=== PATIENT | male | born 1940 | race Caucasian/White ===

== ENCOUNTER 2017-05-28 07:06 | Inpatient (IN) | payer MEDICARE, OTHER ==
[2017-05-28] MEDS ORDERED: Ondansetron 4 MG/2 ML SDV IVPUSH ONE (07:32)
[2017-05-28] MEDS ORDERED: HYDROmorphone 0.5 MG/0.5 ML Syringe IVPUSH ONE (07:32)
[2017-05-28] MEDS ORDERED: Sodium Chloride 0.9% 10 ML Syringe FLUSH PRN (07:32)
[2017-05-28] MEDS ORDERED: Sodium Chloride 0.9% 500 ML IV ONE (07:32)
--- NOTE | 2017-05-28 07:35 | EDM.PDOC ---
ED HPI GENERAL MEDICAL PROBLEM - General Chief Complaint: Neurological Problem Stated Complaint: [facility] Time Seen by Provider: 05/28/17 07:15 Source of Information: Reports: Patient, RN Notes Reviewed - History of Present Illness INITIAL COMMENTS - FREE TEXT/NARRATIVE: 77-year-old male has been brought in by ambulance with vertigo type dizziness, lightheadedness, nausea,this all started upon awakening this morning about 2 hours ago. He also does have some mild numbness of the entire left face. He states he has some very mild numbness of his left hand. He states he was feeling fine yesterday. He has been having a lot of neck discomfort worsening over the past 2-3 months. 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 It was diagnosed and treated about 3 years ago. He was reported to be "cancer free at the time of his last checkup about a year ago. He does have posterior headache this morning as well. He has not taken his morning meds. He does have history of hypertension, type 2 diabetes and COPD. states he has had a loose productive cough for several weeks. No obvious fever or chills. Also of note he is on xarelto. Due to the numbness of his left face and hand this was called as a stroke alert. - Related Data Allergies Allergy/AdvReac Type Severity Reaction Status Date / Time adhesive Allergy Intermediate thin skin, Verified 05/28/17 07:09 tears and bruising Home Meds: Home Meds Calcitonin,[place],Synthetic [Calcitonin-Gnaden[place]] 200 unit MARILIN DAILY 09/06/14 [ History] Fluticasone Propionate [Flonase] 2 spray MARILIN ASDIRECTED 09/06/14 [History] Glimepiride [Amaryl] 2 mg PO DAILY 09/06/14 [History] Linagliptin [Tradjenta] 5 mg PO DAILY 09/06/14 [History] Omeprazole 20 mg PO DAILY 09/06/14 [History] predniSONE [Prednisone] 10 mg PO DAILY 09/06/14 [History] Magnesium Oxide 400 mg PO DAILY 30 Days 03/04/15 [Rx] Calcium Carbonate [Calcium] 600 mg PO DAILY 07/22/15 [History] Cholecalciferol (Vitamin D3) [Vitamin D3] 2,000 unit PO DAILY 07/22/15 [History] Metoprolol Tartrate 75 mg PO BID 07/22/15 [History] Sennosides/Docusate Sodium [Senna-Docusate Sodium] 8.6 - 50 mg PO BID 07/22/15 [ History] Acetaminophen [Tylenol] 650 mg PO Q4H PRN #0 tablet 03/01/16 [Rx] Hydrocodone/Acetaminophen [Hydrocodon-Acetaminophen 5-325] 1 tab PO Q8H PRN #30 tablet 03/01/16 [Rx] Celecoxib [CeleBREX] 200 mg PO DAILY 05/28/17 [History] Doxazosin [Cardura] 4 mg PO DAILY 05/28/17 [History] Furosemide [Lasix] 20 mg PO DAILY 05/28/17 [History] Rosuvastatin [Crestor] 10 mg PO BEDTIME 05/28/17 [History] Zinc Gluconate [Elemental Zinc] 30 mg PO DAILY 05/28/17 [History] Past Medical History HEENT History: Reports: Hard of Hearing, Other (See Below) Other HEENT History: cerumen impaction, tinnitis, very [place] Cardiovascular History: Reports: Aneurysm, High Cholesterol, Hypertension, SOB on Exertion, Other (See Below) Other Cardiovascular History: AAA, tachycardia, SVT Respiratory History: Reports: SOB, Other (See Below) Other Respiratory History: hypoxia,Oxygen at home at night and sometimes during the day, cough Gastrointestinal History: Reports: Other (See Below) Other Gastrointestinal History: abdominal air of unknown origin, colon polyps Genitourinary History: Reports: BPH, Other (See Below) Other Genitourinary History: dysuria, nocturia, urgency Musculoskeletal History: Reports: Back Pain, Chronic, Osteoporosis, RA, Other ( See Below) Other Musculoskeletal History: fall and Lt hip fracture in April 2015. Wheelchair bound since then. Reports having old fractures in lumbar vertebrae. Neurological History: Reports: None Psychiatric History: Reports: Depression Other Psychiatric History: delerium, confusion, insomnia Endocrine/Metabolic History: Reports: Diabetes, Type II Hematologic History: Reports: None Immunologic History: Reports: None Oncologic (Cancer) History: Reports: Lymphoma, Non-Hodgkin's Lymphoma Other Oncologic History: B-cell lymphoma. Patient has a implanted IV port Dermatologic History: Reports: None - Infectious Disease History Infectious Disease History: Reports: None - Past Surgical History Cardiovascular Surgical History: Reports: AAA repair, Other (See Below) GI Surgical History: Reports: Appendectomy, Colonoscopy, Other (See Below) Musculoskeletal Surgical History: Reports: Other (See Below) Social & Family History - Family History Family Medical History: Noncontributory - Tobacco Use Smoking Status *Q: Unknown Ever Smoked Years of Tobacco use: 25 Packs/Tins Daily: 1 Used Tobacco, but Quit: Yes Month Tobacco Last Used: 1983 Second Hand Smoke Exposure: No - Alcohol Use Days Per Week of Alcohol Use: 0 - Recreational Drug Use Recreational Drug Use: No Drug Use in Last 12 Months: No ED ROS GENERAL - Review of Systems Review Of Systems: See Below Constitutional: Denies: Fever, Chills, Diaphoresis HEENT: Reports: Vertigo. Denies: Sinus Problem, Throat Pain Respiratory: Reports: Shortness of Breath, Cough (Mild chronically), Sputum ( for the past several weeks intermittent ) Cardiovascular: Reports: Dyspnea on Exertion (Chronically). Denies: Chest Pain GI/Abdominal: Reports: Nausea (Mild). Denies: Abdominal Pain, Diarrhea, Vomiting Musculoskeletal: Reports: Neck Pain (For the past 2-3 months), Shoulder Pain ( Left-sided). Denies: Arm Pain Skin: Denies: Rash Neurological: Reports: Numbness, Tingling (Left face left hand), Weakness ( Generalized). Denies: Trouble Speaking ED EXAM, NEURO - Physical Exam Exam: See Below General Appearance: Alert, Mild Distress Eye Exam: Bilateral Eye: PERRL Throat/Mouth: Normal Inspection, Other (Oral mucosa is dry) Head Exam: Atraumatic. No: Facial Swelling Neck: Other (Mild tenderness left posterior base of neck, increased pain with motion of neck) Respiratory/Chest: No Respiratory Distress, Lungs Clear, Normal Breath Sounds Cardiovascular: Regular Rate, Rhythm GI/Abdominal: Soft, Non-Tender. No: Guarding Neurological: Alert, Oriented x 3, Other (Patient has no definite focal weakness , as have ataxia with [id number] testing bilateral, sensation is intact to touch upper and lower extremities, sensation intact to touch left base, no facial droop) EKG INTERPRETATION EKG Date: 05/28/17 Rhythm: NSR P-Wave: Present QRS: Normal ST-T: Normal Course - Vital Signs Last Recorded V/S: Last Vital Signs Temp 96.9 F 05/28/17 07:10 Pulse 57 L 05/28/17 07:10 Resp 15 05/28/17 07:10 BP 130/98 H 05/28/17 07:10 Pulse Ox 97 05/28/17 07:10 - Orders/Labs/Meds Orders: Active Orders 24 hr Category Date Time Status EKG 12 Lead [EKG Documentation Completion] [RC] STAT Care 05/28/17 07:31 Active Peripheral IV Care [RC] . DIRECTED Care 05/28/17 07:32 Active Sodium Chloride 0.9% [Saline Flush] Med 05/28/17 07:32 Active 10 ml FLUSH ASDIRECTED PRN Peripheral IV Insertion Adult [OM.PC] Stat Oth 05/28/17 07:31 Ordered Medication Orders Sodium Chloride (Saline Flush) 10 ml FLUSH ASDIRECTED PRN PRN Reason: Keep Vein Open Last Admin: 05/28/17 08:10 Dose: 10 ml Labs: Laboratory Tests 05/28/17 05/28/17 05/28/17 Range/Units 07:40 07:47 07:47 WBC 8.59 (4.23-9.07) K/mm3 RBC 4.47 L (4.63-6.08) M/mm3 Hgb 12.9 L (13.7-17.5) gm/L Hct 40.4 (40.1-51.0) % MCV 90.4 (79.0-92.2) fl MCH 28.9 (25.7-32.2) pg MCHC 31.9 L (32.2-35.5) g/dl RDW Std Deviation 45.2 H (35.1-43.9) fL Plt Count 79 L (163-337) K/mm3 MPV 10.7 (9.4-12.3) fl Neut % (Auto) 70.3 H (34.0-67.9) % Lymph % (Auto) 18.6 L (21.8-53.1) % [place] % (Auto) 8.5 (5.3-12.2) % Eos % (Auto) 0.9 (0.8-7.0) Baso % (Auto) 0.2 (0.1-1.2) % Neut # (Auto) 6.03 H (1.78-5.38) K/mm3 Lymph # (Auto) 1.60 (1.32-3.57) K/mm3 [place] # (Auto) 0.73 (0.30-0.82) K/mm3 Eos # (Auto) 0.08 (0.04-0.54) K/mm3 Baso # (Auto) 0.02 (0.01-0.08) K/mm3 Manual Slide Review Abnormal smear Sodium 144 (136-145) mEq/L Potassium 3.5 (3.5-5.1) mEq/L Chloride 107 (98-107) mEq/L Carbon Dioxide 27 (21-32) mEq/L Anion Gap 13.5 (5-15) BUN 21 H (7-18) mg/dL Creatinine 0.9 (0.7-1.3) mg/dL Est Cr Clr Drug Dosing 67.65 mL/min Estimated GFR (MDRD) > 60 (>60) mL/min BUN/Creatinine Ratio 23.3 H (14-18) Glucose 159 H (83-115) mg/dL POC Glucose 152 H (83-110) mg/dL Calcium 8.4 L (8.5-10.1) mg/dL Total Bilirubin 0.4 (0.2-1.0) mg/dL AST 21 (15-37) U/L ALT 22 (16-63) U/L Alkaline Phosphatase 54 (46-116) U/L B-Natriuretic Peptide (0-100) pg/mL Total Protein 6.2 L (6.4-8.2) g/dl Albumin 3.4 (3.4-5.0) g/dl Globulin 2.8 gm/dL Albumin/Globulin Ratio 1.2 (1-2) 05/28/17 Range/Units 07:47 WBC (4.23-9.07) K/mm3 RBC (4.63-6.08) M/mm3 Hgb (13.7-17.5) gm/L Hct (40.1-51.0) % MCV (79.0-92.2) fl MCH (25.7-32.2) pg MCHC (32.2-35.5) g/dl RDW Std Deviation (35.1-43.9) fL Plt Count (163-337) K/mm3 MPV (9.4-12.3) fl Neut % (Auto) (34.0-67.9) % Lymph % (Auto) (21.8-53.1) % [place] % (Auto) (5.3-12.2) % Eos % (Auto) (0.8-7.0) Baso % (Auto) (0.1-1.2) % Neut # (Auto) (1.78-5.38) K/mm3 Lymph # (Auto) (1.32-3.57) K/mm3 [place] # (Auto) (0.30-0.82) K/mm3 Eos # (Auto) (0.04-0.54) K/mm3 Baso # (Auto) (0.01-0.08) K/mm3 Manual Slide Review Sodium (136-145) mEq/L Potassium (3.5-5.1) mEq/L Chloride (98-107) mEq/L Carbon Dioxide (21-32) mEq/L Anion Gap (5-15) BUN (7-18) mg/dL Creatinine (0.7-1.3) mg/dL Est Cr Clr Drug Dosing mL/min Estimated GFR (MDRD) (>60) mL/min BUN/Creatinine Ratio (14-18) Glucose (83-115) mg/dL POC Glucose (83-110) mg/dL Calcium (8.5-10.1) mg/dL Total Bilirubin (0.2-1.0) mg/dL AST (15-37) U/L ALT (16-63) U/L Alkaline Phosphatase (46-116) U/L B-Natriuretic Peptide 33 (0-100) pg/mL Total Protein (6.4-8.2) g/dl Albumin (3.4-5.0) g/dl Globulin gm/dL Albumin/Globulin Ratio (1-2) Meds: Medications Generic Name Dose Route Start Last Admin Trade Name Freq PRN Reason Stop Dose Admin Sodium Chloride 10 ml 05/28/17 07:32 05/28/17 08:10 Saline Flush FLUSH 10 ml ASDIRECTED PRN Administration Keep Vein Open Discontinued Medications Generic Name Dose Route Start Last Admin Trade Name Freq PRN Reason Stop Dose Admin Hydromorphone HCl 0.5 mg 05/28/17 07:32 05/28/17 08:05 Dilaudid IVPUSH 05/28/17 07:33 0.5 mg ONETIME ONE Administration Sodium Chloride 500 mls @ 999 mls/hr 05/28/17 07:32 05/28/17 08:04 Normal Saline IV 05/28/17 08:02 999 mls/hr .BOLUS ONE Administration Ondansetron HCl 4 mg 05/28/17 07:32 05/28/17 07:57 Zofran IVPUSH 05/28/17 07:33 Not Given ONETIME ONE Departure - Departure Time of Disposition: 12:07 Disposition: Admitted As Inpatient 65 Condition: Fair Clinical Impression: Neck pain, Dizziness Labyrinthitis Qualifiers: Laterality: unspecified laterality Qualified Code(s): H83.09 - Labyrinthitis, unspecified ear Hypotension Qualifiers: Hypotension type: unspecified hypotension type Qualified Code(s): I95.9 - Hypotension, unspecified - Discharge Information Referrals: Scottie Butler MD [Primary Care Provider] - Forms: ED Department Discharge ED Communication - Discussed Case With (1) Discussed Case With (1): Admitting Provider (Bree, decision to admit at about 11:00) - My Orders Last 24 Hours: My Active Orders 05/28/17 07:31 EKG 12 Lead [EKG Documentation Completion] [RC] STAT Peripheral IV Insertion Adult [OM.PC] Stat 05/28/17 07:32 Peripheral IV Care [RC] . DIRECTED Sodium Chloride 0.9% [Saline Flush] 10 ml FLUSH ASDIRECTED PRN - Assessment/Plan Last 24 Hours: My Active Orders 05/28/17 07:31 EKG 12 Lead [EKG Documentation Completion] [RC] STAT Peripheral IV Insertion Adult [OM.PC] Stat 05/28/17 07:32 Peripheral IV Care [RC] . DIRECTED Sodium Chloride 0.9% [Saline Flush] 10 ml FLUSH ASDIRECTED PRN
--- NOTE | 2017-05-28 08:00 | CT ---
CT cervical spine Technique: Multiple axial sections were obtained from above C1 inferiorly to the upper T2 level. Reconstructed sagittal and coronal images were reviewed. Comparison: No previous cervical spine imaging. Findings: Severe disc space narrowing is noted at C2-C3, C3-C4 and C4-C5. Moderate to severe disc space narrowing is noted at C5-C6 and C6-C7 as well as at C7-T1. Diffuse anterior osteophytes are seen throughout the cervical spine. Diffuse posterior osteophytes are also seen throughout the cervical spine. Diffuse degenerative apophyseal change is also seen throughout the cervical spine. Mastoid sinuses and middle ear cavities are clear. Posterior skull base is intact. No fracture is appreciated. Degenerative change is noted between the dens and anterior arch of C1. Scattered neural foraminal narrowing is seen within the cervical spine. No bony central canal stenosis is seen. Diffuse degenerative spurring is seen throughout the uncovertebral joints. Bony structures are osteopenic. Impression: 1. Diffuse degenerative change. 2. Nothing acute is definitely appreciated. Diagnostic code #3
--- NOTE | 2017-05-28 08:01 | CT ---
Head CT Technique: Multiple axial sections through the brain were obtained. Intravenous contrast was not utilized. Comparison: Previous head CT study of 01/01/16. Findings: Ventricles along with basal cisterns and sulci over the convexities are moderately prominent. Very minimal diminished density is noted within portions of the periventricular and subcortical white matter which is compatible with small vessel ischemic demyelination change. No other abnormal parenchymal densities are seen. No evidence of intracranial hemorrhage. No midline shift or mass effect is seen. Bone window settings were reviewed which shows no acute calvarial abnormality. Small soft tissue density noted within the upper left maxillary sinus which is compatible with minimal retention cyst. Mild nasal septal deviation is seen. Impression: 1. Senescent change. 2. Incidental sinus findings. 3. No acute intracranial abnormality is identified. No acute skull fracture is seen. Diagnostic code #2
[2017-05-28] MEDS ORDERED: Sodium Chloride 0.9% 1,000 ML IV SCH (08:35)
--- NOTE | 2017-05-28 10:46 | CR ---
Chest: Portable view of the chest was obtained. Comparison: Previous chest x-ray of 01/01/16. Heart size appears within normal limits. Tortuous thoracic aorta is seen. Lungs are clear. Infusion port is seen on the left side which appears stable from prior exam. Mild scoliosis is present within the spine. Bony structures are osteopenic. Impression: 1. Incidental findings. Nothing acute is identified on portable chest x-ray. Diagnostic code #2
--- NOTE | 2017-05-28 14:17 | PCM.HP ---
H&P History of Present Illness - General Date of Service: 05/28/17 Admit Problem/Dx: Admission Diagnosis/Problem Admission Diagnosis/Problem Labyrinthitis Source of Information: Patient, Old Records, Provider, RN Notes Reviewed History Limitations: Reports: No Limitations, Physical Impairment - History of Present Illness Initial Comments - Free Text/Narative: This is a 69-year-old elderly white male with past medical history of diabetes type 2 hypertension hyperlipidemia history of non-Hodgkin's lymphoma, BPH, osteoporosis, RA, history of cardiac dysrhythmia, chronic pain syndrome, history of neck fracture, tinnitus, who was brought in by ambulance with neuro- like symptoms. He woke up early this morning with complaints of left arm weakness, vision changes, difficulty swallowing as well as sensation of pulse beating on his right ear. He also had some numbness of his left face. His symptoms lasted about an hour. Patient has history of neck fracture and questionable history of cancer and he has been having a lot of discomfort worsening over the past couple months. Patient also complains of posterior headache this morning. He denies any signs of systemic infection. Of note, ED provider noted the patient is on xarelto but not on his home med list. His initial diagnostic workup in ED shows a CBC remarkable for RBC of 4.47, hemoglobin 12.9, platelet of 79, and neutrophil counts are 6.03. His chemistry is remarkable for BUN of 21, glucose of 159, calcium 8.4, C-reactive protein of 1.4 and total protein of 6.2. His chest x-ray showed nothing acute identified. Head CT scan without contrast shows senescent change. Incidental sinus finding. No acute intra-cranial abnormality is identified. Cervical spine without contrast show nothing acute is definitely appreciated. Diffuse dated degenerative change. Patient is being admitted for TIA and labyrinthitis. He is full code. . - Related Data Allergies/Adverse Reactions: Allergies Allergy/AdvReac Type Severity Reaction Status Date / Time adhesive Allergy Intermediate thin skin, Verified 05/28/17 07:09 tears and bruising Home Medications: Home Meds Calcitonin,[place],Synthetic [Calcitonin-[place]] 200 unit MARILIN DAILY 09/06/14 [ History] Fluticasone Propionate [Flonase] 2 spray [place] ASDIRECTED 09/06/14 [History] Glimepiride [Amaryl] 2 mg PO DAILY 09/06/14 [History] Linagliptin [Tradjenta] 5 mg PO DAILY 09/06/14 [History] Omeprazole 20 mg PO DAILY 09/06/14 [History] predniSONE [Prednisone] 10 mg PO DAILY 09/06/14 [History] Magnesium Oxide 400 mg PO DAILY 30 Days 03/04/15 [Rx] Calcium Carbonate [Calcium] 600 mg PO DAILY 07/22/15 [History] Cholecalciferol (Vitamin D3) [Vitamin D3] 2,000 unit PO DAILY 07/22/15 [History] Metoprolol Tartrate 75 mg PO BID 07/22/15 [History] Sennosides/Docusate Sodium [Senna-Docusate Sodium] 8.6 - 50 mg PO BID 07/22/15 [ History] Acetaminophen [Tylenol] 650 mg PO Q4H PRN #0 tablet 03/01/16 [Rx] Hydrocodone/Acetaminophen [Hydrocodon-Acetaminophen 5-325] 1 tab PO Q8H PRN #30 tablet 03/01/16 [Rx] Celecoxib [CeleBREX] 200 mg PO DAILY 05/28/17 [History] Doxazosin [Cardura] 4 mg PO DAILY 05/28/17 [History] Furosemide [Lasix] 20 mg PO DAILY 05/28/17 [History] Rosuvastatin [Crestor] 10 mg PO BEDTIME 05/28/17 [History] Triamcinolone Acetonide [Triamcinolone Acetonide 0.5%] 15 gm TOP BID 05/28/17 [ History] Zinc Gluconate [Elemental Zinc] 30 mg PO DAILY 05/28/17 [History] Past Medical History HEENT History: Reports: Hard of Hearing, Other (See Below) Other HEENT History: cerumen impaction, tinnitis, very [place] Cardiovascular History: Reports: Aneurysm, High Cholesterol, Hypertension, SOB on Exertion, Other (See Below) Other Cardiovascular History: AAA, tachycardia, SVT Respiratory History: Reports: SOB, Other (See Below) Other Respiratory History: hypoxia,Oxygen at home at night and sometimes during the day, cough Gastrointestinal History: Reports: Other (See Below) Other Gastrointestinal History: abdominal air of unknown origin, colon polyps Genitourinary History: Reports: BPH, Other (See Below) Other Genitourinary History: dysuria, nocturia, urgency Musculoskeletal History: Reports: Back Pain, Chronic, Osteoporosis, RA, Other ( See Below) Other Musculoskeletal History: fall and Lt hip fracture in April 2015. Wheelchair bound since then. Reports having old fractures in lumbar vertebrae. Neurological History: Reports: None Psychiatric History: Reports: Depression Other Psychiatric History: delerium, confusion, insomnia Endocrine/Metabolic History: Reports: Diabetes, Type II Hematologic History: Reports: None Immunologic History: Reports: None Oncologic (Cancer) History: Reports: Lymphoma, Non-Hodgkin's Lymphoma Other Oncologic History: B-cell lymphoma. Patient has a implanted IV port Dermatologic History: Reports: None - Infectious Disease History Infectious Disease History: Reports: None - Past Surgical History Cardiovascular Surgical History: Reports: AAA repair, Other (See Below) GI Surgical History: Reports: Appendectomy, Colonoscopy, Other (See Below) Musculoskeletal Surgical History: Reports: Other (See Below) Social & Family History - Family History Family Medical History: Noncontributory - Tobacco Use Smoking Status *Q: Unknown Ever Smoked Years of Tobacco use: 25 Packs/Tins Daily: 1 Used Tobacco, but Quit: Yes Month Tobacco Last Used: 1983 Second Hand Smoke Exposure: No - Caffeine Use Caffeine Use: Reports: Coffee - Alcohol Use Days Per Week of Alcohol Use: 0 - Recreational Drug Use Recreational Drug Use: No Drug Use in Last 12 Months: No H&P Review of Systems - Review of Systems: Review Of Systems: See Below General: Denies: Fever, Chills, Malaise, Diaphoresis HEENT: Reports: Vertigo, Visual Changes Pulmonary: Reports: Shortness of Breath, Cough, Sputum Cardiovascular: Reports: Dyspnea on Exertion. Denies: Chest Pain, Edema, Blood Pressure Problem Gastrointestinal: Reports: Difficulty Swallowing, Nausea. Denies: Abdominal Pain, Vomiting Genitourinary: Reports: No Symptoms Musculoskeletal: Reports: Neck Pain, Shoulder Pain Skin: Denies: Cyanosis, Jaundice, Pallor, Rash, Erythema, Wound Psychiatric: Denies: Confusion, Depression, Anxiety, Hallucinations Neurological: Reports: Weakness (left arm) Hematologic/Lymphatic: Reports: No Symptoms Immunologic: Reports: No Symptoms Exam - Exam Exam: See Below - Vital Signs Vital Signs: Last Vital Signs Temp 36.1 C 05/28/17 07:10 Pulse 57 L 05/28/17 07:10 Resp 15 05/28/17 07:10 BP 130/98 H 05/28/17 07:10 Pulse Ox 97 05/28/17 07:10 Weight: 87 kg - Exam Quality Assessment: Supplemental Oxygen General: Alert, Oriented, Cooperative, Mild Distress HEENT: Conjunctiva Clear, EACs Clear, EOMI, Hearing Intact, Mucosa Moist & [place] , Nares Patent, Normal Nasal Septum, Posterior Pharynx Clear, Pupils Equal, Contact Lenses Neck: Supple, Trachea Midline, +2 Carotid Pulse wo Bruit, Full Range of Motion Lungs: Normal Respiratory Effort, Decreased Breath Sounds Cardiovascular: Regular Rate, Regular Rhythm Abdomen: Normal Bowel Sounds, Soft. No: Organomegaly, Tenderness (Male) Exam: Deferred Rectal (Males) Exam: Deferred Back Exam: Normal Inspection, Decreased Range of Motion Extremities: Normal Inspection, Normal Pulses. No: Edema Peripheral Pulses: 2+: Posterior Tibial (L), Posterior Tibial (R), Dorsalis Pedis (L), Dorsalis Pedis (R) Skin: Warm, Dry, Intact Neuro Extensive - Mental Status: Oriented x3, Normal Cognition, Memory Intact Neuro Extensive - Motor, Sensory, Reflexes: CN II-XII Intact, Abnormal Gait Psychiatric: Alert, Normal Affect, Normal Mood - Patient Data Result Diagrams: 05/29/17 06:01 05/29/17 06:01 EKG INTERPRETATION EKG Date: 05/28/17 Rhythm: NSR P-Wave: Present QRS: Normal ST-T: Normal *Q Meaningful Use (ADM) - VTE *Q VTE Criteria *Q: - Stroke *Q Stroke Criteria *Q: - AMI *Q AMI Criteria *Q: Problem List Initiated/Reviewed/Updated: Yes Orders Last 24hrs: Medication Orders Sodium Chloride (Saline Flush) 10 ml FLUSH ASDIRECTED PRN PRN Reason: Keep Vein Open Last Admin: 05/28/17 08:10 Dose: 10 ml Assessment/Plan Comment:: Assessment/Plan: Acute: Probable TIA - Symptoms: hears pulse beat on right ear, left arm weakness, difficulty swallowing and vision changes- improving symptoms - Suspect cardio-embolic stroke given his hx/o cardiac dysrhythmia - Risk Factors: Chronic Dysrhythmia, HTN, HLD and DM2 - Head CT scan: negative for acute abnormal findings - Routine neuro check per unit protocol - Treatment is secondary prevention - Already on Statin and BB; ASA contraindicated due to low platelet - Stroke Protocol: Lipid Panel, 2D Echo, Brain MRI, Head and Neck MRA, Carotid U/S, and PT/OT Labyrinthitis vs Pulsatile Tinnitus (Vascular Tinnitus) - Risk factors: Bilateral Cerumen Impaction and Chronic Tinnitus - Carotid U/S to r/o Extra-cranial atherosclerotic disease - Small soft tissue density noted within upper left maxillary sinus: compatible with retention cyst - No recent URI - Cervical spine CT scan: Mastoid sinuses and middle ear cavities are clear. Posterior skull base is intact. No fractures appreciated. - Supportive Care - Check Thyroid Panel - Need outpatient ENT eval Bilateral Cerumen Impaction - Debrox 5 gtts BID - Routine ear irrigation per nursing Neck Pain - Hx/o C-spine cancer - Likely 2/2 Cervical Spine Degenerative Changes - Cervical Spine CT scan without contrast: Severe disc space narrowing at C2- C3, C3-C4 and C4-C5. Moderate severe disc space narrowing at C5-C6 and C6-C7 as well as C7-T1. 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
[2017-05-28] MEDS ORDERED: LORazepam 2 MG/ML MDV IVPUSH PRN (14:51)
[2017-05-28] MEDS ORDERED: Metoprolol Tartrate 5 MG/5 ML SDV IVPUSH PRN (14:51)
[2017-05-28] MEDS ORDERED: hydrALAZINE 20 MG/ML SDV IVPUSH PRN (14:51)
[2017-05-28] MEDS ORDERED: Promethazine 12.5 MG in Sodium Chloride 0.9% 50 ML IV PRN (14:52)
[2017-05-28] MEDS ORDERED: Acetaminophen 325 MG Tab PO PRN ×2 (14:52→14:56)
[2017-05-28] MEDS ORDERED: LORazepam 2 MG/ML MDV IV PRN (14:52)
[2017-05-28] MEDS ORDERED: Polyethylene Glycol 3350 Powder 17 GM Packet PO PRN (14:52)
[2017-05-28] MEDS ORDERED: Docusate Sodium 100 MG Cap PO PRN (14:52)
[2017-05-28] MEDS ORDERED: Ondansetron 4 MG/2 ML SDV IV PRN (14:52)
[2017-05-28] MEDS ORDERED: HYDROmorphone 1 MG/ML Syringe IVPUSH PRN (14:52)
[2017-05-28] MEDS ORDERED: Temazepam 15 MG Cap PO PRN (14:52)
[2017-05-28] MEDS ORDERED: Bisacodyl 5 MG Tab PO PRN (14:52)
[2017-05-28] MEDS ORDERED: Albuterol/Ipratropium 3.0-0.5 MG/3 ML Neb Soln NEB PRN (14:52)
[2017-05-28] MEDS ORDERED: Acetaminophen/HYDROcodone 325-5 MG Tab PO PRN (14:56)
[2017-05-28] MEDS: Sodium Chloride 0.9% 1,000 ML IV SCH ×2 (19:03→21:45)
[2017-05-28] MEDS: Metoprolol Tartrate 50 MG Tab PO SCH (20:49)
[2017-05-28] MEDS: Rosuvastatin 10 MG Tab PO SCH (20:49)
[2017-05-28] MEDS: Acetaminophen/HYDROcodone 325-5 MG Tab PO PRN (20:54)
[2017-05-28] MEDS: Carbamide Peroxide 6.5% Otic Soln 15 ML Bottle EARBOTH SCH (21:28)
[2017-05-29] MEDS: Acetaminophen/HYDROcodone 325-5 MG Tab PO PRN ×4 (01:31→19:41)
[2017-05-29] MEDS: Pantoprazole 40 MG Tab.CR PO SCH ×2 (05:52→06:32)
--- NOTE | 2017-05-29 07:08 | PCM.PN ---
- General Info Date of Service: 05/29/17 Admission Dx/Problem (Free Text): Admission Diagnosis/Problem Admission Diagnosis/Problem Labyrinthitis Patient seen this morning after return from MRI. Pain much better controlled. No residual weakness now. Working with PT/OT. Functional Status: Reports: pain controlled, tolerating diet, ambulating, urinating - Review of Systems General: Reports: No Symptoms HEENT: Reports: no symptoms Pulmonary: Reports: no symptoms Cardiovascular: Reports: No Symptoms Gastrointestinal: Reports: No symptoms Genitourinary: Reports: no symptoms Musculoskeletal: Reports: neck pain (chronic) Skin: Reports: no symptoms Neurological: Reports: No Symptoms, Other (lt sided weakness resolved) Psychiatric: Reports: no symptoms - Patient Data Vitals - most recent: Last Vital Signs Temp 98.8 F 05/29/17 02:51 Pulse 66 05/29/17 02:51 Resp 18 05/29/17 02:51 BP 111/73 05/29/17 02:51 Pulse Ox 91 L 05/29/17 02:51 Weight - most recent: 191 lb I&O - last 24 hours: Intake & Output 05/28/17 05/29/17 05/29/17 22:59 06:59 14:59 Intake Total 43 923 Output Total 200 Balance 43 723 Lab Results last 24 hrs: Laboratory Results - last 24 hr 05/29/17 05/29/17 Range/Units 06:01 06:23 WBC 9.02 (4.23-9.07) K/mm3 RBC 4.70 (4.63-6.08) M/mm3 Hgb 13.4 L (13.7-17.5) gm/L Hct 43.0 (40.1-51.0) % MCV 91.5 (79.0-92.2) fl MCH 28.5 (25.7-32.2) pg MCHC 31.2 L (32.2-35.5) g/dl RDW Std Deviation 46.9 H (35.1-43.9) fL Plt Count 86 L (163-337) K/mm3 MPV 10.8 (9.4-12.3) fl Neut % (Auto) 62.1 (34.0-67.9) % Lymph % (Auto) 26.8 (21.8-53.1) % [place] % (Auto) 9.0 (5.3-12.2) % Eos % (Auto) 0.9 (0.8-7.0) Baso % (Auto) 0.1 (0.1-1.2) % Neut # (Auto) 5.60 H (1.78-5.38) K/mm3 Lymph # (Auto) 2.42 (1.32-3.57) K/mm3 [place] # (Auto) 0.81 (0.30-0.82) K/mm3 Eos # (Auto) 0.08 (0.04-0.54) K/mm3 Baso # (Auto) 0.01 (0.01-0.08) K/mm3 POC Glucose 93 (83-110) mg/dL Med Orders - Current: Current Medications Acetaminophen (Tylenol) 650 mg PO Q4H PRN PRN Reason: Pain (Mild 1-3)/fever Hydrocodone Bitart/Acetaminophen ([place] 325-5 Mg) 1 tab PO Q4H PRN PRN Reason: Pain (moderate 4-6) Last Admin: 05/29/17 01:31 Dose: 1 tab Hydrocodone Bitart/Acetaminophen ([place] 325-5 Mg) 1 tab PO Q8H PRN PRN Reason: Pain Albuterol/Ipratropium (Duoneb 3.0-0.5 Mg/3 Ml) 3 ml NEB Q4H PRN PRN Reason: Shortness Of Breath/wheezing Bisacodyl (Dulcolax) 5 mg PO DAILY PRN PRN Reason: Constipation Calcium Carbonate/Glycine (Calcium Carbonate) 600 mg PO DAILY [facility] Carbamide Perox/Anhydrous Glycerin (Debrox 6.5% Otic Soln) 0 ml EARBOTH BID [facility] Last Admin: 05/28/17 21:28 Dose: Not Given Cholecalciferol (Vitamin D3) 2,000 units PO DAILY [place] Docusate Sodium (Colace) 100 mg PO BID PRN PRN Reason: Constipation Doxazosin Mesylate (Cardura) 4 mg PO DAILY [facility] Flunisolide (Nasalide Nasal [place]) 0 ml NASBOTH DAILY [facility] Furosemide (Lasix) 20 mg PO DAILY [facility] Glimepiride (Amaryl) 2 mg PO DAILY [facility] Hydralazine HCl (Apresoline) 20 mg IVPUSH Q4H PRN PRN Reason: Hypertension Hydromorphone HCl (Dilaudid) 0.25 mg IVPUSH Q2H PRN PRN Reason: Pain (severe 7-10) Promethazine HCl 12.5 mg/ (Sodium Chloride) 50.5 mls @ 100 mls/hr IV Q6H PRN PRN Reason: Nausea/Vomiting Sodium Chloride (Normal Saline) 1,000 mls @ 50 mls/hr IV ASDIRECTED [facility] Last Admin: 05/28/17 21:45 Dose: 50 mls/hr Lorazepam (Ativan) 2 mg IVPUSH Q4H PRN PRN Reason: Seizures Lorazepam (Ativan) 1 mg IV Q6H PRN PRN Reason: Anxiety Magnesium Oxide (Magnesium Oxide) 400 mg PO DAILY [facility] Metoprolol Tartrate (Lopressor) 5 mg IVPUSH Q4H PRN PRN Reason: Tachycardia Metoprolol Tartrate (Lopressor) 75 mg PO BID [facility] Last Admin: 05/28/17 20:49 Dose: 75 mg Non-Formulary Medication (Calcitonin ([place])) 200 unit MARILIN DAILY [facility] Non-Formulary Medication (Linagliptin [Tradjenta]) 5 mg PO DAILY [facility] Non-Formulary Medication (Zinc Gluconate [Elemental Zinc]) 30 mg PO DAILY [facility] Ondansetron HCl (Zofran) 4 mg IV Q6H PRN PRN Reason: Nausea/Vomiting Pantoprazole Sodium (Protonix) 40 mg PO DAILY@0700 [facility] Last Admin: 05/29/17 06:32 Dose: Not Given Polyethylene Glycol (Miralax) 17 gm PO DAILY PRN PRN Reason: Constipation Prednisone (Prednisone) 10 mg PO DAILY [facility] Rosuvastatin Calcium (Crestor) 10 mg PO BEDTIME [facility] Last Admin: 05/28/17 20:49 Dose: 10 mg Senna/Docusate Sodium (Senna Plus) 1 tab PO BID PRN PRN Reason: Constipation Senna/Docusate Sodium (Senna Plus) 1 tab PO BID [facility] Last Admin: 05/28/17 20:49 Dose: 1 tab Sodium Chloride (Saline Flush) 10 ml FLUSH ASDIRECTED PRN PRN Reason: Keep Vein Open Last Admin: 05/28/17 08:10 Dose: 10 ml Temazepam (Restoril) 15 mg PO BEDTIME PRN PRN Reason: Sleep Discontinued Medications Acetaminophen (Tylenol) 650 mg PO Q4H PRN PRN Reason: Pain Aspirin (Aspirin) 162 mg PO DAILY [facility] Hydromorphone HCl (Dilaudid) 0.5 mg IVPUSH ONETIME ONE Stop: 05/28/17 07:33 Last Admin: 05/28/17 08:05 Dose: 0.5 mg Sodium Chloride (Normal Saline) 500 mls @ 999 mls/hr IV .BOLUS ONE Stop: 05/28/17 08:02 Last Admin: 05/28/17 08:04 Dose: 999 mls/hr Sodium Chloride (Normal Saline) 1,000 mls @ 50 mls/hr IV ASDIRECTED [facility] Ondansetron HCl (Zofran) 4 mg IVPUSH ONETIME ONE Stop: 05/28/17 07:33 Last Admin: 05/28/17 07:57 Dose: Not Given - Exam Quality Assessment: DVT prophylaxis General: alert, oriented, cooperative, no acute distress HEENT: Pupils equal, Pupils reactive, EOMI, Mucous membr. moist/pink Neck: supple Lungs: Clear to auscultation, Normal respiratory effort Cardiovascular: Regular Rate, Regular Rhythm Abdomen: bowel sounds present, soft, no tenderness, no distension (Male) Exam: Deferred Extremities: no edema Neurological: no new focal deficit, other (grief counselor strength 5/5 bilat) Psy/Mental Status: alert, normal affect, normal mood - Problem List & Annotations (1) Labyrinthitis SNOMED Code(s): 07337974 Code(s): H83.09 - LABYRINTHITIS, UNSPECIFIED EAR Status: Acute Priority: High Current Visit: Yes Qualifiers: Laterality: unspecified laterality Qualified Code(s): H83.09 - Labyrinthitis, unspecified ear (2) Neck pain SNOMED Code(s): 30937636 Code(s): M54.2 - CERVICALGIA Status: Acute Priority: High Current Visit : Yes (3) Dizziness SNOMED Code(s): 888862802, 673034187 Code(s): R42 - DIZZINESS AND GIDDINESS Status: Acute Priority: High Current Visit: Yes (4) Hypotension SNOMED Code(s): 09818884 Code(s): I95.9 - HYPOTENSION, UNSPECIFIED Status: Resolved Priority: High Current Visit: Yes Qualifiers: Hypotension type: unspecified hypotension type Qualified Code(s): I95.9 - Hypotension, unspecified - Problem List Review Problem List Initiated/Reviewed/Updated: Yes - Plan Plan:: Assessment/Plan: Acute: Probable TIA - Symptoms: hears pulse beat on right ear, left arm weakness, difficulty swallowing and vision changes- improving symptoms - Suspect cardio-embolic stroke given his hx/o cardiac dysrhythmia--no calls on tele overnight; rates 60-70 all night - Risk Factors: Chronic Dysrhythmia, HTN, HLD and DM2 - Head CT scan: negative for acute abnormal findings - Routine neuro check per unit protocol - Treatment is secondary prevention - Already on Statin and BB; ASA contraindicated due to low platelet--check lipid papnel - Stroke Protocol: Lipid Panel, 2D Echo, Brain MRI, Head and Neck MRA, Carotid U/S, and PT/OT Labyrinthitis vs Pulsatile Tinnitus (Vascular Tinnitus) - Risk factors: Bilateral Cerumen Impaction and Chronic Tinnitus - Carotid U/S to r/o Extra-cranial atherosclerotic disease - Small soft tissue density noted within upper left maxillary sinus: compatible with retention cyst - No recent URI - Cervical spine CT scan: Mastoid sinuses and middle ear cavities are clear. Posterior skull base is intact. No fractures appreciated. - Supportive Care - Check Thyroid Panel - Need outpatient ENT eval Bilateral Cerumen Impaction - Debrox 5 gtts BID - Routine ear irrigation per nursing Neck Pain - Hx/o C-spine cancer - Likely 2/2 Cervical Spine Degenerative Changes - Cervical Spine CT scan without contrast: Severe disc space narrowing at C2- C3, C3-C4 and C4-C5. Moderate severe disc space narrowing at C5-C6 and C6-C7 as well as C7-T1. - PRN pain meds Thrombocytopenia - Platelet of 79--->86 - No ASA or anticoags--contraindicated due to low platelets, likely due to NHL - Continue to monitor Chronic: HTN--controlled HLD DM2- A1C NHL BPH Osteoporosis RA A3 S/p Repair SOB on Exertion Hx/o Cardiac Arrhythmia (SVT/Tachycardia)--again telemetry uneventful overnight Pain Syndrome Hx/o Neck Fracture Hx/o Severe Bradycardia--none noted overnight Impaired Hearing Tinnitus-chronic Depression Nocturnal Hypoxia on Supplemental O2 Wheel Chair Bound Cerumen Impaction Plan: Med-Surg with Telemetry Resume home meds Stroke Protocol Brain MRI, 2D echo and Carotid Duplex U/S today TFT today PRN Medications 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
[2017-05-29] MEDS: Calcium Carbonate 600 MG Tab PO SCH (08:02)
[2017-05-29] MEDS: Cholecalciferol (Vitamin D3) 1,000 Unit Tab PO SCH (08:02)
[2017-05-29] MEDS: Metoprolol Tartrate 50 MG Tab PO SCH ×2 (08:02→20:34)
[2017-05-29] MEDS: Glimepiride 2 MG Tab PO SCH (08:03)
[2017-05-29] MEDS: Furosemide 20 MG Tab PO SCH (08:03)
[2017-05-29] MEDS: Doxazosin 4 MG Tab PO SCH (08:03)
[2017-05-29] MEDS: Magnesium Oxide 400 MG Tab PO SCH (08:03)
[2017-05-29] MEDS: predniSONE 5 MG Tab PO SCH (08:04)
[2017-05-29] MEDS ORDERED: Aspirin 81 MG Tab.Chew PO SCH (09:00)
[2017-05-29] MEDS ORDERED: Diphtheria,Pertussis(Acell),Tetanus Vaccine 0.5 ML SDV IM ONE (09:03)
[2017-05-29] MEDS: ZINC GLUCONATE 30 MG PO SCH (09:25)
[2017-05-29] MEDS: CALCITONIN NAS SCH (09:26)
[2017-05-29] MEDS ORDERED: Gadobenate Dimeglumine 529 MG/ML 20 ML SDV IVPUSH ONE (11:00)
[2017-05-29] MEDS ORDERED: Sodium Chloride 0.9% 10 ML Syringe FLUSH PRN (11:00)
--- NOTE | 2017-05-29 11:18 | MR ---
MR angiogram of brain Technique: [id number] MRA angiogram study was obtained centered to the [place]. Multiple reconstructed MIP images were obtained. Comparison: No previous MR angiogram, previous head CT exam of 05/28/17. Findings: Distal vertebral and basilar arteries are unremarkable. Carotid siphons show no abnormality. Middle, anterior and posterior cerebral arteries are felt to be patent. No focal narrowing or occlusion is appreciated within the major cerebral arteries. No aneurysm is identified. Impression: 1. No abnormality is appreciated on MR angiogram study centered to the [place]. Diagnostic code #1
[2017-05-29] MEDS: Carbamide Peroxide 6.5% Otic Soln 15 ML Bottle EARBOTH SCH ×2 (11:53→20:34)
--- NOTE | 2017-05-29 12:54 | MR ---
MRI brain Technique: T1 sagittal; T2, FLAIR, diffusion and T1 axial; T1 coronal images were also obtained. Comparison: Previous head CT exam of 05/28/17. Findings: Ventricles along with basal cisterns and sulci over the convexities are moderately prominent. Very minimal areas of increased signal are seen within periventricular white matter compatible with very minimal small vessel ischemic demyelination change. Minimal area of increased signal is seen within the superior left cerebellar hemisphere. Several minimal areas of increased signal seen within the subcortical white matter. No other abnormal signal seen within the brain parenchyma. Small diffusion abnormality is noted within the posterior left cerebellar hemisphere as well as within the upper left cerebellar hemisphere. These small areas of diffusion abnormalities likely represent small areas of embolic stroke. No other diffusion abnormalities are seen. Impression: 1. Findings compatible with 2 small fairly acute lacunar infarcts within the left cerebellar hemisphere. These are most likely due to small embolic strokes. 2. No other acute diffusion abnormalities are seen. Other senescent change as described above which appears to be chronic. Diagnostic code #3
--- NOTE | 2017-05-29 12:54 | MR ---
MR angiogram of neck Technique: Postcontrast MR angiogram study was obtained centered to the neck. Findings: Both vertebral arteries are patent into the basilar artery. Internal carotid artery show no significant stenosis. Common carotid arteries are patent. Proximal common carotid arteries and proximal vertebral arteries are not optimally seen at the aortic arch and right innominate artery. Impression: 1. Proximal common carotid arteries and proximal vertebral arteries not well seen at the origin from the aortic arch and right innominate artery. No secondary evidence is seen to indicate stenosis within these areas. 2. Other portions of the MR angiogram of the neck are unremarkable. Diagnostic code #2
[2017-05-29] MEDS: Rosuvastatin 10 MG Tab PO SCH (20:35)
[2017-05-30] MEDS: Acetaminophen/HYDROcodone 325-5 MG Tab PO PRN (05:28)
[2017-05-30] MEDS: Pantoprazole 40 MG Tab.CR PO SCH ×2 (05:30→06:00)
--- NOTE | 2017-05-30 06:53 | PCM.DCSUM1 ---
Discharge Summary - Hospital Course Free Text/Narrative:: This is a 69-year-old elderly white male with past medical history of diabetes type 2 hypertension hyperlipidemia history of non-Hodgkin's lymphoma, BPH, osteoporosis, RA, history of cardiac dysrhythmia, chronic pain syndrome, history of neck fracture, tinnitus, who was brought in by ambulance with neuro- like symptoms. He woke up early this morning with complaints of left arm weakness, vision changes, difficulty swallowing as well as sensation of pulse beating on his right ear. He also had some numbness of his left face. His symptoms lasted about an hour. Patient has history of neck fracture and questionable history of cancer and he has been having a lot of discomfort worsening over the past couple months. Patient also complains of posterior headache this morning. He denies any signs of systemic infection. Of note, ED provider noted the patient is on xarelto but not on his home med list. His initial diagnostic workup in ED shows a CBC remarkable for RBC of 4.47, hemoglobin 12.9, platelet of 79, and neutrophil counts are 6.03. His chemistry is remarkable for BUN of 21, glucose of 159, calcium 8.4, C-reactive protein of 1.4 and total protein of 6.2. His chest x-ray showed nothing acute identified. Head CT scan without contrast shows senescent change. Incidental sinus finding. No acute intra-cranial abnormality is identified. Cervical spine without contrast show nothing acute is definitely appreciated. Diffuse dated degenerative change. Patient is being admitted for TIA and labyrinthitis. He is full code. PT/OT worked with him with good improvements, left sided weakness completely resolved, numbness to face completely resolved, swallow returned. All defects resolved to baseline. Evaluation as follows: echocardiogram with EF of 60%, grade 1 diastolic dysfunction. MRA brain and neck unremarkable. MRI of brain with lacunar infarcts to the left cerebellar hemisphere consistent with acute embolic event. Aspirin and oral anticoagulant is contraindicated due to thrombocytopenia/NHL. Face to face encounter on day of discharge reveals patient will be home bound and will benefit from Home Health Care services of PT/OT and nursing care relating to acute CVA with weakness/dizziness, gait imbalance. Nursing for disease education, medication education, VS monitoring. PT/OT for strength and balance. He will follow up with PCP, Dr. Butler within one week of discharge who will assume [facility] at that time. Patient will be discharged home with today and [facility] services. - Discharge Data Discharge Date: 05/30/17 (admit date- 05/28/17) Discharge Disposition: Home, W Home Health Agency 06 Condition: Good - Discharge Diagnosis/Problem(s) (1) CVA (cerebral vascular accident) SNOMED Code(s): 496559572 ICD Code: I63.9 - CEREBRAL INFARCTION, UNSPECIFIED Status: Acute Priority : High Current Visit: Yes Qualifiers: CVA mechanism: embolism Laterality of affected vessel: right (2) Labyrinthitis SNOMED Code(s): 63373414 ICD Code: H83.09 - LABYRINTHITIS, UNSPECIFIED EAR Status: Resolved Priority: High Current Visit: Yes Qualifiers: Laterality: unspecified laterality Qualified Code(s): H83.09 - Labyrinthitis, unspecified ear (3) Neck pain SNOMED Code(s): 78081370 ICD Code: M54.2 - CERVICALGIA Status: Acute Priority: High Current Visit: Yes (4) Dizziness SNOMED Code(s): 298315652, 771087122 ICD Code: R42 - DIZZINESS AND GIDDINESS Status: Resolved Priority: High Current Visit: Yes (5) Hypotension SNOMED Code(s): 96884578 ICD Code: I95.9 - HYPOTENSION, UNSPECIFIED Status: Resolved Priority: High Current Visit: Yes Qualifiers: Hypotension type: unspecified hypotension type Qualified Code(s): I95.9 - Hypotension, unspecified - Patient Summary/Data Operative Procedure(s) Performed: None Complications: None Consults: Consultations 05/28/17 14:54 Consult to Case Management [CONS] Routine Consult to Production [employer] [CONS] Routine Consult to Spiritual Care [CONS] Routine OT Evaluation and Treatment [CONS] Routine PT Evaluation and Treatment [CONS] Routine Labs Pending at D/C: None Recommended Follow-up Testing/Procedures: Follow up with Dr. Butler within one week of discharge Home Health Care upon discharge Planned Operative Procedure(s) after DC: None Hospital Course: As above - Patient Instructions Diet: Heart Healthy Diet, Diabetic Diet Activity: As Tolerated Driving: Do Not Drive Showering/Bathing: May Shower Notify Provider of: Fever, Increased Pain, Nausea and/or Vomiting - Discharge Plan Home Medications: Home Meds Calcitonin,[place],Synthetic [Calcitonin-[place]] 200 unit MARILIN DAILY 09/06/14 [ History] Fluticasone Propionate [Flonase] 2 spray MARILIN ASDIRECTED 09/06/14 [History] Glimepiride [Amaryl] 2 mg PO DAILY 09/06/14 [History] Linagliptin [Tradjenta] 5 mg PO DAILY 09/06/14 [History] Omeprazole 20 mg PO DAILY 09/06/14 [History] predniSONE [Prednisone] 10 mg PO DAILY 09/06/14 [History] Magnesium Oxide 400 mg PO DAILY 30 Days 03/04/15 [Rx] Calcium Carbonate [Calcium] 600 mg PO DAILY 07/22/15 [History] Cholecalciferol (Vitamin D3) [Vitamin D3] 2,000 unit PO DAILY 07/22/15 [History] Metoprolol Tartrate 75 mg PO BID 07/22/15 [History] Sennosides/Docusate Sodium [Senna-Docusate Sodium] 8.6 - 50 mg PO BID 07/22/15 [ History] Acetaminophen [Tylenol] 650 mg PO Q4H PRN #0 tablet 03/01/16 [Rx] Hydrocodone/Acetaminophen [Hydrocodon-Acetaminophen 5-325] 1 tab PO Q8H PRN #30 tablet 03/01/16 [Rx] Celecoxib [CeleBREX] 200 mg PO DAILY 05/28/17 [History] Doxazosin [Cardura] 4 mg PO DAILY 05/28/17 [History] Furosemide [Lasix] 20 mg PO DAILY 05/28/17 [History] Rosuvastatin [Crestor] 10 mg PO BEDTIME 05/28/17 [History] Triamcinolone Acetonide [Triamcinolone Acetonide 0.5%] 15 gm TOP BID 05/28/17 [ History] Zinc Gluconate [Elemental Zinc] 30 mg PO DAILY 05/28/17 [History] Patient Handouts: Stroke Prevention, [id number], Ischemic Stroke Treated Without Warfarin, [id number] Forms: ED Department Discharge Referrals: Scottie Butler MD [Primary Care Provider] - - Discharge Summary/Plan Comment DC Time >30 min.: Yes (40 min) - General Info Date of Service: 05/30/17 Admission Dx/Problem (Free Text: Admission Diagnosis/Problem Admission Diagnosis/Problem CVA Doing well, defects have resolved--rt sided weakness. working with therapies, doing well. Plans DC home with and HHC. Functional Status: Reports: pain controlled, tolerating diet, ambulating, urinating. Denies: new symptoms - Review of Systems General: Reports: No Symptoms HEENT: Reports: no symptoms Pulmonary: Reports: no symptoms Cardiovascular: Reports: No Symptoms Gastrointestinal: Reports: No symptoms Genitourinary: Reports: no symptoms Musculoskeletal: Reports: no symptoms Skin: Reports: no symptoms Neurological: Reports: No Symptoms Psychiatric: Reports: no symptoms - Patient Data Vitals - Most Recent: Last Vital Signs Temp 98.8 F 05/30/17 03:15 Pulse 74 05/30/17 03:15 Resp 16 05/30/17 03:15 BP 117/73 05/30/17 03:15 Pulse Ox 95 05/30/17 03:15 Weight - Most Recent: 191 lb I&O - Last 24 hours: Intake & Output 05/29/17 05/29/17 05/30/17 14:59 22:59 06:59 Intake Total 700 485 525 Output Total 650 1400 Balance 50 485 -875 Lab Results - Last 24 hrs: Laboratory Results - last 24 hr 05/29/17 05/29/17 05/29/17 Range/Units 06:01 06:01 06:01 WBC 9.02 (4.23-9.07) K/mm3 RBC 4.70 (4.63-6.08) M/mm3 Hgb 13.4 L (13.7-17.5) gm/L Hct 43.0 (40.1-51.0) % MCV 91.5 (79.0-92.2) fl MCH 28.5 (25.7-32.2) pg MCHC 31.2 L (32.2-35.5) g/dl RDW Std Deviation 46.9 H (35.1-43.9) fL Plt Count 86 L (163-337) K/mm3 MPV 10.8 (9.4-12.3) fl Neut % (Auto) 62.1 (34.0-67.9) % Lymph % (Auto) 26.8 (21.8-53.1) % Barren % (Auto) 9.0 (5.3-12.2) % Eos % (Auto) 0.9 (0.8-7.0) Baso % (Auto) 0.1 (0.1-1.2) % Neut # (Auto) 5.60 H (1.78-5.38) K/mm3 Lymph # (Auto) 2.42 (1.32-3.57) K/mm3 Barren # (Auto) 0.81 (0.30-0.82) K/mm3 Eos # (Auto) 0.08 (0.04-0.54) K/mm3 Baso # (Auto) 0.01 (0.01-0.08) K/mm3 Manual Slide Review Abnormal smear Sodium 143 (136-145) mEq/L Potassium 3.8 (3.5-5.1) mEq/L Chloride 106 (98-107) mEq/L Carbon Dioxide 27 (21-32) mEq/L Anion Gap 13.8 (5-15) BUN 18 (7-18) mg/dL Creatinine 0.9 (0.7-1.3) mg/dL Est Cr Clr Drug Dosing 67.65 mL/min Estimated GFR (MDRD) > 60 (>60) mL/min BUN/Creatinine Ratio 20.0 H (14-18) Glucose 87 (83-115) mg/dL POC Glucose (83-110) mg/dL Calcium 9.1 (8.5-10.1) mg/dL Magnesium 1.8 (1.8-2.4) mg/dl Triglycerides (<150) mg/dL Cholesterol (<200) mg/dL LDL Cholesterol Direct (<100) mg/dL HDL Cholesterol (40-59) mg/dL Free T4 0.86 (0.76-1.46) ng/dL TSH 3rd Generation 0.679 (0.358-3.74) uIU/mL 05/29/17 05/30/17 05/30/17 Range/Units 06:01 06:05 06:15 WBC 8.09 (4.23-9.07) K/mm3 RBC 4.29 L (4.63-6.08) M/mm3 Hgb 12.2 L (13.7-17.5) gm/L Hct 38.6 L (40.1-51.0) % MCV 90.0 (79.0-92.2) fl MCH 28.4 (25.7-32.2) pg MCHC 31.6 L (32.2-35.5) g/dl RDW Std Deviation 45.2 H (35.1-43.9) fL Plt Count 85 L (163-337) K/mm3 MPV 10.7 (9.4-12.3) fl Neut % (Auto) 65.5 (34.0-67.9) % Lymph % (Auto) 22.2 (21.8-53.1) % Barren % (Auto) 9.5 (5.3-12.2) % Eos % (Auto) 1.2 (0.8-7.0) Baso % (Auto) 0.2 (0.1-1.2) % Neut # (Auto) 5.29 (1.78-5.38) K/mm3 Lymph # (Auto) 1.80 (1.32-3.57) K/mm3 Barren # (Auto) 0.77 (0.30-0.82) K/mm3 Eos # (Auto) 0.10 (0.04-0.54) K/mm3 Baso # (Auto) 0.02 (0.01-0.08) K/mm3 Manual Slide Review Sodium (136-145) mEq/L Potassium (3.5-5.1) mEq/L Chloride (98-107) mEq/L Carbon Dioxide (21-32) mEq/L Anion Gap (5-15) BUN (7-18) mg/dL Creatinine (0.7-1.3) mg/dL Est Cr Clr Drug Dosing mL/min Estimated GFR (MDRD) (>60) mL/min BUN/Creatinine Ratio (14-18) Glucose (83-115) mg/dL POC Glucose 92 (83-110) mg/dL Calcium (8.5-10.1) mg/dL Magnesium (1.8-2.4) mg/dl Triglycerides 163 H (<150) mg/dL Cholesterol 105 (<200) mg/dL LDL Cholesterol Direct 33 (<100) mg/dL HDL Cholesterol 51.0 (40-59) mg/dL Free T4 (0.76-1.46) ng/dL TSH 3rd Generation (0.358-3.74) uIU/mL Med Orders - Current: Current Medications Acetaminophen (Tylenol) 650 mg PO Q4H PRN PRN Reason: Pain (Mild 1-3)/fever Hydrocodone Bitart/Acetaminophen (Madelia 325-5 Mg) 1 tab PO Q4H PRN PRN Reason: Pain (moderate 4-6) Last Admin: 05/30/17 05:28 Dose: 1 tab Albuterol/Ipratropium (Duoneb 3.0-0.5 Mg/3 Ml) 3 ml NEB Q4H PRN PRN Reason: Shortness Of Breath/wheezing Bisacodyl (Dulcolax) 5 mg PO DAILY PRN PRN Reason: Constipation Calcium Carbonate/Glycine (Calcium Carbonate) 600 mg PO DAILY [facility] Last Admin: 05/29/17 08:02 Dose: 600 mg Carbamide Perox/Anhydrous Glycerin (Debrox 6.5% Otic Soln) 0 ml EARBOTH BID [facility] Last Admin: 05/29/17 20:34 Dose: 1 applic Cholecalciferol (Vitamin D3) 2,000 units PO DAILY [facility] Last Admin: 05/29/17 08:02 Dose: 2,000 units Docusate Sodium (Colace) 100 mg PO BID PRN PRN Reason: Constipation Doxazosin Mesylate (Cardura) 4 mg PO DAILY [facility] Last Admin: 05/29/17 08:03 Dose: 4 mg Flunisolide (Nasalide Nasal Cornelius) 0 ml NASBOTH DAILY [facility] Last Admin: 05/29/17 08:04 Dose: 1 applic Furosemide (Lasix) 20 mg PO DAILY [facility] Last Admin: 05/29/17 08:03 Dose: 20 mg Glimepiride (Amaryl) 2 mg PO DAILY [facility] Last Admin: 05/29/17 08:03 Dose: 2 mg Hydralazine HCl (Apresoline) 20 mg IVPUSH Q4H PRN PRN Reason: Hypertension Hydromorphone HCl (Dilaudid) 0.25 mg IVPUSH Q2H PRN PRN Reason: Pain (severe 7-10) Promethazine HCl 12.5 mg/ (Sodium Chloride) 50.5 mls @ 100 mls/hr IV Q6H PRN PRN Reason: Nausea/Vomiting Lorazepam (Ativan) 2 mg IVPUSH Q4H PRN PRN Reason: Seizures Lorazepam (Ativan) 1 mg IV Q6H PRN PRN Reason: Anxiety Magnesium Oxide (Magnesium Oxide) 400 mg PO DAILY [facility] Last Admin: 05/29/17 08:03 Dose: 400 mg Metoprolol Tartrate (Lopressor) 5 mg IVPUSH Q4H PRN PRN Reason: Tachycardia Metoprolol Tartrate (Lopressor) 75 mg PO BID [facility] Last Admin: 05/29/17 20:34 Dose: 75 mg Ondansetron HCl (Zofran) 4 mg IV Q6H PRN PRN Reason: Nausea/Vomiting Pantoprazole Sodium (Protonix) 40 mg PO DAILY@0700 [facility] Last Admin: 05/30/17 06:00 Dose: Not Given Calcitonin ([place]) (200 Unit) 0 each MARILIN DAILY [facility] Last Admin: 05/29/17 09:26 Dose: Not Given Linagliptin [ (Tradjenta] 5 Mg) 0 each PO DAILY [facility] Last Admin: 05/29/17 09:25 Dose: Not Given Zinc Gluconate [ Elemental Zinc] 30 Mg 0 each PO DAILY [facility] Last Admin: 05/29/17 09:25 Dose: Not Given Polyethylene Glycol (Miralax) 17 gm PO DAILY PRN PRN Reason: Constipation Prednisone (Prednisone) 10 mg PO DAILY [facility] Last Admin: 05/29/17 08:04 Dose: 10 mg Rosuvastatin Calcium (Crestor) 10 mg PO BEDTIME [facility] Last Admin: 05/29/17 20:35 Dose: 10 mg Senna/Docusate Sodium (Senna Plus) 1 tab PO BID PRN PRN Reason: Constipation Senna/Docusate Sodium (Senna Plus) 1 tab PO BID [facility] Last Admin: 05/29/17 20:35 Dose: 1 tab Sodium Chloride (Saline Flush) 10 ml FLUSH ASDIRECTED PRN PRN Reason: Keep Vein Open Last Admin: 05/28/17 08:10 Dose: 10 ml Temazepam (Restoril) 15 mg PO BEDTIME PRN PRN Reason: Sleep Discontinued Medications Acetaminophen (Tylenol) 650 mg PO Q4H PRN PRN Reason: Pain Hydrocodone Bitart/Acetaminophen ([place] 325-5 Mg) 1 tab PO Q8H PRN PRN Reason: Pain Aspirin (Aspirin) 162 mg PO DAILY [facility] Diphtheria/Tetanus/Acell Pertussis (Adacel) 0.5 ml IM .ONCE ONE Stop: 05/29/17 09:04 Gadobenate Dimeglumine (Multihance) 20 ml IVPUSH ONETIME ONE Stop: 05/29/17 11:01 Last Admin: 05/29/17 11:34 Dose: 20 ml Hydromorphone HCl (Dilaudid) 0.5 mg IVPUSH ONETIME ONE Stop: 05/28/17 07:33 Last Admin: 05/28/17 08:05 Dose: 0.5 mg Sodium Chloride (Normal Saline) 500 mls @ 999 mls/hr IV .BOLUS ONE Stop: 05/28/17 08:02 Last Admin: 05/28/17 08:04 Dose: 999 mls/hr Sodium Chloride (Normal Saline) 1,000 mls @ 50 mls/hr IV ASDIRECTED MAIA Last Admin: 05/28/17 21:45 Dose: 50 mls/hr Sodium Chloride (Normal Saline) 1,000 mls @ 50 mls/hr IV ASDIRECTED [facility] Ondansetron HCl (Zofran) 4 mg IVPUSH ONETIME ONE Stop: 05/28/17 07:33 Last Admin: 05/28/17 07:57 Dose: Not Given Sodium Chloride (Saline Flush) 30 ml FLUSH ONETIME PRN PRN Reason: Keep Vein Open Last Admin: 05/29/17 11:34 Dose: 30 ml - Exam Quality Assessment: Reports: DVT prophylaxis (ASA and anticoag is contraindicated due to thrombocytopenia) General: Reports: alert, oriented, cooperative, no acute distress HEENT: Reports: Pupils equal, Pupils reactive, EOMI, Mucous membr. moist/pink Neck: Reports: supple Lungs: Reports: Clear to auscultation, Normal respiratory effort Cardiovascular: Reports: Regular Rate, Regular Rhythm Abdomen: Reports: bowel sounds present, soft, no tenderness, no distension (Male) Exam: Deferred Rectal (Males) Exam: Deferred Extremities: Reports: no edema Neurological: Reports: no new focal deficit Psy/Mental Status: Reports: alert, normal affect, normal mood *Q Meaningful Use (DIS) - VTE *Q VTE Criteria *Q: - Stroke *Q Stroke Criteria *Q: - AMI *Q AMI Criteria *Q:
[2017-05-30 07:22] VITALS: BP 112/53
[2017-05-30] MEDS ORDERED: Diphtheria,Pertussis(Acell),Tetanus Vaccine 0.5 ML SDV IM ONE (09:30)
[2017-05-30] MEDS: Metoprolol Tartrate 50 MG Tab PO SCH (09:39)
[2017-05-30] MEDS: predniSONE 5 MG Tab PO SCH (09:39)
[2017-05-30] MEDS: Calcium Carbonate 600 MG Tab PO SCH (09:40)
[2017-05-30] MEDS: Doxazosin 4 MG Tab PO SCH (09:40)
[2017-05-30] MEDS: Cholecalciferol (Vitamin D3) 1,000 Unit Tab PO SCH (09:40)
[2017-05-30] MEDS: Carbamide Peroxide 6.5% Otic Soln 15 ML Bottle EARBOTH SCH (09:41)
[2017-05-30] MEDS: Furosemide 20 MG Tab PO SCH (09:41)
[2017-05-30] MEDS: Glimepiride 2 MG Tab PO SCH (09:41)
[2017-05-30] MEDS: Magnesium Oxide 400 MG Tab PO SCH (09:41)
[2017-05-30] MEDS: CALCITONIN NAS SCH (09:42)
[2017-05-30] MEDS: ZINC GLUCONATE 30 MG PO SCH (09:46)
== END 2017-05-30 10:10 | disposition home health service (06) | DRG 66 ==
LOC: JD.ED 07:06 → JD.MS 13:04 → UNDOADMIN 13:05
PROVIDERS: ADMIT Internal Medicine; ATTEND Internal Medicine
DX: I63.10 Cerebral infarction due to embolism of unspecified precerebral artery (principal); H83.09 Labyrinthitis, unspecified ear; H61.23 Impacted cerumen, bilateral; M54.2 Cervicalgia; E78.00 Pure hypercholesterolemia, unspecified; D69.6 Thrombocytopenia, unspecified; I10 Essential (primary) hypertension; E78.5 Hyperlipidemia, unspecified; I71.4 Abdominal aortic aneurysm, without rupture; E11.9 Type 2 diabetes mellitus without complications; Z79.84 Long term (current) use of oral hypoglycemic drugs; M81.0 Age-related osteoporosis without current pathological fracture; I95.9 Hypotension, unspecified; G89.4 Chronic pain syndrome; J44.9 Chronic obstructive pulmonary disease, unspecified; M06.9 Rheumatoid arthritis, unspecified; N40.0 Benign prostatic hyperplasia without lower urinary tract symptoms; F32.9 Major depressive disorder, single episode, unspecified; H91.90 Unspecified hearing loss, unspecified ear; R06.02 Shortness of breath; Z99.3 Dependence on wheelchair; Z87.891 Personal history of nicotine dependence; Z79.01 Long term (current) use of anticoagulants; Z99.81 Dependence on supplemental oxygen; Z79.899 Other long term (current) drug therapy; Z91.09 Other allergy status, other than to drugs and biological substances; R09.02 Hypoxemia; H93.11 Tinnitus, right ear; Z85.72 Personal history of non-Hodgkin lymphomas
CPT/HCPCS: 36415; 70450; 71010; 72125; 80053; 82962; 83880; 85025; 86140; 93005; 96361; 96374; 99285; J1170; J7040; J7050; 70544; 70544-26; 70548; 70548-26; 70553; 70553-26; 80048; 80061; 83735; 84439; 84443; 90715; 93306; 97110-GP; 97116-GP; 97162-GP; 97166-GO; 97530-GO; 99284; A9270-GY; A9577

== ENCOUNTER 2017-06-04 10:26 | Emergency (ER) | payer MEDICARE, OTHER ==
[2017-06-04] MEDS ORDERED: Sodium Chloride 0.9% 10 ML Syringe FLUSH PRN (10:48)
[2017-06-04] MEDS ORDERED: Etomidate 2 MG/ML 20 ML SDV IVPUSH ONE (10:51)
[2017-06-04] MEDS ORDERED: Succinylcholine 200 MG/10 ML MDV IV ONE (10:51)
[2017-06-04] MEDS ORDERED: Midazolam 1 MG/ML 5 ML SDV IVPUSH ONE (11:05)
[2017-06-04] MEDS ORDERED: ePHEDrine 50 MG/ML SDV ONE (11:06)
--- NOTE | 2017-06-04 11:08 | CT ---
Head CT Technique: Multiple axial sections through the brain were obtained. Intravenous contrast was not utilized. Initial imaging shows motion which necessitated repeating the study which continues to show motion. Findings: Motion artifact diminishes some details of the exam. Vague low density is seen within the left occipital lobe and posterior left temporal lobe. Difficult to exclude a fairly acute infarct on this exam. Ventricles along with basal cisterns and sulci over convexities are mildly prominent. Minimal areas of diminished density are noted within the periventricular white matter compatible with small vessel ischemic demyelination change. No intracranial hemorrhage is seen. No midline shift is seen. Bone window settings were reviewed which shows a small soft tissue abnormality within left posterior ethmoid sinus most likely due to minimal retention cyst. No acute calvarial abnormality is seen. Impression: 1. Possible acute infarct within the posterior left occipital and posterior left temporal region. This is difficult to confirm due to motion on current study. 2. Other senescent change as described above. 3. Minimal sinus finding which is incidental. Diagnostic code #5
--- NOTE | 2017-06-04 12:00 | EDM.PDOC ---
ED HPI GENERAL MEDICAL PROBLEM - General Chief Complaint: Neuro Symptoms/Deficits Stated Complaint: [facility] Time Seen by Provider: 06/04/17 10:48 Source of Information: Reports: EMS, Family History Limitations: Reports: Altered Mental Status - History of Present Illness INITIAL COMMENTS - FREE TEXT/NARRATIVE: The patient presents by ambulance for possible stroke. The patient was seen here 1 week ago for a CVA. His symptoms totally resolved. On his MRI it was found he had 2 acute small lacunar infarcts. His platelets were at 85,000 and he was not put on anything. The rest of his work up looked good. This morning he woke up at 6am and took his pills. He went back to sleep and woke up at 8am and was normal. He told his he was tired and wanted to go back to bed. His last known well was 8am [place] time. Later he woke up and he could not talk and he could not move the right side of his body. When EMS arrived they found the same. The patient could shake his head yes or no to questions. When he arrived at the ER, he had snoring respirations, he would not shake his head but he would open his eyes to verbal stimuli. He could not move his arm or leg on the right side. Onset: Sudden Duration: Hour(s): (last known well 8am) Location: Reports: Upper Extremity, Right, Lower Extremity, Right Severity: Severe Improves with: Reports: None Worsens with: Reports: None Context: Reports: Activity (sleeping) Associated Symptoms: Reports: No Other Symptoms - Related Data Allergies Allergy/AdvReac Type Severity Reaction Status Date / Time adhesive Allergy Intermediate thin skin, Verified 05/28/17 07:09 tears and bruising Home Meds: Home Meds Calcitonin,Minco,Synthetic [Calcitonin-Minco] 200 unit MARILIN DAILY 09/06/14 [ History] Fluticasone Propionate [Flonase] 2 spray MARILIN ASDIRECTED 09/06/14 [History] predniSONE [Prednisone] 10 mg PO DAILY 09/06/14 [History] Calcium Carbonate [Calcium] 600 mg PO DAILY 07/22/15 [History] Cholecalciferol (Vitamin D3) [Vitamin D3] 2,000 unit PO DAILY 07/22/15 [History] Sennosides/Docusate Sodium [Senna-Docusate Sodium] 8.6 - 50 mg PO BID 07/22/15 [ History] Acetaminophen [Tylenol] 650 mg PO Q4H PRN #0 tablet 03/01/16 [Rx] Celecoxib [CeleBREX] 200 mg PO DAILY 05/28/17 [History] Doxazosin [Cardura] 4 mg PO DAILY 05/28/17 [History] Triamcinolone Acetonide [Triamcinolone Acetonide 0.5%] 15 gm TOP BID 05/28/17 [ History] Zinc Gluconate [Elemental Zinc] 30 mg PO DAILY 05/28/17 [History] Past Medical History HEENT History: Reports: Hard of Hearing, Other (See Below) Other HEENT History: cerumen impaction, tinnitis, very [place] Cardiovascular History: Reports: Aneurysm, High Cholesterol, Hypertension, SOB on Exertion, Other (See Below) Other Cardiovascular History: AAA, tachycardia, SVT Respiratory History: Reports: SOB, Other (See Below) Other Respiratory History: hypoxia,Oxygen at home at night and sometimes during the day, cough Gastrointestinal History: Reports: Other (See Below) Other Gastrointestinal History: abdominal air of unknown origin, colon polyps Genitourinary History: Reports: BPH, Other (See Below) Other Genitourinary History: dysuria, nocturia, urgency Musculoskeletal History: Reports: Back Pain, Chronic, Osteoporosis, RA, Other ( See Below) Other Musculoskeletal History: fall and Lt hip fracture in April 2015. Wheelchair bound since then. Reports having old fractures in lumbar vertebrae. Neurological History: Reports: None Psychiatric History: Reports: Depression Other Psychiatric History: delerium, confusion, insomnia Endocrine/Metabolic History: Reports: Diabetes, Type II Hematologic History: Reports: None Immunologic History: Reports: None Oncologic (Cancer) History: Reports: Lymphoma, Non-Hodgkin's Lymphoma Other Oncologic History: B-cell lymphoma. Patient has a implanted IV port Dermatologic History: Reports: None - Infectious Disease History Infectious Disease History: Reports: None - Past Surgical History Cardiovascular Surgical History: Reports: AAA repair, Other (See Below) GI Surgical History: Reports: Appendectomy, Colonoscopy, Other (See Below) Musculoskeletal Surgical History: Reports: Other (See Below) Social & Family History - Family History Family Medical History: Noncontributory - Tobacco Use Smoking Status *Q: Unknown Ever Smoked Years of Tobacco use: 25 Packs/Tins Daily: 1 Used Tobacco, but Quit: Yes Month Tobacco Last Used: 1983 Second Hand Smoke Exposure: No - Caffeine Use Caffeine Use: Reports: Coffee Other Caffeine Use: 4 cups/day - Alcohol Use Days Per Week of Alcohol Use: 0 - Recreational Drug Use Recreational Drug Use: No Drug Use in Last 12 Months: No ED ROS GENERAL - Review of Systems Review Of Systems: Unable To Obtain ED EXAM, NEURO - Physical Exam Exam: See Below Exam Limited By: Altered Mental Status General Appearance: Lethargic Eye Exam: Bilateral Eye: PERRL Ears: Normal External Exam Nose: Normal Inspection Head Exam: Atraumatic, Normocephalic Neck: Normal Inspection Respiratory/Chest: No Respiratory Distress, Lungs Clear, Normal Breath Sounds Cardiovascular: Regular Rate, Rhythm, No Edema, No Murmur GI/Abdominal: Soft, Non-Tender, No Organomegaly, No Mass Neurological: Other (Lethargic) ED NEURO PROCEDURES - Endotracheal Intubation Time of Intubation: 10:40 ET Intubation Indication: Airway Protection Preparation: Suction, Balloon Tested, BVM Set Up, Difficult Airway Equip Pre-Oxygenation: Assisted With BVM Anesthesia Meds: Etomidate, Succinylcholine Placement: Orotracheal, Cuffed, Uncomplicated Placement Cords Visualized: Yes ETT Size In mm: 8 Number of Attempts: 1 Confirmed By: CO2 Indicator, Bilateral Breath Sounds, Chest Xray Tube Secured By: By RT EKG INTERPRETATION EKG Date: 06/04/17 Time: 10:38 Rhythm: NSR Rate (Beats/Min): 86 [place]: Normal P-Wave: Present QRS: Normal ST-T: Normal QT: Normal Course - Orders/Labs/Meds Orders: Active Orders 24 hr Category Date Time Status Cardiac Monitoring [RC] . DIRECTED Care 06/04/17 10:48 Active EKG Documentation Completion [RC] STAT Care 06/04/17 10:49 Active Insert Graves Catheter [Insert Urinary Catheter] [OM.PC] Care 06/04/17 11:00 Ordered Q24H Oxygen Therapy [RC] PRN Care 06/04/17 10:48 Active Peripheral IV Care [RC] . DIRECTED Care 06/04/17 10:49 Active RT Ventilator, Adult [RC] ASDIRECTED Care 06/04/17 11:06 Active Urinary Catheter Assessment [RC] ASDIRECTED Care 06/04/17 10:51 Active Chest 1V Frontal [CR] Stat Exams 06/04/17 10:49 Taken Sodium Chloride 0.9% [Saline Flush] Med 06/04/17 10:48 Active 10 ml FLUSH ASDIRECTED PRN Peripheral IV Insertion Adult [OM.PC] Stat Oth 06/04/17 10:48 Ordered Medication Orders Sodium Chloride (Saline Flush) 10 ml FLUSH ASDIRECTED PRN PRN Reason: Keep Vein Open Labs: Laboratory Tests 06/04/17 06/04/17 06/04/17 Range/Units 10:38 10:38 10:38 WBC 7.65 (4.23-9.07) K/mm3 RBC 4.63 (4.63-6.08) M/mm3 Hgb 13.4 L (13.7-17.5) gm/L Hct 41.5 (40.1-51.0) % MCV 89.6 (79.0-92.2) fl MCH 28.9 (25.7-32.2) pg MCHC 32.3 (32.2-35.5) g/dl RDW Std Deviation 44.5 H (35.1-43.9) fL Plt Count 82 L (163-337) K/mm3 MPV 11.0 (9.4-12.3) fl Neut % (Auto) 48.5 (34.0-67.9) % Lymph % (Auto) 40.9 (21.8-53.1) % [place] % (Auto) 7.1 (5.3-12.2) % Eos % (Auto) 1.4 (0.8-7.0) Baso % (Auto) 0.3 (0.1-1.2) % Neut # (Auto) 3.71 (1.78-5.38) K/mm3 Lymph # (Auto) 3.13 (1.32-3.57) K/mm3 [place] # (Auto) 0.54 (0.30-0.82) K/mm3 Eos # (Auto) 0.11 (0.04-0.54) K/mm3 Baso # (Auto) 0.02 (0.01-0.08) K/mm3 Manual Slide Review Abnormal smear PT 10.6 (8.0-13.0) SECONDS INR 0.97 APTT 23 (22-36) SECONDS Puncture Site ABG pH (7.35-7.45) ABG pCO2 (35.0-45.0) mmHg ABG pO2 (80.0-100.0) mmHg ABG HCO3 (22.0-26.0) meq/L ABG O2 Saturation (96.0-97.0) % A-a Gradient mmHg O2 Delivery Device FiO2 (21.00-100.00) % Tidal Volume cc PEEP cmH20 Sodium 142 (136-145) mEq/L Potassium 3.5 (3.5-5.1) mEq/L Chloride 105 (98-107) mEq/L Carbon Dioxide 27 (21-32) mEq/L Anion Gap 13.5 (5-15) BUN 13 (7-18) mg/dL Creatinine 0.9 (0.7-1.3) mg/dL Est Cr Clr Drug Dosing TNP Estimated GFR (MDRD) > 60 (>60) mL/min BUN/Creatinine Ratio 14.4 (14-18) Glucose 139 H (83-115) mg/dL Calcium 8.7 (8.5-10.1) mg/dL Total Bilirubin 0.6 (0.2-1.0) mg/dL AST 16 (15-37) U/L ALT 23 (16-63) U/L Alkaline Phosphatase 52 (46-116) U/L Troponin I < 0.017 (0.00-0.056) ng/mL Total Protein 6.3 L (6.4-8.2) g/dl Albumin 3.6 (3.4-5.0) g/dl Globulin 2.7 gm/dL Albumin/Globulin Ratio 1.3 (1-2) 06/04/17 Range/Units 11:24 WBC (4.23-9.07) K/mm3 RBC (4.63-6.08) M/mm3 Hgb (13.7-17.5) gm/L Hct (40.1-51.0) % MCV (79.0-92.2) fl MCH (25.7-32.2) pg MCHC (32.2-35.5) g/dl RDW Std Deviation (35.1-43.9) fL Plt Count (163-337) K/mm3 MPV (9.4-12.3) fl Neut % (Auto) (34.0-67.9) % Lymph % (Auto) (21.8-53.1) % [place] % (Auto) (5.3-12.2) % Eos % (Auto) (0.8-7.0) Baso % (Auto) (0.1-1.2) % Neut # (Auto) (1.78-5.38) K/mm3 Lymph # (Auto) (1.32-3.57) K/mm3 [place] # (Auto) (0.30-0.82) K/mm3 Eos # (Auto) (0.04-0.54) K/mm3 Baso # (Auto) (0.01-0.08) K/mm3 Manual Slide Review PT (8.0-13.0) SECONDS INR APTT (22-36) SECONDS Puncture Site Lt radial ABG pH 7.43 (7.35-7.45) ABG pCO2 37.3 (35.0-45.0) mmHg ABG pO2 82.0 (80.0-100.0) mmHg ABG HCO3 24.2 (22.0-26.0) meq/L ABG O2 Saturation 96.0 (96.0-97.0) % A-a Gradient 127 mmHg O2 Delivery Device Ventilator FiO2 40.00 (21.00-100.00) % Tidal Volume 600.0 cc PEEP 5.0 cmH20 Sodium (136-145) mEq/L Potassium (3.5-5.1) mEq/L Chloride (98-107) mEq/L Carbon Dioxide (21-32) mEq/L Anion Gap (5-15) BUN (7-18) mg/dL Creatinine (0.7-1.3) mg/dL Est Cr Clr Drug Dosing Estimated GFR (MDRD) (>60) mL/min BUN/Creatinine Ratio (14-18) Glucose (83-115) mg/dL Calcium (8.5-10.1) mg/dL Total Bilirubin (0.2-1.0) mg/dL AST (15-37) U/L ALT (16-63) U/L Alkaline Phosphatase (46-116) U/L Troponin I (0.00-0.056) ng/mL Total Protein (6.4-8.2) g/dl Albumin (3.4-5.0) g/dl Globulin gm/dL Albumin/Globulin Ratio (1-2) Meds: Medications Generic Name Dose Route Start Last Admin Trade Name Frefrancis PRN Reason Stop Dose Admin Sodium Chloride 10 ml 06/04/17 10:48 Saline Flush FLUSH ASDIRECTED PRN Keep Vein Open Discontinued Medications Generic Name Dose Route Start Last Admin Trade Name Frefrancis PRN Reason Stop Dose Admin Alteplase, Recombinant Confirm 06/04/17 10:52 Activase Administered 06/04/17 10:53 Dose 100 mg .ROUTE .STK-MED ONE Etomidate 20 mg 06/04/17 10:51 Amidate IVPUSH 06/04/17 10:52 ONETIME ONE Midazolam HCl 5 mg 06/04/17 11:05 Versed 1 Mg/Ml IVPUSH 06/04/17 11:06 ONETIME ONE Succinylcholine Chloride 120 mg 06/04/17 10:51 Quelicin IV 06/04/17 10:52 ONETIME ONE Vecuronium [place] 10 mg 06/04/17 11:05 Vecuronium IVPUSH 06/04/17 11:06 ONETIME ONE - Re-Assessments/Exams Free Text/Narrative Re-Assessment/Exam: 06/04/17 12:19 A stroke alert was called. The patient's last time known well was 8am. We took him right to the CT scanner. I did not see any bleed. Dr Chua read the CT as possible acute infract within the posterior left occipital and posterior left temporal region. This is difficult to confirm due to motion on current study. I was concerned about his airway. He had snoring respirations. I secured his airway with an 8 tube. I put him on the vent. I called [facility] in [place] and talked with Dr Wang the neurologist alterations expert and he reviewed the CTs and MRIs. The patient was not a candidate for TPA. His platelets were 82. The rest of his labs look good. Critical care time was 130 minutes. Departure - Departure Time of Disposition: 12:50 Disposition: DC/Tfer to Acute Hospital 02 Condition: Critical Clinical Impression: CVA (cerebral vascular accident) Qualifiers: CVA mechanism: embolism Precerebral and cerebral artery: unspecified cerebral artery Qualified Code(s): I63.40 - Cerebral infarction due to embolism of unspecified cerebral artery - Discharge Information Forms: ED Department Discharge - My Orders Last 24 Hours: My Active Orders 06/04/17 10:48 Cardiac Monitoring [RC] . DIRECTED Oxygen Therapy [RC] PRN Sodium Chloride 0.9% [Saline Flush] 10 ml FLUSH ASDIRECTED PRN Peripheral IV Insertion Adult [OM.PC] Stat 06/04/17 10:49 EKG Documentation Completion [RC] STAT Peripheral IV Care [RC] . DIRECTED Chest 1V Frontal [CR] Stat 06/04/17 10:51 Urinary Catheter Assessment [RC] ASDIRECTED 06/04/17 11:00 Insert Graves Catheter [Insert Urinary Catheter] [OM.PC] Q24H 06/04/17 11:06 RT Ventilator, Adult [RC] ASDIRECTED - Assessment/Plan Last 24 Hours: My Active Orders 06/04/17 10:48 Cardiac Monitoring [RC] . DIRECTED Oxygen Therapy [RC] PRN Sodium Chloride 0.9% [Saline Flush] 10 ml FLUSH ASDIRECTED PRN Peripheral IV Insertion Adult [OM.PC] Stat 06/04/17 10:49 EKG Documentation Completion [RC] STAT Peripheral IV Care [RC] . DIRECTED Chest 1V Frontal [CR] Stat 06/04/17 10:51 Urinary Catheter Assessment [RC] ASDIRECTED 06/04/17 11:00 Insert Graves Catheter [Insert Urinary Catheter] [OM.PC] Q24H 06/04/17 11:06 RT Ventilator, Adult [RC] ASDIRECTED
[2017-06-04 14:23] VITALS: BP 155/81
--- NOTE | 2017-06-06 16:17 | CR ---
Chest: Portable view of the chest was obtained. Comparison: Previous chest x-ray of 01/01/16. Endotracheal tube is seen. Tip lies slightly above the ning by about 1.7 cm. Left-sided infusion port is seen. Heart size is normal. Upper mediastinum is within normal limits. Lungs are clear with no acute infiltrates. Impression: 1. Tip of endotracheal tube about 1.7 cm above the ning. 2. Other incidental findings. Diagnostic code #2
== END 2017-06-04 12:46 ==
LOC: JD.ED 10:26
DX: I63.40 Cerebral infarction due to embolism of unspecified cerebral artery (principal); I10 Essential (primary) hypertension; E78.00 Pure hypercholesterolemia, unspecified; M81.0 Age-related osteoporosis without current pathological fracture; F32.9 Major depressive disorder, single episode, unspecified; E11.9 Type 2 diabetes mellitus without complications; Z85.72 Personal history of non-Hodgkin lymphomas; Z90.49 Acquired absence of other specified parts of digestive tract; Z98.890 Other specified postprocedural states; Z87.891 Personal history of nicotine dependence; Z79.899 Other long term (current) drug therapy
CPT/HCPCS: 31500; 36415; 36600; 51702; 70450; 71010; 80053; 82803; 84484; 85025; 85610; 85730; 93005; 96374; 96375; 99291; 99292; J0330; J2250; J7050; 82962; J3490

== ENCOUNTER 2017-06-15 17:53 | Emergency (ER) | payer MEDICARE, OTHER ==
[2017-06-15 18:05] VITALS: BP 123/86
[2017-06-15] MEDS ORDERED: Sodium Chloride 0.9% 1,000 ML IV ONE (19:45)
[2017-06-15] MEDS ORDERED: Diatrizoate Meglumine/Diatrizoate Sodium 37% 120 ML Bottle PO ONE (20:38)
[2017-06-15] MEDS ORDERED: Iopamidol 612 MG/ML 150 ML Bottle IVPUSH ONE (20:38)
[2017-06-15] MEDS ORDERED: Sodium Chloride 0.9% 10 ML Syringe FLUSH ONE (20:38)
--- NOTE | 2017-06-15 23:25 | EDM.PDOC ---
ED HPI GENERAL MEDICAL PROBLEM - General Chief Complaint: Abdominal Pain Stated Complaint: FROM [facility] Time Seen by Provider: 06/15/17 18:24 Source of Information: Reports: Patient, Significant Other History Limitations: Reports: No Limitations - History of Present Illness INITIAL COMMENTS - FREE TEXT/NARRATIVE: 77 year old male presents from [facility] for evaluation and treatment of constipation and bloating. Patient was admitted to [facility] on 06-12-17 after a prolonged stay at [facility] in [place] following a stroke. Patient has not had a formed bowel movement since coming to [facility]. Additionally, reports while in [place] he did not have a bowel movement the last days of his stay. Patient currently reports a decreased appetite and bloating. He denies any abdominal pain, nausea, vomiting or fevers. He did have a loose stool this afternoon. No melena or hematochezia. Patient reports he frequently struggles with dehydration and constipation. Previously was on senna bid prior to stroke. He is currently on narcotic pain medication for chronic back pain. Past medical history of recent CVA, diabetes and COPD. Currently on eliquis post CVA. Past abdominal surgeries include an appendectomy. - Related Data Allergies Allergy/AdvReac Type Severity Reaction Status Date / Time adhesive Allergy Intermediate thin skin, Verified 06/15/17 18:06 tears and bruising Home Meds: Home Meds Calcitonin,[place],Synthetic [Calcitonin-[place]] 200 unit MARILIN DAILY 09/06/14 [ History] Fluticasone Propionate [Flonase] 2 spray MARILIN ASDIRECTED 09/06/14 [History] predniSONE [Prednisone] 10 mg PO DAILY 09/06/14 [History] Cholecalciferol (Vitamin D3) [Vitamin D3] 2,000 unit PO DAILY 07/22/15 [History] Sennosides/Docusate Sodium [Senna-Docusate Sodium] 8.6 - 50 mg PO BID 07/22/15 [ History] Acetaminophen [Tylenol] 650 mg PO Q4H PRN #0 tablet 03/01/16 [Rx] Doxazosin [Cardura] 4 mg PO DAILY 05/28/17 [History] Triamcinolone Acetonide [Triamcinolone Acetonide 0.5%] 15 gm TOP BID 05/28/17 [ History] Zinc Gluconate [Elemental Zinc] 50 mg PO DAILY 05/28/17 [History] Apixaban [Eliquis] 5 mg PO DAILY 06/15/17 [History] Glimepiride [Amaryl] 2 mg PO DAILY 06/15/17 [History] Linagliptin [Tradjenta] 5 mg PO DAILY 06/15/17 [History] Magnesium Citrate [Citrate of Magnesia] 150 ml PO DAILY 06/15/17 [History] Melatonin 3 mg PO BEDTIME 06/15/17 [History] Metoprolol Tartrate 25 mg PO BID 06/15/17 [History] Omeprazole 20 mg PO DAILY 06/15/17 [History] Rosuvastatin [Crestor] 10 mg PO BEDTIME 06/15/17 [History] Umeclidinium Brm/Vilanterol Tr [Anoro Ellipta 62.5-25 MCG] 1 puff INH DAILY [History] Past Medical History HEENT History: Reports: Hard of Hearing, Other (See Below) Other HEENT History: cerumen impaction, tinnitis, very [place] Cardiovascular History: Reports: Aneurysm, High Cholesterol, Hypertension, SOB on Exertion, Other (See Below) Other Cardiovascular History: AAA, tachycardia, SVT Respiratory History: Reports: SOB, Other (See Below) Other Respiratory History: hypoxia,Oxygen at home at night and sometimes during the day, cough Gastrointestinal History: Reports: Other (See Below) Other Gastrointestinal History: abdominal air of unknown origin, colon polyps Genitourinary History: Reports: BPH, Other (See Below) Other Genitourinary History: dysuria, nocturia, urgency Musculoskeletal History: Reports: Back Pain, Chronic, Osteoporosis, RA, Other ( See Below) Other Musculoskeletal History: fall and Lt hip fracture in April 2015. Wheelchair bound since then. Reports having old fractures in lumbar vertebrae. Neurological History: Reports: None, CVA Psychiatric History: Reports: Depression Other Psychiatric History: delerium, confusion, insomnia Endocrine/Metabolic History: Reports: Diabetes, Type II Hematologic History: Reports: None Immunologic History: Reports: None Oncologic (Cancer) History: Reports: Lymphoma, Non-Hodgkin's Lymphoma Other Oncologic History: B-cell lymphoma. Patient has a implanted IV port Dermatologic History: Reports: None - Infectious Disease History Infectious Disease History: Reports: None - Past Surgical History Head Surgeries/Procedures: Reports: None Cardiovascular Surgical History: Reports: AAA Repair, Other (See Below) GI Surgical History: Reports: Appendectomy, Colonoscopy, Other (See Below) Musculoskeletal Surgical History: Reports: Other (See Below) Social & Family History - Family History Family Medical History: Noncontributory - Tobacco Use Smoking Status *Q: Unknown Ever Smoked Years of Tobacco use: 25 Packs/Tins Daily: 1 Used Tobacco, but Quit: Yes Month Tobacco Last Used: 1983 Second Hand Smoke Exposure: No - Caffeine Use Caffeine Use: Reports: Coffee Other Caffeine Use: 4 cups/day - Alcohol Use Days Per Week of Alcohol Use: 0 - Recreational Drug Use Recreational Drug Use: No Drug Use in Last 12 Months: No Other Recreational Drug Type: Unknown- patient unresponsive ED ROS GENERAL - Review of Systems Review Of Systems: See Below Constitutional: Reports: Decreased Appetite. Denies: Fever Respiratory: Denies: Shortness of Breath, Cough Cardiovascular: Denies: Chest Pain GI/Abdominal: Reports: Constipation, Other (reports bloating). Denies: Abdominal Pain, Hematochezia, Melena, Vomiting : Reports: No Symptoms ED EXAM, GI/ABD - Physical Exam Exam: See Below Exam Limited By: No Limitations General Appearance: Alert, WD/WN, No Apparent Distress Respiratory/Chest: No Respiratory Distress, Lungs Clear, Normal Breath Sounds Cardiovascular: Normal Peripheral Pulses, Regular Rate, Rhythm, No Murmur GI/Abdominal Exam: Normal Bowel Sounds, Soft, Non-Tender, No Distention. No: Rigid, Rebound Neurological: Alert, Oriented, Normal Cognition Psychiatric: Normal Affect, Normal Mood Skin Exam: Warm, Dry, Normal Color Course - Vital Signs Last Recorded V/S: Last Vital Signs Temp 36.7 C 06/15/17 18:01 Pulse 94 06/15/17 18:01 Resp 18 06/15/17 18:01 BP 123/86 06/15/17 18:01 Pulse Ox 94 L 06/15/17 18:01 - Orders/Labs/Meds Labs: Laboratory Tests 06/15/17 06/15/17 06/15/17 Range/Units 18:54 18:54 18:54 WBC 16.34 H (4.23-9.07) K/mm3 RBC 4.38 L (4.63-6.08) M/mm3 Hgb 12.5 L (13.7-17.5) gm/L Hct 39.4 L (40.1-51.0) % MCV 90.0 (79.0-92.2) fl MCH 28.5 (25.7-32.2) pg MCHC 31.7 L (32.2-35.5) g/dl RDW Std Deviation 44.7 H (35.1-43.9) fL Plt Count 117 L (163-337) K/mm3 MPV 11.7 (9.4-12.3) fl Neutrophils % (Manual) 83 H (40-60) % Band Neutrophils % 0 (0-10) % Lymphocytes % (Manual) 13 L (20-40) % Atypical Lymphs % 0 % Monocytes % (Manual) 4 (2-10) % Eosinophils % (Manual) 0 L (0.8-7.0) % Basophils % (Manual) 0 L (0.2-1.2) Toxic Granulation 2+ moderate Platelet Estimate Adequate Plt Morphology Comment Normal Anisocytosis 1+ slight RBC Morph Comment Not Reportable PT 11.9 (8.0-13.0) SECONDS INR 1.09 Sodium 143 (136-145) mEq/L Potassium 3.5 (3.5-5.1) mEq/L Chloride 104 (98-107) mEq/L Carbon Dioxide 31 (21-32) mEq/L Anion Gap 11.5 (5-15) BUN 24 H (7-18) mg/dL Creatinine 0.9 (0.7-1.3) mg/dL Est Cr Clr Drug Dosing TNP Estimated GFR (MDRD) > 60 (>60) mL/min BUN/Creatinine Ratio 26.7 H (14-18) Glucose 155 H (83-115) mg/dL Calcium 8.7 (8.5-10.1) mg/dL Total Bilirubin 0.6 (0.2-1.0) mg/dL AST 23 (15-37) U/L ALT 36 (16-63) U/L Alkaline Phosphatase 58 (46-116) U/L C-Reactive Protein (<1.0) mg/dL Total Protein 6.6 (6.4-8.2) g/dl Albumin 3.5 (3.4-5.0) g/dl Globulin 3.1 gm/dL Albumin/Globulin Ratio 1.1 (1-2) Urine Color (Yellow) Urine Appearance (Clear) Urine pH (5.0-8.0) Ur Specific [place] (1.005-1.030) Urine Protein (Negative) Urine Glucose (UA) (Negative) Urine Ketones (Negative) Urine Occult Blood (Negative) Urine Nitrite (Negative) Urine Bilirubin (Negative) Urine Urobilinogen (0.2-1.0) Ur Leukocyte Esterase (Negative) Urine RBC (0-5) /hpf Urine WBC (0-5) /hpf Ur Epithelial Cells (0-5) /hpf Amorphous Sediment (NOT SEEN) /hpf Urine Bacteria (FEW) /hpf Urine Mucus (FEW) /hpf 06/15/17 06/16/17 Range/Units 18:54 00:12 WBC (4.23-9.07) K/mm3 RBC (4.63-6.08) M/mm3 Hgb (13.7-17.5) gm/L Hct (40.1-51.0) % MCV (79.0-92.2) fl MCH (25.7-32.2) pg MCHC (32.2-35.5) g/dl RDW Std Deviation (35.1-43.9) fL Plt Count (163-337) K/mm3 MPV (9.4-12.3) fl Neutrophils % (Manual) (40-60) % Band Neutrophils % (0-10) % Lymphocytes % (Manual) (20-40) % Atypical Lymphs % % Monocytes % (Manual) (2-10) % Eosinophils % (Manual) (0.8-7.0) % Basophils % (Manual) (0.2-1.2) Toxic Granulation Platelet Estimate Plt Morphology Comment Anisocytosis RBC Morph Comment PT (8.0-13.0) SECONDS INR Sodium (136-145) mEq/L Potassium (3.5-5.1) mEq/L Chloride (98-107) mEq/L Carbon Dioxide (21-32) mEq/L Anion Gap (5-15) BUN (7-18) mg/dL Creatinine (0.7-1.3) mg/dL Est Cr Clr Drug Dosing Estimated GFR (MDRD) (>60) mL/min BUN/Creatinine Ratio (14-18) Glucose (83-115) mg/dL Calcium (8.5-10.1) mg/dL Total Bilirubin (0.2-1.0) mg/dL AST (15-37) U/L ALT (16-63) U/L Alkaline Phosphatase (46-116) U/L C-Reactive Protein 1.9 H* (<1.0) mg/dL Total Protein (6.4-8.2) g/dl Albumin (3.4-5.0) g/dl Globulin gm/dL Albumin/Globulin Ratio (1-2) Urine Color Yellow (Yellow) Urine Appearance Clear (Clear) Urine pH 6.5 (5.0-8.0) Ur Specific [place] 1.020 (1.005-1.030) Urine Protein Negative (Negative) Urine Glucose (UA) 1+ H (Negative) Urine Ketones Negative (Negative) Urine Occult Blood Negative (Negative) Urine Nitrite Negative (Negative) Urine Bilirubin Negative (Negative) Urine Urobilinogen 0.2 (0.2-1.0) Ur Leukocyte Esterase Negative (Negative) Urine RBC 0-5 (0-5) /hpf Urine WBC 0-5 (0-5) /hpf Ur Epithelial Cells Not seen (0-5) /hpf Amorphous Sediment Few H (NOT SEEN) /hpf Urine Bacteria Few (FEW) /hpf Urine Mucus Many H (FEW) /hpf Meds: Medications Discontinued Medications Generic Name Dose Route Start Last Admin Trade Name Freq PRN Reason Stop Dose Admin Diatrizoate Meglum/Diatrizoate Sod 90 ml 06/15/17 20:38 06/15/17 21:20 Gastrografin 37% PO 06/15/17 20:39 90 ml ONETIME ONE Administration Heparin Sodium (Porcine) 500 units 06/16/17 00:36 06/16/17 00:45 Heparin Lock Flush 100 Units/Ml FLUSH 06/16/17 00:37 500 units ASDIRECTED ONE Administration Sodium Chloride 1,000 mls @ 100 mls/hr 06/15/17 19:45 06/15/17 19:59 Normal Saline IV 06/16/17 05:44 100 mls/hr ONETIME ONE Administration Iopamidol 125 ml 06/15/17 20:38 06/15/17 21:20 Isovue-300 (61%) IVPUSH 06/15/17 20:39 125 ml ONETIME ONE Administration Sodium Chloride 10 ml 06/15/17 20:38 06/15/17 21:21 Saline Flush FLUSH 06/15/17 20:39 10 ml ONETIME ONE Administration - Radiology Interpretation Free Text/Narrative:: flat and upright shows no specific air fluid lines. No dilated loops of bowel. Reviewed by myself and Dr. Hayden Calvert. CT of the abdomen and pelvis with IV and oral contrast impression per [facility]: No bowel obstruction or evidence for other acute abdominopelvic pathology. Vasculature: atherosclerotic disease of the abdominal aorta. There is a partially thrombosed infrarenal abdominal aortic aneurysm, measeuring 3.3 x 3.2 cm, stable since prior study. 1 view of the chest xray shows no acute intrathoracic process. - Re-Assessments/Exams Free Text/Narrative Re-Assessment/Exam: 06/15/17 19:45 labs returned wbc elevated at 16.34, hgb is 12.5 and plts are 117 sodium is 143, potassium is 3.5 and chloride is 104. anion gap is 11.5. Glucose is 155. creatinine is 09 pt is 11.9, INR is 1.09 CRP added to labs, I reviewed the xray and labs with the patient. Unlikely he has a bowel obstruction given PE and no obvious obstruction on xray. I will however obtain a CT to further investigate the elevated wbc. Of note he is on prednisone bid. 06/15/17 23:15 Unfortunately, while the patient was in the ER we had an emergent situation with another patent. His range for us to assist him as he had to have a bowel movement but unfortunately we were unable to get there right away. Consequently he has soiled his pants. Appears that he had a large bowel movement. This was likely from the oral contrast. Reports the bloating has since improved. I reviewed the labs and imaging with the patient. crp is 1.9 I feel the elevated wbc is likely from prednisone bid. We will however obtain a UA and chest xray to rule out additional causes of elevated wbc. 06/16/17 00:28 Reviewed the chest xray with the patient. UA is negative for nitrites, leuks, protein and ketones. 1+ glucose present. Will discharge back to [facility] at this time. Discharge instructions as documented. Departure - Departure Time of Disposition: 00:33 Disposition: DC/Tfer to Clinical Administrative Coordinator [facility] 62 Clinical Impression: Bloating, Elevated WBC count - Discharge Information Referrals: Scottie Butler MD [Primary Care Provider] - Forms: ED Department Discharge Additional Instructions: Follow-up with your primary care provider early this week for a recheck of your symptoms. Continue with your current plan of care. Please return to the ER if your symptoms change or worsen.
--- NOTE | 2017-06-16 08:36 | CR ---
Chest: Portable view of the chest was obtained. Comparison: Previous chest x-ray of 06/04/17. Hiatal hernia is seen. Heart size appears within normal limits. Infusion port is seen entering from the left side. Lungs show no acute infiltrates. Carotid artery calcification is seen. Mild degenerative change is noted within the right shoulder. Impression: 1. Incidental findings. Nothing acute is appreciated on portable chest x-ray. Diagnostic code #2
--- NOTE | 2017-06-16 08:36 | CT ---
CT abdomen and pelvis Technique: Multiple axial sections were obtained from above the dome of the diaphragm inferiorly through the pubic symphysis. Intravenous and oral contrast was utilized. Delayed images were obtained through the bladder. Comparison: Previous abdominal and pelvic CT exam of 02/16/16 is available. Findings: Slight atelectasis seen posteriorly within both lung bases. Liver shows mild fatty infiltration. No focal abnormality is identified within the liver. Spleen appears within normal limits. Moderately large hiatal hernia is seen with gastroesophageal reflux of contrast. Adrenal glands show no nodule. Pancreas is within normal limits. Gallbladder shows no calcified gallstones. Distal aorta shows aneurysmal dilatation measuring about 3.3 cm in size. This previously measured 3.2 cm in size. Appendix not visualized. No pelvic mass or adenopathy is seen. Artifact within the pelvis from left hip prosthesis. Diffuse degenerative change noted within the spine with numerous compression deformities throughout the spine. Delayed images show contrast within the distal ureters and within the bladder. Impression: 1. Stable abdominal aortic aneurysm. 2. Moderately large hiatal hernia with gastroesophageal reflux of contrast. 3. Other incidental findings. Nothing acute is appreciated. Diagnostic code #3 I agree with preliminary report issued by [facility] ([facility] preliminary report dictated on 06/15/17, 11:33 PM Central Time)
--- NOTE | 2017-06-16 08:36 | CR ---
Abdomen: Supine and upright views of the abdomen were obtained. Scattered gas throughout small bowel and colon is seen which appears nonobstructive. Left hip prosthesis is seen. Bony structures are osteopenic. Numerous compression deformities are seen within the spine. No free air is seen. Impression: 1. Incidental findings as described above. Diagnostic code #2
== END 2017-06-16 01:00 ==
LOC: JD.ED 17:53
DX: R14.0 Abdominal distension (gaseous) (principal); D72.829 Elevated white blood cell count, unspecified; I10 Essential (primary) hypertension; E78.00 Pure hypercholesterolemia, unspecified; M81.0 Age-related osteoporosis without current pathological fracture; F32.9 Major depressive disorder, single episode, unspecified; E11.9 Type 2 diabetes mellitus without complications; Z86.73 Personal history of transient ischemic attack (TIA), and cerebral infarction without residual deficits; Z85.72 Personal history of non-Hodgkin lymphomas; Z98.890 Other specified postprocedural states; Z87.891 Personal history of nicotine dependence; Z79.84 Long term (current) use of oral hypoglycemic drugs; Z79.899 Other long term (current) drug therapy
CPT/HCPCS: 36415; 71010; 74020; 74177; 80053; 81001; 85025; 85610; 86140; 96360; 96361; 99285; J1642; J7040; J7050; P9612; Q9963; Q9967; 99284

== ENCOUNTER 2017-07-27 06:31 | Inpatient (IN) | payer MEDICARE, OTHER ==
[2017-07-27] MEDS ORDERED: Dextrose 5%-0.9% NaCl 1,000 ML IV SCH (07:00)
--- NOTE | 2017-07-27 07:02 | EDM.PDOC ---
ED HPI GENERAL MEDICAL PROBLEM - General Chief Complaint: Neuro Symptoms/Deficits Stated Complaint: [facility] Time Seen by Provider: 07/27/17 07:00 Source of Information: Reports: Patient History Limitations: Reports: No Limitations - History of Present Illness INITIAL COMMENTS - FREE TEXT/NARRATIVE: 77-year-old male tends to the ED with sudden onset of severe vertigo upon awakening to void at 0500 hrs. this morning. He was staggering all over and could not walk without aid. He did vomit once of bilious material. He still feels somewhat vertiginous even lying still in bed at rest.. 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 He has been able to get back to home. He wears a gait belt so that his can assist him and he has been walking with a walker. Lately he's been able to go short distances without the walker. 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 He is recovered to some degree he still needs some help with ambulation due to left-sided weakness. He is off balance because of this as well. No recent falls or closed head injuries. Patient does wear bilateral hearing aids. He has had vertigo in the past. He is very hard of hearing does not have his hearing agent at present. Onset: Today Onset Date: 07/27/17 Onset Time: 05:00 Duration: Minutes: Location: Reports: Generalized (Vertiginous and with associated nausea and vomiting.) Quality: Reports: Other Severity: Severe (Vertigo) Improves with: Reports: Rest Worsens with: Reports: Movement Context: Denies: Activity (Of his head or neck.), Exercise, Lifting, Sick Contact, Trauma, Other Associated Symptoms: Reports: Loss of Appetite, Malaise. 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 (see below) (None.) - Related Data Allergies Allergy/AdvReac Type Severity Reaction Status Date / Time adhesive Allergy Intermediate thin skin, Verified 07/27/17 10:51 tears and bruising Home Meds: Home Meds Calcitonin,[place],Synthetic [Calcitonin-[place]] 200 unit MARILIN DAILY 09/06/14 [ History] Fluticasone Propionate [Flonase] 2 spray MARILIN DAILY 09/06/14 [History] predniSONE [Prednisone] 10 mg PO DAILY 09/06/14 [History] Cholecalciferol (Vitamin D3) [Vitamin D3] 2,000 unit PO BID 07/22/15 [History] Sennosides/Docusate Sodium [Senna-Docusate Sodium] 1 tab PO BID 07/22/15 [ History] Acetaminophen [Tylenol] 650 mg PO Q4H PRN #0 tablet 03/01/16 [Rx] Doxazosin [Cardura] 4 mg PO DAILY 05/28/17 [History] Triamcinolone Acetonide [Triamcinolone Acetonide 0.5%] 15 gm TOP BID PRN [History] Zinc Gluconate [Elemental Zinc] 50 mg PO DAILY 05/28/17 [History] Apixaban [Eliquis] 5 mg PO BID 06/15/17 [History] Glimepiride [Amaryl] 2 mg PO DAILY 06/15/17 [History] Linagliptin [Tradjenta] 5 mg PO DAILY 06/15/17 [History] Melatonin 6 mg PO BEDTIME 06/15/17 [History] Metoprolol Tartrate 75 mg PO BID 06/15/17 [History] Omeprazole 20 mg PO DAILY 06/15/17 [History] Rosuvastatin [Crestor] 10 mg PO BEDTIME 06/15/17 [History] Acetaminophen/HYDROcodone [[place] 325-5 MG] 1 tab PO BID PRN 07/27/17 [History] Acetaminophen/HYDROcodone [[place] 325-5 MG] 1 tab PO TID 07/27/17 [History] Magnesium Oxide 400 mg PO DAILY 07/27/17 [History] Multivitamin with Minerals [Multiple Vitamin] 1 tab PO DAILY 07/27/17 [History] Nicotine Polacrilex [Nicotine Lozenge] 4 mg BC Q2H PRN 07/27/17 [History] Polyvinyl Alcohol/Povidone/Pf [Refresh Classic Eye Drops] 1 each EYEBOTH TID PRN 07/27/17 [History] Potassium Chloride 10 meq PO DAILY 07/27/17 [History] Umeclidinium Brm/Vilanterol Tr [Anoro Ellipta 62.5-25 Mcg INH] 1 puff INH DAILY 07/27/17 [History] Past Medical History HEENT History: Reports: Hard of Hearing, Other (See Below) Other HEENT History: cerumen impaction, tinnitis, very [place] Cardiovascular History: Reports: Aneurysm, High Cholesterol, Hypertension, SOB on Exertion, Other (See Below) Other Cardiovascular History: AAA, tachycardia, SVT Respiratory History: Reports: SOB, Other (See Below) Other Respiratory History: hypoxia,Oxygen at home at night and sometimes during the day, cough Gastrointestinal History: Reports: Other (See Below) Other Gastrointestinal History: abdominal air of unknown origin, colon polyps Genitourinary History: Reports: BPH, Other (See Below) Other Genitourinary History: dysuria, nocturia, urgency Musculoskeletal History: Reports: Back Pain, Chronic, Osteoporosis, RA, Other ( See Below) Other Musculoskeletal History: fall and Lt hip fracture in April 2015. Wheelchair bound since then. Reports having old fractures in lumbar vertebrae. Neurological History: Reports: None, CVA, Neuropathy, Peripheral (Both feet believed to be secondary to diabetes.) Psychiatric History: Reports: Depression Other Psychiatric History: delerium, confusion, insomnia Endocrine/Metabolic History: Reports: Diabetes, Type II Hematologic History: Reports: None Immunologic History: Reports: None Oncologic (Cancer) History: Reports: Lymphoma, Non-Hodgkin's Lymphoma Other Oncologic History: B-cell lymphoma. Patient has a implanted IV port Dermatologic History: Reports: None - Infectious Disease History Infectious Disease History: Reports: None - Past Surgical History Head Surgeries/Procedures: Reports: None Cardiovascular Surgical History: Reports: AAA Repair, Other (See Below) GI Surgical History: Reports: Appendectomy, Colonoscopy, Other (See Below) Musculoskeletal Surgical History: Reports: Other (See Below) Social & Family History - Family History Family Medical History: Noncontributory - Tobacco Use Smoking Status *Q: Former Smoker Years of Tobacco use: 25 Packs/Tins Daily: 1 Used Tobacco, but Quit: Yes Month Tobacco Last Used: 1985 Second Hand Smoke Exposure: No - Caffeine Use Caffeine Use: Reports: Coffee Other Caffeine Use: 4 cups/day - Alcohol Use Days Per Week of Alcohol Use: 0 - Recreational Drug Use Recreational Drug Use: No Drug Use in Last 12 Months: No Other Recreational Drug Type: Unknown- patient unresponsive - Living Situation & Occupation Living situation: Reports: , Extended Care Facility Occupation: Retired ED ROS GENERAL - Review of Systems Review Of Systems: See Below (Currently living in retirement to rehabilitation post CVA.) Constitutional: Reports: Malaise, Weakness, Fatigue, Decreased Appetite. 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 Denies: Wheezing, Pleuritic Chest Pain Cardiovascular: Reports: Blood Pressure Problem, Dyspnea on Exertion, Edema, Lightheadedness (She runs a bit on the low side.). Denies: Chest Pain ( Occasional cough with some sputum production), Claudication, Orthopnea Endocrine: Reports: Fatigue, High Glucose GI/Abdominal: Reports: Constipation. Denies: Abdominal Pain : Reports: Frequency, Other (Known BPH. Nocturia usually 3) Musculoskeletal: Reports: Joint Pain Skin: Reports: No Symptoms (Knees hips low back and neck.) Neurological: Reports: Dizziness, Difficulty Walking, Gait Disturbance. Denies : Change in Speech Psychiatric: Reports: Depression (Mild depression related to current) Hematologic/Lymphatic: Reports: No Symptoms ( physical illness.) Immunologic: Reports: No Symptoms ED EXAM, NEURO - Physical Exam Exam: See Below Exam Limited By: Physical Impairment General Appearance: Alert (Very hard of hearing but does answer appropriately when you get close to his ears.), Moderate Distress (Appears afraid to move.) Eye Exam: Bilateral Eye: Nystagmus (Only when looking to the right.) Ears: Other (he is blind in his left eye. Both ear drums were covered with cerumen.) Nose: Normal Inspection Throat/Mouth: Normal Inspection, Normal Lips, Other Head Exam: Atraumatic (Uvula is midline tongue is mildly dry), Normocephalic Neck: Normal Inspection, Supple, Non-Tender, Full Range of Motion. No: Carotid Bruit, Lymphadenopathy (L), Lymphadenopathy (R) Respiratory/Chest: No Respiratory Distress, Lungs Clear, Normal Breath Sounds, Decreased Breath Sounds (Decreased breath sounds to the lower 25% of lung masters bilaterally) Cardiovascular: Regular Rate, Rhythm, No Edema, No Gallop, No Murmur, No Rub, Other. No: Normal Peripheral Pulses GI/Abdominal: Normal Bowel Sounds, Soft (History of atrial fibrillation but is in sinus rhythm at this time), Non-Tender, No Organomegaly (Male) Exam: No Hernia Neurological: Alert, Normal Mood/Affect, CN II-XII Intact, Normal Plantar Flexion, Oriented x 3, Abnormal Finger to Nose (Sided ataxia and finger to nose assessment on the left side.), Babinski (Positive on the right side), Difficulty Walking (Ataxic list to the left side), Other (Able to do rapid alternating movements with his fingers slower on the left side.). No: Normal Gait, Normal Reflexes DTR: 0: Achilles (R), Achilles (L), 1+: Bicep (R), Bicep (L), Patella (R), Patella (L) Back Exam: Normal Inspection. No: CVA Tenderness (L), CVA Tenderness (R) Extremities: Normal Inspection, Normal Range of Motion, Non-Tender, No Pedal Edema Psychiatric: Normal Affect, Normal Mood Skin Exam: Warm, Dry, Intact, Normal Color, No Rash EKG INTERPRETATION EKG Date: 07/27/17 Time: 07:40 Rhythm: NSR Rate (Beats/Min): 71 [place]: Normal P-Wave: Present (Consider mild left atrial hypertrophy) QRS: Other (Early R-wave transition) ST-T: Other (Diffuse abnormal repolarization pattern with no true ST segment depression.) QT: Prolonged (Moderately prolonged) Course - Vital Signs Last Recorded V/S: Last Vital Signs Temp 36.6 C 07/27/17 10:40 Pulse 72 07/27/17 10:40 Resp 16 07/27/17 10:40 BP 129/74 07/27/17 10:40 Pulse Ox 92 L 07/27/17 10:40 - Orders/Labs/Meds Orders: Active Orders 24 hr Category Date Time Status Head wo Cont [CT] Stat Exams 07/27/17 07:09 Taken Sodium Chloride 0.9% [Normal Saline] 1,000 ml Med 07/27/17 09:15 Active IV ASDIRECTED Medication Orders Aspirin (Ecotrin) 325 mg PO DAILY MAIA Dextrose/Water (Dextrose 50% In Water) 50 ml IVPUSH ASDIRECTED PRN PRN Reason: Hypoglycemia Flunisolide (Nasalide Nasal [place]) 0 ml MARILIN Q12H MAIA Hydralazine HCl (Apresoline) 20 mg IVPUSH Q6H PRN PRN Reason: Hypertension Sodium Chloride (Normal Saline) 1,000 mls @ 100 mls/hr IV ASDIRECTED MAIA Dextrose/Sodium Chloride (Dextrose 5%-1/2 Ns) 1,000 mls @ 75 mls/hr IV ASDIRECTED MAIA Insulin Aspart (Novolog) 0 unit SUBCUT QIDACANDBED MAIA PRN Reason: Protocol Metoprolol Tartrate (Lopressor) 75 mg PO BID MAIA Metoprolol Tartrate (Lopressor) 5 mg IVPUSH Q6H PRN PRN Reason: heart rate Non-Formulary Medication (Calcitonin ([place])) 200 unit MARILIN DAILY [facility] Non-Formulary Medication (Umeclidinium Brm/Vilanterol Tr) 1 puff INH DAILY [facility] Prednisone (Prednisone) 10 mg PO DAILY MAIA Rosuvastatin Calcium (Crestor) 10 mg PO BEDTIME [facility] Labs: Laboratory Tests 07/27/17 07/27/17 07/27/17 Range/Units 07:45 07:45 07:45 WBC 7.95 (4.23-9.07) K/mm3 RBC 4.56 L (4.63-6.08) M/mm3 Hgb 12.3 L (13.7-17.5) gm/L Hct 39.8 L (40.1-51.0) % MCV 87.3 (79.0-92.2) fl MCH 27.0 (25.7-32.2) pg MCHC 30.9 L (32.2-35.5) g/dl RDW Std Deviation 45.1 H (35.1-43.9) fL Plt Count 85 L (163-337) K/mm3 MPV 11.3 (9.4-12.3) fl Neutrophils % (Manual) 77 H (40-60) % Band Neutrophils % 0 (0-10) % Lymphocytes % (Manual) 16 L (20-40) % Atypical Lymphs % 2 % Monocytes % (Manual) 3 (2-10) % Eosinophils % (Manual) 0 L (0.8-7.0) % Basophils % (Manual) 0 L (0.2-1.2) Myelocytes % 2 Platelet Estimate Decreased Plt Morphology Comment Normal Poikilocytosis 1+ slight Tear Drop Cells 1+ slight Ovalocytes 1+ slight RBC Morph Comment Abnormal PT (8.0-13.0) SECONDS INR APTT (22-36) SECONDS Sodium 143 (136-145) mEq/L Potassium 3.0 L (3.5-5.1) mEq/L Chloride 107 (98-107) mEq/L Carbon Dioxide 29 (21-32) mEq/L Anion Gap 10.0 (5-15) BUN 19 H (7-18) mg/dL Creatinine 0.8 (0.7-1.3) mg/dL Est Cr Clr Drug Dosing 75.85 mL/min Estimated GFR (MDRD) > 60 (>60) mL/min BUN/Creatinine Ratio 23.8 H (14-18) Glucose 168 H (83-115) mg/dL POC Glucose (83-110) mg/dL Calcium 8.9 (8.5-10.1) mg/dL Magnesium 1.7 L (1.8-2.4) mg/dl Total Bilirubin 0.5 (0.2-1.0) mg/dL AST 17 (15-37) U/L ALT 20 (16-63) U/L Alkaline Phosphatase 56 (46-116) U/L CK-MB (CK-2) 0.9 (0-3.6) ng/ml Troponin I < 0.017 (0.00-0.056) ng/mL C-Reactive Protein 0.9 (<1.0) mg/dL NT-Pro-B Natriuret Pep 145 (0-450) pg/mL Total Protein 5.8 L (6.4-8.2) g/dl Albumin 3.3 L (3.4-5.0) g/dl Globulin 2.5 gm/dL Albumin/Globulin Ratio 1.3 (1-2) 07/27/17 07/27/17 Range/Units 07:45 08:00 WBC (4.23-9.07) K/mm3 RBC (4.63-6.08) M/mm3 Hgb (13.7-17.5) gm/L Hct (40.1-51.0) % MCV (79.0-92.2) fl MCH (25.7-32.2) pg MCHC (32.2-35.5) g/dl RDW Std Deviation (35.1-43.9) fL Plt Count (163-337) K/mm3 MPV (9.4-12.3) fl Neutrophils % (Manual) (40-60) % Band Neutrophils % (0-10) % Lymphocytes % (Manual) (20-40) % Atypical Lymphs % % Monocytes % (Manual) (2-10) % Eosinophils % (Manual) (0.8-7.0) % Basophils % (Manual) (0.2-1.2) Myelocytes % Platelet Estimate Plt Morphology Comment Poikilocytosis Tear Drop Cells Ovalocytes RBC Morph Comment PT 11.3 (8.0-13.0) SECONDS INR 1.03 APTT 26 (22-36) SECONDS Sodium (136-145) mEq/L Potassium (3.5-5.1) mEq/L Chloride (98-107) mEq/L Carbon Dioxide (21-32) mEq/L Anion Gap (5-15) BUN (7-18) mg/dL Creatinine (0.7-1.3) mg/dL Est Cr Clr Drug Dosing mL/min Estimated GFR (MDRD) (>60) mL/min BUN/Creatinine Ratio (14-18) Glucose (83-115) mg/dL POC Glucose 175 H (83-110) mg/dL Calcium (8.5-10.1) mg/dL Magnesium (1.8-2.4) mg/dl Total Bilirubin (0.2-1.0) mg/dL AST (15-37) U/L ALT (16-63) U/L Alkaline Phosphatase (46-116) U/L CK-MB (CK-2) (0-3.6) ng/ml Troponin I (0.00-0.056) ng/mL C-Reactive Protein (<1.0) mg/dL NT-Pro-B Natriuret Pep (0-450) pg/mL Total Protein (6.4-8.2) g/dl Albumin (3.4-5.0) g/dl Globulin gm/dL Albumin/Globulin Ratio (1-2) Meds: Medications Generic Name Dose Route Start Last Admin Trade Name Freq PRN Reason Stop Dose Admin Aspirin 325 mg 07/28/17 09:00 Ecotrin PO DAILY MAIA Dextrose/Water 50 ml 07/27/17 11:36 Dextrose 50% In Water IVPUSH ASDIRECTED PRN Hypoglycemia Flunisolide 0 ml 07/28/17 09:00 Nasalide Nasal [place] MARILIN Q12H MAIA Hydralazine HCl 20 mg 07/27/17 11:43 Apresoline IVPUSH Q6H PRN Hypertension Sodium Chloride 1,000 mls @ 100 mls/hr 07/27/17 09:15 Normal Saline IV ASDIRECTED MAIA Dextrose/Sodium Chloride 1,000 mls @ 75 mls/hr 07/27/17 11:45 Dextrose 5%-1/2 Ns IV ASDIRECTED MAIA Insulin Aspart 0 unit 07/27/17 11:45 Novolog SUBCUT QIDACANDBED [facility] Protocol Metoprolol Tartrate 75 mg 07/27/17 21:00 Lopressor PO BID MAIA Metoprolol Tartrate 5 mg 07/27/17 11:42 Lopressor IVPUSH Q6H PRN heart rate Non-Formulary Medication 200 unit 07/28/17 09:00 Calcitonin ([place]) MARILIN DAILY [facility] Non-Formulary Medication 1 puff 07/28/17 09:00 Umeclidinium Brm/Vilanterol Tr INH DAILY MAIA Prednisone 10 mg 07/28/17 09:00 Prednisone PO DAILY MAIA Rosuvastatin Calcium 10 mg 07/27/17 21:00 Crestor PO BEDTIME MAIA Discontinued Medications Generic Name Dose Route Start Last Admin Trade Name Freq PRN Reason Stop Dose Admin Dextrose/Sodium Chloride 1,000 mls @ 150 mls/hr 07/27/17 07:00 07/27/17 07:22 Dextrose 5%-Normal Saline IV 150 mls/hr ASDIRECTED MAIA Administration Lorazepam 0.5 mg 07/27/17 07:12 07/27/17 07:23 Ativan IVPUSH 07/27/17 07:13 0.5 mg ONETIME ONE Administration Metoclopramide HCl 7.5 mg 07/27/17 07:12 07/27/17 07:22 Reglan IVPUSH 07/27/17 07:13 7.5 mg ONETIME ONE Administration - Radiology Interpretation Free Text/Narrative:: 77-year-old male presents to the ED with an acute onset of vertigo and still having some vertiginous feeling even at rest. He is blind in his left eye does not have any sustained nystagmus on looking to the right. As mild nystagmus on looking to the right. Finger to nose was appropriate except for left-sided weakness limits paced of his ability to perform this test. No definitive weakness on the left side no focal neurological deficit identified. Both ureters are filled with cerumen and is very hard of hearing and wears bilateral hearing aids normally. He is on aliquots after his major CVA in June 04. He is currently a retirement situation for rehabilitation. Plan IV D5 normal saline at 150 mils per hour he is a diabetic his was not able to his glucometer work so we don't know what his sugar was this morning. Bedside sugar to be done. Routine labs ECG BNP troponin CT head to be done. Given Reglan 7.5 mg IV with Ativan 0.5 mg IV for vertigo relief. Both ears will be irrigated with warm water. - Re-Assessments/Exams Free Text/Narrative Re-Assessment/Exam: 07/27/17 08:20 CT scan of the brain reveals age-appropriate degenerative changes with small vessel ischemic changes in both posterior basal ganglia and in the white matter as well. Is a lacunar infarct in both basal ganglia the one on the right is slightly larger than one the left. There is no hemorrhage or evidence of obvious infarct in the cerebellum. However there appears to be any evidence of low attenuation involving the left side of the ashlie this may represent a small pontine infarct and is new since the study dated June 04. 07/27/17 08:54 labs reveal a total white count of 7.95 with 77% neutrophils and no bands. Hemoglobin is 12.3 hematocrit of 39.8 platelets are low at 85,000. MCV is 87.3. Chemistry shows a sodium of 143 potassium is low at 3.0. Anion gap is 10 BUNs 19. Creatinine is 0.8 EGFR is greater than 60. Blood sugar was 168 bedside 175 in the lab. Magnesium slightly low at 1.7. Both ears have been irrigated and cerumen removed off of the eardrums bilaterally. The question is whether there is a significant pontine infarct that is contributing to his weakness and vertigo symptoms. Organic try and get him up to see if he can walk at all. 07/27/17 09:06 family reports that intermittently he will wake up and complained that he is still feeling quite for changes. Ears have been irrigated. There is near complete removal of the cerumen from the right side and partial on the left side. Patient is actually sleeping at this time. Plan will be to reassess him at 0930 hrs. as far as ability to get up and walk and weight-bear which I don't believe he will be able to do. Suspect he will need to be admitted to the hospital. Therefore he was experiencing recurrent stroke in spite of being on Eliquis. 07/27/17 09:45 attempts to try and get him up and see how his balance was was a measurable failure. Patient couldn't sit up even with help. He lists terribly to the right side. He is therefore worse now than he was when he came in. Still feels quite vertiginous. His initial workup was carried out at [facility] on June 04. I will try and obtain these records. Spoke with Dr. Kahn motor vehicle or caravan salesperson hospitalist and she will attend him in the ED. 07/27/17 10:55: c per Dr. Hewitt were also normal. patient will be admitted to the [facility] surgery floor Departure - Departure Time of Disposition: 10:30 Disposition: Admitted As Inpatient 65 Condition: Serious Clinical Impression: Hypokalemia due to inadequate potassium intake Cerebrovascular accident Qualifiers: CVA mechanism: embolism Precerebral and cerebral artery: unspecified cerebral artery Qualified Code(s): I63.40 - Cerebral infarction due to embolism of unspecified cerebral artery - Discharge Information - My Orders Last 24 Hours: My Active Orders 07/27/17 07:09 Head wo Cont [CT] Stat 07/27/17 09:15 Sodium Chloride 0.9% [Normal Saline] 1,000 ml IV ASDIRECTED - Assessment/Plan Last 24 Hours: My Active Orders 07/27/17 07:09 Head wo Cont [CT] Stat 07/27/17 09:15 Sodium Chloride 0.9% [Normal Saline] 1,000 ml IV ASDIRECTED
[2017-07-27] MEDS ORDERED: LORazepam 2 MG/ML MDV IVPUSH ONE (07:12)
[2017-07-27] MEDS ORDERED: Metoclopramide 10 MG/2 ML SDV IVPUSH ONE (07:12)
[2017-07-27] MEDS ORDERED: Sodium Chloride 0.9% 1,000 ML IV SCH (09:15)
--- NOTE | 2017-07-27 11:10 | PCM.HP ---
H&P History of Present Illness - General Date of Service: 07/27/17 Admit Problem/Dx: Admission Diagnosis/Problem Admission Diagnosis/Problem Ischemic stroke Source of Information: Family, Old Records, Provider History Limitations: Reports: No Limitations - History of Present Illness Initial Comments - Free Text/Narative: 77 year old male with PMH of apparent embolic CVAs, presents with change in neuro status. He has had difficulty walking, poor coordination. He had been in a SNF for recovery from a previous CVA. On his last presentation to [facility], he was transferred after intubation. The patient has a history of PAF and was started on Eliquis during his last admission to [facility] neuro service. On this occasion, he has had dizziness with nausea/vomiting.. He had a ten day stay in [facility] for a CVA, multi-infarct; he had had sudden aphasia with right sided hemiplegia; tPA was not given prior to transfer from [place]. He had had a similar presentation of an ischemic CVA, 5-7 days [employer] to [facility]. He was intubated for 48 hours treated for aspiration PNA/septic shock. He was scheduled for sleep medicine appointment after an overnight oximetry. Ceftin 500 mg BID for 3 days was also provided at [facility] to complete a ten day course of therapy for antibiotics. Onset of Symptoms: Reports: Gradual Symptom Onset Date: 07/27/17 Duration of Symptoms: Reports: Hour(s):, Getting Worse Location: Reports: Generalized Quality: Reports: Same as Previous Episode Severity: Moderate Improves with: Reports: None Worsens with: Reports: Movement Associated Symptoms: Reports: Confusion, Nausea/Vomiting, Weakness Neck Pain Score (Numeric/FACES): 7 - Related Data Allergies/Adverse Reactions: Allergies Allergy/AdvReac Type Severity Reaction Status Date / Time adhesive Allergy Intermediate thin skin, Verified 07/27/17 10:51 tears and bruising Home Medications: Home Meds Calcitonin,Oolitic,Synthetic [Calcitonin-Oolitic] 200 unit MARILIN DAILY 09/06/14 [ History] Fluticasone Propionate [Flonase] 2 spray MARILIN DAILY 09/06/14 [History] predniSONE [Prednisone] 10 mg PO DAILY 09/06/14 [History] Cholecalciferol (Vitamin D3) [Vitamin D3] 2,000 unit PO BID 07/22/15 [History] Sennosides/Docusate Sodium [Senna-Docusate Sodium] 2 tab PO BID 07/22/15 [ History] Acetaminophen [Tylenol] 650 mg PO Q4H PRN #0 tablet 03/01/16 [Rx] Doxazosin [Cardura] 4 mg PO DAILY 05/28/17 [History] Triamcinolone Acetonide [Triamcinolone Acetonide 0.5%] 15 gm TOP BID PRN [History] Zinc Gluconate [Elemental Zinc] 50 mg PO DAILY 05/28/17 [History] Apixaban [Eliquis] 5 mg PO BID 06/15/17 [History] Glimepiride [Amaryl] 2 mg PO DAILY 06/15/17 [History] Linagliptin [Tradjenta] 5 mg PO DAILY 06/15/17 [History] Melatonin 6 mg PO BEDTIME 06/15/17 [History] Metoprolol Tartrate 75 mg PO BID 06/15/17 [History] Omeprazole 20 mg PO DAILY 06/15/17 [History] Rosuvastatin [Crestor] 10 mg PO BEDTIME 06/15/17 [History] Acetaminophen/HYDROcodone [[place] 325-5 MG] 1 tab PO BID PRN 07/27/17 [History] Acetaminophen/HYDROcodone [[place] 325-5 MG] 1 tab PO TID 07/27/17 [History] Magnesium Oxide 400 mg PO DAILY 07/27/17 [History] Multivitamin with Minerals [Multiple Vitamin] 1 tab PO DAILY 07/27/17 [History] Nicotine Polacrilex [Nicotine Lozenge] 4 mg BC Q2H PRN 07/27/17 [History] Polyvinyl Alcohol/Povidone/Pf [Refresh Classic Eye Drops] 1 each EYEBOTH TID PRN 07/27/17 [History] Potassium Chloride 10 meq PO DAILY 07/27/17 [History] Umeclidinium Brm/Vilanterol Tr [Anoro Ellipta 62.5-25 Mcg INH] 1 puff INH DAILY 07/27/17 [History] Nicotine [Habitrol] 21 mg TRDERM DAILY #30 patch 07/31/17 [Rx] Past Medical History HEENT History: Reports: Hard of Hearing, Other (See Below) Other HEENT History: cerumen impaction, tinnitis, very [place] Cardiovascular History: Reports: Aneurysm, High Cholesterol, Hypertension, SOB on Exertion, Other (See Below) Other Cardiovascular History: AAA, tachycardia, SVT Respiratory History: Reports: SOB, Other (See Below) Other Respiratory History: hypoxia,Oxygen at home at night and sometimes during the day, cough Gastrointestinal History: Reports: Other (See Below) Other Gastrointestinal History: abdominal air of unknown origin, colon polyps Genitourinary History: Reports: BPH, Other (See Below) Other Genitourinary History: dysuria, nocturia, urgency Musculoskeletal History: Reports: Back Pain, Chronic, Osteoporosis, RA, Other ( See Below) Other Musculoskeletal History: fall and Lt hip fracture in April 2015. Wheelchair bound since then. Reports having old fractures in lumbar vertebrae. Neurological History: Reports: None, CVA, Neuropathy, Peripheral (Both feet believed to be secondary to diabetes.) Psychiatric History: Reports: Depression Other Psychiatric History: delerium, confusion, insomnia Endocrine/Metabolic History: Reports: Diabetes, Type II Hematologic History: Reports: None Immunologic History: Reports: None Oncologic (Cancer) History: Reports: Lymphoma, Non-Hodgkin's Lymphoma Other Oncologic History: B-cell lymphoma. Patient has a implanted IV port Dermatologic History: Reports: None - Infectious Disease History Infectious Disease History: Reports: None - Past Surgical History Head Surgeries/Procedures: Reports: None Cardiovascular Surgical History: Reports: AAA Repair, Other (See Below) GI Surgical History: Reports: Appendectomy, Colonoscopy, Other (See Below) Musculoskeletal Surgical History: Reports: Other (See Below) Social & Family History - Family History Family Medical History: Noncontributory - Tobacco Use Smoking Status *Q: Former Smoker Years of Tobacco use: 25 Packs/Tins Daily: 1 Used Tobacco, but Quit: Yes Month Tobacco Last Used: 1985 Second Hand Smoke Exposure: No - Caffeine Use Caffeine Use: Reports: Coffee Other Caffeine Use: 4 cups/day - Alcohol Use Days Per Week of Alcohol Use: 0 - Recreational Drug Use Recreational Drug Use: No Drug Use in Last 12 Months: No Other Recreational Drug Type: Unknown- patient unresponsive - Living Situation & Occupation Living situation: Reports: , Extended Care Facility Occupation: Retired H&P Review of Systems - Review of Systems: Review Of Systems: See Below General: Reports: Malaise, Weakness, Fatigue, Decreased Appetite HEENT: Reports: No Symptoms Pulmonary: Reports: No Symptoms Cardiovascular: Reports: No Symptoms Gastrointestinal: Reports: No Symptoms Genitourinary: Reports: No Symptoms Musculoskeletal: Reports: No Symptoms Skin: Reports: No Symptoms Psychiatric: Reports: Confusion, Depression Neurological: Reports: Confusion, Dizziness, Difficulty Walking, Weakness Hematologic/Lymphatic: Reports: No Symptoms Immunologic: Reports: No Symptoms Exam - Exam Exam: See Below - Vital Signs Vital Signs: Last Vital Signs Temp 36.6 C 07/27/17 10:40 Pulse 72 07/27/17 10:40 Resp 16 07/27/17 10:40 BP 129/74 07/27/17 10:40 Pulse Ox 92 L 07/27/17 10:40 Weight: 82.146 kg - Exam Quality Assessment: Supplemental Oxygen, DVT Prophylaxis General: Lethargic HEENT: Conjunctiva Clear, Pupils Equal, Pupils Reactive Neck: Supple, Trachea Midline Lungs: Normal Respiratory Effort Cardiovascular: Regular Rate, Regular Rhythm GI/Abdominal Exam: Normal Bowel Sounds, Soft, Non-Tender, No Distention (Male) Exam: Deferred Rectal (Males) Exam: Deferred Back Exam: Normal Inspection Extremities: Normal Inspection Skin: Warm Neurological: Cranial Nerves Intact, Babinski (right sided), Reflexes Unequal Neuro Extensive - Mental Status: Alert, Oriented x3 Neuro Extensive - Motor, Sensory, Reflexes: CN II-XII Intact, Abnormal Gait Psychiatric: Alert, Normal Affect, Normal Mood - Patient Data Result Diagrams: 07/31/17 06:11 07/31/17 06:11 *Q Meaningful Use (ADM) - VTE *Q VTE Criteria *Q: - Stroke *Q Stroke Criteria *Q: - AMI *Q AMI Criteria *Q: - Problem List (1) Hypertension SNOMED Code(s): 04691020 ICD Code: I10 - ESSENTIAL (PRIMARY) HYPERTENSION Status: Chronic Priority : High Qualifiers: Hypertension type: essential hypertension Qualified Code(s): I10 - Essential (primary) hypertension (2) Hyperlipidemia SNOMED Code(s): 80155484 ICD Code: E78.5 - HYPERLIPIDEMIA, UNSPECIFIED Status: Chronic Priority: High Qualifiers: Hyperlipidemia type: unspecified Qualified Code(s): E78.5 - Hyperlipidemia , unspecified (3) AAA (abdominal aortic aneurysm) without rupture SNOMED Code(s): 24434301 ICD Code: I71.4 - ABDOMINAL AORTIC ANEURYSM, WITHOUT RUPTURE Status: Acute (4) Paroxysmal atrial fibrillation SNOMED Code(s): 383770793 ICD Code: I48.0 - PAROXYSMAL ATRIAL FIBRILLATION Status: Chronic Priority : High (5) BPH (benign prostatic hyperplasia) SNOMED Code(s): 558421733, 305172600 ICD Code: N40.0 - BENIGN PROSTATIC HYPERPLASIA WITHOUT LOWER URINRY TRACT SYMP Status: Chronic Priority: Medium (6) Diabetes mellitus SNOMED Code(s): 51810614 ICD Code: E11.9 - TYPE 2 DIABETES MELLITUS WITHOUT COMPLICATIONS Status: Chronic Priority: High Qualifiers: Diabetes mellitus type: type 2 Diabetes mellitus complication status: with circulatory complication Diabetes mellitus complication detail: with other circulatory complications Diabetes mellitus detention insulin use: unspecified detention insulin use status Qualified Code(s): E11.59 - Type 2 diabetes mellitus with other circulatory complications (7) B-cell lymphoma SNOMED Code(s): 703000579 ICD Code: C85.10 - UNSPECIFIED B-CELL LYMPHOMA, UNSPECIFIED SITE Status: Acute (8) CVA (cerebral vascular accident) SNOMED Code(s): 953302949 ICD Code: I63.9 - CEREBRAL INFARCTION, UNSPECIFIED Status: Acute Priority : High Qualifiers: CVA mechanism: embolism Precerebral and cerebral artery: unspecified cerebral artery Qualified Code(s): I63.40 - Cerebral infarction due to embolism of unspecified cerebral artery (9) Altered mental status SNOMED Code(s): 977223962 ICD Code: R41.82 - ALTERED MENTAL STATUS, UNSPECIFIED Status: Resolved Priority: High Qualifiers: Altered mental status type: unspecified Qualified Code(s): R41.82 - Altered mental status, unspecified Problem List Initiated/Reviewed/Updated: Yes Orders Last 24hrs: Medication Orders Sodium Chloride (Normal Saline) 1,000 mls @ 100 mls/hr IV ASDIRECTED [facility] Assessment/Plan Comment:: Impression: CVA/TIA, history of multiple embolic CVAs Unsteady gait, right sided weakness Recovering from Right sided deficits from May 2017 PAF, started Eliquis May 2017 Chronic HTN PVD AAA repair History of Lymphoma Diabetes Mellitus HLD HTN Plan: ASA 325 mg daily Hold Eliquis for 48 hours CVA protocol NPO until swallow eval Home meds Daily Labs MRI of brain CM/PT/OT DVT/GI prophylaxis
[2017-07-27] MEDS ORDERED: 50% Dextrose in Water 50 ML Syringe IVPUSH PRN (11:36)
[2017-07-27] MEDS ORDERED: Metoprolol Tartrate 5 MG/5 ML SDV IVPUSH PRN (11:42)
[2017-07-27] MEDS ORDERED: hydrALAZINE 20 MG/ML SDV IVPUSH PRN (11:43)
[2017-07-27] MEDS ORDERED: Magnesium Sulfate/Water 2 GM in Premix Bag 1 BAG IV ONE (13:04)
[2017-07-27] MEDS: Dextrose 5%-0.45% NaCl 1,000 ML IV SCH (13:36)
[2017-07-27] MEDS: Potassium Chloride 10 MEQ in Premix Bag 1 BAG IV SCH ×3 (13:40→15:50)
[2017-07-27] MEDS: Insulin Aspart 100 Units/ML 3 ML Pen SUBCUT SCH ×2 (13:43→17:28)
[2017-07-27] MEDS ORDERED: Metoprolol Tartrate 25 MG Tab PO SCH (21:00)
[2017-07-27] MEDS ORDERED: Rosuvastatin 10 MG Tab PO SCH (21:00)
[2017-07-27] MEDS: Pantoprazole 40 MG Vial IVPUSH SCH (21:07)
[2017-07-28] MEDS: Insulin Aspart 100 Units/ML 3 ML Pen SUBCUT SCH ×5 (00:56→23:47)
[2017-07-28] MEDS: Dextrose 5%-0.45% NaCl 1,000 ML IV SCH ×2 (03:05→17:33)
[2017-07-28] MEDS ORDERED: Aspirin 325 MG Tab.EC PO SCH (09:00)
[2017-07-28] MEDS ORDERED: predniSONE 10 MG Tab PO SCH (09:00)
[2017-07-28] MEDS ORDERED: CALCITONIN NAS SCH (09:00)
[2017-07-28] MEDS: Pantoprazole 40 MG Vial IVPUSH SCH ×2 (09:16→20:33)
[2017-07-28] MEDS: methylPREDNISolone Sodium Succinate 40 MG/1 ML SDV IVPUSH SCH (09:16)
[2017-07-28] MEDS: Aspirin 300 MG Supp RECTAL SCH ×2 (09:35→09:37)
[2017-07-28] MEDS: Enoxaparin 40 MG/0.4 ML Syringe SUBCUT SCH (09:37)
[2017-07-28] MEDS ORDERED: Acetaminophen 325 MG Tab PO PRN (10:49)
--- NOTE | 2017-07-28 15:13 | PCM.PN ---
- General Info Date of Service: 07/28/17 Functional Status: Reports: Urinating - Review of Systems General: Reports: Weakness HEENT: Reports: No Symptoms Pulmonary: Reports: No Symptoms Cardiovascular: Reports: No Symptoms Gastrointestinal: Reports: No Symptoms Genitourinary: Reports: No Symptoms Musculoskeletal: Reports: No Symptoms Skin: Reports: No Symptoms Neurological: Reports: Confusion (decreased), Other (less lethargic) Psychiatric: Reports: No Symptoms - Patient Data Vitals - Most Recent: Last Vital Signs Temp 37.0 C 07/28/17 14:28 Pulse 78 07/28/17 12:03 Resp 15 07/28/17 14:28 BP 108/89 07/28/17 14:28 Pulse Ox 93 L 07/28/17 12:03 Weight - Most Recent: 81.284 kg I&O - Last 24 Hours: Intake & Output 07/28/17 07/28/17 07/28/17 06:59 14:59 22:59 Intake Total 999 720 Output Total 1815 600 Balance -816 120 Lab Results Last 24 Hours: Laboratory Results - last 24 hr 07/27/17 07/27/17 07/28/17 Range/Units 16:39 20:25 05:45 WBC (4.23-9.07) K/mm3 RBC (4.63-6.08) M/mm3 Hgb (13.7-17.5) gm/L Hct (40.1-51.0) % MCV (79.0-92.2) fl MCH (25.7-32.2) pg MCHC (32.2-35.5) g/dl RDW Std Deviation (35.1-43.9) fL Plt Count (163-337) K/mm3 MPV (9.4-12.3) fl Neut % (Auto) (34.0-67.9) % Lymph % (Auto) (21.8-53.1) % [place] % (Auto) (5.3-12.2) % Eos % (Auto) (0.8-7.0) Baso % (Auto) (0.1-1.2) % Neut # (Auto) (1.78-5.38) K/mm3 Lymph # (Auto) (1.32-3.57) K/mm3 [place] # (Auto) (0.30-0.82) K/mm3 Eos # (Auto) (0.04-0.54) K/mm3 Baso # (Auto) (0.01-0.08) K/mm3 Manual Slide Review Sodium 144 (136-145) mEq/L Potassium 3.5 (3.5-5.1) mEq/L Chloride 106 (98-107) mEq/L Carbon Dioxide 29 (21-32) mEq/L Anion Gap 12.5 (5-15) BUN 8 (7-18) mg/dL Creatinine 0.7 (0.7-1.3) mg/dL Est Cr Clr Drug Dosing 86.97 mL/min Estimated GFR (MDRD) > 60 (>60) mL/min BUN/Creatinine Ratio 11.4 L (14-18) Glucose 118 H (83-115) mg/dL POC Glucose 140 H 121 H (83-110) mg/dL Calcium 8.5 (8.5-10.1) mg/dL Magnesium 2.1 (1.8-2.4) mg/dl Triglycerides 136 (<150) mg/dL Cholesterol 92 (<200) mg/dL LDL Cholesterol Direct 27 (<100) mg/dL HDL Cholesterol 53.0 (40-59) mg/dL TSH 3rd Generation 0.288 L (0.358-3.74) uIU/mL 07/28/17 07/28/17 07/28/17 Range/Units 05:45 05:54 11:34 WBC 7.84 (4.23-9.07) K/mm3 RBC 4.61 L (4.63-6.08) M/mm3 Hgb 12.5 L (13.7-17.5) gm/L Hct 40.5 (40.1-51.0) % MCV 87.9 (79.0-92.2) fl MCH 27.1 (25.7-32.2) pg MCHC 30.9 L (32.2-35.5) g/dl RDW Std Deviation 46.3 H (35.1-43.9) fL Plt Count 89 L (163-337) K/mm3 MPV 11.3 (9.4-12.3) fl Neut % (Auto) 67.3 (34.0-67.9) % Lymph % (Auto) 22.3 (21.8-53.1) % [place] % (Auto) 8.4 (5.3-12.2) % Eos % (Auto) 1.7 (0.8-7.0) Baso % (Auto) 0.3 (0.1-1.2) % Neut # (Auto) 5.28 (1.78-5.38) K/mm3 Lymph # (Auto) 1.75 (1.32-3.57) K/mm3 [place] # (Auto) 0.66 (0.30-0.82) K/mm3 Eos # (Auto) 0.13 (0.04-0.54) K/mm3 Baso # (Auto) 0.02 (0.01-0.08) K/mm3 Manual Slide Review Abnormal smear Sodium (136-145) mEq/L Potassium (3.5-5.1) mEq/L Chloride (98-107) mEq/L Carbon Dioxide (21-32) mEq/L Anion Gap (5-15) BUN (7-18) mg/dL Creatinine (0.7-1.3) mg/dL Est Cr Clr Drug Dosing mL/min Estimated GFR (MDRD) (>60) mL/min BUN/Creatinine Ratio (14-18) Glucose (83-115) mg/dL POC Glucose 116 H 147 H (83-110) mg/dL Calcium (8.5-10.1) mg/dL Magnesium (1.8-2.4) mg/dl Triglycerides (<150) mg/dL Cholesterol (<200) mg/dL LDL Cholesterol Direct (<100) mg/dL HDL Cholesterol (40-59) mg/dL TSH 3rd Generation (0.358-3.74) uIU/mL Med Orders - Current: Current Medications Acetaminophen (Tylenol) 650 mg PO Q4H PRN PRN Reason: Pain Hydrocodone Bitart/Acetaminophen ([place] 325-5 Mg) 1 tab PO BID PRN PRN Reason: Pain Aspirin (Aspirin) 300 mg RECTAL DAILY [facility] Last Admin: 07/28/17 09:37 Dose: 300 mg Dextrose/Water (Dextrose 50% In Water) 50 ml IVPUSH ASDIRECTED PRN PRN Reason: Hypoglycemia Enoxaparin Sodium (Lovenox) 40 mg SUBCUT DAILY [facility] Last Admin: 07/28/17 09:37 Dose: 40 mg Flunisolide (Nasalide Nasal [place]) 0 ml MARILIN Q12H [facility] Last Admin: 07/28/17 09:16 Dose: 2 spray Hydralazine HCl (Apresoline) 20 mg IVPUSH Q6H PRN PRN Reason: Hypertension Dextrose/Sodium Chloride (Dextrose 5%-1/2 Ns) 1,000 mls @ 75 mls/hr IV ASDIRECTED [facility] Last Admin: 07/28/17 03:05 Dose: 75 mls/hr Insulin Aspart (Novolog) 0 unit SUBCUT QIDACANDBED [facility] PRN Reason: Protocol Last Admin: 07/28/17 11:35 Dose: Not Given Methylprednisolone Sodium Succinate (Solu-Medrol) 40 mg IVPUSH DAILY [facility] Last Admin: 07/28/17 09:16 Dose: 40 mg Metoprolol Tartrate (Lopressor) 5 mg IVPUSH Q6H PRN PRN Reason: heart rate Pantoprazole Sodium (Protonix Iv) 40 mg IVPUSH Q12H [facility] Last Admin: 07/28/17 09:16 Dose: 40 mg (Umeclidinium Brm/Vilanterol Tr 1 Puff )*Pt Own Med* 0 each INH DAILY [facility] Discontinued Medications Aspirin (Ecotrin) 325 mg PO DAILY [facility] Dextrose/Sodium Chloride (Dextrose 5%-Normal Saline) 1,000 mls @ 150 mls/hr IV ASDIRECTED [facility] Last Admin: 07/27/17 07:22 Dose: 150 mls/hr Sodium Chloride (Normal Saline) 1,000 mls @ 100 mls/hr IV ASDIRECTED [facility] Magnesium Sulfate 2 gm/ Premix 50 mls @ 25 mls/hr IV ONETIME ONE Stop: 07/27/17 15:03 Last Admin: 07/27/17 13:37 Dose: 25 mls/hr Potassium Chloride 10 meq/ (Premix) 100 mls @ 100 mls/hr IV Q1H [facility] Stop: 07/27/17 16:29 Last Admin: 07/27/17 15:50 Dose: 100 mls/hr Lorazepam (Ativan) 0.5 mg IVPUSH ONETIME ONE Stop: 07/27/17 07:13 Last Admin: 07/27/17 07:23 Dose: 0.5 mg Metoclopramide HCl (Reglan) 7.5 mg IVPUSH ONETIME ONE Stop: 07/27/17 07:13 Last Admin: 07/27/17 07:22 Dose: 7.5 mg Metoprolol Tartrate (Lopressor) 75 mg PO BID [facility] Non-Formulary Medication (Calcitonin ([place])) 200 unit MARILIN DAILY [facility] Prednisone (Prednisone) 10 mg PO DAILY [facility] Rosuvastatin Calcium (Crestor) 10 mg PO BEDTIME [facility] - Exam Quality Assessment: Supplemental Oxygen, DVT Prophylaxis General: Alert, Oriented, No Acute Distress HEENT: Pupils Equal, Pupils Reactive, EOMI Neck: Supple, Trachea Midline, No JVD Lungs: Normal Respiratory Effort Cardiovascular: Regular Rate, Regular Rhythm GI/Abdominal Exam: Normal Bowel Sounds, Soft, Non-Tender, No Distention (Male) Exam: Deferred Back Exam: Normal Inspection Extremities: Normal Inspection, Non-Tender, No Pedal Edema Skin: Warm Neurological: No New Focal Deficit, Normal Speech Psy/Mental Status: Alert, Depressed - Problem List Review Problem List Initiated/Reviewed/Updated: Yes - My Orders Last 24 Hours: My Active Orders 07/27/17 21:00 Pantoprazole [ProTONIX IV] 40 mg IVPUSH Q12H 07/27/17 21:20 Oxygen Therapy [RC] ASDIRECTED 07/28/17 08:00 Consult to Occupational Therapy [OT Evaluation and Treatment] [CONS] Routine 07/28/17 09:00 Consult to Case Management [CONS] Routine Consult to Physical Therapy [PT Evaluation and Treatment] [CONS] Routine Aspirin 300 mg RECTAL DAILY Enoxaparin [Lovenox] 40 mg SUBCUT DAILY Flunisolide [Nasalide Nasal [place]] 0 ml MARILIN Q12H Patient's Own Medication [Ptom] 0 each INH DAILY methylPREDNISolone Sod Succ [Solu-MEDROL] 40 mg IVPUSH DAILY 07/28/17 10:00 Brain wo Cont [MR] Routine 07/28/17 10:49 Acetaminophen [Tylenol] 650 mg PO Q4H PRN Acetaminophen/HYDROcodone [[place] 325-5 MG] 1 tab PO BID PRN 07/28/17 14:25 Consult to Speech Language Pathology [CLINICAL ESTHETICIAN Evaluation and Treatment] [CONS] Routine 07/28/17 Dinner Clear Liquid Diet [DIET] 07/29/17 05:00 BMP [BASIC METABOLIC PANEL,BMP] [CHEM] DAILY CBC WITH AUTO DIFF [HEME] DAILY MAGNESIUM [CHEM] DAILY 07/30/17 05:00 BMP [BASIC METABOLIC PANEL,BMP] [CHEM] DAILY CBC WITH AUTO DIFF [HEME] DAILY MAGNESIUM [CHEM] DAILY 07/31/17 05:00 BMP [BASIC METABOLIC PANEL,BMP] [CHEM] DAILY CBC WITH AUTO DIFF [HEME] DAILY MAGNESIUM [CHEM] DAILY - Plan Plan:: Impression: CVA/TIA, history of multiple embolic CVAs Unsteady gait, right sided weakness Recovering from Right sided deficits from May 2017 PAF, started Eliquis May 2017 More alert, swallow eval noted--begin diet and med by mouth Chronic HTN PVD AAA repair History of Lymphoma Diabetes Mellitus HLD HTN Plan: ASA 325 mg daily Hold Eliquis for 48 hours CVA protocol NPO until swallow eval Home meds Daily Labs MRI of brain CM/PT/OT DVT/GI prophylaxis
--- NOTE | 2017-07-28 17:57 | CT ---
Head CT Technique: Multiple axial sections through the brain were obtained. Intravenous contrast was not utilized. Comparison: Previous head CT exam of 06/04/17 is available. Findings: Ventricles along with basal cisterns and sulci over the convexities are mildly prominent. Minimal areas of diminished density are noted within the periventricular white matter compatible with small vessel ischemic demyelination change. Several old lacunar infarcts are noted within the basal ganglia. Possible new area of low density is noted within the left ashlie. This may relate to artifact from beam hardening within the skull base. No evidence of intracranial hemorrhage. No midline shift or mass effect is seen. Atherosclerotic calcification is seen within the carotid siphon. Posterior left ethmoid sinus shows a small retention cyst measuring approximately 7 mm. No acute calvarial abnormality is seen. Impression: 1. Questionable abnormality within the left side of the ashlie. MRI could be considered to confirm or rule out if clinically needed. 2. Other senescent change is felt to be stable. Diagnostic code #3 Agree with preliminary report issued by [facility] ([facility] preliminary report dictated on 07/27/17, 9:23 AM Central Time)
[2017-07-28] MEDS: Nicotine 21 MG/24 Hr Patch TRDERM SCH (18:08)
[2017-07-28] MEDS: UMECLIDINIUM BRM INH SCH (18:20)
[2017-07-28] MEDS: VILANTEROL TR INH SCH (18:20)
[2017-07-28] MEDS: Metoprolol Tartrate 25 MG Tab PO SCH (19:19)
[2017-07-28] MEDS: Doxazosin 4 MG Tab PO SCH (20:33)
[2017-07-28] MEDS ORDERED: Metoprolol Tartrate 25 MG Tab PO SCH (21:00)
[2017-07-29] MEDS: Insulin Aspart 100 Units/ML 3 ML Pen SUBCUT SCH ×4 (06:54→21:11)
[2017-07-29] MEDS: Dextrose 5%-0.45% NaCl 1,000 ML IV SCH ×2 (07:05→22:25)
[2017-07-29] MEDS: Pantoprazole 40 MG Vial IVPUSH SCH (08:09)
[2017-07-29] MEDS: Enoxaparin 40 MG/0.4 ML Syringe SUBCUT SCH (08:12)
[2017-07-29] MEDS: methylPREDNISolone Sodium Succinate 40 MG/1 ML SDV IVPUSH SCH (08:13)
[2017-07-29] MEDS: Nicotine 21 MG/24 Hr Patch TRDERM SCH (08:31)
[2017-07-29] MEDS: Metoprolol Tartrate 25 MG Tab PO SCH ×2 (08:44→20:23)
[2017-07-29] MEDS ORDERED: Aspirin 325 MG Tab.EC PO SCH (09:00)
[2017-07-29] MEDS: UMECLIDINIUM BRM INH SCH (09:13)
[2017-07-29] MEDS: VILANTEROL TR INH SCH (09:13)
[2017-07-29] MEDS ORDERED: Hypromellose 0.5% Ophth Soln 15 ML Bottle EYEBOTH PRN (09:24)
[2017-07-29] MEDS ORDERED: Triamcinolone Acetonide 0.5% Crm 15 GM Tube TOP PRN (09:24)
[2017-07-29] MEDS ORDERED: Glimepiride 2 MG Tab PO SCH (09:30)
--- NOTE | 2017-07-29 10:48 | PCM.PN ---
- General Info Date of Service: 07/29/17 - Patient Data Vitals - Most Recent: Last Vital Signs Temp 36.7 C 07/29/17 07:24 Pulse 64 07/29/17 08:44 Resp 16 07/29/17 07:20 BP 120/65 07/29/17 08:44 Pulse Ox 97 07/29/17 09:13 Weight - Most Recent: 82.735 kg I&O - Last 24 Hours: Intake & Output 07/28/17 07/29/17 07/29/17 22:59 06:59 14:59 Intake Total 1555 1935 Output Total 600 750 Balance 955 1185 Lab Results Last 24 Hours: Laboratory Results - last 24 hr 07/28/17 07/28/17 07/28/17 Range/Units 11:34 17:49 23:46 WBC (4.23-9.07) K/mm3 RBC (4.63-6.08) M/mm3 Hgb (13.7-17.5) gm/L Hct (40.1-51.0) % MCV (79.0-92.2) fl MCH (25.7-32.2) pg MCHC (32.2-35.5) g/dl RDW Std Deviation (35.1-43.9) fL Plt Count (163-337) K/mm3 MPV (9.4-12.3) fl Neut % (Auto) (34.0-67.9) % Lymph % (Auto) (21.8-53.1) % Mcleod % (Auto) (5.3-12.2) % Eos % (Auto) (0.8-7.0) Baso % (Auto) (0.1-1.2) % Neut # (Auto) (1.78-5.38) K/mm3 Lymph # (Auto) (1.32-3.57) K/mm3 Mcleod # (Auto) (0.30-0.82) K/mm3 Eos # (Auto) (0.04-0.54) K/mm3 Baso # (Auto) (0.01-0.08) K/mm3 Manual Slide Review Sodium (136-145) mEq/L Potassium (3.5-5.1) mEq/L Chloride (98-107) mEq/L Carbon Dioxide (21-32) mEq/L Anion Gap (5-15) BUN (7-18) mg/dL Creatinine (0.7-1.3) mg/dL Est Cr Clr Drug Dosing mL/min Estimated GFR (MDRD) (>60) mL/min BUN/Creatinine Ratio (14-18) Glucose (83-115) mg/dL POC Glucose 147 H 235 H 154 H (83-110) mg/dL Calcium (8.5-10.1) mg/dL Magnesium (1.8-2.4) mg/dl 07/29/17 07/29/17 07/29/17 Range/Units 05:52 05:52 06:51 WBC 8.76 (4.23-9.07) K/mm3 RBC 4.40 L (4.63-6.08) M/mm3 Hgb 12.1 L (13.7-17.5) gm/L Hct 38.7 L (40.1-51.0) % MCV 88.0 (79.0-92.2) fl MCH 27.5 (25.7-32.2) pg MCHC 31.3 L (32.2-35.5) g/dl RDW Std Deviation 45.2 H (35.1-43.9) fL Plt Count 97 L (163-337) K/mm3 MPV 11.8 (9.4-12.3) fl Neut % (Auto) 68.4 H (34.0-67.9) % Lymph % (Auto) 22.3 (21.8-53.1) % Mcleod % (Auto) 8.3 (5.3-12.2) % Eos % (Auto) 0.3 L (0.8-7.0) Baso % (Auto) 0.1 (0.1-1.2) % Neut # (Auto) 5.99 H (1.78-5.38) K/mm3 Lymph # (Auto) 1.95 (1.32-3.57) K/mm3 Mcleod # (Auto) 0.73 (0.30-0.82) K/mm3 Eos # (Auto) 0.03 L (0.04-0.54) K/mm3 Baso # (Auto) 0.01 (0.01-0.08) K/mm3 Manual Slide Review Abnormal smear Sodium 144 (136-145) mEq/L Potassium 3.8 (3.5-5.1) mEq/L Chloride 107 (98-107) mEq/L Carbon Dioxide 30 (21-32) mEq/L Anion Gap 10.8 (5-15) BUN 10 (7-18) mg/dL Creatinine 0.7 (0.7-1.3) mg/dL Est Cr Clr Drug Dosing 86.97 mL/min Estimated GFR (MDRD) > 60 (>60) mL/min BUN/Creatinine Ratio 14.3 (14-18) Glucose 152 H (83-115) mg/dL POC Glucose 135 H (83-110) mg/dL Calcium 9.0 (8.5-10.1) mg/dL Magnesium 2.0 (1.8-2.4) mg/dl Med Orders - Current: Current Medications Acetaminophen (Tylenol) 650 mg PO Q4H PRN PRN Reason: Pain Hydrocodone Bitart/Acetaminophen ([place] 325-5 Mg) 1 tab PO BID PRN PRN Reason: Pain Artificial Tears (Isopto Tears 0.5% Ophth Soln) 0 ml EYEBOTH TID PRN PRN Reason: Dryness Aspirin (Ecotrin) 325 mg PO DAILY [facility] Last Admin: 07/29/17 08:14 Dose: 325 mg Cholecalciferol (Vitamin D3) 2,000 units PO BID [facility] Dextrose/Water (Dextrose 50% In Water) 50 ml IVPUSH ASDIRECTED PRN PRN Reason: Hypoglycemia Doxazosin Mesylate (Cardura) 4 mg PO BEDTIME [facility] Last Admin: 07/28/17 20:33 Dose: 4 mg Enoxaparin Sodium (Lovenox) 40 mg SUBCUT DAILY [facility] Last Admin: 07/29/17 08:12 Dose: 40 mg Flunisolide (Nasalide Nasal [place]) 0 ml MARILIN Q12H [facility] Last Admin: 07/29/17 08:09 Dose: 2 spray Glimepiride (Amaryl) 2 mg PO DAILY [facility] Hydralazine HCl (Apresoline) 20 mg IVPUSH Q6H PRN PRN Reason: Hypertension Dextrose/Sodium Chloride (Dextrose 5%-1/2 Ns) 1,000 mls @ 75 mls/hr IV ASDIRECTED [facility] Last Admin: 07/29/17 07:05 Dose: 75 mls/hr Insulin Aspart (Novolog) 0 unit SUBCUT QIDACANDBED [facility] PRN Reason: Protocol Last Admin: 07/29/17 06:54 Dose: Not Given Magnesium Oxide (Magnesium Oxide) 400 mg PO DAILY [facility] Methylprednisolone Sodium Succinate (Solu-Medrol) 40 mg IVPUSH DAILY [facility] Last Admin: 07/29/17 08:13 Dose: 40 mg Metoprolol Tartrate (Lopressor) 5 mg IVPUSH Q6H PRN PRN Reason: heart rate Metoprolol Tartrate (Lopressor) 75 mg PO Q12HR [facility] Last Admin: 07/29/17 08:44 Dose: 25 mg Miscellaneous Information (Remove Patch) 1 ea TRDERM DAILY [facility] Last Admin: 07/29/17 08:41 Dose: 1 ea Multivitamins (Thera) 1 each PO DAILY [facility] Nicotine (Habitrol) 21 mg TRDERM DAILY [facility] Last Admin: 07/29/17 08:31 Dose: 21 mg (Umeclidinium Brm/Vilanterol Tr 1 Puff )*Pt Own Med* 0 each INH DAILY [facility] Last Admin: 07/29/17 09:13 Dose: 1 each Linagliptin [ (Tradjenta] 5 Mg) 0 each PO DAILY [facility] Zinc Gluconate [ Elemental Zinc] 50 Mg 0 each PO DAILY [facility] Potassium Chloride (Klor-Con 10) 10 meq PO DAILY [facility] Senna/Docusate Sodium (Senna Plus) 2 tab PO BID [facility] Triamcinolone Acetonide (Triamcinolone Acetonide 0.5%) 0 gm TOP BID PRN PRN Reason: Rash Discontinued Medications Aspirin (Ecotrin) 325 mg PO DAILY [facility] Aspirin (Aspirin) 300 mg RECTAL DAILY [facility] Last Admin: 07/28/17 09:37 Dose: 300 mg Dextrose/Sodium Chloride (Dextrose 5%-Normal Saline) 1,000 mls @ 150 mls/hr IV ASDIRECTED [facility] Last Admin: 07/27/17 07:22 Dose: 150 mls/hr Sodium Chloride (Normal Saline) 1,000 mls @ 100 mls/hr IV ASDIRECTED [facility] Magnesium Sulfate 2 gm/ Premix 50 mls @ 25 mls/hr IV ONETIME ONE Stop: 07/27/17 15:03 Last Admin: 07/27/17 13:37 Dose: 25 mls/hr Potassium Chloride 10 meq/ (Premix) 100 mls @ 100 mls/hr IV Q1H [facility] Stop: 07/27/17 16:29 Last Admin: 07/27/17 15:50 Dose: 100 mls/hr Lorazepam (Ativan) 0.5 mg IVPUSH ONETIME ONE Stop: 07/27/17 07:13 Last Admin: 07/27/17 07:23 Dose: 0.5 mg Metoclopramide HCl (Reglan) 7.5 mg IVPUSH ONETIME ONE Stop: 07/27/17 07:13 Last Admin: 07/27/17 07:22 Dose: 7.5 mg Metoprolol Tartrate (Lopressor) 75 mg PO BID [facility] Metoprolol Tartrate (Lopressor) 75 mg PO Q12HR [facility] Non-Formulary Medication (Calcitonin ([place])) 200 unit MARILIN DAILY [facility] Pantoprazole Sodium (Protonix Iv) 40 mg IVPUSH Q12H [facility] Last Admin: 07/29/17 08:09 Dose: 40 mg Prednisone (Prednisone) 10 mg PO DAILY [facility] Rosuvastatin Calcium (Crestor) 10 mg PO BEDTIME [facility] - Problem List Review Problem List Initiated/Reviewed/Updated: Yes - My Orders Last 24 Hours: My Active Orders 07/28/17 10:49 Acetaminophen [Tylenol] 650 mg PO Q4H PRN Acetaminophen/HYDROcodone [Mobile 325-5 MG] 1 tab PO BID PRN 07/28/17 14:25 Consult to Speech Language Pathology [CURRICULUM CONSULTANT Evaluation and Treatment] [CONS] Routine 07/28/17 17:30 Nicotine [Habitrol] 21 mg TRDERM DAILY 07/28/17 18:41 Up With Assistance [RC] ASDIRECTED 07/28/17 19:00 Metoprolol Tartrate [Lopressor] 75 mg PO Q12HR 07/28/17 21:00 Doxazosin [Cardura] 4 mg PO BEDTIME 07/29/17 09:00 Aspirin [Ecotrin] 325 mg PO DAILY Remove Patch 1 ea TRDERM DAILY 07/29/17 09:24 Hypromellose [Isopto Tears 0.5% Ophth Soln] 0 ml EYEBOTH TID PRN Triamcinolone Acetonide [Triamcinolone Acetonide 0.5%] 0 gm TOP BID PRN 07/29/17 09:30 Cholecalciferol (Vitamin D3) [Vitamin D3] 2,000 units PO BID Docusate Sodium/Sennosides [Senna Plus] 2 tab PO BID Glimepiride [Amaryl] 2 mg PO DAILY Magnesium Oxide 400 mg PO DAILY Multivitamins,Therapeutic [Thera] 1 each PO DAILY Patient's Own Medication [Ptom] 0 each PO DAILY Patient's Own Medication [Ptom] 0 each PO DAILY Potassium Chloride [Klor-Con 10] 10 meq PO DAILY 07/29/17 10:00 Brain wo Cont [MR] Routine 07/29/17 Lunch ADA Diabetic [[place] [employer] Diet] [DIET] 07/30/17 05:00 BMP [BASIC METABOLIC PANEL,BMP] [CHEM] DAILY CBC WITH AUTO DIFF [HEME] DAILY MAGNESIUM [CHEM] DAILY 07/31/17 05:00 BMP [BASIC METABOLIC PANEL,BMP] [CHEM] DAILY CBC WITH AUTO DIFF [HEME] DAILY MAGNESIUM [CHEM] DAILY - Plan Plan:: Impression: CVA/TIA, history of multiple embolic CVAs Unsteady gait, right sided weakness Recovering from Right sided deficits from May 2017 PAF, started Eliquis May 2017 More alert, swallow eval noted--begin diet and med by mouth Noninvasive testing completed, await results; more alert/PT/OT following Chronic HTN PVD AAA repair History of Lymphoma Diabetes Mellitus HLD HTN Plan: ASA 325 mg daily Hold Eliquis for 48 hours CVA protocol NPO until swallow eval Home meds Daily Labs MRI of brain CM/PT/OT
--- NOTE | 2017-07-29 11:08 | MR ---
MRI brain Technique: T1 sagittal; T2, T2 FLAIR, T1 and diffusion axial; T1 FLAIR coronal images were obtained through the brain. Comparison: Prior head CT exam of 07/27/17 is available. Previous MRI brain of 05/29/17 is also available. Findings: Ventricles along with basal cisterns and sulci over the convexities are moderately prominent. Multiple areas of increased signal are seen within the left side of the cerebellar hemisphere as well as within the left side of the ashlie. Other smaller areas of increased signal are noted within the periventricular white matter. Findings within the posterior fossa and brainstem are an interval change from prior MRI. The left cerebellar lesions show diffusion abnormalities. Mild diffusion abnormality is seen to the left side of the ashlie. Findings are compatible with fairly recent infarcts. Multifocal nature raises the possibility of embolic phenomena. Small diffusion abnormality also seen along the medial left occipital horn compatible with an additional small area of supratentorial infarct. Impression: 1. Multiple diffusion abnormalities within the left cerebellar hemisphere, left side of the ashlie and within the periventricular white matter along the medial left occipital horn. Findings are compatible with multiple small infarcts which are fairly acute. Multifocal nature raises the possibility of embolic phenomena. 2. Other senescent change as noted above which is fairly stable. Diagnostic code #5 [employer] called report to (Rona Haywood for Dr. Rowan Kahn) at 10:54 on 07/29/2017
[2017-07-29] MEDS: Potassium Chloride 10 MEQ Tab.ER PO SCH (12:17)
[2017-07-29] MEDS: Multivitamins,Therapeutic Tab PO SCH (12:18)
[2017-07-29] MEDS: Magnesium Oxide 400 MG Tab PO SCH (12:18)
[2017-07-29] MEDS: Cholecalciferol (Vitamin D3) 1,000 Unit Tab PO SCH ×2 (12:18→20:21)
[2017-07-29] MEDS: ZINC GLUCONATE 50 MG PO SCH (14:28)
[2017-07-29] MEDS: Doxazosin 4 MG Tab PO SCH (20:21)
[2017-07-29] MEDS: Apixaban 5 MG Tab PO SCH (20:21)
[2017-07-30] MEDS: Insulin Aspart 100 Units/ML 3 ML Pen SUBCUT SCH ×4 (07:47→22:01)
[2017-07-30] MEDS: VILANTEROL TR INH SCH (08:44)
[2017-07-30] MEDS: UMECLIDINIUM BRM INH SCH (08:44)
[2017-07-30] MEDS ORDERED: methylPREDNISolone Sodium Succinate 40 MG/1 ML SDV IVPUSH SCH (09:00)
[2017-07-30] MEDS: Nicotine 21 MG/24 Hr Patch TRDERM SCH (09:42)
[2017-07-30] MEDS ORDERED: Magnesium Sulfate/Water 2 GM in Premix Bag 1 BAG IV ONE (09:42)
[2017-07-30] MEDS: Apixaban 5 MG Tab PO SCH ×2 (09:43→20:20)
[2017-07-30] MEDS: Cholecalciferol (Vitamin D3) 1,000 Unit Tab PO SCH ×2 (09:44→20:21)
[2017-07-30] MEDS: Magnesium Oxide 400 MG Tab PO SCH ×2 (09:44→20:20)
[2017-07-30] MEDS: Multivitamins,Therapeutic Tab PO SCH (09:44)
[2017-07-30] MEDS: Potassium Chloride 10 MEQ Tab.ER PO SCH (09:49)
[2017-07-30] MEDS: Metoprolol Tartrate 25 MG Tab PO SCH ×2 (09:51→20:20)
[2017-07-30] MEDS: ZINC GLUCONATE 50 MG PO SCH (10:37)
[2017-07-30] MEDS: Acetaminophen/HYDROcodone 325-5 MG Tab PO PRN ×2 (11:22→20:21)
[2017-07-30] MEDS: Potassium Chloride 10% 20 MEQ/15 ML Soln 30 ML UD Cup PO SCH ×2 (11:23→20:20)
[2017-07-30] MEDS: Dextrose 5%-0.45% NaCl 1,000 ML IV SCH (11:55)
[2017-07-30] MEDS ORDERED: Magnesium Hydroxide 400 MG/5 ML Susp 30 ML Cup PO ONE (14:10)
--- NOTE | 2017-07-30 14:19 | PCM.PN ---
- General Info Date of Service: 07/30/17 Functional Status: Reports: Tolerating Diet, Ambulating, Urinating - Review of Systems General: Reports: Weakness (improving) HEENT: Reports: No Symptoms Pulmonary: Reports: No Symptoms Cardiovascular: Reports: No Symptoms Gastrointestinal: Reports: No Symptoms Genitourinary: Reports: No Symptoms Musculoskeletal: Reports: No Symptoms Skin: Reports: No Symptoms Neurological: Reports: No Symptoms Psychiatric: Reports: No Symptoms - Patient Data Vitals - Most Recent: Last Vital Signs Temp 36.3 C 07/30/17 08:36 Pulse 88 07/30/17 09:51 Resp 20 07/30/17 08:36 BP 108/56 L 07/30/17 09:51 Pulse Ox 97 07/30/17 08:45 Weight - Most Recent: 82.962 kg I&O - Last 24 Hours: Intake & Output 07/29/17 07/30/17 07/30/17 22:59 06:59 14:59 Intake Total 1857 873 240 Output Total 1250 1600 Balance 607 -727 240 Lab Results Last 24 Hours: Laboratory Results - last 24 hr 07/29/17 07/29/17 07/30/17 Range/Units 16:54 21:10 06:18 WBC 9.66 H (4.23-9.07) K/mm3 RBC 4.26 L (4.63-6.08) M/mm3 Hgb 11.4 L (13.7-17.5) gm/L Hct 37.4 L (40.1-51.0) % MCV 87.8 (79.0-92.2) fl MCH 26.8 (25.7-32.2) pg MCHC 30.5 L (32.2-35.5) g/dl RDW Std Deviation 45.1 H (35.1-43.9) fL Plt Count 91 L (163-337) K/mm3 MPV 11.6 (9.4-12.3) fl Neut % (Auto) 66.8 (34.0-67.9) % Lymph % (Auto) 23.5 (21.8-53.1) % [place] % (Auto) 8.4 (5.3-12.2) % Eos % (Auto) 0.6 L (0.8-7.0) Baso % (Auto) 0.2 (0.1-1.2) % Neut # (Auto) 6.45 H (1.78-5.38) K/mm3 Lymph # (Auto) 2.27 (1.32-3.57) K/mm3 Braxton # (Auto) 0.81 (0.30-0.82) K/mm3 Eos # (Auto) 0.06 (0.04-0.54) K/mm3 Baso # (Auto) 0.02 (0.01-0.08) K/mm3 Manual Slide Review Abnormal smear Sodium (136-145) mEq/L Potassium (3.5-5.1) mEq/L Chloride (98-107) mEq/L Carbon Dioxide (21-32) mEq/L Anion Gap (5-15) BUN (7-18) mg/dL Creatinine (0.7-1.3) mg/dL Est Cr Clr Drug Dosing mL/min Estimated GFR (MDRD) (>60) mL/min BUN/Creatinine Ratio (14-18) Glucose (83-115) mg/dL POC Glucose 228 H 232 H (83-110) mg/dL Calcium (8.5-10.1) mg/dL Magnesium (1.8-2.4) mg/dl Free T4 (0.76-1.46) ng/dL 07/30/17 07/30/17 07/30/17 Range/Units 06:18 06:57 11:26 WBC (4.23-9.07) K/mm3 RBC (4.63-6.08) M/mm3 Hgb (13.7-17.5) gm/L Hct (40.1-51.0) % MCV (79.0-92.2) fl MCH (25.7-32.2) pg MCHC (32.2-35.5) g/dl RDW Std Deviation (35.1-43.9) fL Plt Count (163-337) K/mm3 MPV (9.4-12.3) fl Neut % (Auto) (34.0-67.9) % Lymph % (Auto) (21.8-53.1) % Braxton % (Auto) (5.3-12.2) % Eos % (Auto) (0.8-7.0) Baso % (Auto) (0.1-1.2) % Neut # (Auto) (1.78-5.38) K/mm3 Lymph # (Auto) (1.32-3.57) K/mm3 Braxton # (Auto) (0.30-0.82) K/mm3 Eos # (Auto) (0.04-0.54) K/mm3 Baso # (Auto) (0.01-0.08) K/mm3 Manual Slide Review Sodium 141 (136-145) mEq/L Potassium 3.6 (3.5-5.1) mEq/L Chloride 104 (98-107) mEq/L Carbon Dioxide 29 (21-32) mEq/L Anion Gap 11.6 (5-15) BUN 12 (7-18) mg/dL Creatinine 0.8 (0.7-1.3) mg/dL Est Cr Clr Drug Dosing 76.10 mL/min Estimated GFR (MDRD) > 60 (>60) mL/min BUN/Creatinine Ratio 15.0 (14-18) Glucose 135 H (83-115) mg/dL POC Glucose 139 H 193 H (83-110) mg/dL Calcium 9.0 (8.5-10.1) mg/dL Magnesium 1.9 (1.8-2.4) mg/dl Free T4 0.97 (0.76-1.46) ng/dL Med Orders - Current: Current Medications Acetaminophen (Tylenol) 650 mg PO Q4H PRN PRN Reason: Pain Hydrocodone Bitart/Acetaminophen ([place] 325-5 Mg) 1 tab PO BID PRN PRN Reason: Pain Last Admin: 07/30/17 11:22 Dose: 1 tab Apixaban (Eliquis) 5 mg PO BID [facility] Last Admin: 07/30/17 09:43 Dose: 5 mg Artificial Tears (Isopto Tears 0.5% Ophth Soln) 0 ml EYEBOTH TID PRN PRN Reason: Dryness Cholecalciferol (Vitamin D3) 2,000 units PO BID [facility] Last Admin: 07/30/17 09:44 Dose: 2,000 units Dextrose/Water (Dextrose 50% In Water) 50 ml IVPUSH ASDIRECTED PRN PRN Reason: Hypoglycemia Doxazosin Mesylate (Cardura) 4 mg PO BEDTIME [facility] Last Admin: 07/29/17 20:21 Dose: 4 mg Flunisolide (Nasalide Nasal [place]) 0 ml MARILIN Q12H [facility] Last Admin: 07/30/17 09:49 Dose: 2 spray Hydralazine HCl (Apresoline) 20 mg IVPUSH Q6H PRN PRN Reason: Hypertension Dextrose/Sodium Chloride (Dextrose 5%-1/2 Ns) 1,000 mls @ 75 mls/hr IV ASDIRECTED [facility] Last Admin: 07/30/17 11:55 Dose: 75 mls/hr Insulin Aspart (Novolog) 0 unit SUBCUT QIDACANDBED [facility] PRN Reason: Protocol Last Admin: 07/30/17 11:30 Dose: 1 units Magnesium Hydroxide (Milk Of Magnesia) 30 ml PO ONETIME ONE Stop: 07/30/17 14:11 Magnesium Oxide (Magnesium Oxide) 400 mg PO BID [facility] Metoprolol Tartrate (Lopressor) 5 mg IVPUSH Q6H PRN PRN Reason: heart rate Metoprolol Tartrate (Lopressor) 75 mg PO Q12HR [facility] Last Admin: 07/30/17 09:51 Dose: 75 mg Miscellaneous Information (Remove Patch) 1 ea TRDERM DAILY [facility] Last Admin: 07/30/17 09:43 Dose: 1 ea Multivitamins (Thera) 1 each PO DAILY [facility] Last Admin: 07/30/17 09:44 Dose: 1 each Nicotine (Habitrol) 21 mg TRDERM DAILY [facility] Last Admin: 07/30/17 09:42 Dose: 21 mg (Umeclidinium Brm/Vilanterol Tr 1 Puff )*Pt Own Med* 0 each INH DAILY [facility] Last Admin: 07/30/17 08:44 Dose: 1 each Linagliptin [ (Tradjenta] 5 Mg) 0 each PO DAILY [facility] Last Admin: 07/30/17 10:36 Dose: Not Given Zinc Gluconate [ Elemental Zinc] 50 Mg 0 each PO DAILY [facility] Last Admin: 07/30/17 10:37 Dose: Not Given Potassium Chloride (Klor-Con 10) 10 meq PO DAILY [facility] Last Admin: 07/30/17 09:49 Dose: 10 meq Potassium Chloride (Potassium Chloride) 40 meq PO BID [facility] Stop: 07/30/17 21:01 Last Admin: 07/30/17 11:23 Dose: 40 meq Senna/Docusate Sodium (Senna Plus) 2 tab PO BID [facility] Last Admin: 07/30/17 09:44 Dose: 2 tab Triamcinolone Acetonide (Triamcinolone Acetonide 0.5%) 0 gm TOP BID PRN PRN Reason: Rash Discontinued Medications Aspirin (Ecotrin) 325 mg PO DAILY [facility] Aspirin (Aspirin) 300 mg RECTAL DAILY [facility] Last Admin: 07/28/17 09:37 Dose: 300 mg Aspirin (Ecotrin) 325 mg PO DAILY [facility] Last Admin: 07/29/17 08:14 Dose: 325 mg Enoxaparin Sodium (Lovenox) 40 mg SUBCUT DAILY [facility] Last Admin: 07/29/17 08:12 Dose: 40 mg Glimepiride (Amaryl) 2 mg PO DAILY [facility] Dextrose/Sodium Chloride (Dextrose 5%-Normal Saline) 1,000 mls @ 150 mls/hr IV ASDIRECTED [facility] Last Admin: 07/27/17 07:22 Dose: 150 mls/hr Sodium Chloride (Normal Saline) 1,000 mls @ 100 mls/hr IV ASDIRECTED [facility] Magnesium Sulfate 2 gm/ Premix 50 mls @ 25 mls/hr IV ONETIME ONE Stop: 07/27/17 15:03 Last Admin: 07/27/17 13:37 Dose: 25 mls/hr Potassium Chloride 10 meq/ (Premix) 100 mls @ 100 mls/hr IV Q1H [facility] Stop: 07/27/17 16:29 Last Admin: 07/27/17 15:50 Dose: 100 mls/hr Magnesium Sulfate 2 gm/ Premix 50 mls @ 25 mls/hr IV ONETIME ONE Stop: 07/30/17 11:41 Last Admin: 07/30/17 10:37 Dose: 25 mls/hr Lorazepam (Ativan) 0.5 mg IVPUSH ONETIME ONE Stop: 07/27/17 07:13 Last Admin: 07/27/17 07:23 Dose: 0.5 mg Magnesium Oxide (Magnesium Oxide) 400 mg PO DAILY [facility] Last Admin: 07/30/17 09:44 Dose: 400 mg Methylprednisolone Sodium Succinate (Solu-Medrol) 40 mg IVPUSH DAILY [facility] Last Admin: 07/29/17 08:13 Dose: 40 mg Methylprednisolone Sodium Succinate (Solu-Medrol) 20 mg IVPUSH DAILY [facility] Last Admin: 07/30/17 09:49 Dose: 20 mg Metoclopramide HCl (Reglan) 7.5 mg IVPUSH ONETIME ONE Stop: 07/27/17 07:13 Last Admin: 07/27/17 07:22 Dose: 7.5 mg Metoprolol Tartrate (Lopressor) 75 mg PO BID [facility] Metoprolol Tartrate (Lopressor) 75 mg PO Q12HR [facility] Non-Formulary Medication (Calcitonin ([place])) 200 unit MARILIN DAILY [facility] Pantoprazole Sodium (Protonix Iv) 40 mg IVPUSH Q12H [facility] Last Admin: 07/29/17 08:09 Dose: 40 mg Prednisone (Prednisone) 10 mg PO DAILY [facility] Rosuvastatin Calcium (Crestor) 10 mg PO BEDTIME [facility] - Exam Quality Assessment: DVT Prophylaxis General: Alert, Oriented, Cooperative, No Acute Distress HEENT: Pupils Equal, Pupils Reactive, EOMI Neck: Supple, Trachea Midline, No JVD Lungs: Normal Respiratory Effort Cardiovascular: Regular Rate, Regular Rhythm GI/Abdominal Exam: Normal Bowel Sounds, Soft, Non-Tender, No Distention (Male) Exam: Deferred Back Exam: Normal Inspection Extremities: Normal Inspection, No Pedal Edema, Normal Capillary Refill Skin: Warm Neurological: No New Focal Deficit, Normal Speech Psy/Mental Status: Alert, Normal Affect, Normal Mood - Problem List & Annotations (1) Hypertension SNOMED Code(s): 32684778 Code(s): I10 - ESSENTIAL (PRIMARY) HYPERTENSION Status: Chronic Priority : High Qualifiers: Hypertension type: essential hypertension Qualified Code(s): I10 - Essential (primary) hypertension (2) Hyperlipidemia SNOMED Code(s): 27243369 Code(s): E78.5 - HYPERLIPIDEMIA, UNSPECIFIED Status: Chronic Priority: High Qualifiers: Hyperlipidemia type: unspecified Qualified Code(s): E78.5 - Hyperlipidemia , unspecified (3) AAA (abdominal aortic aneurysm) without rupture SNOMED Code(s): 39671721 Code(s): I71.4 - ABDOMINAL AORTIC ANEURYSM, WITHOUT RUPTURE Status: Acute (4) Paroxysmal atrial fibrillation SNOMED Code(s): 823481725 Code(s): I48.0 - PAROXYSMAL ATRIAL FIBRILLATION Status: Chronic Priority : High (5) BPH (benign prostatic hyperplasia) SNOMED Code(s): 503554853, 475600893 Code(s): N40.0 - BENIGN PROSTATIC HYPERPLASIA WITHOUT LOWER URINRY TRACT SYMP Status: Chronic Priority: Medium (6) Diabetes mellitus SNOMED Code(s): 34094966 Code(s): E11.9 - TYPE 2 DIABETES MELLITUS WITHOUT COMPLICATIONS Status: Chronic Priority: High Qualifiers: Diabetes mellitus type: type 2 Diabetes mellitus complication status: with circulatory complication Diabetes mellitus complication detail: with other circulatory complications Diabetes mellitus [facility] insulin use: unspecified [facility] insulin use status Qualified Code(s): E11.59 - Type 2 diabetes mellitus with other circulatory complications (7) B-cell lymphoma SNOMED Code(s): 033983348 Code(s): C85.10 - UNSPECIFIED B-CELL LYMPHOMA, UNSPECIFIED SITE Status: Acute (8) CVA (cerebral vascular accident) SNOMED Code(s): 512156885 Code(s): I63.9 - CEREBRAL INFARCTION, UNSPECIFIED Status: Acute Priority : High Qualifiers: CVA mechanism: embolism Precerebral and cerebral artery: unspecified cerebral artery Qualified Code(s): I63.40 - Cerebral infarction due to embolism of unspecified cerebral artery (9) Altered mental status SNOMED Code(s): 697745389 Code(s): R41.82 - ALTERED MENTAL STATUS, UNSPECIFIED Status: Resolved Priority: High Qualifiers: Altered mental status type: unspecified Qualified Code(s): R41.82 - Altered mental status, unspecified - Problem List Review Problem List Initiated/Reviewed/Updated: Yes - My Orders Last 24 Hours: My Active Orders 07/29/17 21:00 Apixaban [Eliquis] 5 mg PO BID 07/30/17 12:00 Potassium Chloride 40 meq PO BID 07/30/17 14:10 Magnesium Hydroxide [Milk of Magnesia] 30 ml PO ONETIME ONE 07/30/17 21:00 Magnesium Oxide 400 mg PO BID 07/31/17 05:00 BMP [BASIC METABOLIC PANEL,BMP] [CHEM] DAILY CBC WITH AUTO DIFF [HEME] DAILY MAGNESIUM [CHEM] DAILY - Plan Plan:: Impression: CVA/TIA, history of multiple embolic CVAs Unsteady gait, right sided weakness Recovering from Right sided deficits from May 2017 PAF, started Eliquis May 2017 Diet well tolerated. Noninvasive testing completed, results noted minimal change Chronic HTN PVD AAA repair History of Lymphoma Diabetes Mellitus HLD HTN Plan: ASA 325 mg daily Resume Eliquis CVA protocol NPO until swallow eval Home meds Daily Labs MRI of brain PT/OT assessment for DC completed. LOS>96 hours with gradual response; returning to baseline.
[2017-07-30] MEDS: Doxazosin 4 MG Tab PO SCH (20:21)
[2017-07-31] MEDS: UMECLIDINIUM BRM INH SCH (08:26)
[2017-07-31] MEDS: VILANTEROL TR INH SCH (08:26)
[2017-07-31] MEDS ORDERED: Bisacodyl 5 MG Tab PO ONE (08:26)
[2017-07-31] MEDS: Magnesium Oxide 400 MG Tab PO SCH (08:34)
[2017-07-31] MEDS: Cholecalciferol (Vitamin D3) 1,000 Unit Tab PO SCH (08:35)
[2017-07-31] MEDS: Metoprolol Tartrate 25 MG Tab PO SCH (08:37)
[2017-07-31] MEDS: Apixaban 5 MG Tab PO SCH (08:37)
[2017-07-31] MEDS: Multivitamins,Therapeutic Tab PO SCH (08:38)
[2017-07-31 08:40] VITALS: BP 131/75
[2017-07-31] MEDS: Nicotine 21 MG/24 Hr Patch TRDERM SCH (08:40)
[2017-07-31] MEDS: Insulin Aspart 100 Units/ML 3 ML Pen SUBCUT SCH ×2 (08:45→11:45)
[2017-07-31] MEDS: Acetaminophen/HYDROcodone 325-5 MG Tab PO PRN (08:45)
[2017-07-31] MEDS ORDERED: Magnesium Hydroxide 400 MG/5 ML Susp 30 ML Cup PO ONE (08:54)
[2017-07-31] MEDS: ZINC GLUCONATE 50 MG PO SCH (14:32)
[2017-07-31] MEDS: Potassium Chloride 10 MEQ Tab.ER PO SCH (14:34)
--- NOTE | 2017-07-31 14:48 | PCM.DCSUM1 ---
Discharge Summary - Hospital Course Free Text/Narrative:: 77 year old male with multiple CVAs with 8-10 weeks, returned to ED at [facility] with unsteady gait and dizziness. The patient was diagnosed with a CVA, gradually improved. CVA protocol was followed, MRI was similar to previous study from May 2017 with extensive left sided involvement and right sided deficits. At [facility], the patient had returned to baseline and will be continuing PT/OT as prescribed. Eliquis was resumed at [facility], the patient has a very high CHADS2 score , thus extremely high risk of stroke. Primary Dx CVA AMS Condition Stable Activity PT/OT prescriptions Diet ADA 2000/heart healthy Medication Resume home meds Habitrol 21 mg daily Follow up Dr Butler Sleep medicine Neurology - Discharge Data Discharge Date: 07/31/17 Discharge Disposition: Home, W Home Health Agency 06 Condition: Poor - Discharge Diagnosis/Problem(s) (1) Hypertension SNOMED Code(s): 20065682 ICD Code: I10 - ESSENTIAL (PRIMARY) HYPERTENSION Status: Chronic Priority : High Qualifiers: Hypertension type: essential hypertension Qualified Code(s): I10 - Essential (primary) hypertension (2) Hyperlipidemia SNOMED Code(s): 26206444 ICD Code: E78.5 - HYPERLIPIDEMIA, UNSPECIFIED Status: Chronic Priority: High Qualifiers: Hyperlipidemia type: unspecified Qualified Code(s): E78.5 - Hyperlipidemia , unspecified (3) AAA (abdominal aortic aneurysm) without rupture SNOMED Code(s): 16417155 ICD Code: I71.4 - ABDOMINAL AORTIC ANEURYSM, WITHOUT RUPTURE Status: Acute (4) Paroxysmal atrial fibrillation SNOMED Code(s): 205871981 ICD Code: I48.0 - PAROXYSMAL ATRIAL FIBRILLATION Status: Chronic Priority : High (5) BPH (benign prostatic hyperplasia) SNOMED Code(s): 708346373, 505980195 ICD Code: N40.0 - BENIGN PROSTATIC HYPERPLASIA WITHOUT LOWER URINRY TRACT SYMP Status: Chronic Priority: Medium (6) Diabetes mellitus SNOMED Code(s): 62297206 ICD Code: E11.9 - TYPE 2 DIABETES MELLITUS WITHOUT COMPLICATIONS Status: Chronic Priority: High Qualifiers: Diabetes mellitus type: type 2 Diabetes mellitus complication status: with circulatory complication Diabetes mellitus complication detail: with other circulatory complications Diabetes mellitus snf insulin use: unspecified bed bug exterminator insulin use status Qualified Code(s): E11.59 - Type 2 diabetes mellitus with other circulatory complications (7) B-cell lymphoma SNOMED Code(s): 332638328 ICD Code: C85.10 - UNSPECIFIED B-CELL LYMPHOMA, UNSPECIFIED SITE Status: Acute (8) CVA (cerebral vascular accident) SNOMED Code(s): 543035152 ICD Code: I63.9 - CEREBRAL INFARCTION, UNSPECIFIED Status: Acute Priority : High Qualifiers: CVA mechanism: embolism Precerebral and cerebral artery: unspecified cerebral artery Qualified Code(s): I63.40 - Cerebral infarction due to embolism of unspecified cerebral artery (9) Altered mental status SNOMED Code(s): 854940035 ICD Code: R41.82 - ALTERED MENTAL STATUS, UNSPECIFIED Status: Resolved Priority: High Qualifiers: Altered mental status type: unspecified Qualified Code(s): R41.82 - Altered mental status, unspecified - Patient Summary/Data Consults: Consultations 07/28/17 08:00 Consult to Occupational Therapy [OT Evaluation and Treatment] [CONS] Routine 07/28/17 09:00 Consult to Case Management [CONS] Routine Consult to Physical Therapy [PT Evaluation and Treatment] [CONS] Routine 07/28/17 14:25 Consult to Speech Language Pathology [ELECT[employer]ICIAN [employer]IPMENT Evaluation and Treatment] [CONS] Routine - Patient Instructions Diet: Heart Healthy Diet, Diabetic Diet Activity: As Tolerated (Resume [facility] PT/OT) Driving: Do Not Drive Showering/Bathing: May Shower Notify Provider of: Fever, Increased Pain, Swelling and Redness, Nausea and/or Vomiting - Discharge Plan Prescriptions/Med Rec: Nicotine [Habitrol] 21 mg TRDERM DAILY #30 patch Home Medications: Home Meds Calcitonin,[place],Synthetic [Calcitonin-[place]] 200 unit MARILIN DAILY 09/06/14 [ History] Fluticasone Propionate [Flonase] 2 spray MARILIN DAILY 09/06/14 [History] predniSONE [Prednisone] 10 mg PO DAILY 09/06/14 [History] Cholecalciferol (Vitamin D3) [Vitamin D3] 2,000 unit PO BID 07/22/15 [History] Sennosides/Docusate Sodium [Senna-Docusate Sodium] 2 tab PO BID 07/22/15 [ History] Acetaminophen [Tylenol] 650 mg PO Q4H PRN #0 tablet 03/01/16 [Rx] Doxazosin [Cardura] 4 mg PO DAILY 05/28/17 [History] Triamcinolone Acetonide [Triamcinolone Acetonide 0.5%] 15 gm TOP BID PRN [History] Zinc Gluconate [Elemental Zinc] 50 mg PO DAILY 05/28/17 [History] Apixaban [Eliquis] 5 mg PO BID 06/15/17 [History] Glimepiride [Amaryl] 2 mg PO DAILY 06/15/17 [History] Linagliptin [Tradjenta] 5 mg PO DAILY 06/15/17 [History] Melatonin 6 mg PO BEDTIME 06/15/17 [History] Metoprolol Tartrate 75 mg PO BID 06/15/17 [History] Omeprazole 20 mg PO DAILY 06/15/17 [History] Rosuvastatin [Crestor] 10 mg PO BEDTIME 06/15/17 [History] Acetaminophen/HYDROcodone [[place] 325-5 MG] 1 tab PO BID PRN 07/27/17 [History] Acetaminophen/HYDROcodone [[place] 325-5 MG] 1 tab PO TID 07/27/17 [History] Magnesium Oxide 400 mg PO DAILY 07/27/17 [History] Multivitamin with Minerals [Multiple Vitamin] 1 tab PO DAILY 07/27/17 [History] Nicotine Polacrilex [Nicotine Lozenge] 4 mg BC Q2H PRN 07/27/17 [History] Polyvinyl Alcohol/Povidone/Pf [Refresh Classic Eye Drops] 1 each EYEBOTH TID PRN 07/27/17 [History] Potassium Chloride 10 meq PO DAILY 07/27/17 [History] Umeclidinium Brm/Vilanterol Tr [Anoro Ellipta 62.5-25 Mcg INH] 1 puff INH DAILY 07/27/17 [History] Nicotine [Habitrol] 21 mg TRDERM DAILY #30 patch 07/31/17 [Rx] Patient Handouts: Stroke Prevention, [id number], Ischemic Stroke Treated Without Warfarin, [id number] Referrals: Scottie Butler MD [Primary Care Provider] - 08/04/17 2:30 pm (Follow up with Dr. Butler on 08/04/17 at 2:30 pm) - Discharge Summary/Plan Comment DC Time >30 min.: No - General Info Date of Service: 07/27/17 Functional Status: Reports: Pain Controlled, Tolerating Diet, Ambulating, Urinating - Review of Systems General: Reports: No Symptoms HEENT: Reports: No Symptoms Pulmonary: Reports: No Symptoms Cardiovascular: Reports: No Symptoms Gastrointestinal: Reports: No Symptoms Genitourinary: Reports: No Symptoms Musculoskeletal: Reports: No Symptoms Skin: Reports: No Symptoms Neurological: Reports: No Symptoms Psychiatric: Reports: No Symptoms - Patient Data Vitals - Most Recent: Last Vital Signs Temp 36.3 C 07/31/17 04:22 Pulse 106 H 07/31/17 08:37 Resp 20 07/31/17 08:37 BP 131/75 07/31/17 08:37 Pulse Ox 95 07/31/17 08:37 Weight - Most Recent: 81.511 kg I&O - Last 24 hours: Intake & Output 07/30/17 07/31/17 07/31/17 22:59 06:59 14:59 Intake Total 1719 600 240 Output Total 700 1950 Balance 1019 -1350 240 Lab Results - Last 24 hrs: Laboratory Results - last 24 hr 07/30/17 07/30/17 07/31/17 Range/Units 17:24 20:26 06:02 WBC (4.23-9.07) K/mm3 RBC (4.63-6.08) M/mm3 Hgb (13.7-17.5) gm/L Hct (40.1-51.0) % MCV (79.0-92.2) fl MCH (25.7-32.2) pg MCHC (32.2-35.5) g/dl RDW Std Deviation (35.1-43.9) fL Plt Count (163-337) K/mm3 MPV (9.4-12.3) fl Neut % (Auto) (34.0-67.9) % Lymph % (Auto) (21.8-53.1) % Ellis % (Auto) (5.3-12.2) % Eos % (Auto) (0.8-7.0) Baso % (Auto) (0.1-1.2) % Neut # (Auto) (1.78-5.38) K/mm3 Lymph # (Auto) (1.32-3.57) K/mm3 Ellis # (Auto) (0.30-0.82) K/mm3 Eos # (Auto) (0.04-0.54) K/mm3 Baso # (Auto) (0.01-0.08) K/mm3 Manual Slide Review Sodium (136-145) mEq/L Potassium (3.5-5.1) mEq/L Chloride (98-107) mEq/L Carbon Dioxide (21-32) mEq/L Anion Gap (5-15) BUN (7-18) mg/dL Creatinine (0.7-1.3) mg/dL Est Cr Clr Drug Dosing mL/min Estimated GFR (MDRD) (>60) mL/min BUN/Creatinine Ratio (14-18) Glucose (83-115) mg/dL POC Glucose 210 H 181 H 89 (83-110) mg/dL Calcium (8.5-10.1) mg/dL Magnesium (1.8-2.4) mg/dl 07/31/17 07/31/17 07/31/17 Range/Units 06:11 06:11 11:30 WBC 6.61 (4.23-9.07) K/mm3 RBC 4.61 L (4.63-6.08) M/mm3 Hgb 12.4 L (13.7-17.5) gm/L Hct 40.4 (40.1-51.0) % MCV 87.6 (79.0-92.2) fl MCH 26.9 (25.7-32.2) pg MCHC 30.7 L (32.2-35.5) g/dl RDW Std Deviation 45.8 H (35.1-43.9) fL Plt Count 93 L (163-337) K/mm3 MPV 11.7 (9.4-12.3) fl Neut % (Auto) 58.0 (34.0-67.9) % Lymph % (Auto) 29.8 (21.8-53.1) % Ellis % (Auto) 8.8 (5.3-12.2) % Eos % (Auto) 1.7 (0.8-7.0) Baso % (Auto) 0.3 (0.1-1.2) % Neut # (Auto) 3.84 (1.78-5.38) K/mm3 Lymph # (Auto) 1.97 (1.32-3.57) K/mm3 Ellis # (Auto) 0.58 (0.30-0.82) K/mm3 Eos # (Auto) 0.11 (0.04-0.54) K/mm3 Baso # (Auto) 0.02 (0.01-0.08) K/mm3 Manual Slide Review Abnormal smear Sodium 142 (136-145) mEq/L Potassium 3.8 (3.5-5.1) mEq/L Chloride 104 (98-107) mEq/L Carbon Dioxide 30 (21-32) mEq/L Anion Gap 11.8 (5-15) BUN 14 (7-18) mg/dL Creatinine 0.7 (0.7-1.3) mg/dL Est Cr Clr Drug Dosing 86.97 mL/min Estimated GFR (MDRD) > 60 (>60) mL/min BUN/Creatinine Ratio 20.0 H (14-18) Glucose 99 (83-115) mg/dL POC Glucose 156 H (83-110) mg/dL Calcium 8.8 (8.5-10.1) mg/dL Magnesium 2.1 (1.8-2.4) mg/dl Med Orders - Current: Current Medications Acetaminophen (Tylenol) 650 mg PO Q4H PRN PRN Reason: Pain Hydrocodone Bitart/Acetaminophen ([place] 325-5 Mg) 1 tab PO BID PRN PRN Reason: Pain Last Admin: 07/31/17 08:45 Dose: 1 tab Apixaban (Eliquis) 5 mg PO BID [facility] Last Admin: 07/31/17 08:37 Dose: 5 mg Artificial Tears (Isopto Tears 0.5% Ophth Soln) 0 ml EYEBOTH TID PRN PRN Reason: Dryness Cholecalciferol (Vitamin D3) 2,000 units PO BID [facility] Last Admin: 07/31/17 08:35 Dose: 2,000 units Dextrose/Water (Dextrose 50% In Water) 50 ml IVPUSH ASDIRECTED PRN PRN Reason: Hypoglycemia Doxazosin Mesylate (Cardura) 4 mg PO BEDTIME [facility] Last Admin: 07/30/17 20:21 Dose: 4 mg Flunisolide (Nasalide Nasal [place]) 0 ml MARILIN Q12H [facility] Last Admin: 07/31/17 08:34 Dose: 2 spray Hydralazine HCl (Apresoline) 20 mg IVPUSH Q6H PRN PRN Reason: Hypertension Insulin Aspart (Novolog) 0 unit SUBCUT QIDACANDBED [facility] PRN Reason: Protocol Last Admin: 07/31/17 11:45 Dose: 1 units Magnesium Oxide (Magnesium Oxide) 400 mg PO BID [facility] Last Admin: 07/31/17 08:34 Dose: 400 mg Metoprolol Tartrate (Lopressor) 5 mg IVPUSH Q6H PRN PRN Reason: heart rate Metoprolol Tartrate (Lopressor) 75 mg PO Q12HR [facility] Last Admin: 07/31/17 08:37 Dose: 75 mg Miscellaneous Information (Remove Patch) 1 ea TRDERM DAILY [facility] Last Admin: 07/30/17 09:43 Dose: 1 ea Multivitamins (Thera) 1 each PO DAILY [facility] Last Admin: 07/31/17 08:38 Dose: 1 each Nicotine (Habitrol) 21 mg TRDERM DAILY [facility] Last Admin: 07/31/17 08:40 Dose: 21 mg (Umeclidinium Brm/Vilanterol Tr 1 Puff )*Pt Own Med* 0 each INH DAILY [facility] Last Admin: 07/31/17 08:26 Dose: 1 each Linagliptin [ (Tradjenta] 5 Mg) 0 each PO DAILY [facility] Last Admin: 07/31/17 14:32 Dose: Not Given Zinc Gluconate [ Elemental Zinc] 50 Mg 0 each PO DAILY [facility] Last Admin: 07/31/17 14:32 Dose: Not Given Potassium Chloride (Klor-Con 10) 10 meq PO DAILY [facility] Last Admin: 07/31/17 14:34 Dose: Not Given Senna/Docusate Sodium (Senna Plus) 2 tab PO BID [facility] Last Admin: 07/31/17 08:34 Dose: 2 tab Triamcinolone Acetonide (Triamcinolone Acetonide 0.5%) 0 gm TOP BID PRN PRN Reason: Rash Discontinued Medications Aspirin (Ecotrin) 325 mg PO DAILY [facility] Aspirin (Aspirin) 300 mg RECTAL DAILY [facility] Last Admin: 07/28/17 09:37 Dose: 300 mg Aspirin (Ecotrin) 325 mg PO DAILY [facility] Last Admin: 07/29/17 08:14 Dose: 325 mg Bisacodyl (Dulcolax) 5 mg PO ONETIME ONE Stop: 07/31/17 08:27 Last Admin: 07/31/17 08:34 Dose: 5 mg Enoxaparin Sodium (Lovenox) 40 mg SUBCUT DAILY [facility] Last Admin: 07/29/17 08:12 Dose: 40 mg Glimepiride (Amaryl) 2 mg PO DAILY [facility] Dextrose/Sodium Chloride (Dextrose 5%-Normal Saline) 1,000 mls @ 150 mls/hr IV ASDIRECTED [facility] Last Admin: 07/27/17 07:22 Dose: 150 mls/hr Sodium Chloride (Normal Saline) 1,000 mls @ 100 mls/hr IV ASDIRECTED [facility] Dextrose/Sodium Chloride (Dextrose 5%-1/2 Ns) 1,000 mls @ 75 mls/hr IV ASDIRECTED [facility] Last Admin: 07/30/17 11:55 Dose: 75 mls/hr Magnesium Sulfate 2 gm/ Premix 50 mls @ 25 mls/hr IV ONETIME ONE Stop: 07/27/17 15:03 Last Admin: 07/27/17 13:37 Dose: 25 mls/hr Potassium Chloride 10 meq/ (Premix) 100 mls @ 100 mls/hr IV Q1H [facility] Stop: 07/27/17 16:29 Last Admin: 07/27/17 15:50 Dose: 100 mls/hr Magnesium Sulfate 2 gm/ Premix 50 mls @ 25 mls/hr IV ONETIME ONE Stop: 07/30/17 11:41 Last Admin: 07/30/17 10:37 Dose: 25 mls/hr Lorazepam (Ativan) 0.5 mg IVPUSH ONETIME ONE Stop: 07/27/17 07:13 Last Admin: 07/27/17 07:23 Dose: 0.5 mg Magnesium Hydroxide (Milk Of Magnesia) 30 ml PO ONETIME ONE Stop: 07/30/17 14:11 Last Admin: 07/30/17 14:29 Dose: 30 ml Magnesium Hydroxide (Milk Of Magnesia) 30 ml PO ONETIME ONE Stop: 07/31/17 08:55 Last Admin: 07/31/17 09:00 Dose: 30 ml Magnesium Oxide (Magnesium Oxide) 400 mg PO DAILY [facility] Last Admin: 07/30/17 09:44 Dose: 400 mg Methylprednisolone Sodium Succinate (Solu-Medrol) 40 mg IVPUSH DAILY [facility] Last Admin: 07/29/17 08:13 Dose: 40 mg Methylprednisolone Sodium Succinate (Solu-Medrol) 20 mg IVPUSH DAILY [facility] Last Admin: 07/30/17 09:49 Dose: 20 mg Metoclopramide HCl (Reglan) 7.5 mg IVPUSH ONETIME ONE Stop: 07/27/17 07:13 Last Admin: 07/27/17 07:22 Dose: 7.5 mg Metoprolol Tartrate (Lopressor) 75 mg PO BID [facility] Metoprolol Tartrate (Lopressor) 75 mg PO Q12HR [facility] Non-Formulary Medication (Calcitonin ([place])) 200 unit MARILIN DAILY [facility] Pantoprazole Sodium (Protonix Iv) 40 mg IVPUSH Q12H [facility] Last Admin: 07/29/17 08:09 Dose: 40 mg Potassium Chloride (Potassium Chloride) 40 meq PO BID [facility] Stop: 07/30/17 21:01 Last Admin: 07/30/17 20:20 Dose: 40 meq Prednisone (Prednisone) 10 mg PO DAILY [facility] Rosuvastatin Calcium (Crestor) 10 mg PO BEDTIME [facility] - Exam Quality Assessment: Reports: DVT Prophylaxis General: Reports: Alert, Oriented, Cooperative, No Acute Distress HEENT: Reports: Pupils Equal, Pupils Reactive, EOMI Neck: Reports: Supple, Trachea Midline, No JVD Lungs: Reports: Normal Respiratory Effort Cardiovascular: Reports: Regular Rate, Regular Rhythm GI/Abdominal Exam: Normal Bowel Sounds, Soft, Non-Tender, No Distention (Male) Exam: Deferred Rectal (Males) Exam: Deferred Back Exam: Reports: Normal Inspection Extremities: Normal Inspection Skin: Reports: Warm Neurological: Reports: No New Focal Deficit, Normal Speech Psy/Mental Status: Reports: Alert, Normal Affect, Normal Mood *Q Meaningful Use (DIS) - VTE *Q VTE Criteria *Q: - Stroke *Q Stroke Criteria *Q: - AMI *Q AMI Criteria *Q:
== END 2017-07-31 13:44 | disposition home health service (06) | DRG 65 ==
LOC: JD.ED 06:31 → JD.MS 10:07 → UNDOADMIN 10:07 → JD.MS 10:10
PROVIDERS: ADMIT Internal Medicine Cardiovascular Disease; ATTEND Internal Medicine Cardiovascular Disease
DX: I63.40 Cerebral infarction due to embolism of unspecified cerebral artery (principal); I69.354 Hemiplegia and hemiparesis following cerebral infarction affecting left non-dominant side; C85.90 Non-Hodgkin lymphoma, unspecified, unspecified site; C85.10 Unspecified B-cell lymphoma, unspecified site; E87.6 Hypokalemia; I10 Essential (primary) hypertension; E78.6 Lipoprotein deficiency; E11.42 Type 2 diabetes mellitus with diabetic polyneuropathy; Z79.84 Long term (current) use of oral hypoglycemic drugs; H91.93 Unspecified hearing loss, bilateral; N40.0 Benign prostatic hyperplasia without lower urinary tract symptoms; G89.29 Other chronic pain; M54.9 Dorsalgia, unspecified; M06.9 Rheumatoid arthritis, unspecified; E78.5 Hyperlipidemia, unspecified; I48.0 Paroxysmal atrial fibrillation; M81.0 Age-related osteoporosis without current pathological fracture; F32.9 Major depressive disorder, single episode, unspecified; G47.00 Insomnia, unspecified; Z91.09 Other allergy status, other than to drugs and biological substances; Z87.891 Personal history of nicotine dependence; Z79.01 Long term (current) use of anticoagulants; Z99.81 Dependence on supplemental oxygen; Z79.899 Other long term (current) drug therapy; R41.82 Altered mental status, unspecified; R06.02 Shortness of breath
CPT/HCPCS: 70450; 96361; 99285; 69210; 93005; 96374; 96375; 85025; 85730; 85610; 36415; 82962; 80053; 83735; 82553; 84484; 83880; 86140; J7042; J2060; J2765; 70551; 70551-26; 80048; 80061; 84439; 84443; 87641; 92610-GN; 94640; 94760; 94761; 97110-GO; 97110-GP; 97116-GP; 97162-GP; 97166-GO; 97530-GO; 97535-GO; A9270-GY; C9113; J1650; J1815-GY; J2920; J3475; J3480

== ENCOUNTER 2017-10-31 11:35 | Inpatient (IN) | payer MEDICARE, OTHER ==
--- NOTE | 2017-10-31 11:45 | EDM.PDOC ---
ED HPI GENERAL MEDICAL PROBLEM - General Chief Complaint: General Stated Complaint: [facility] Time Seen by Provider: 10/31/17 11:43 - History of Present Illness INITIAL COMMENTS - FREE TEXT/NARRATIVE: 77-year-old male presents emergency room with worsening weakness. Family is concerned that perhaps the patient had another stroke the patient had a stroke earlier this last summer followed by a long rehabilitation process he has done fairly well since that time the patient has been having more weakness there was noted this morning fairly early his gait was less steady and for a while he did not want to walk. The patient has been coughing more frequently. He denies any chest pain or chest pressure. He has not had any abdominal pain no nausea vomiting constipation or diarrhea. He has had perhaps a little worsening speech. According to the family he seems to be doing much better here in the emergency room that he was doing at home. At home they cannot clearly identify any localized weakness beyond baseline as he has some residual right- sided weakness secondary to CVA. Sounds as though his weakness could very well of generalized. The patient uses home O2 on an as-needed basis apparently his need for this is been getting more so over the last couple of days. EMS found him to be somewhat hypoxic with an O2 saturation 85% he did receive 200 mL of fluid in transport. - Related Data Allergies Allergy/AdvReac Type Severity Reaction Status Date / Time adhesive Allergy Intermediate thin skin, Verified 10/31/17 17:33 tears and bruising Home Meds: Home Meds Calcitonin,Standish,Synthetic [Calcitonin-Standish] 200 unit MARILIN DAILY 09/06/14 [ History] Fluticasone Propionate [Flonase] 2 spray MARILIN DAILY 09/06/14 [History] predniSONE [Prednisone] 10 mg PO DAILY 09/06/14 [History] Cholecalciferol (Vitamin D3) [Vitamin D3] 2,000 unit PO DAILY 07/22/15 [History] Sennosides/Docusate Sodium [Senna-Docusate Sodium] 1 tab PO BID 07/22/15 [ History] Acetaminophen [Tylenol] 650 mg PO Q4H PRN #0 tablet 03/01/16 [Rx] Doxazosin [Cardura] 4 mg PO DAILY 05/28/17 [History] Triamcinolone Acetonide [Triamcinolone Acetonide 0.5%] 15 gm TOP BID PRN [History] Zinc Gluconate [Elemental Zinc] 30 mg PO DAILY 05/28/17 [History] Apixaban [Eliquis] 5 mg PO BID 06/15/17 [History] Glimepiride [Amaryl] 2 mg PO DAILY 06/15/17 [History] Melatonin 6 mg PO BEDTIME 06/15/17 [History] Metoprolol Tartrate 100 mg PO BID 06/15/17 [History] Omeprazole 20 mg PO DAILY 06/15/17 [History] Rosuvastatin [Crestor] 5 mg PO BEDTIME 06/15/17 [History] Acetaminophen/HYDROcodone [Saltese 325-5 MG] 1 tab PO TID 07/27/17 [History] Magnesium Oxide 400 mg PO DAILY 07/27/17 [History] Multivitamin with Minerals [Multiple Vitamin] 1 tab PO DAILY 07/27/17 [History] Nicotine Polacrilex [Nicotine Lozenge] 4 mg BC Q2H PRN 07/27/17 [History] Polyvinyl Alcohol/Povidone/Pf [Refresh Classic Eye Drops] 1 each EYEBOTH TID PRN 07/27/17 [History] Potassium Chloride 10 meq PO DAILY 07/27/17 [History] Umeclidinium Brm/Vilanterol Tr [Anoro Ellipta 62.5-25 Mcg INH] 1 puff INH DAILY 07/27/17 [History] Nicotine [Habitrol] 21 mg TRDERM DAILY #30 patch 07/31/17 [Rx] Past Medical History HEENT History: Reports: Hard of Hearing, Other (See Below) Other HEENT History: cerumen impaction, tinnitis, very [place] Cardiovascular History: Reports: Aneurysm, High Cholesterol, Hypertension, SOB on Exertion, Other (See Below) Other Cardiovascular History: AAA, tachycardia, SVT Respiratory History: Reports: SOB, Other (See Below) Other Respiratory History: hypoxia,Oxygen at home at night and sometimes during the day, cough Gastrointestinal History: Reports: Other (See Below) Other Gastrointestinal History: abdominal air of unknown origin, colon polyps Genitourinary History: Reports: BPH, Other (See Below) Other Genitourinary History: dysuria, nocturia, urgency Musculoskeletal History: Reports: Back Pain, Chronic, Osteoporosis, RA, Other ( See Below) Other Musculoskeletal History: fall and Lt hip fracture in April 2015. Wheelchair bound since then. Reports having old fractures in lumbar vertebrae. 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 Psychiatric History: Reports: Depression Other Psychiatric History: delerium, confusion, insomnia Endocrine/Metabolic History: Reports: Diabetes, Type II Hematologic History: Reports: None Immunologic History: Reports: None Oncologic (Cancer) History: Reports: Lymphoma, Non-Hodgkin's Lymphoma Other Oncologic History: B-cell lymphoma. Patient has a implanted IV port Dermatologic History: Reports: None - Infectious Disease History Infectious Disease History: Reports: None - Past Surgical History Head Surgeries/Procedures: Reports: None Cardiovascular Surgical History: Reports: AAA Repair, Other (See Below) GI Surgical History: Reports: Appendectomy, Colonoscopy, Other (See Below) Musculoskeletal Surgical History: Reports: Other (See Below) Social & Family History - Family History Family Medical History: Noncontributory - Tobacco Use Smoking Status *Q: Former Smoker Years of Tobacco use: 25 Packs/Tins Daily: 1 Used Tobacco, but Quit: Yes Month Tobacco Last Used: 1985 Second Hand Smoke Exposure: No - Caffeine Use Caffeine Use: Reports: Coffee Other Caffeine Use: 4 cups/day - Alcohol Use Days Per Week of Alcohol Use: 0 - Recreational Drug Use Recreational Drug Use: No Drug Use in Last 12 Months: No Other Recreational Drug Type: Unknown- patient unresponsive - Living Situation & Occupation Living situation: Reports: , Extended Care Facility Occupation: Retired ED ROS GENERAL - Review of Systems Review Of Systems: See Below Constitutional: Reports: No Symptoms. Denies: Fever, Chills HEENT: Reports: No Symptoms Respiratory: Reports: Cough, Other. Denies: Shortness of Breath, Wheezing GI/Abdominal: Reports: No Symptoms : Reports: No Symptoms Musculoskeletal: Reports: No Symptoms Skin: Reports: No Symptoms Neurological: Reports: Weakness (This seems to be generalized). Denies: Seizure , Syncope Psychiatric: Reports: No Symptoms ED EXAM, NEURO - Physical Exam Exam: See Below Exam Limited By: No Limitations General Appearance: Alert, No Apparent Distress, Other (He is cooperative at the time of my exam he has some right-sided weakness this appears to be fairly stable according to the family it is noted that his blood pressure is low and he is started on fluid resuscitative efforts as he does appear somewhat dehydrated) Ears: Normal External Exam, Normal Canal, Hearing Grossly Normal, Normal TMs Nose: Normal Inspection, Normal Mucosa Throat/Mouth: Normal Inspection, Normal Lips, Normal Oropharynx, Normal Voice, No Airway Compromise Head Exam: Atraumatic, Normocephalic Neck: Normal Inspection, Supple, Non-Tender, Full Range of Motion. No: Lymphadenopathy (L), Lymphadenopathy (R) Respiratory/Chest: No Respiratory Distress, Lungs Clear, Normal Breath Sounds, Decreased Breath Sounds Cardiovascular: Normal Peripheral Pulses, Regular Rate, Rhythm, No Edema, No Murmur GI/Abdominal: Normal Bowel Sounds, Soft, Non-Tender Neurological: Other (He has weakness in his right arm and leg but according to family this is normal) Back Exam: Normal Inspection. No: CVA Tenderness (L), CVA Tenderness (R) Extremities: Normal Inspection, Non-Tender Course - Vital Signs Last Recorded V/S: Last Vital Signs Temp 37.3 C 10/31/17 16:50 Pulse 69 10/31/17 21:05 Resp 16 10/31/17 16:50 BP 119/84 10/31/17 21:05 Pulse Ox 95 10/31/17 20:17 - Orders/Labs/Meds Orders: Active Orders 24 hr Category Date Time Status CULTURE BLOOD [BC] Stat Lab 10/31/17 12:48 Received CULTURE BLOOD [BC] Stat Lab 10/31/17 12:58 Received Blood Culture x2 Reflex Set [OM.PC] Stat Oth 10/31/17 12:12 Ordered Medication Orders Acetaminophen (Tylenol) 650 mg PO Q4H PRN PRN Reason: Pain (Mild 1-3)/fever Hydrocodone Bitart/Acetaminophen (Saltese 325-5 Mg) 1 tab PO TID [facility] Last Admin: 10/31/17 21:06 Dose: 1 tab Albuterol/Ipratropium (Duoneb 3.0-0.5 Mg/3 Ml) 3 ml NEB Q4H PRN PRN Reason: Shortness Of Breath/wheezing Apixaban (Eliquis) 5 mg PO BID [facility] Last Admin: 10/31/17 21:05 Dose: 5 mg Artificial Tears (Isopto Tears 0.5% Ophth Soln) 0 ml EYEBOTH TID PRN PRN Reason: Dry Eyes Last Admin: 10/31/17 21:13 Dose: 1 drop Bisacodyl (Dulcolax) 5 mg PO DAILY PRN PRN Reason: Constipation Dextrose/Water (Dextrose 50% In Water) 50 ml IVPUSH ASDIRECTED PRN PRN Reason: hypoglycemia Docusate Sodium (Colace) 100 mg PO BID PRN PRN Reason: Constipation Doxazosin Mesylate (Cardura) 4 mg PO DAILY [facility] Hydromorphone HCl (Dilaudid) 0.5 mg IVPUSH Q2H PRN PRN Reason: Pain (severe 7-10) Levofloxacin/Dextrose 750 mg/ (Premix) 150 mls @ 100 mls/hr IV Q24H [facility] Sodium Chloride (Normal Saline) 1,000 mls @ 150 mls/hr IV ASDIRECTED [facility] Stop: 11/02/17 02:24 Magnesium Sulfate 2 gm/ Premix 50 mls @ 25 mls/hr IV ONETIME ONE Stop: 10/31/17 21:32 Piperacillin Sod/Tazobactam (Sod 4.5 gm/ Sodium Chloride) 100 mls @ 25 mls/hr IV Q8H [facility] Insulin Aspart (Novolog) 0 unit SUBCUT QIDACANDBED MAIA PRN Reason: Protocol Last Admin: 10/31/17 21:15 Dose: Not Given Magnesium Oxide (Magnesium Oxide) 400 mg PO DAILY [facility] Metoprolol Tartrate (Lopressor) 100 mg PO BID MAIA Last Admin: 10/31/17 21:05 Dose: 100 mg Miscellaneous Information (Remove Patch) 1 ea TRDERM DAILY [facility] Nicotine (Habitrol) 21 mg TRDERM DAILY [facility] Non-Formulary Medication (Calcitonin (Standish)) 200 unit MARILIN DAILY [facility] Non-Formulary Medication (Polyvinyl Alcohol/Povidone/Pf [Refresh Classic Eye Drops]) 1 each EYEBOTH TID PRN PRN Reason: Dryness Non-Formulary Medication (Umeclidinium Brm/Vilanterol Tr) 1 puff INH DAILY [facility] Non-Formulary Medication (Zinc Gluconate [Elemental Zinc]) 30 mg PO DAILY [facility] Ondansetron HCl (Zofran Odt) 4 mg PO Q6H PRN PRN Reason: nausea, able to take PO Ondansetron HCl (Zofran) 4 mg IV Q6H PRN PRN Reason: Nausea/Vomiting Pantoprazole Sodium (Protonix) 40 mg PO DAILY@0700 [facility] Polyethylene Glycol (Miralax) 17 gm PO DAILY PRN PRN Reason: Constipation Potassium Chloride (Klor-Con 10) 10 meq PO DAILY [facility] Prednisone (Prednisone) 10 mg PO DAILY [facility] Rosuvastatin Calcium (Crestor) 5 mg PO BEDTIME MAIA Last Admin: 10/31/17 21:07 Dose: 5 mg Senna/Docusate Sodium (Senna Plus) 1 tab PO BID MAIA Last Admin: 10/31/17 21:05 Dose: 1 tab Temazepam (Restoril) 7.5 mg PO BEDTIME PRN PRN Reason: sleep Triamcinolone Acetonide (Triamcinolone Acetonide 0.5%) 0 gm TOP BID PRN PRN Reason: Rash Labs: Laboratory Tests 10/31/17 10/31/17 10/31/17 Range/Units 12:12 12:48 12:48 WBC 12.21 H (4.23-9.07) K/mm3 RBC 4.96 (4.63-6.08) M/mm3 Hgb 13.4 L (13.7-17.5) gm/L Hct 42.1 (40.1-51.0) % MCV 84.9 (79.0-92.2) fl MCH 27.0 (25.7-32.2) pg MCHC 31.8 L (32.2-35.5) g/dl RDW Std Deviation 51.3 H (35.1-43.9) fL Plt Count 79 L (163-337) K/mm3 MPV 11.5 (9.4-12.3) fl Neutrophils % (Manual) 78 H (40-60) % Band Neutrophils % 0 (0-10) % Lymphocytes % (Manual) 13 L (20-40) % Atypical Lymphs % 0 % Monocytes % (Manual) 8 (2-10) % Eosinophils % (Manual) 1 (0.8-7.0) % Basophils % (Manual) 0 L (0.2-1.2) Platelet Estimate Decreased RBC Morph Comment Normal PT 11.7 (8.0-13.0) SECONDS INR 1.07 APTT 29 (22-36) SECONDS Puncture Site Lt radial ABG pH 7.45 (7.35-7.45) ABG pCO2 33.8 L (35.0-45.0) mmHg ABG pO2 63.0 L (80.0-100.0) mmHg ABG HCO3 23.2 (22.0-26.0) meq/L ABG O2 Saturation 92.5 L (96.0-97.0) % ABG Base Excess 0.2 (-2-2.0) A-a Gradient 49 mmHg O2 Delivery Device Nasal cannula Oxygen Flow Rate 1.0 FiO2 24.00 (21.00-100.00) % Sodium (136-145) mEq/L Potassium (3.5-5.1) mEq/L Chloride (98-107) mEq/L Carbon Dioxide (21-32) mEq/L Anion Gap (5-15) BUN (7-18) mg/dL Creatinine (0.7-1.3) mg/dL Est Cr Clr Drug Dosing mL/min Estimated GFR (MDRD) (>60) mL/min BUN/Creatinine Ratio (14-18) Glucose (83-115) mg/dL Lactic Acid (0.4-2.0) mmol/L Calcium (8.5-10.1) mg/dL Total Bilirubin (0.2-1.0) mg/dL AST (15-37) U/L ALT (16-63) U/L Alkaline Phosphatase (46-116) U/L Troponin I (0.00-0.056) ng/mL Total Protein (6.4-8.2) g/dl Albumin (3.4-5.0) g/dl Globulin gm/dL Albumin/Globulin Ratio (1-2) Urine Color (Yellow) Urine Appearance (Clear) Urine pH (5.0-8.0) Ur Specific Sodus (1.005-1.030) Urine Protein (Negative) Urine Glucose (UA) (Negative) Urine Ketones (Negative) Urine Occult Blood (Negative) Urine Nitrite (Negative) Urine Bilirubin (Negative) Urine Urobilinogen (0.2-1.0) Ur Leukocyte Esterase (Negative) Urine RBC (0-5) /hpf Urine WBC (0-5) /hpf Ur Epithelial Cells (0-5) /hpf Urine Bacteria (FEW) /hpf Urine Mucus (FEW) /hpf 10/31/17 10/31/17 10/31/17 Range/Units 12:48 12:48 13:20 WBC (4.23-9.07) K/mm3 RBC (4.63-6.08) M/mm3 Hgb (13.7-17.5) gm/L Hct (40.1-51.0) % MCV (79.0-92.2) fl MCH (25.7-32.2) pg MCHC (32.2-35.5) g/dl RDW Std Deviation (35.1-43.9) fL Plt Count (163-337) K/mm3 MPV (9.4-12.3) fl Neutrophils % (Manual) (40-60) % Band Neutrophils % (0-10) % Lymphocytes % (Manual) (20-40) % Atypical Lymphs % % Monocytes % (Manual) (2-10) % Eosinophils % (Manual) (0.8-7.0) % Basophils % (Manual) (0.2-1.2) Platelet Estimate RBC Morph Comment PT (8.0-13.0) SECONDS INR APTT (22-36) SECONDS Puncture Site ABG pH (7.35-7.45) ABG pCO2 (35.0-45.0) mmHg ABG pO2 (80.0-100.0) mmHg ABG HCO3 (22.0-26.0) meq/L ABG O2 Saturation (96.0-97.0) % ABG Base Excess (-2-2.0) A-a Gradient mmHg O2 Delivery Device Oxygen Flow Rate FiO2 (21.00-100.00) % Sodium 139 (136-145) mEq/L Potassium 3.9 (3.5-5.1) mEq/L Chloride 105 (98-107) mEq/L Carbon Dioxide 27 (21-32) mEq/L Anion Gap 10.9 (5-15) BUN 16 (7-18) mg/dL Creatinine 1.0 (0.7-1.3) mg/dL Est Cr Clr Drug Dosing 62.86 mL/min Estimated GFR (MDRD) > 60 (>60) mL/min BUN/Creatinine Ratio 16.0 (14-18) Glucose 118 H (83-115) mg/dL Lactic Acid 3.3 H (0.4-2.0) mmol/L Calcium 8.9 (8.5-10.1) mg/dL Total Bilirubin 0.7 (0.2-1.0) mg/dL AST 17 (15-37) U/L ALT 16 (16-63) U/L Alkaline Phosphatase 55 (46-116) U/L Troponin I < 0.017 (0.00-0.056) ng/mL Total Protein 5.3 L (6.4-8.2) g/dl Albumin 3.0 L (3.4-5.0) g/dl Globulin 2.3 gm/dL Albumin/Globulin Ratio 1.3 (1-2) Urine Color Yellow (Yellow) Urine Appearance Clear (Clear) Urine pH 6.5 (5.0-8.0) Ur Specific [place] 1.025 (1.005-1.030) Urine Protein Negative (Negative) Urine Glucose (UA) Negative (Negative) Urine Ketones Negative (Negative) Urine Occult Blood Negative (Negative) Urine Nitrite Negative (Negative) Urine Bilirubin Negative (Negative) Urine Urobilinogen 0.2 (0.2-1.0) Ur Leukocyte Esterase Negative (Negative) Urine RBC 0-5 (0-5) /hpf Urine WBC 0-5 (0-5) /hpf Ur Epithelial Cells 0-5 (0-5) /hpf Urine Bacteria Few (FEW) /hpf Urine Mucus Few (FEW) /hpf Meds: Medications Generic Name Dose Route Start Last Admin Trade Name Freq PRN Reason Stop Dose Admin Acetaminophen 650 mg 10/31/17 17:32 Tylenol PO Q4H PRN Pain (Mild 1-3)/fever Hydrocodone Bitart/Acetaminophen 1 tab 10/31/17 21:00 10/31/17 21:06 Saltese 325-5 Mg PO 1 tab TID MAIA Administration Albuterol/Ipratropium 3 ml 10/31/17 17:32 Duoneb 3.0-0.5 Mg/3 Ml NEB Q4H PRN Shortness Of Breath/wheezing Apixaban 5 mg 10/31/17 21:00 10/31/17 21:05 Eliquis PO 5 mg BID [facility]IA Administration Artificial Tears 0 ml 10/31/17 20:26 10/31/17 21:13 Isopto Tears 0.5% Ophth Soln EYEBOTH 1 drop TID PRN Administration Dry Eyes Bisacodyl 5 mg 10/31/17 17:32 Dulcolax PO DAILY PRN Constipation Dextrose/Water 50 ml 10/31/17 17:38 Dextrose 50% In Water IVPUSH ASDIRECTED PRN hypoglycemia Docusate Sodium 100 mg 10/31/17 17:32 Colace PO BID PRN Constipation Doxazosin Mesylate 4 mg 11/01/17 09:00 Cardura PO DAILY [facility] Hydromorphone HCl 0.5 mg 10/31/17 17:32 Dilaudid IVPUSH Q2H PRN Pain (severe 7-10) Levofloxacin/Dextrose 750 mg/ 150 mls @ 100 mls/hr 11/01/17 08:00 Premix IV Q24H [facility] Sodium Chloride 1,000 mls @ 150 mls/hr 10/31/17 19:45 Normal Saline IV 11/02/17 02:24 ASDIRECTED [facility] Magnesium Sulfate 2 gm/ Premix 50 mls @ 25 mls/hr 10/31/17 19:33 IV 10/31/17 21:32 ONETIME ONE Piperacillin Sod/Tazobactam 100 mls @ 25 mls/hr 10/31/17 21:00 Sod 4.5 gm/ Sodium Chloride IV Q8H [facility] Insulin Aspart 0 unit 10/31/17 22:00 10/31/17 21:15 Novolog SUBCUT Not Given QIDACANDBED [facility] Protocol Magnesium Oxide 400 mg 11/01/17 09:00 Magnesium Oxide PO DAILY [facility] Metoprolol Tartrate 100 mg 10/31/17 21:00 10/31/17 21:05 Lopressor PO 100 mg BID [facility] Administration Miscellaneous Information 1 ea 11/01/17 09:00 Remove Patch TRDERM DAILY [facility] Nicotine 21 mg 11/01/17 18:00 Habitrol TRDERM DAILY [facility] Non-Formulary Medication 200 unit 11/01/17 09:00 Calcitonin (Standish) MARILIN DAILY [facility] Non-Formulary Medication 1 each 10/31/17 17:24 Polyvinyl Alcohol/Povidone/Pf [Refresh Classic Eye Drops] EYEBOTH TID PRN Dryness Non-Formulary Medication 1 puff 11/01/17 09:00 Umeclidinium Brm/Vilanterol Tr INH DAILY [facility] Non-Formulary Medication 30 mg 11/01/17 09:00 Zinc Gluconate [Elemental Zinc] PO DAILY [facility] Ondansetron HCl 4 mg 10/31/17 17:32 Zofran Odt PO Q6H PRN nausea, able to take PO Ondansetron HCl 4 mg 10/31/17 17:32 Zofran IV Q6H PRN Nausea/Vomiting Pantoprazole Sodium 40 mg 11/01/17 07:00 Protonix PO DAILY@0700 [facility] Polyethylene Glycol 17 gm 10/31/17 17:32 Miralax PO DAILY PRN Constipation Potassium Chloride 10 meq 11/01/17 09:00 Klor-Con 10 PO DAILY [facility] Prednisone 10 mg 11/01/17 09:00 Prednisone PO DAILY [facility] Rosuvastatin Calcium 5 mg 10/31/17 21:00 10/31/17 21:07 Crestor PO 5 mg BEDTIME [facility] Administration Senna/Docusate Sodium 1 tab 10/31/17 21:00 10/31/17 21:05 Senna Plus PO 1 tab BID [facility] Administration Temazepam 7.5 mg 10/31/17 20:20 Restoril PO BEDTIME PRN sleep Triamcinolone Acetonide 0 gm 10/31/17 17:24 Triamcinolone Acetonide 0.5% TOP BID PRN Rash Discontinued Medications Generic Name Dose Route Start Last Admin Trade Name Freq PRN Reason Stop Dose Admin Ceftriaxone Sodium 2 gm 10/31/17 14:53 10/31/17 15:16 Rocephin IVPUSH 10/31/17 14:54 Not Given ONETIME ONE Lactated Ringer's 500 mls @ 999 mls/hr 10/31/17 12:11 10/31/17 12:19 Ringers, Lactated IV 10/31/17 12:41 999 mls/hr .BOLUS ONE Administration Lactated Ringer's Confirm 10/31/17 12:18 10/31/17 12:20 Ringers, Lactated Administered 10/31/17 12:19 Not Given Dose 1,000 mls @ as directed .ROUTE .STK-MED ONE Lactated Ringer's 500 mls @ 999 mls/hr 10/31/17 13:09 10/31/17 20:51 Ringers, Lactated IV 10/31/17 13:39 Not Given .BOLUS ONE Lactated Ringer's 1,000 mls @ 125 mls/hr 10/31/17 13:45 10/31/17 13:50 Ringers, Lactated IV 125 mls/hr ASDIRECTED [facility] Administration Lactated Ringer's 1,000 mls @ 999 mls/hr 10/31/17 14:23 Ringers, Lactated IV ASDIRECTED [facility] Lactated Ringer's 1,000 mls @ 150 mls/hr 10/31/17 14:45 Ringers, Lactated IV ASDIRECTED [facility] Sodium Chloride 1,000 mls @ 150 mls/hr 10/31/17 15:00 10/31/17 15:04 Normal Saline IV 150 mls/hr ASDIRECTED [facility] Administration Ceftriaxone Sodium 2 gm/ 100 mls @ 200 mls/hr 10/31/17 15:15 10/31/17 15:22 Sodium Chloride IV 10/31/17 15:44 200 mls/hr ONETIME ONE Administration Piperacillin Sod/Tazobactam 100 mls @ 25 mls/hr 11/01/17 02:00 Sod 4.5 gm/ Sodium Chloride IV Q8H [facility] Piperacillin Sod/Tazobactam 100 mls @ 200 mls/hr 10/31/17 18:00 10/31/17 20: 55 Sod 4.5 gm/ Sodium Chloride IV 10/31/17 18:29 200 mls/hr ONETIME ONE Administration - Re-Assessments/Exams Free Text/Narrative Re-Assessment/Exam: 10/31/17 15:13 Patient was brought in to the emergency room and evaluated it sounds as though his weakness was generalized could not be localized. He seemed to be doing better after arriving here that he was doing at home according to family. Has had a increasing worsening cough. He was noted to be hypotensive you started on fluid resuscitative efforts as evaluation was ongoing he responded favorably to the fluids. Initial chest x-ray was unremarkable laboratory evaluation did not show any obvious source of infection after obtaining his urine chest CT was obtained x-ray was unremarkable chest X. CT showed a patchy increased density within the right lung base thought to represent an early pneumonia is also had 7 mm nodule within the right lung base this recommended follow-up in 6 months according to the family the patient had a lymphoma with a lesion in this area in the past this should be referred to his primary physician for clarification. The patient was started on 2 g of Rocephin after finding infiltrate. Blood cultures pending Case discussed with Dr. Hernandez the hospitalist or the patient will be admitted Departure - Departure Time of Disposition: 15:05 Disposition: Admitted As Inpatient 65 Clinical Impression: Hypoxia, Weakness Pneumonia Qualifiers: Pneumonia type: due to unspecified organism Laterality: right Lung location: lower lobe of lung Qualified Code(s): J18.1 - Lobar pneumonia, unspecified organism - Discharge Information - My Orders Last 24 Hours: My Active Orders 10/31/17 12:12 Blood Culture x2 Reflex Set [OM.PC] Stat 10/31/17 12:48 CULTURE BLOOD [BC] Stat 10/31/17 12:58 CULTURE BLOOD [BC] Stat - Assessment/Plan Last 24 Hours: My Active Orders 10/31/17 12:12 Blood Culture x2 Reflex Set [OM.PC] Stat 10/31/17 12:48 CULTURE BLOOD [BC] Stat 10/31/17 12:58 CULTURE BLOOD [BC] Stat
[2017-10-31] MEDS ORDERED: Lactated Ringers 500 ML IV ONE ×2 (12:11→13:09)
[2017-10-31] MEDS ORDERED: Lactated Ringers 1,000 ML ONE (12:18)
--- NOTE | 2017-10-31 12:34 | CT ---
Head CT Technique: Multiple axial sections through the brain were obtained. Intravenous contrast was not utilized. Comparison: Prior MRI brain of 07/29/17. Findings: Ventricles along with basal cisterns and sulci over the convexities are moderately prominent. Mild areas of diminished density is noted within the periventricular white matter compatible with small vessel ischemic demyelination change. Old infarct is noted within the left cerebellar hemisphere. No other abnormal parenchymal densities are seen. No evidence of intracranial hemorrhage. No midline shift or mass effect is seen. Small retention cyst is noted within the left ethmoid sinus which is incidental and is stable from prior MRI. No acute calvarial abnormality is seen. Mild atherosclerotic calcification is seen within the carotid siphon and vertebral vessels. Impression: 1. Senescent change as noted above and other incidental findings. 2. Nothing acute is appreciated on noncontrast head CT exam. Diagnostic code #2
--- NOTE | 2017-10-31 13:04 | CR ---
Chest: Portable view of the chest was obtained. Comparison: Prior chest x-ray of 06/15/17. Heart size is normal. Tortuous thoracic aorta is seen. Lungs are clear with no acute infiltrates. Infusion port is seen entering from the left side which is stable. Bony structures are grossly intact. Impression: 1. Incidental findings. Nothing acute is identified. Diagnostic code #2
[2017-10-31] MEDS ORDERED: Lactated Ringers 1,000 ML IV SCH ×3 (13:45→14:45)
--- NOTE | 2017-10-31 14:22 | CT ---
CT chest Technique: Multiple axial sections through the chest were obtained. Intravenous contrast was not utilized. Comparison: Prior chest x-ray performed earlier on the same day (11:40 AM). Findings: Atherosclerotic change is seen within the thoracic aorta. Left-sided infusion port is seen. Coronary artery calcification is noted. Mediastinum and hilar regions show no adenopathy. No axillary adenopathy are seen. Mild increased density is seen within the right lung base. Small nodule is noted within the superior segment of the right lower lung measuring 7 mm. Lungs otherwise appear to be clear. Impression: 1. Patchy increased density within the right lung base most likely representing minimal area of early pneumonia. 2. 7 mm nodule within the right lung base. Recommend follow-up noncontrast chest CT in 6 months (this would occur in April,). 3. Other incidental findings. Diagnostic code #9
[2017-10-31] MEDS ORDERED: cefTRIAXone 2 GM Vial IVPUSH ONE (14:53)
[2017-10-31] MEDS ORDERED: Sodium Chloride 0.9% 1,000 ML IV SCH (15:00)
[2017-10-31] MEDS ORDERED: cefTRIAXone 2 GM in Sodium Chloride 0.9% 100 ML IV ONE (15:15)
--- NOTE | 2017-10-31 16:58 | PCM.HP ---
H&P History of Present Illness - General Date of Service: 10/31/17 Admit Problem/Dx: Admission Diagnosis/Problem Admission Diagnosis/Problem Pneumonia Source of Information: Patient, Old Records, Provider, RN, RN Notes Reviewed History Limitations: Reports: No Limitations - History of Present Illness Initial Comments - Free Text/Narative: Roosevelt Chino is a 77 yo male who was brought to our ED today via Ambulance for generalized weakness. It is reported he was doing okay after arriving in the ER. He reported increased worsening cough and was noted to be hypotensive. Fluids were initiated and he responded well. CXR was unremarkable. UA was normal. Labs were obtained: 30 DC was elevated at 12.21. Hemoglobin low at 13.4. Hematocrit good at 42.1. He was normocytic. Platelet count was very low at 79,000. Neutrophils elevated at 70% . There is no bandemia. PT is 11.7. INR 1.07. APTT is 29. ABG was obtained : PH was 7.45. PCO2 33.8. PO2 63.0. HCO3 normal at 23.2. O2 saturation low at 92.5. Base excess 0.2. A-a gradient at 49. This was obtained while on 1 L via nasal cannula. Sodium was good at 139. Potassium 3.9. Chloride 105. Carbon dioxide 27. Anion gap 10.9. BUN 16. Creatinine 1.0. EGFR greater than 60. Glucose 118. Lactic acid was elevated at 3.3. Calcium 8.9. Total bilirubin 0.7. Liver enzymes were good with AST at 17, ALT at 16, alkaline phosphatase at 55. Troponin negative at 0.017. Protein low at 5.3. Albumin low at 3.0. Because labs suggested an infection a chest CT was performed. Chest CT showed a patchy increased density within the right lung base thought to represent an early pneumonia. He also has a 7 mm nodule within the right lung base. Recommend follow-up in 6 months. Family report a prior history of lymphoma with a lesion in this area noted prior. It is recommended his primary care physician follow up on this. He was started on 2 g Rocephin. Blood cultures were pending. Twelve-lead was obtained and showed: Sinus rhythm at 96 BPM with abnormal R wave progression. Borderline repolarization abnormality is also noted. He carries a history of: HLD, HTN, AAA, hypoxia requiring oxygen at night and when necessary during the day, BPH, chronic back pain, osteoporosis, RA, prior fall with left hip fracture resulting in wheelchair bound status, CVA, peripheral neuropathy in both feet, depression, delirium, confusion, insomnia, type II DM, non-Hodgkin's lymphoma, B cell lymphoma. He is a former smoker. CODE STATUS: His primary care provider is Dr. Butler at [facility] in [place]. - Related Data Allergies/Adverse Reactions: Allergies Allergy/AdvReac Type Severity Reaction Status Date / Time adhesive Allergy Intermediate thin skin, Verified 10/31/17 17:33 tears and bruising Home Medications: Home Meds Calcitonin,[place],Synthetic [Calcitonin-Onawa] 200 unit MARILIN DAILY 09/06/14 [ History] Fluticasone Propionate [Flonase] 2 spray MARILIN DAILY 09/06/14 [History] predniSONE [Prednisone] 10 mg PO DAILY 09/06/14 [History] Cholecalciferol (Vitamin D3) [Vitamin D3] 2,000 unit PO DAILY 07/22/15 [History] Sennosides/Docusate Sodium [Senna-Docusate Sodium] 1 tab PO BID 07/22/15 [ History] Acetaminophen [Tylenol] 650 mg PO Q4H PRN #0 tablet 03/01/16 [Rx] Doxazosin [Cardura] 4 mg PO DAILY 05/28/17 [History] Triamcinolone Acetonide [Triamcinolone Acetonide 0.5%] 15 gm TOP BID PRN [History] Zinc Gluconate [Elemental Zinc] 30 mg PO DAILY 05/28/17 [History] Apixaban [Eliquis] 5 mg PO BID 06/15/17 [History] Glimepiride [Amaryl] 2 mg PO DAILY 06/15/17 [History] Melatonin 6 mg PO BEDTIME 06/15/17 [History] Metoprolol Tartrate 100 mg PO BID 06/15/17 [History] Omeprazole 20 mg PO DAILY 06/15/17 [History] Rosuvastatin [Crestor] 5 mg PO BEDTIME 06/15/17 [History] Acetaminophen/HYDROcodone [[place] 325-5 MG] 1 tab PO TID 07/27/17 [History] Magnesium Oxide 400 mg PO DAILY 07/27/17 [History] Multivitamin with Minerals [Multiple Vitamin] 1 tab PO DAILY 07/27/17 [History] Nicotine Polacrilex [Nicotine Lozenge] 4 mg BC Q2H PRN 07/27/17 [History] Polyvinyl Alcohol/Povidone/Pf [Refresh Classic Eye Drops] 1 each EYEBOTH TID PRN 07/27/17 [History] Potassium Chloride 10 meq PO DAILY 07/27/17 [History] Umeclidinium Brm/Vilanterol Tr [Anoro Ellipta 62.5-25 Mcg INH] 1 puff INH DAILY 07/27/17 [History] Nicotine [Habitrol] 21 mg TRDERM DAILY #30 patch 07/31/17 [Rx] Past Medical History HEENT History: Reports: Hard of Hearing, Other (See Below) Other HEENT History: cerumen impaction, tinnitis, very LOWER ELWHA Cardiovascular History: Reports: Aneurysm, High Cholesterol, Hypertension, SOB on Exertion, Other (See Below) Other Cardiovascular History: AAA, tachycardia, SVT Respiratory History: Reports: SOB, Other (See Below) Other Respiratory History: hypoxia,Oxygen at home at night and sometimes during the day, cough Gastrointestinal History: Reports: Other (See Below) Other Gastrointestinal History: abdominal air of unknown origin, colon polyps Genitourinary History: Reports: BPH, Other (See Below) Other Genitourinary History: dysuria, nocturia, urgency Musculoskeletal History: Reports: Back Pain, Chronic, Osteoporosis, RA, Other ( See Below) Other Musculoskeletal History: fall and Lt hip fracture in April 2015. Wheelchair bound since then. Reports having old fractures in lumbar vertebrae. Neurological History: Reports: None, CVA, Neuropathy, Peripheral (Both feet believed to be secondary to diabetes.) Other Neuro History: two mini strokes followed by a Massive Stroke in April - flown to [place] and intubated during stay. Psychiatric History: Reports: Depression Other Psychiatric History: delerium, confusion, insomnia Endocrine/Metabolic History: Reports: Diabetes, Type II Hematologic History: Reports: None Immunologic History: Reports: None Oncologic (Cancer) History: Reports: Lymphoma, Non-Hodgkin's Lymphoma Other Oncologic History: B-cell lymphoma. Patient has a implanted IV port Dermatologic History: Reports: None - Infectious Disease History Infectious Disease History: Reports: None - Past Surgical History Head Surgeries/Procedures: Reports: None Cardiovascular Surgical History: Reports: AAA Repair, Other (See Below) GI Surgical History: Reports: Appendectomy, Colonoscopy, Other (See Below) Musculoskeletal Surgical History: Reports: Other (See Below) Social & Family History - Family History Family Medical History: Noncontributory - Tobacco Use Smoking Status *Q: Former Smoker Years of Tobacco use: 25 Packs/Tins Daily: 1 Used Tobacco, but Quit: Yes Month Tobacco Last Used: 1985 Second Hand Smoke Exposure: No - Caffeine Use Caffeine Use: Reports: Coffee Other Caffeine Use: 4 cups/day - Alcohol Use Days Per Week of Alcohol Use: 0 - Recreational Drug Use Recreational Drug Use: No Drug Use in Last 12 Months: No Other Recreational Drug Type: Unknown- patient unresponsive - Living Situation & Occupation Living situation: Reports: , Extended Care Facility Occupation: Retired H&P Review of Systems - Review of Systems: Review Of Systems: See Below General: Reports: Fever, Chills, Malaise, Weakness, Fatigue. Denies: Night Sweats, Diaphoresis HEENT: Reports: Sinus Congestion, Other (Hard of hearing. Left eye vison impairment). Denies: Dysphasia, Ear Pain, Eye Pain, Hearing Changes, Rhinitis, Sore Throat Pulmonary: Reports: Shortness of Breath (chronic ), Wheezing (chornic ), Cough ( chronic ), Sputum Cardiovascular: Reports: Dyspnea on Exertion (chronic ). Denies: Chest Pain, Palpitations, Edema, Lightheadedness Gastrointestinal: Reports: No Symptoms. Denies: Abdominal Pain, Constipation, Diarrhea, Decreased Appetite, Nausea, Vomiting Genitourinary: Reports: No Symptoms. Denies: Dysuria, Frequency, Burning, Pain , Urgency Musculoskeletal: Reports: Back Pain (chronic ). Denies: Neck Pain, Shoulder Pain, Arm Pain, Joint Pain Skin: Reports: No Symptoms Psychiatric: Reports: No Symptoms Neurological: Reports: No Symptoms Hematologic/Lymphatic: Reports: No Symptoms Immunologic: Reports: No Symptoms Exam - Exam Exam: See Below - Vital Signs Vital Signs: Last Vital Signs Temp 102.6 F H 10/31/17 12:20 Pulse 97 10/31/17 11:53 Resp 18 10/31/17 11:53 BP 84/65 L 10/31/17 11:53 Pulse Ox 86 L 10/31/17 11:53 Weight: 175 lb - Exam Quality Assessment: Supplemental Oxygen, DVT Prophylaxis General: Alert, Oriented, Cooperative. No: Mild Distress HEENT: Conjunctiva Clear, EACs Clear, EOMI, Hearing Intact, Nares Patent, Normal Nasal Septum, Posterior Pharynx Clear, TMs Clear, Other (Tongue and moth have white build-up on them. Family reports this is form his nicotine lozenges.) , PERRLA. No: Mucosa Moist & [place] (mucosa dry ) Neck: Supple, Trachea Midline. No: JVD, Thyromegaly Lungs: Normal Respiratory Effort, Decreased Breath Sounds, Wheezing (mild ) Cardiovascular: Regular Rate, Regular Rhythm GI/Abdominal Exam: Normal Bowel Sounds, Soft, Non-Tender, No Organomegaly, No Distention, No Abnormal Bruit, No Mass, Pelvis Stable (Male) Exam: Deferred Rectal (Males) Exam: Deferred Back Exam: Normal Inspection, Decreased Range of Motion Extremities: Normal Inspection, Non-Tender, No Pedal Edema, Normal Capillary Refill, Limited Range of Motion Peripheral Pulses: 1+: Radial (L), Radial (R), Posterior Tibial (L), Posterior Tibial (R), Dorsalis Pedis (L), Dorsalis Pedis (R) Skin: Warm, Dry, Intact Neurological: Cranial Nerves Intact (Grossly) Neuro Extensive - Mental Status: Alert, Oriented x3, Normal Mood/Affect, Normal Cognition, Memory Intact Neuro Extensive - Motor, Sensory, Reflexes: CN II-XII Intact (Grossly ) Psychiatric: Alert, Normal Affect, Normal Mood - Patient Data Lab Results Last 24 hrs: Laboratory Results - last 24 hr 10/31/17 Range/Units 16:16 POC Glucose 126 H (83-110) mg/dL Result Diagrams: 10/31/17 12:48 10/31/17 12:48 *Q Meaningful Use (ADM) - VTE *Q VTE Criteria *Q: - Stroke *Q Stroke Criteria *Q: - AMI *Q AMI Criteria *Q: - Problem List (1) Pneumonia SNOMED Code(s): 223711502 ICD Code: J18.9 - PNEUMONIA, UNSPECIFIED ORGANISM Status: Acute Priority : High Current Visit: Yes Qualifiers: Pneumonia type: due to unspecified organism Laterality: right Lung location: lower lobe of lung Qualified Code(s): J18.1 - Lobar pneumonia, unspecified organism (2) Hypoxia SNOMED Code(s): 837315747 ICD Code: R09.02 - HYPOXEMIA Status: Acute Priority: High Current Visit : Yes (3) Weakness SNOMED Code(s): 77131953 ICD Code: R53.1 - WEAKNESS Status: Acute Priority: High Current Visit: Yes (4) Diabetes mellitus SNOMED Code(s): 97467878 ICD Code: E11.9 - TYPE 2 DIABETES MELLITUS WITHOUT COMPLICATIONS Status: Chronic Priority: Medium Current Visit: Yes (5) Fever SNOMED Code(s): 966806084 ICD Code: R50.9 - FEVER, UNSPECIFIED Status: Acute Priority: Medium Current Visit: Yes Onset Date: 09/06/14 (6) BPH (benign prostatic hyperplasia) SNOMED Code(s): 666365986 ICD Code: N40.0 - BENIGN PROSTATIC HYPERPLASIA WITHOUT LOWER URINRY TRACT SYMP Status: Chronic Priority: Low Current Visit: No Qualifiers: Lower urinary tract symptom presence: unspecified whether lower urinary tract symptoms present Qualified Code(s): N40.0 - Benign prostatic hyperplasia without lower urinary tract symptoms (7) Hypertension SNOMED Code(s): 38745145 ICD Code: I10 - ESSENTIAL (PRIMARY) HYPERTENSION Status: Chronic Priority : Low Current Visit: No Qualifiers: Hypertension type: essential hypertension Qualified Code(s): I10 - Essential (primary) hypertension (8) Paroxysmal atrial fibrillation SNOMED Code(s): 001241775 ICD Code: I48.0 - PAROXYSMAL ATRIAL FIBRILLATION Status: Chronic Priority : Low Current Visit: No (9) Incidental lung nodule, > 3mm and < 8mm SNOMED Code(s): 625850689 ICD Code: R91.1 - SOLITARY PULMONARY NODULE Status: Acute Priority: Low Current Visit: Yes Problem List Initiated/Reviewed/Updated: Yes Orders Last 24hrs: Active Orders 24 hr Category Date Time Status Patient Status [ADT] Stat ADT 10/31/17 16:28 Active Medication Orders Lactated Ringer's (Ringers, Lactated) 1,000 mls @ 999 mls/hr IV ASDIRECTED MAIA Sodium Chloride (Normal Saline) 1,000 mls @ 150 mls/hr IV ASDIRECTED MAIA Last Admin: 10/31/17 15:04 Dose: 150 mls/hr Assessment/Plan Comment:: I/P: Acute: Right lower lobe pneumonia -Fever -Leukocytosis - 12.21 -Chronic cough that has become productive over last day -Rocephin given in ED - will switch to Levaquin and Zosyn -Lactic acid 3.3 - will repeat per protocol -CXR initally clear, however chest CT suggested RLL pneumonia -IV fluids -RT to evaluate and treat -Acapella -Duoneb PRN -Acetaminophen PRN for fever Hypoxia -Pulse ox at 86% on ED arrival -Has home oxygen for night use and PRN daytime use -ABG in ED -pH 7.45 -pCO2 33.8 -pO2 63.0 -HCO3 23.2 -O2 saturation 92.5 -Base excess 0.2 -A-a gradient 49 -Obtained while on 1 L via NC -O2 - on 1L currently, taper as needed -RT to evaluate and treat -Hx/o COPD and chronic hypoxia per family Weakness -Increasing in severity -Likely 2/2 above -PT/OT -He has been getting home health visits by physical and occupational therapists who serve our hospital -Monitor Lung Nodule -7mm in superior segment of right lung base -Family reports pt. has hx/o lymphoma with a lesion in this area prior -Dr. Chua recommends non-contrast chest CT follow-up in 6 months (April,)\ -PCP to follow Chronic: Hard of hearing HLD HTN AAA Hypoxia requiring home O2 at night and PRN daytime use BPH Chronic back pain Osteoporosis RA Hx/o CVA on Eliquis Periphreal neuropathy Depression Insomnia Delerium Confusion Type II DM Non-hodgkin's lymphoma - Port in place B-cell lymphoma Plan: Admit to medical floor on telemetry CM/SW for discharge planning PT/OT Other orders as indicated above GI prophylaxis: home PPI DVT/PE prophylaxis: MARY Prem and on eliquis Routine AM lab draws Home medications as ordered Code status: Full Code. His PCP is Dr. Butler at [facility] here in [place].
[2017-10-31] MEDS ORDERED: Triamcinolone Acetonide 0.5% Crm 15 GM Tube TOP PRN (17:24)
[2017-10-31] MEDS ORDERED: Non-Formulary Medication 1 Each (Polyvinyl Alcohol/Povidone/Pf [Refresh Classic Eye Drops] EYEBOTH PRN (17:24)
[2017-10-31] MEDS ORDERED: Acetaminophen 325 MG Tab PO PRN (17:32)
[2017-10-31] MEDS ORDERED: Ondansetron 4 MG Tab.DIS PO PRN (17:32)
[2017-10-31] MEDS ORDERED: Ondansetron 4 MG/2 ML SDV IV PRN (17:32)
[2017-10-31] MEDS ORDERED: Polyethylene Glycol 3350 Powder 17 GM Packet PO PRN (17:32)
[2017-10-31] MEDS ORDERED: Albuterol/Ipratropium 3.0-0.5 MG/3 ML Neb Soln NEB PRN (17:32)
[2017-10-31] MEDS ORDERED: HYDROmorphone 1 MG/ML Syringe IVPUSH PRN (17:32)
[2017-10-31] MEDS ORDERED: Bisacodyl 5 MG Tab PO PRN (17:32)
[2017-10-31] MEDS ORDERED: Docusate Sodium 100 MG Cap PO PRN (17:32)
[2017-10-31] MEDS ORDERED: 50% Dextrose in Water 50 ML Syringe IVPUSH PRN (17:38)
[2017-10-31] MEDS ORDERED: Piperacillin/Tazobactam 4.5 GM in Sodium Chloride 0.9% 100 ML IV ONE (18:00)
[2017-10-31] MEDS ORDERED: Magnesium Sulfate/Water 2 GM in Premix Bag 1 BAG IV ONE (19:33)
[2017-10-31] MEDS ORDERED: Temazepam 7.5 MG Cap PO PRN (20:20)
[2017-10-31] MEDS ORDERED: Hypromellose 0.5% Ophth Soln 15 ML Bottle EYEBOTH PRN (20:26)
[2017-10-31] MEDS ORDERED: Piperacillin/Tazobactam 4.5 GM in Sodium Chloride 0.9% 100 ML IV SCH (21:00)
[2017-10-31] MEDS: Apixaban 5 MG Tab PO SCH (21:05)
[2017-10-31] MEDS: Metoprolol Tartrate 100 MG Tab PO SCH (21:05)
[2017-10-31] MEDS: Acetaminophen/HYDROcodone 325-5 MG Tab PO SCH (21:06)
[2017-10-31] MEDS: Rosuvastatin 10 MG Tab PO SCH (21:07)
[2017-10-31] MEDS: Insulin Aspart 100 Units/ML 3 ML Pen SUBCUT SCH (21:15)
[2017-10-31] MEDS: Sodium Chloride 0.9% 1,000 ML IV SCH (21:31)
[2017-10-31] MEDS: Nicotine 21 MG/24 Hr Patch TRDERM SCH (22:31)
[2017-11-01] MEDS ORDERED: Piperacillin/Tazobactam 4.5 GM in Sodium Chloride 0.9% 100 ML IV SCH (02:00)
[2017-11-01] MEDS: Sodium Chloride 0.9% 1,000 ML IV SCH (04:22)
[2017-11-01] MEDS: Piperacillin/Tazobactam 4.5 GM in Sodium Chloride 0.9% 100 ML IV SCH ×3 (04:22→21:11)
[2017-11-01] MEDS: Insulin Aspart 100 Units/ML 3 ML Pen SUBCUT SCH ×4 (07:00→21:22)
[2017-11-01] MEDS: Pantoprazole 40 MG Tab.CR PO SCH (07:00)
[2017-11-01] MEDS: Potassium Chloride 10 MEQ Tab.ER PO SCH (08:56)
[2017-11-01] MEDS: Levofloxacin/Dextrose 5%-Water 750 MG in Premix Bag 1 BAG IV SCH (08:56)
[2017-11-01] MEDS: Doxazosin 4 MG Tab PO SCH (08:57)
[2017-11-01] MEDS: Apixaban 5 MG Tab PO SCH ×2 (08:57→21:13)
[2017-11-01] MEDS: predniSONE 10 MG Tab PO SCH (08:57)
[2017-11-01] MEDS: Metoprolol Tartrate 100 MG Tab PO SCH ×2 (08:57→21:15)
[2017-11-01] MEDS: Magnesium Oxide 400 MG Tab PO SCH (08:57)
[2017-11-01] MEDS: Acetaminophen/HYDROcodone 325-5 MG Tab PO SCH ×2 (08:58→18:22)
[2017-11-01] MEDS ORDERED: Remove Patch*NICOTINE TRDERM SCH (09:00)
[2017-11-01] MEDS ORDERED: VILANTEROL TR INH SCH (09:00)
[2017-11-01] MEDS ORDERED: UMECLIDINIUM BRM INH SCH (09:00)
[2017-11-01] MEDS ORDERED: ZINC GLUCONATE 30 MG PO SCH (09:00)
--- NOTE | 2017-11-01 14:27 | PCM.PN ---
- General Info Date of Service: 11/01/17 Functional Status: Reports: Tolerating Diet, Urinating - Review of Systems General: Reports: Weakness HEENT: Reports: No Symptoms Pulmonary: Reports: No Symptoms Cardiovascular: Reports: No Symptoms Gastrointestinal: Reports: No Symptoms Genitourinary: Reports: No Symptoms Musculoskeletal: Reports: No Symptoms Skin: Reports: No Symptoms Neurological: Reports: No Symptoms Psychiatric: Reports: No Symptoms - Patient Data Vitals - Most Recent: Last Vital Signs Temp 36.7 C 11/01/17 11:27 Pulse 71 11/01/17 11:27 Resp 20 11/01/17 11:27 BP 105/79 11/01/17 11:27 Pulse Ox 94 L 11/01/17 11:27 Weight - Most Recent: 80.513 kg I&O - Last 24 Hours: Intake & Output 10/31/17 11/01/17 11/01/17 22:59 06:59 14:59 Intake Total 180 2000 Balance 180 2000 Lab Results Last 24 Hours: Laboratory Results - last 24 hr 10/31/17 10/31/17 10/31/17 Range/Units 16:16 18:45 18:45 WBC (4.23-9.07) K/mm3 RBC (4.63-6.08) M/mm3 Hgb (13.7-17.5) gm/L Hct (40.1-51.0) % MCV (79.0-92.2) fl MCH (25.7-32.2) pg MCHC (32.2-35.5) g/dl RDW Std Deviation (35.1-43.9) fL Plt Count (163-337) K/mm3 MPV (9.4-12.3) fl Neut % (Auto) (34.0-67.9) % Lymph % (Auto) (21.8-53.1) % [place] % (Auto) (5.3-12.2) % Eos % (Auto) (0.8-7.0) Baso % (Auto) (0.1-1.2) % Neut # (Auto) (1.78-5.38) K/mm3 Lymph # (Auto) (1.32-3.57) K/mm3 [place] # (Auto) (0.30-0.82) K/mm3 Eos # (Auto) (0.04-0.54) K/mm3 Baso # (Auto) (0.01-0.08) K/mm3 Manual Slide Review Sodium (136-145) mEq/L Potassium (3.5-5.1) mEq/L Chloride (98-107) mEq/L Carbon Dioxide (21-32) mEq/L Anion Gap (5-15) BUN (7-18) mg/dL Creatinine (0.7-1.3) mg/dL Est Cr Clr Drug Dosing mL/min Estimated GFR (MDRD) (>60) mL/min BUN/Creatinine Ratio (14-18) Glucose (83-115) mg/dL POC Glucose 126 H (83-110) mg/dL Lactic Acid 2.0 (0.4-2.0) mmol/L Calcium (8.5-10.1) mg/dL Magnesium 1.7 L (1.8-2.4) mg/dl C-Reactive Protein (<1.0) mg/dL 10/31/17 11/01/17 11/01/17 Range/Units 20:52 05:40 05:40 WBC 11.67 H (4.23-9.07) K/mm3 RBC 4.29 L (4.63-6.08) M/mm3 Hgb 11.5 L (13.7-17.5) gm/L Hct 37.2 L (40.1-51.0) % MCV 86.7 (79.0-92.2) fl MCH 26.8 (25.7-32.2) pg MCHC 30.9 L (32.2-35.5) g/dl RDW Std Deviation 52.9 H (35.1-43.9) fL Plt Count 78 L (163-337) K/mm3 MPV 11.8 (9.4-12.3) fl Neut % (Auto) 76.7 H (34.0-67.9) % Lymph % (Auto) 15.7 L (21.8-53.1) % [place] % (Auto) 6.7 (5.3-12.2) % Eos % (Auto) 0.5 L (0.8-7.0) Baso % (Auto) 0.1 (0.1-1.2) % Neut # (Auto) 8.95 H (1.78-5.38) K/mm3 Lymph # (Auto) 1.83 (1.32-3.57) K/mm3 [place] # (Auto) 0.78 (0.30-0.82) K/mm3 Eos # (Auto) 0.06 (0.04-0.54) K/mm3 Baso # (Auto) 0.01 (0.01-0.08) K/mm3 Manual Slide Review Abnormal smear Sodium 143 (136-145) mEq/L Potassium 3.6 (3.5-5.1) mEq/L Chloride 107 (98-107) mEq/L Carbon Dioxide 28 (21-32) mEq/L Anion Gap 11.6 (5-15) BUN 14 (7-18) mg/dL Creatinine 0.8 (0.7-1.3) mg/dL Est Cr Clr Drug Dosing 76.10 mL/min Estimated GFR (MDRD) > 60 (>60) mL/min BUN/Creatinine Ratio 17.5 (14-18) Glucose 73 L (83-115) mg/dL POC Glucose 145 H (83-110) mg/dL Lactic Acid (0.4-2.0) mmol/L Calcium 7.9 L (8.5-10.1) mg/dL Magnesium 2.0 (1.8-2.4) mg/dl C-Reactive Protein 17.7 H* (<1.0) mg/dL 11/01/17 11/01/17 11/01/17 Range/Units 06:59 11:02 12:29 WBC (4.23-9.07) K/mm3 RBC (4.63-6.08) M/mm3 Hgb (13.7-17.5) gm/L Hct (40.1-51.0) % MCV (79.0-92.2) fl MCH (25.7-32.2) pg MCHC (32.2-35.5) g/dl RDW Std Deviation (35.1-43.9) fL Plt Count (163-337) K/mm3 MPV (9.4-12.3) fl Neut % (Auto) (34.0-67.9) % Lymph % (Auto) (21.8-53.1) % [place] % (Auto) (5.3-12.2) % Eos % (Auto) (0.8-7.0) Baso % (Auto) (0.1-1.2) % Neut # (Auto) (1.78-5.38) K/mm3 Lymph # (Auto) (1.32-3.57) K/mm3 [place] # (Auto) (0.30-0.82) K/mm3 Eos # (Auto) (0.04-0.54) K/mm3 Baso # (Auto) (0.01-0.08) K/mm3 Manual Slide Review Sodium (136-145) mEq/L Potassium (3.5-5.1) mEq/L Chloride (98-107) mEq/L Carbon Dioxide (21-32) mEq/L Anion Gap (5-15) BUN (7-18) mg/dL Creatinine (0.7-1.3) mg/dL Est Cr Clr Drug Dosing mL/min Estimated GFR (MDRD) (>60) mL/min BUN/Creatinine Ratio (14-18) Glucose (83-115) mg/dL POC Glucose 75 L 135 H 223 H (83-110) mg/dL Lactic Acid (0.4-2.0) mmol/L Calcium (8.5-10.1) mg/dL Magnesium (1.8-2.4) mg/dl C-Reactive Protein (<1.0) mg/dL Med Orders - Current: Current Medications Acetaminophen (Tylenol) 650 mg PO Q4H PRN PRN Reason: Pain (Mild 1-3)/fever Hydrocodone Bitart/Acetaminophen ([place] 325-5 Mg) 1 tab PO TID [facility] Last Admin: 11/01/17 08:58 Dose: 1 tab Albuterol/Ipratropium (Duoneb 3.0-0.5 Mg/3 Ml) 3 ml NEB Q4H PRN PRN Reason: Shortness Of Breath/wheezing Apixaban (Eliquis) 5 mg PO BID [facility] Last Admin: 11/01/17 08:57 Dose: 5 mg Artificial Tears (Isopto Tears 0.5% Ophth Soln) 0 ml EYEBOTH TID PRN PRN Reason: Dry Eyes Last Admin: 10/31/17 21:13 Dose: 1 drop Bisacodyl (Dulcolax) 5 mg PO DAILY PRN PRN Reason: Constipation Dextrose/Water (Dextrose 50% In Water) 50 ml IVPUSH ASDIRECTED PRN PRN Reason: hypoglycemia Docusate Sodium (Colace) 100 mg PO BID PRN PRN Reason: Constipation Doxazosin Mesylate (Cardura) 4 mg PO DAILY [facility] Last Admin: 11/01/17 08:57 Dose: 4 mg Hydromorphone HCl (Dilaudid) 0.5 mg IVPUSH Q2H PRN PRN Reason: Pain (severe 7-10) Levofloxacin/Dextrose 750 mg/ (Premix) 150 mls @ 100 mls/hr IV Q24H [facility] Last Admin: 11/01/17 08:56 Dose: 100 mls/hr Sodium Chloride (Normal Saline) 1,000 mls @ 150 mls/hr IV ASDIRECTED [facility] Stop: 11/02/17 02:24 Last Admin: 11/01/17 04:22 Dose: 150 mls/hr Piperacillin Sod/Tazobactam (Sod 4.5 gm/ Sodium Chloride) 100 mls @ 25 mls/hr IV Q8H [facility] Last Admin: 11/01/17 04:22 Dose: 25 mls/hr Insulin Aspart (Novolog) 0 unit SUBCUT QIDACANDBED [facility] PRN Reason: Protocol Last Admin: 11/01/17 11:03 Dose: Not Given Magnesium Oxide (Magnesium Oxide) 400 mg PO DAILY [facility] Last Admin: 11/01/17 08:57 Dose: 400 mg Metoprolol Tartrate (Lopressor) 100 mg PO BID [facility] Last Admin: 11/01/17 08:57 Dose: 100 mg Miscellaneous Information (Remove Patch) 1 ea TRDERM DAILY [facility] Last Admin: 11/01/17 10:21 Dose: Not Given Nicotine (Habitrol) 21 mg TRDERM Q24H [facility] Last Admin: 10/31/17 22:31 Dose: 21 mg Non-Formulary Medication (Calcitonin ([place])) 200 unit MARILIN DAILY [facility] Ondansetron HCl (Zofran Odt) 4 mg PO Q6H PRN PRN Reason: nausea, able to take PO Ondansetron HCl (Zofran) 4 mg IV Q6H PRN PRN Reason: Nausea/Vomiting Pantoprazole Sodium (Protonix) 40 mg PO DAILY@0700 [facility] Last Admin: 11/01/17 07:00 Dose: 40 mg Polyethylene Glycol (Miralax) 17 gm PO DAILY PRN PRN Reason: Constipation Potassium Chloride (Klor-Con 10) 10 meq PO DAILY [facility] Last Admin: 11/01/17 08:56 Dose: 10 meq Prednisone (Prednisone) 10 mg PO DAILY [facility] Last Admin: 11/01/17 08:57 Dose: 10 mg Rosuvastatin Calcium (Crestor) 5 mg PO BEDTIME [facility] Last Admin: 10/31/17 21:07 Dose: 5 mg Senna/Docusate Sodium (Senna Plus) 1 tab PO BID [facility] Last Admin: 11/01/17 08:57 Dose: 1 tab Temazepam (Restoril) 7.5 mg PO BEDTIME PRN PRN Reason: sleep Triamcinolone Acetonide (Triamcinolone Acetonide 0.5%) 0 gm TOP BID PRN PRN Reason: Rash Discontinued Medications Ceftriaxone Sodium (Rocephin) 2 gm IVPUSH ONETIME ONE Stop: 10/31/17 14:54 Last Admin: 10/31/17 15:16 Dose: Not Given Lactated Ringer's (Ringers, Lactated) 500 mls @ 999 mls/hr IV .BOLUS ONE Stop: 10/31/17 12:41 Last Admin: 10/31/17 12:19 Dose: 999 mls/hr Lactated Ringer's (Ringers, Lactated) Confirm Administered Dose 1,000 mls @ as directed .ROUTE .STK-MED ONE Stop: 10/31/17 12:19 Last Admin: 10/31/17 12:20 Dose: Not Given Lactated Ringer's (Ringers, Lactated) 500 mls @ 999 mls/hr IV .BOLUS ONE Stop: 10/31/17 13:39 Last Admin: 10/31/17 20:51 Dose: Not Given Lactated Ringer's (Ringers, Lactated) 1,000 mls @ 125 mls/hr IV ASDIRECTED [facility] Last Admin: 10/31/17 13:50 Dose: 125 mls/hr Lactated Ringer's (Ringers, Lactated) 1,000 mls @ 999 mls/hr IV ASDIRECTED [facility] Lactated Ringer's (Ringers, Lactated) 1,000 mls @ 150 mls/hr IV ASDIRECTED [facility] Sodium Chloride (Normal Saline) 1,000 mls @ 150 mls/hr IV ASDIRECTED [facility] Last Admin: 10/31/17 15:04 Dose: 150 mls/hr Ceftriaxone Sodium 2 gm/ (Sodium Chloride) 100 mls @ 200 mls/hr IV ONETIME ONE Stop: 10/31/17 15:44 Last Admin: 10/31/17 15:22 Dose: 200 mls/hr Piperacillin Sod/Tazobactam (Sod 4.5 gm/ Sodium Chloride) 100 mls @ 25 mls/hr IV Q8H [facility] Piperacillin Sod/Tazobactam (Sod 4.5 gm/ Sodium Chloride) 100 mls @ 200 mls/hr IV ONETIME ONE Stop: 10/31/17 18:29 Last Admin: 10/31/17 20:55 Dose: 200 mls/hr Magnesium Sulfate 2 gm/ Premix 50 mls @ 25 mls/hr IV ONETIME ONE Stop: 10/31/17 21:32 Last Admin: 10/31/17 21:33 Dose: 25 mls/hr Piperacillin Sod/Tazobactam (Sod 4.5 gm/ Sodium Chloride) 100 mls @ 25 mls/hr IV Q8H [facility] Last Admin: 11/01/17 03:01 Dose: Not Given Nicotine (Habitrol) 21 mg TRDERM DAILY [facility] Non-Formulary Medication (Polyvinyl Alcohol/Povidone/Pf [Refresh Classic Eye Drops]) 1 each EYEBOTH TID PRN PRN Reason: Dryness Non-Formulary Medication (Umeclidinium Brm/Vilanterol Tr) 1 puff INH DAILY [facility] Last Admin: 11/01/17 12:36 Dose: Not Given Non-Formulary Medication (Zinc Gluconate [Elemental Zinc]) 30 mg PO DAILY [facility] Last Admin: 11/01/17 11:11 Dose: Not Given - Exam Quality Assessment: Supplemental Oxygen, DVT Prophylaxis General: Alert, Oriented, Cooperative, No Acute Distress HEENT: Pupils Equal, Pupils Reactive, EOMI Neck: Trachea Midline Lungs: Normal Respiratory Effort, Decreased Breath Sounds Cardiovascular: Regular Rate GI/Abdominal Exam: Normal Bowel Sounds, Soft, Non-Tender, No Organomegaly, No Distention (Male) Exam: Deferred Back Exam: Normal Inspection Extremities: Normal Inspection, Non-Tender, No Pedal Edema Skin: Warm Neurological: No New Focal Deficit, Normal Speech Psy/Mental Status: Alert, Normal Affect, Normal Mood - Problem List Review Problem List Initiated/Reviewed/Updated: Yes - My Orders Last 24 Hours: My Active Orders 11/01/17 14:25 RESPIRATORY PANEL BY PCR [MREF] Routine 11/01/17 14:26 STREP PNEUMONIAE ANTIGEN [MREF] Routine 11/02/17 05:00 MYCOPLASMA PNEUMONIAE IGM AB [CHEM] Routine - Plan Plan:: I/P: Acute: Right lower lobe pneumonia -Fever -Leukocytosis - 12.21 -Chronic cough that has become productive over last day -Rocephin given in ED - will switch to Levaquin and Zosyn -Lactic acid 3.3 - will repeat per protocol -CXR initally clear, however chest CT suggested RLL pneumonia -IV fluids -RT to evaluate and treat -Acapella -Duoneb PRN -Acetaminophen PRN for fever Hypoxia -Pulse ox at 86% on ED arrival -Has home oxygen for night use and PRN daytime use -ABG in ED -pH 7.45 -pCO2 33.8 -pO2 63.0 -HCO3 23.2 -O2 saturation 92.5 -Base excess 0.2 -A-a gradient 49 -Obtained while on 1 L via NC -O2 - on 1L currently, taper as needed -RT to evaluate and treat -Hx/o COPD and chronic hypoxia per family Weakness -Increasing in severity -Likely 2/2 above -PT/OT -He has been getting home health visits by physical and occupational therapists who serve our hospital -Monitor Lung Nodule -7mm in superior segment of right lung base -Family reports pt. has hx/o lymphoma with a lesion in this area prior -Dr. Chua recommends non-contrast chest CT follow-up in 6 months (April,)\ -PCP to follow Chronic: Hard of hearing HLD HTN AAA Hypoxia requiring home O2 at night and PRN daytime use BPH Chronic back pain Osteoporosis RA Hx/o CVA on Eliquis Periphreal neuropathy Depression Insomnia Delerium Confusion Type II DM Non-hodgkin's lymphoma - Port in place B-cell lymphoma Plan: Admit to medical floor on telemetry CM/SW for discharge planning PT/OT Other orders as indicated above GI prophylaxis: home PPI DVT/PE prophylaxis: MARY Hose and on eliquis Routine AM lab draws Home medications as ordered Code status: Full Code. His PCP is Dr. Butler at [facility] here in [place]. DC 24-96 hours if continues to improve
[2017-11-01] MEDS ORDERED: Nicotine 21 MG/24 Hr Patch TRDERM SCH (18:00)
[2017-11-01] MEDS: Rosuvastatin 10 MG Tab PO SCH (21:15)
[2017-11-01] MEDS: Nicotine 21 MG/24 Hr Patch TRDERM SCH (21:52)
[2017-11-02] MEDS: Piperacillin/Tazobactam 4.5 GM in Sodium Chloride 0.9% 100 ML IV SCH ×3 (05:57→21:34)
[2017-11-02] MEDS: Pantoprazole 40 MG Tab.CR PO SCH (07:22)
[2017-11-02] MEDS: Acetaminophen/HYDROcodone 325-5 MG Tab PO SCH ×3 (07:22→17:56)
[2017-11-02] MEDS: Insulin Aspart 100 Units/ML 3 ML Pen SUBCUT SCH ×4 (07:23→21:45)
[2017-11-02] MEDS: Apixaban 5 MG Tab PO SCH ×2 (10:04→21:42)
[2017-11-02] MEDS: Magnesium Oxide 400 MG Tab PO SCH (10:05)
[2017-11-02] MEDS: Potassium Chloride 10 MEQ Tab.ER PO SCH (10:06)
[2017-11-02] MEDS: Metoprolol Tartrate 100 MG Tab PO SCH ×2 (10:08→21:53)
[2017-11-02] MEDS: Doxazosin 4 MG Tab PO SCH (10:10)
[2017-11-02] MEDS: predniSONE 10 MG Tab PO SCH (10:11)
[2017-11-02] MEDS: Levofloxacin/Dextrose 5%-Water 750 MG in Premix Bag 1 BAG IV SCH (10:13)
[2017-11-02] MEDS ORDERED: Magnesium Sulfate/Water 2 GM in Premix Bag 1 BAG IV ONE (11:19)
--- NOTE | 2017-11-02 14:49 | PCM.PN ---
- General Info Date of Service: 11/02/17 Functional Status: Reports: Tolerating Diet, Urinating - Review of Systems General: Reports: Weakness HEENT: Reports: No Symptoms Pulmonary: Reports: No Symptoms Cardiovascular: Reports: No Symptoms Gastrointestinal: Reports: No Symptoms Genitourinary: Reports: No Symptoms Musculoskeletal: Reports: No Symptoms Skin: Reports: No Symptoms Neurological: Reports: No Symptoms Psychiatric: Reports: No Symptoms - Patient Data Vitals - Most Recent: Last Vital Signs Temp 36.7 C 11/02/17 11:34 Pulse 65 11/02/17 11:34 Resp 19 11/02/17 11:34 BP 114/61 11/02/17 11:34 Pulse Ox 94 L 11/02/17 11:34 Weight - Most Recent: 80.513 kg I&O - Last 24 Hours: Intake & Output 11/01/17 11/02/17 11/02/17 22:59 06:59 14:59 Intake Total 1150 500 420 Output Total 1000 1750 Balance 150 -1250 420 Lab Results Last 24 Hours: Laboratory Results - last 24 hr 11/01/17 11/01/17 11/02/17 Range/Units 16:35 20:22 06:00 WBC 8.37 (4.23-9.07) K/mm3 RBC 4.31 L (4.63-6.08) M/mm3 Hgb 11.7 L (13.7-17.5) gm/L Hct 37.3 L (40.1-51.0) % MCV 86.5 (79.0-92.2) fl MCH 27.1 (25.7-32.2) pg MCHC 31.4 L (32.2-35.5) g/dl RDW Std Deviation 51.7 H (35.1-43.9) fL Plt Count 73 L (163-337) K/mm3 MPV 11.7 (9.4-12.3) fl Neut % (Auto) 69.7 H (34.0-67.9) % Lymph % (Auto) 21.0 L (21.8-53.1) % Lassen % (Auto) 7.6 (5.3-12.2) % Eos % (Auto) 1.1 (0.8-7.0) Baso % (Auto) 0.1 (0.1-1.2) % Neut # (Auto) 5.83 H (1.78-5.38) K/mm3 Lymph # (Auto) 1.76 (1.32-3.57) K/mm3 Lassen # (Auto) 0.64 (0.30-0.82) K/mm3 Eos # (Auto) 0.09 (0.04-0.54) K/mm3 Baso # (Auto) 0.01 (0.01-0.08) K/mm3 Manual Slide Review Abnormal smear Sodium (136-145) mEq/L Potassium (3.5-5.1) mEq/L Chloride (98-107) mEq/L Carbon Dioxide (21-32) mEq/L Anion Gap (5-15) BUN (7-18) mg/dL Creatinine (0.7-1.3) mg/dL Est Cr Clr Drug Dosing mL/min Estimated GFR (MDRD) (>60) mL/min BUN/Creatinine Ratio (14-18) Glucose (83-115) mg/dL POC Glucose 160 H 200 H (83-110) mg/dL Calcium (8.5-10.1) mg/dL Magnesium (1.8-2.4) mg/dl C-Reactive Protein (<1.0) mg/dL Mycoplasma pneumon IgM (NEGATIVE) 11/02/17 11/02/17 11/02/17 Range/Units 06:00 06:00 06:05 WBC (4.23-9.07) K/mm3 RBC (4.63-6.08) M/mm3 Hgb (13.7-17.5) gm/L Hct (40.1-51.0) % MCV (79.0-92.2) fl MCH (25.7-32.2) pg MCHC (32.2-35.5) g/dl RDW Std Deviation (35.1-43.9) fL Plt Count (163-337) K/mm3 MPV (9.4-12.3) fl Neut % (Auto) (34.0-67.9) % Lymph % (Auto) (21.8-53.1) % Lassen % (Auto) (5.3-12.2) % Eos % (Auto) (0.8-7.0) Baso % (Auto) (0.1-1.2) % Neut # (Auto) (1.78-5.38) K/mm3 Lymph # (Auto) (1.32-3.57) K/mm3 Lassen # (Auto) (0.30-0.82) K/mm3 Eos # (Auto) (0.04-0.54) K/mm3 Baso # (Auto) (0.01-0.08) K/mm3 Manual Slide Review Sodium 144 (136-145) mEq/L Potassium 3.2 L (3.5-5.1) mEq/L Chloride 108 H (98-107) mEq/L Carbon Dioxide 28 (21-32) mEq/L Anion Gap 11.2 (5-15) BUN 11 (7-18) mg/dL Creatinine 0.8 (0.7-1.3) mg/dL Est Cr Clr Drug Dosing 76.10 mL/min Estimated GFR (MDRD) > 60 (>60) mL/min BUN/Creatinine Ratio 13.8 L (14-18) Glucose 69 L (83-115) mg/dL POC Glucose 66 L (83-110) mg/dL Calcium 8.7 (8.5-10.1) mg/dL Magnesium 1.9 (1.8-2.4) mg/dl C-Reactive Protein 12.8 H* (<1.0) mg/dL Mycoplasma pneumon IgM Negative (NEGATIVE) 11/02/17 11/02/17 Range/Units 06:54 10:41 WBC (4.23-9.07) K/mm3 RBC (4.63-6.08) M/mm3 Hgb (13.7-17.5) gm/L Hct (40.1-51.0) % MCV (79.0-92.2) fl MCH (25.7-32.2) pg MCHC (32.2-35.5) g/dl RDW Std Deviation (35.1-43.9) fL Plt Count (163-337) K/mm3 MPV (9.4-12.3) fl Neut % (Auto) (34.0-67.9) % Lymph % (Auto) (21.8-53.1) % Lassen % (Auto) (5.3-12.2) % Eos % (Auto) (0.8-7.0) Baso % (Auto) (0.1-1.2) % Neut # (Auto) (1.78-5.38) K/mm3 Lymph # (Auto) (1.32-3.57) K/mm3 Lassen # (Auto) (0.30-0.82) K/mm3 Eos # (Auto) (0.04-0.54) K/mm3 Baso # (Auto) (0.01-0.08) K/mm3 Manual Slide Review Sodium (136-145) mEq/L Potassium (3.5-5.1) mEq/L Chloride (98-107) mEq/L Carbon Dioxide (21-32) mEq/L Anion Gap (5-15) BUN (7-18) mg/dL Creatinine (0.7-1.3) mg/dL Est Cr Clr Drug Dosing mL/min Estimated GFR (MDRD) (>60) mL/min BUN/Creatinine Ratio (14-18) Glucose (83-115) mg/dL POC Glucose 137 H 205 H (83-110) mg/dL Calcium (8.5-10.1) mg/dL Magnesium (1.8-2.4) mg/dl C-Reactive Protein (<1.0) mg/dL Mycoplasma pneumon IgM (NEGATIVE) Juan Luis Results Last 24 Hours: Microbiology 11/01/17 05:20 Gram Stain - Final Sputum - Expectorated Sputum Culture - Preliminary Gram Negative Rods Med Orders - Current: Current Medications Acetaminophen (Tylenol) 650 mg PO Q4H PRN PRN Reason: Pain (Mild 1-3)/fever Hydrocodone Bitart/Acetaminophen ([place] 325-5 Mg) 1 tab PO 0600,1200,1800 [facility] Last Admin: 11/02/17 13:46 Dose: 1 tab Albuterol/Ipratropium (Duoneb 3.0-0.5 Mg/3 Ml) 3 ml NEB Q4H PRN PRN Reason: Shortness Of Breath/wheezing Last Admin: 11/01/17 21:38 Dose: 3 ml Apixaban (Eliquis) 5 mg PO BID [facility] Last Admin: 11/02/17 10:04 Dose: 5 mg Artificial Tears (Isopto Tears 0.5% Ophth Soln) 0 ml EYEBOTH TID PRN PRN Reason: Dry Eyes Last Admin: 10/31/17 21:13 Dose: 1 drop Bisacodyl (Dulcolax) 5 mg PO DAILY PRN PRN Reason: Constipation Dextrose/Water (Dextrose 50% In Water) 50 ml IVPUSH ASDIRECTED PRN PRN Reason: hypoglycemia Docusate Sodium (Colace) 100 mg PO BID PRN PRN Reason: Constipation Doxazosin Mesylate (Cardura) 4 mg PO DAILY [facility] Last Admin: 11/02/17 10:10 Dose: 4 mg Hydromorphone HCl (Dilaudid) 0.5 mg IVPUSH Q2H PRN PRN Reason: Pain (severe 7-10) Levofloxacin/Dextrose 750 mg/ (Premix) 150 mls @ 100 mls/hr IV Q24H [facility] Last Admin: 11/02/17 10:13 Dose: 100 mls/hr Piperacillin Sod/Tazobactam (Sod 4.5 gm/ Sodium Chloride) 100 mls @ 25 mls/hr IV Q8H [facility] Last Admin: 11/02/17 13:53 Dose: 25 mls/hr Insulin Aspart (Novolog) 0 unit SUBCUT QIDACANDBED [facility] PRN Reason: Protocol Last Admin: 11/02/17 12:12 Dose: 2 unit Magnesium Oxide (Magnesium Oxide) 400 mg PO DAILY [facility] Last Admin: 11/02/17 10:05 Dose: 400 mg Metoprolol Tartrate (Lopressor) 100 mg PO BID [facility] Last Admin: 11/02/17 10:08 Dose: 100 mg Nicotine (Habitrol) 21 mg TRDERM Q24H [facility] Last Admin: 11/01/17 21:52 Dose: 21 mg Non-Formulary Medication (Calcitonin (Siren)) 200 unit MARILIN DAILY [facility] Ondansetron HCl (Zofran Odt) 4 mg PO Q6H PRN PRN Reason: nausea, able to take PO Ondansetron HCl (Zofran) 4 mg IV Q6H PRN PRN Reason: Nausea/Vomiting Pantoprazole Sodium (Protonix) 40 mg PO DAILY@0700 [facility] Last Admin: 11/02/17 07:22 Dose: 40 mg Polyethylene Glycol (Miralax) 17 gm PO DAILY PRN PRN Reason: Constipation Potassium Chloride (Potassium Chloride) 40 meq PO DAILY [facility] Prednisone (Prednisone) 10 mg PO DAILY [facility] Last Admin: 12/10/17 10:11 Dose: 10 mg Rosuvastatin Calcium (Crestor) 5 mg PO BEDTIME [facility] Last Admin: 11/01/17 21:15 Dose: 5 mg Senna/Docusate Sodium (Senna Plus) 1 tab PO BID [facility] Last Admin: 11/02/17 10:09 Dose: 1 tab Temazepam (Restoril) 7.5 mg PO BEDTIME PRN PRN Reason: sleep Triamcinolone Acetonide (Triamcinolone Acetonide 0.5%) 0 gm TOP BID PRN PRN Reason: Rash Discontinued Medications Hydrocodone Bitart/Acetaminophen ([place] 325-5 Mg) 1 tab PO TID [facility] Last Admin: 11/01/17 18:22 Dose: 1 tab Ceftriaxone Sodium (Rocephin) 2 gm IVPUSH ONETIME ONE Stop: 10/31/17 14:54 Last Admin: 10/31/17 15:16 Dose: Not Given Lactated Ringer's (Ringers, Lactated) 500 mls @ 999 mls/hr IV .BOLUS ONE Stop: 10/31/17 12:41 Last Admin: 10/31/17 12:19 Dose: 999 mls/hr Lactated Ringer's (Ringers, Lactated) Confirm Administered Dose 1,000 mls @ as directed .ROUTE .STK-MED ONE Stop: 10/31/17 12:19 Last Admin: 10/31/17 12:20 Dose: Not Given Lactated Ringer's (Ringers, Lactated) 500 mls @ 999 mls/hr IV .BOLUS ONE Stop: 10/31/17 13:39 Last Admin: 10/31/17 20:51 Dose: Not Given Lactated Ringer's (Ringers, Lactated) 1,000 mls @ 125 mls/hr IV ASDIRECTED [facility] Last Admin: 10/31/17 13:50 Dose: 125 mls/hr Lactated Ringer's (Ringers, Lactated) 1,000 mls @ 999 mls/hr IV ASDIRECTED [facility] Lactated Ringer's (Ringers, Lactated) 1,000 mls @ 150 mls/hr IV ASDIRECTED [facility] Sodium Chloride (Normal Saline) 1,000 mls @ 150 mls/hr IV ASDIRECTED [facility] Last Admin: 10/31/17 15:04 Dose: 150 mls/hr Ceftriaxone Sodium 2 gm/ (Sodium Chloride) 100 mls @ 200 mls/hr IV ONETIME ONE Stop: 10/31/17 15:44 Last Admin: 10/31/17 15:22 Dose: 200 mls/hr Piperacillin Sod/Tazobactam (Sod 4.5 gm/ Sodium Chloride) 100 mls @ 25 mls/hr IV Q8H [facility] Piperacillin Sod/Tazobactam (Sod 4.5 gm/ Sodium Chloride) 100 mls @ 200 mls/hr IV ONETIME ONE Stop: 10/31/17 18:29 Last Admin: 10/31/17 20:55 Dose: 200 mls/hr Sodium Chloride (Normal Saline) 1,000 mls @ 150 mls/hr IV ASDIRECTED [facility] Stop: 11/02/17 02:24 Last Admin: 11/01/17 04:22 Dose: 150 mls/hr Magnesium Sulfate 2 gm/ Premix 50 mls @ 25 mls/hr IV ONETIME ONE Stop: 10/31/17 21:32 Last Admin: 10/31/17 21:33 Dose: 25 mls/hr Piperacillin Sod/Tazobactam (Sod 4.5 gm/ Sodium Chloride) 100 mls @ 25 mls/hr IV Q8H [facility] Last Admin: 11/01/17 03:01 Dose: Not Given Magnesium Sulfate 2 gm/ Premix 50 mls @ 25 mls/hr IV ONETIME ONE Stop: 11/02/17 13:18 Last Admin: 11/02/17 12:14 Dose: 25 mls/hr Miscellaneous Information (Remove Patch) 1 ea TRDERM DAILY [facility] Last Admin: 11/01/17 10:21 Dose: Not Given Miscellaneous Information (Remove Patch) 1 ea TRDERM DAILY@2200 [facility] Nicotine (Habitrol) 21 mg TRDERM DAILY [facility] Non-Formulary Medication (Polyvinyl Alcohol/Povidone/Pf [Refresh Classic Eye Drops]) 1 each EYEBOTH TID PRN PRN Reason: Dryness Non-Formulary Medication (Umeclidinium Brm/Vilanterol Tr) 1 puff INH DAILY [facility] Last Admin: 11/01/17 12:36 Dose: Not Given Non-Formulary Medication (Zinc Gluconate [Elemental Zinc]) 30 mg PO DAILY [facility] Last Admin: 11/01/17 11:11 Dose: Not Given Potassium Chloride (Klor-Con 10) 10 meq PO DAILY [facility] Last Admin: 11/02/17 10:06 Dose: 10 meq - Exam Quality Assessment: Supplemental Oxygen, DVT Prophylaxis General: Alert, Oriented, Cooperative, No Acute Distress HEENT: Pupils Equal, Pupils Reactive, EOMI Neck: Supple, Trachea Midline Lungs: Normal Respiratory Effort, Decreased Breath Sounds Cardiovascular: Regular Rate GI/Abdominal Exam: Normal Bowel Sounds, Soft, Non-Tender, No Organomegaly, No Distention (Male) Exam: Deferred Back Exam: Normal Inspection Extremities: Normal Inspection Skin: Warm Neurological: No New Focal Deficit Psy/Mental Status: Alert - Problem List Review Problem List Initiated/Reviewed/Updated: Yes - My Orders Last 24 Hours: My Active Orders 11/01/17 18:15 RESPIRATORY PANEL BY PCR [MREF] Routine STREP PNEUMONIAE ANTIGEN [MREF] Routine 11/03/17 09:00 Potassium Chloride 40 meq PO DAILY - Plan Plan:: I/P: Acute: Right lower lobe pneumonia -Fever -Leukocytosis - 12.21 -Chronic cough that has become productive over last day -Rocephin resume based on senstivity -Lactic acid 3.3 - will repeat per protocol -CXR initally clear, however chest CT suggested RLL pneumonia -IV fluids -RT to evaluate and treat -Acapella -Duoneb PRN -Acetaminophen PRN for fever Hypoxia -Pulse ox at 86% on ED arrival -Has home oxygen for night use and PRN daytime use -ABG in ED -pH 7.45 -pCO2 33.8 -pO2 63.0 -HCO3 23.2 -O2 saturation 92.5 -Base excess 0.2 -A-a gradient 49 -Obtained while on 1 L via NC -O2 - on 1L currently, taper as needed -RT to evaluate and treat -Hx/o COPD and chronic hypoxia per family Weakness -Increasing in severity -Likely 2/2 above -PT/OT -He has been getting home health visits by physical and occupational therapists who serve our hospital -Monitor Lung Nodule -7mm in superior segment of right lung base -Family reports pt. has hx/o lymphoma with a lesion in this area prior -Dr. Chua recommends non-contrast chest CT follow-up in 6 months (April,)\ -PCP to follow Chronic: Hard of hearing HLD HTN AAA Hypoxia requiring home O2 at night and PRN daytime use BPH Chronic back pain Osteoporosis RA Hx/o CVA on Eliquis Periphreal neuropathy Depression Insomnia Delerium Confusion Type II DM Non-hodgkin's lymphoma - Port in place B-cell lymphoma Plan: Admit to medical floor on telemetry CM/SW for discharge planning PT/OT Other orders as indicated above GI prophylaxis: home PPI DVT/PE prophylaxis: MARY Hose and on eliquis Routine AM lab draws Home medications as ordered Code status: Full Code. His PCP is Dr. Butler at [facility] here in [place]. DC 24-96 hours if continues to improve
[2017-11-02] MEDS: Rosuvastatin 10 MG Tab PO SCH (21:42)
[2017-11-02] MEDS: Nicotine 21 MG/24 Hr Patch TRDERM SCH (21:46)
[2017-11-02] MEDS ORDERED: Remove Patch*NICOTINE TRDERM SCH (22:00)
[2017-11-03] MEDS: Piperacillin/Tazobactam 4.5 GM in Sodium Chloride 0.9% 100 ML IV SCH ×2 (04:40→12:15)
[2017-11-03] MEDS: Pantoprazole 40 MG Tab.CR PO SCH (06:46)
[2017-11-03] MEDS: Acetaminophen/HYDROcodone 325-5 MG Tab PO SCH ×3 (06:49→19:43)
[2017-11-03] MEDS: Levofloxacin/Dextrose 5%-Water 750 MG in Premix Bag 1 BAG IV SCH (08:12)
[2017-11-03] MEDS: Doxazosin 4 MG Tab PO SCH (08:15)
[2017-11-03] MEDS: Apixaban 5 MG Tab PO SCH ×2 (08:15→21:49)
[2017-11-03] MEDS: predniSONE 10 MG Tab PO SCH (08:16)
[2017-11-03] MEDS: Metoprolol Tartrate 100 MG Tab PO SCH ×2 (08:16→22:34)
[2017-11-03] MEDS: Magnesium Oxide 400 MG Tab PO SCH (08:16)
[2017-11-03] MEDS: Potassium Chloride 10% 20 MEQ/15 ML Soln 30 ML UD Cup PO SCH (08:16)
[2017-11-03] MEDS: Insulin Aspart 100 Units/ML 3 ML Pen SUBCUT SCH ×4 (08:22→21:53)
[2017-11-03] MEDS: Saccharomyces Boulardii (Probiotic) 250 MG Cap PO SCH ×2 (12:14→21:53)
[2017-11-03] MEDS: CALCITONIN SALMON NAS SCH ×2 (15:40→19:41)
[2017-11-03] MEDS ORDERED: Potassium Chloride 10% 20 MEQ/15 ML Soln 30 ML UD Cup PO ONE (16:48)
--- NOTE | 2017-11-03 16:55 | PCM.PN ---
- General Info Date of Service: 11/03/17 Functional Status: Reports: Tolerating Diet - Review of Systems General: Reports: No Symptoms HEENT: Reports: No Symptoms Pulmonary: Reports: No Symptoms Cardiovascular: Reports: No Symptoms Gastrointestinal: Reports: No Symptoms Genitourinary: Reports: No Symptoms Musculoskeletal: Reports: No Symptoms Skin: Reports: No Symptoms Neurological: Reports: No Symptoms Psychiatric: Reports: No Symptoms - Patient Data Vitals - Most Recent: Last Vital Signs Temp 36.6 C 11/03/17 14:59 Pulse 82 11/03/17 14:59 Resp 20 11/03/17 14:59 BP 116/67 11/03/17 14:59 Pulse Ox 95 11/03/17 14:59 Weight - Most Recent: 80.513 kg I&O - Last 24 Hours: Intake & Output 11/03/17 11/03/17 11/03/17 06:59 14:59 22:59 Intake Total 1000 270 850 Output Total 800 800 Balance 200 270 50 Lab Results Last 24 Hours: Laboratory Results - last 24 hr 11/02/17 11/02/17 11/03/17 Range/Units 17:09 20:34 05:49 WBC (4.23-9.07) K/mm3 RBC (4.63-6.08) M/mm3 Hgb (13.7-17.5) gm/L Hct (40.1-51.0) % MCV (79.0-92.2) fl MCH (25.7-32.2) pg MCHC (32.2-35.5) g/dl RDW Std Deviation (35.1-43.9) fL Plt Count (163-337) K/mm3 MPV (9.4-12.3) fl Neut % (Auto) (34.0-67.9) % Lymph % (Auto) (21.8-53.1) % [place] % (Auto) (5.3-12.2) % Eos % (Auto) (0.8-7.0) Baso % (Auto) (0.1-1.2) % Neut # (Auto) (1.78-5.38) K/mm3 Lymph # (Auto) (1.32-3.57) K/mm3 [place] # (Auto) (0.30-0.82) K/mm3 Eos # (Auto) (0.04-0.54) K/mm3 Baso # (Auto) (0.01-0.08) K/mm3 Manual Slide Review Sodium (136-145) mEq/L Potassium (3.5-5.1) mEq/L Chloride (98-107) mEq/L Carbon Dioxide (21-32) mEq/L Anion Gap (5-15) BUN (7-18) mg/dL Creatinine (0.7-1.3) mg/dL Est Cr Clr Drug Dosing mL/min Estimated GFR (MDRD) (>60) mL/min BUN/Creatinine Ratio (14-18) Glucose (83-115) mg/dL POC Glucose 173 H 239 H 91 (83-110) mg/dL Calcium (8.5-10.1) mg/dL Magnesium (1.8-2.4) mg/dl C-Reactive Protein (<1.0) mg/dL 11/03/17 11/03/17 11/03/17 Range/Units 05:50 05:50 12:24 WBC 7.34 (4.23-9.07) K/mm3 RBC 4.48 L (4.63-6.08) M/mm3 Hgb 12.0 L (13.7-17.5) gm/L Hct 38.7 L (40.1-51.0) % MCV 86.4 (79.0-92.2) fl MCH 26.8 (25.7-32.2) pg MCHC 31.0 L (32.2-35.5) g/dl RDW Std Deviation 51.8 H (35.1-43.9) fL Plt Count 78 L (163-337) K/mm3 MPV 12.0 (9.4-12.3) fl Neut % (Auto) 66.4 (34.0-67.9) % Lymph % (Auto) 24.4 (21.8-53.1) % [place] % (Auto) 7.5 (5.3-12.2) % Eos % (Auto) 1.1 (0.8-7.0) Baso % (Auto) 0.1 (0.1-1.2) % Neut # (Auto) 4.87 (1.78-5.38) K/mm3 Lymph # (Auto) 1.79 (1.32-3.57) K/mm3 [place] # (Auto) 0.55 (0.30-0.82) K/mm3 Eos # (Auto) 0.08 (0.04-0.54) K/mm3 Baso # (Auto) 0.01 (0.01-0.08) K/mm3 Manual Slide Review Abnormal smear Sodium 145 (136-145) mEq/L Potassium 3.1 L (3.5-5.1) mEq/L Chloride 107 (98-107) mEq/L Carbon Dioxide 28 (21-32) mEq/L Anion Gap 13.1 (5-15) BUN 9 (7-18) mg/dL Creatinine 0.8 (0.7-1.3) mg/dL Est Cr Clr Drug Dosing 76.10 mL/min Estimated GFR (MDRD) > 60 (>60) mL/min BUN/Creatinine Ratio 11.3 L (14-18) Glucose 88 (83-115) mg/dL POC Glucose 161 H (83-110) mg/dL Calcium 8.8 (8.5-10.1) mg/dL Magnesium 2.0 (1.8-2.4) mg/dl C-Reactive Protein 5.9 H* (<1.0) mg/dL Juan Luis Results Last 24 Hours: Microbiology 11/01/17 05:20 Gram Stain - Final Sputum - Expectorated Sputum Culture - Preliminary Escherichia Coli YEAST Med Orders - Current: Current Medications Acetaminophen (Tylenol) 650 mg PO Q4H PRN PRN Reason: Pain (Mild 1-3)/fever Hydrocodone Bitart/Acetaminophen ([place] 325-5 Mg) 1 tab PO 0600,1200,1800 [facility] Last Admin: 11/03/17 12:31 Dose: 1 tab Albuterol/Ipratropium (Duoneb 3.0-0.5 Mg/3 Ml) 3 ml NEB Q4H PRN PRN Reason: Shortness Of Breath/wheezing Last Admin: 11/01/17 21:38 Dose: 3 ml Apixaban (Eliquis) 5 mg PO BID [facility] Last Admin: 11/03/17 08:15 Dose: 5 mg Artificial Tears (Isopto Tears 0.5% Ophth Soln) 0 ml EYEBOTH TID PRN PRN Reason: Dry Eyes Last Admin: 10/31/17 21:13 Dose: 1 drop Bisacodyl (Dulcolax) 5 mg PO DAILY PRN PRN Reason: Constipation Dextrose/Water (Dextrose 50% In Water) 50 ml IVPUSH ASDIRECTED PRN PRN Reason: hypoglycemia Docusate Sodium (Colace) 100 mg PO BID PRN PRN Reason: Constipation Doxazosin Mesylate (Cardura) 4 mg PO DAILY [facility] Last Admin: 11/03/17 08:15 Dose: 4 mg Hydromorphone HCl (Dilaudid) 0.5 mg IVPUSH Q2H PRN PRN Reason: Pain (severe 7-10) Ceftriaxone Sodium 2 gm/ (Sodium Chloride) 100 mls @ 200 mls/hr IV Q24H [facility] Insulin Aspart (Novolog) 0 unit SUBCUT QIDACANDBED [facility] PRN Reason: Protocol Last Admin: 11/03/17 12:26 Dose: 1 unit Magnesium Oxide (Magnesium Oxide) 400 mg PO DAILY [facility] Last Admin: 11/03/17 08:16 Dose: 400 mg Metoprolol Tartrate (Lopressor) 100 mg PO BID [facility] Last Admin: 11/03/17 08:16 Dose: 100 mg Nicotine (Habitrol) 21 mg TRDERM Q24H [facility] Last Admin: 11/02/17 21:46 Dose: 21 mg Ondansetron HCl (Zofran Odt) 4 mg PO Q6H PRN PRN Reason: nausea, able to take PO Ondansetron HCl (Zofran) 4 mg IV Q6H PRN PRN Reason: Nausea/Vomiting Pantoprazole Sodium (Protonix) 40 mg PO DAILY@0700 [facility] Last Admin: 11/03/17 06:46 Dose: 40 mg Calcitonin [place] (200 Unit Nasal [place]) 0 each MARILIN DAILY [facility] Last Admin: 11/03/17 15:40 Dose: Not Given Polyethylene Glycol (Miralax) 17 gm PO DAILY PRN PRN Reason: Constipation Last Admin: 11/02/17 21:36 Dose: 17 gm Potassium Chloride (Potassium Chloride) 40 meq PO DAILY [facility] Last Admin: 11/03/17 08:16 Dose: 40 meq Potassium Chloride (Potassium Chloride) 40 meq PO ONETIME ONE Stop: 11/03/17 16:49 Prednisone (Prednisone) 10 mg PO DAILY [facility] Last Admin: 11/03/17 08:16 Dose: 10 mg Rosuvastatin Calcium (Crestor) 5 mg PO BEDTIME MAIA Last Admin: 11/02/17 21:42 Dose: 5 mg Saccharomyces Boulardii (Florastor) 250 mg PO BID [facility] Last Admin: 11/03/17 12:14 Dose: 250 mg Senna/Docusate Sodium (Senna Plus) 1 tab PO BID [facility] Last Admin: 11/03/17 08:17 Dose: 1 tab Temazepam (Restoril) 7.5 mg PO BEDTIME PRN PRN Reason: sleep Triamcinolone Acetonide (Triamcinolone Acetonide 0.5%) 0 gm TOP BID PRN PRN Reason: Rash Discontinued Medications Hydrocodone Bitart/Acetaminophen ([place] 325-5 Mg) 1 tab PO TID MAIA Last Admin: 11/01/17 18:22 Dose: 1 tab Ceftriaxone Sodium (Rocephin) 2 gm IVPUSH ONETIME ONE Stop: 10/31/17 14:54 Last Admin: 10/31/17 15:16 Dose: Not Given Lactated Ringer's (Ringers, Lactated) 500 mls @ 999 mls/hr IV .BOLUS ONE Stop: 10/31/17 12:41 Last Admin: 10/31/17 12:19 Dose: 999 mls/hr Lactated Ringer's (Ringers, Lactated) Confirm Administered Dose 1,000 mls @ as directed .ROUTE .STK-MED ONE Stop: 10/31/17 12:19 Last Admin: 10/31/17 12:20 Dose: Not Given Lactated Ringer's (Ringers, Lactated) 500 mls @ 999 mls/hr IV .BOLUS ONE Stop: 10/31/17 13:39 Last Admin: 10/31/17 20:51 Dose: Not Given Lactated Ringer's (Ringers, Lactated) 1,000 mls @ 125 mls/hr IV ASDIRECTED MAIA Last Admin: 10/31/17 13:50 Dose: 125 mls/hr Lactated Ringer's (Ringers, Lactated) 1,000 mls @ 999 mls/hr IV ASDIRECTED MAIA Lactated Ringer's (Ringers, Lactated) 1,000 mls @ 150 mls/hr IV ASDIRECTED MAIA Sodium Chloride (Normal Saline) 1,000 mls @ 150 mls/hr IV ASDIRECTED MAIA Last Admin: 10/31/17 15:04 Dose: 150 mls/hr Ceftriaxone Sodium 2 gm/ (Sodium Chloride) 100 mls @ 200 mls/hr IV ONETIME ONE Stop: 10/31/17 15:44 Last Admin: 10/31/17 15:22 Dose: 200 mls/hr Levofloxacin/Dextrose 750 mg/ (Premix) 150 mls @ 100 mls/hr IV Q24H [facility] Last Admin: 11/03/17 08:12 Dose: 100 mls/hr Piperacillin Sod/Tazobactam (Sod 4.5 gm/ Sodium Chloride) 100 mls @ 25 mls/hr IV Q8H [facility] Piperacillin Sod/Tazobactam (Sod 4.5 gm/ Sodium Chloride) 100 mls @ 200 mls/hr IV ONETIME ONE Stop: 10/31/17 18:29 Last Admin: 10/31/17 20:55 Dose: 200 mls/hr Sodium Chloride (Normal Saline) 1,000 mls @ 150 mls/hr IV ASDIRECTED [facility] Stop: 11/02/17 02:24 Last Admin: 11/01/17 04:22 Dose: 150 mls/hr Magnesium Sulfate 2 gm/ Premix 50 mls @ 25 mls/hr IV ONETIME ONE Stop: 10/31/17 21:32 Last Admin: 10/31/17 21:33 Dose: 25 mls/hr Piperacillin Sod/Tazobactam (Sod 4.5 gm/ Sodium Chloride) 100 mls @ 25 mls/hr IV Q8H [facility] Last Admin: 11/01/17 03:01 Dose: Not Given Piperacillin Sod/Tazobactam (Sod 4.5 gm/ Sodium Chloride) 100 mls @ 25 mls/hr IV Q8H [facility] Last Admin: 11/03/17 12:15 Dose: 25 mls/hr Magnesium Sulfate 2 gm/ Premix 50 mls @ 25 mls/hr IV ONETIME ONE Stop: 11/02/17 13:18 Last Admin: 11/02/17 12:14 Dose: 25 mls/hr Miscellaneous Information (Remove Patch) 1 ea TRDERM DAILY [facility] Last Admin: 11/01/17 10:21 Dose: Not Given Miscellaneous Information (Remove Patch) 1 ea TRDERM DAILY@2200 [facility] Nicotine (Habitrol) 21 mg TRDERM DAILY [facility] Non-Formulary Medication (Polyvinyl Alcohol/Povidone/Pf [Refresh Classic Eye Drops]) 1 each EYEBOTH TID PRN PRN Reason: Dryness Non-Formulary Medication (Umeclidinium Brm/Vilanterol Tr) 1 puff INH DAILY [facility] Last Admin: 11/01/17 12:36 Dose: Not Given Non-Formulary Medication (Zinc Gluconate [Elemental Zinc]) 30 mg PO DAILY [facility] Last Admin: 11/01/17 11:11 Dose: Not Given Potassium Chloride (Klor-Con 10) 10 meq PO DAILY [facility] Last Admin: 11/02/17 10:06 Dose: 10 meq - Exam Quality Assessment: Supplemental Oxygen, DVT Prophylaxis General: Alert, Oriented, Cooperative, No Acute Distress HEENT: Pupils Equal, Pupils Reactive, EOMI Neck: Supple, Trachea Midline Lungs: Normal Respiratory Effort, Decreased Breath Sounds Cardiovascular: Regular Rate GI/Abdominal Exam: Normal Bowel Sounds, Soft, Non-Tender, No Organomegaly, No Distention (Male) Exam: Deferred Back Exam: Normal Inspection Extremities: Normal Inspection, No Pedal Edema Skin: Warm Neurological: No New Focal Deficit Psy/Mental Status: Alert, Normal Affect, Normal Mood - Problem List Review Problem List Initiated/Reviewed/Updated: Yes - My Orders Last 24 Hours: My Active Orders 11/03/17 09:00 Potassium Chloride 40 meq PO DAILY 11/03/17 11:00 Saccharomyces Boulardii [Florastor] 250 mg PO BID 11/03/17 16:48 Potassium Chloride 40 meq PO ONETIME ONE 11/03/17 17:00 cefTRIAXone [Rocephin] 2 gm Sodium Chloride 0.9% [Normal Saline] 100 ml IV Q24H - Plan Plan:: I/P: Acute: Right lower lobe pneumonia -Fever -Leukocytosis - 12.21 -Chronic cough that has become productive over last day -Rocephin resume based on senstivity -Lactic acid 3.3 - will repeat per protocol -CXR initally clear, however chest CT suggested RLL pneumonia -IV fluids -RT to evaluate and treat -Acapella -Duoneb PRN -Acetaminophen PRN for fever Hypoxia -Pulse ox at 86% on ED arrival -Has home oxygen for night use and PRN daytime use -ABG in ED -pH 7.45 -pCO2 33.8 -pO2 63.0 -HCO3 23.2 -O2 saturation 92.5 -Base excess 0.2 -A-a gradient 49 -Obtained while on 1 L via NC -O2 - on 1L currently, taper as needed -RT to evaluate and treat -Hx/o COPD and chronic hypoxia per family Weakness -Increasing in severity -Likely 2/2 above -PT/OT -He has been getting home health visits by physical and occupational therapists who serve our hospital -Monitor Lung Nodule -7mm in superior segment of right lung base -Family reports pt. has hx/o lymphoma with a lesion in this area prior -Dr. Chua recommends non-contrast chest CT follow-up in 6 months (April,)\ -PCP to follow Chronic: Hard of hearing HLD HTN AAA Hypoxia requiring home O2 at night and PRN daytime use BPH Chronic back pain Osteoporosis RA Hx/o CVA on Eliquis Periphreal neuropathy Depression Insomnia Delerium Confusion Type II DM Non-hodgkin's lymphoma - Port in place B-cell lymphoma Plan: Admit to medical floor on telemetry CM/SW for discharge planning PT/OT Other orders as indicated above GI prophylaxis: home PPI DVT/PE prophylaxis: MARY Prem and on eliquis Routine AM lab draws Home medications as ordered Code status: Full Code. His PCP is Dr. Butler at [facility] here in [place]. DC 24-96 hours if continues to improve
[2017-11-03] MEDS: cefTRIAXone 2 GM in Sodium Chloride 0.9% 100 ML IV SCH (17:10)
[2017-11-03] MEDS: Rosuvastatin 10 MG Tab PO SCH (21:49)
[2017-11-03] MEDS: Nicotine 21 MG/24 Hr Patch TRDERM SCH (22:36)
[2017-11-04] MEDS: Pantoprazole 40 MG Tab.CR PO SCH (06:45)
[2017-11-04] MEDS: Acetaminophen/HYDROcodone 325-5 MG Tab PO SCH ×3 (06:48→18:18)
[2017-11-04] MEDS: CALCITONIN SALMON NAS SCH ×2 (08:07→08:17)
[2017-11-04] MEDS: Insulin Aspart 100 Units/ML 3 ML Pen SUBCUT SCH ×4 (08:08→21:30)
[2017-11-04] MEDS: Magnesium Oxide 400 MG Tab PO SCH (08:09)
[2017-11-04] MEDS: Doxazosin 4 MG Tab PO SCH (08:09)
[2017-11-04] MEDS: Apixaban 5 MG Tab PO SCH ×2 (08:09→21:29)
[2017-11-04] MEDS: Saccharomyces Boulardii (Probiotic) 250 MG Cap PO SCH ×2 (08:09→21:29)
[2017-11-04] MEDS: Metoprolol Tartrate 100 MG Tab PO SCH (08:09)
[2017-11-04] MEDS: predniSONE 10 MG Tab PO SCH (08:09)
[2017-11-04] MEDS: Potassium Chloride 10% 20 MEQ/15 ML Soln 30 ML UD Cup PO SCH (08:09)
[2017-11-04] MEDS: Nicotine Polacrilex 2 MG Gum CHEW PRN ×2 (13:41→17:35)
[2017-11-04] MEDS: cefTRIAXone 2 GM in Sodium Chloride 0.9% 100 ML IV SCH (17:23)
--- NOTE | 2017-11-04 17:26 | PCM.PN ---
- General Info Date of Service: 11/04/17 Admission Dx/Problem (Free Text): Admission Diagnosis/Problem Admission Diagnosis/Problem Pneumonia Subjective Update: In to see Roosevelt today. He appears to have greatly improved. He is laying in bed and eating. He has a sense of humor. He reports good appetite. He does have a cough that has turned productive. He reports he feels better. Functional Status: Reports: Pain Controlled, Tolerating Diet, Ambulating, Urinating. Denies: New Symptoms - Review of Systems General: Reports: Weakness (baseline), Appetite. Denies: Fever, Fatigue, Malaise, Chills HEENT: Reports: No Symptoms. Denies: Dysphasia, Headaches, Sinus Congestion, Sore Throat, Rhinitis Pulmonary: Reports: Cough, Sputum. Denies: Shortness of Breath, Pleuritic Chest Pain, Wheezing Cardiovascular: Reports: No Symptoms, Dyspnea on Exertion (baseline ). Denies: Chest Pain, Palpitations, Edema Gastrointestinal: Reports: No Symptoms. Denies: Abdominal Pain, Constipation, Diarrhea, Nausea, Vomiting Genitourinary: Reports: No Symptoms. Denies: Dysuria, Frequency, Burning, Pain , Urgency Musculoskeletal: Reports: No Symptoms. Denies: Neck Pain, Shoulder Pain, Arm Pain, Hand Pain, Back Pain Skin: Reports: No Symptoms Neurological: Reports: No Symptoms Psychiatric: Reports: No Symptoms - Patient Data Vitals - Most Recent: Last Vital Signs Temp 97.9 F 11/04/17 08:00 Pulse 70 11/04/17 11:53 Resp 24 H 11/04/17 11:53 BP 94/64 11/04/17 11:53 Pulse Ox 96 11/04/17 11:53 Weight - Most Recent: 169 lb 12.8 oz I&O - Last 24 Hours: Intake & Output 11/04/17 11/04/17 11/04/17 06:59 14:59 22:59 Intake Total 600 840 Output Total 650 Balance -50 840 Lab Results Last 24 Hours: Laboratory Results - last 24 hr 11/03/17 11/04/17 11/04/17 Range/Units 20:30 06:54 07:35 WBC 7.36 (4.23-9.07) K/mm3 RBC 4.59 L (4.63-6.08) M/mm3 Hgb 12.5 L (13.7-17.5) gm/L Hct 39.6 L (40.1-51.0) % MCV 86.3 (79.0-92.2) fl MCH 27.2 (25.7-32.2) pg MCHC 31.6 L (32.2-35.5) g/dl RDW Std Deviation 51.3 H (35.1-43.9) fL Plt Count 85 L (163-337) K/mm3 MPV 11.3 (9.4-12.3) fl Neut % (Auto) 60.5 (34.0-67.9) % Lymph % (Auto) 25.5 (21.8-53.1) % Summers % (Auto) 12.0 (5.3-12.2) % Eos % (Auto) 1.0 (0.8-7.0) Baso % (Auto) 0.3 (0.1-1.2) % Neut # (Auto) 4.46 (1.78-5.38) K/mm3 Lymph # (Auto) 1.88 (1.32-3.57) K/mm3 Summers # (Auto) 0.88 H (0.30-0.82) K/mm3 Eos # (Auto) 0.07 (0.04-0.54) K/mm3 Baso # (Auto) 0.02 (0.01-0.08) K/mm3 Manual Slide Review Abnormal smear Sodium (136-145) mEq/L Potassium (3.5-5.1) mEq/L Chloride (98-107) mEq/L Carbon Dioxide (21-32) mEq/L Anion Gap (5-15) BUN (7-18) mg/dL Creatinine (0.7-1.3) mg/dL Est Cr Clr Drug Dosing mL/min Estimated GFR (MDRD) (>60) mL/min BUN/Creatinine Ratio (14-18) Glucose (83-115) mg/dL POC Glucose 162 H 134 H (83-110) mg/dL Calcium (8.5-10.1) mg/dL Magnesium (1.8-2.4) mg/dl C-Reactive Protein (<1.0) mg/dL 11/04/17 11/04/17 Range/Units 07:35 11:46 WBC (4.23-9.07) K/mm3 RBC (4.63-6.08) M/mm3 Hgb (13.7-17.5) gm/L Hct (40.1-51.0) % MCV (79.0-92.2) fl MCH (25.7-32.2) pg MCHC (32.2-35.5) g/dl RDW Std Deviation (35.1-43.9) fL Plt Count (163-337) K/mm3 MPV (9.4-12.3) fl Neut % (Auto) (34.0-67.9) % Lymph % (Auto) (21.8-53.1) % [place]mers % (Auto) (5.3-12.2) % Eos % (Auto) (0.8-7.0) Baso % (Auto) (0.1-1.2) % Neut # (Auto) (1.78-5.38) K/mm3 Lymph # (Auto) (1.32-3.57) K/mm3 Summers # (Auto) (0.30-0.82) K/mm3 Eos # (Auto) (0.04-0.54) K/mm3 Baso # (Auto) (0.01-0.08) K/mm3 Manual Slide Review Sodium 141 (136-145) mEq/L Potassium 3.5 (3.5-5.1) mEq/L Chloride 106 (98-107) mEq/L Carbon Dioxide 26 (21-32) mEq/L Anion Gap 12.5 (5-15) BUN 8 (7-18) mg/dL Creatinine 0.8 (0.7-1.3) mg/dL Est Cr Clr Drug Dosing 76.10 mL/min Estimated GFR (MDRD) > 60 (>60) mL/min BUN/Creatinine Ratio 10.0 L (14-18) Glucose 136 H (83-115) mg/dL POC Glucose 273 H (83-110) mg/dL Calcium 8.9 (8.5-10.1) mg/dL Magnesium 1.8 (1.8-2.4) mg/dl C-Reactive Protein 4.6 H* (<1.0) mg/dL Juan Luis Results Last 24 Hours: Microbiology 11/01/17 05:20 Gram Stain - Final Sputum - Expectorated Sputum Culture - Final Escherichia Coli Angie Albicans 12/09/17 18:15 Streptococcus pneumoniae Antigen (M - Final Urine 11/01/17 18:15 Respiratory Virus Panel (PCR) (JUAN LUIS) - Final Nasopharyngeal Swab - Nare, Unspecified Med Orders - Current: Current Medications Acetaminophen (Tylenol) 650 mg PO Q4H PRN PRN Reason: Pain (Mild 1-3)/fever Hydrocodone Bitart/Acetaminophen (Union 325-5 Mg) 1 tab PO 0600,1200,1800 [facility] Last Admin: 11/04/17 11:52 Dose: 1 tab Albuterol/Ipratropium (Duoneb 3.0-0.5 Mg/3 Ml) 3 ml NEB Q4H PRN PRN Reason: Shortness Of Breath/wheezing Last Admin: 11/01/17 21:38 Dose: 3 ml Apixaban (Eliquis) 5 mg PO BID [facility] Last Admin: 11/04/17 08:09 Dose: 5 mg Artificial Tears (Isopto Tears 0.5% Ophth Soln) 0 ml EYEBOTH TID PRN PRN Reason: Dry Eyes Last Admin: 10/31/17 21:13 Dose: 1 drop Bisacodyl (Dulcolax) 5 mg PO DAILY PRN PRN Reason: Constipation Dextrose/Water (Dextrose 50% In Water) 50 ml IVPUSH ASDIRECTED PRN PRN Reason: hypoglycemia Docusate Sodium (Colace) 100 mg PO BID PRN PRN Reason: Constipation Doxazosin Mesylate (Cardura) 4 mg PO DAILY [facility] Last Admin: 11/04/17 08:09 Dose: 4 mg Hydromorphone HCl (Dilaudid) 0.5 mg IVPUSH Q2H PRN PRN Reason: Pain (severe 7-10) Ceftriaxone Sodium 2 gm/ (Sodium Chloride) 100 mls @ 200 mls/hr IV Q24H [facility] Last Admin: 11/03/17 17:10 Dose: 200 mls/hr Insulin Aspart (Novolog) 0 unit SUBCUT QIDACANDBED [facility] PRN Reason: Protocol Last Admin: 11/04/17 11:50 Dose: 3 unit Magnesium Oxide (Magnesium Oxide) 400 mg PO DAILY [facility] Last Admin: 11/04/17 08:09 Dose: 400 mg Metoprolol Tartrate (Lopressor) 100 mg PO BID [facility] Last Admin: 11/04/17 08:09 Dose: 100 mg Nicotine (Habitrol) 21 mg TRDERM Q24H [facility] Last Admin: 11/03/17 22:36 Dose: Not Given Nicotine Polacrilex (Nicorelief) 4 mg CHEW Q2H PRN PRN Reason: Other Last Admin: 11/04/17 13:41 Dose: 4 mg Ondansetron HCl (Zofran Odt) 4 mg PO Q6H PRN PRN Reason: nausea, able to take PO Ondansetron HCl (Zofran) 4 mg IV Q6H PRN PRN Reason: Nausea/Vomiting Pantoprazole Sodium (Protonix) 40 mg PO DAILY@0700 [facility] Last Admin: 11/04/17 06:45 Dose: [address] ([address] Nasal [place]) 0 each MARILIN DAILY [facility] Last Admin: 11/04/17 08:17 Dose: Not Given Polyethylene Glycol (Miralax) 17 gm PO DAILY PRN PRN Reason: Constipation Last Admin: 11/02/17 21:36 Dose: 17 gm Potassium Chloride (Potassium Chloride) 40 meq PO DAILY [facility] Last Admin: 11/04/17 08:09 Dose: 40 meq Prednisone (Prednisone) 10 mg PO DAILY [facility] Last Admin: 11/04/17 08:09 Dose: 10 mg Rosuvastatin Calcium (Crestor) 5 mg PO BEDTIME [facility] Last Admin: 11/03/17 21:49 Dose: 5 mg Saccharomyces Boulardii (Florastor) 250 mg PO BID [facility] Last Admin: 11/04/17 08:09 Dose: 250 mg Senna/Docusate Sodium (Senna Plus) 1 tab PO BID [facility] Last Admin: 11/04/17 08:09 Dose: 1 tab Temazepam (Restoril) 7.5 mg PO BEDTIME PRN PRN Reason: sleep Triamcinolone Acetonide (Triamcinolone Acetonide 0.5%) 0 gm TOP BID PRN PRN Reason: Rash Discontinued Medications Hydrocodone Bitart/Acetaminophen (Union 325-5 Mg) 1 tab PO TID [facility] Last Admin: 11/01/17 18:22 Dose: 1 tab Ceftriaxone Sodium (Rocephin) 2 gm IVPUSH ONETIME ONE Stop: 10/31/17 14:54 Last Admin: 10/31/17 15:16 Dose: Not Given Lactated Ringer's (Ringers, Lactated) 500 mls @ 999 mls/hr IV .BOLUS ONE Stop: 10/31/17 12:41 Last Admin: 10/31/17 12:19 Dose: 999 mls/hr Lactated Ringer's (Ringers, Lactated) Confirm Administered Dose 1,000 mls @ as directed .ROUTE .STK-MED ONE Stop: 10/31/17 12:19 Last Admin: 10/31/17 12:20 Dose: Not Given Lactated Ringer's (Ringers, Lactated) 500 mls @ 999 mls/hr IV .BOLUS ONE Stop: 10/31/17 13:39 Last Admin: 10/31/17 20:51 Dose: Not Given Lactated Ringer's (Ringers, Lactated) 1,000 mls @ 125 mls/hr IV ASDIRECTED [facility]IA Last Admin: 10/31/17 13:50 Dose: 125 mls/hr Lactated Ringer's (Ringers, Lactated) 1,000 mls @ 999 mls/hr IV ASDIRECTED MAIA Lactated Ringer's (Ringers, Lactated) 1,000 mls @ 150 mls/hr IV ASDIRECTED [facility]IA Sodium Chloride (Normal Saline) 1,000 mls @ 150 mls/hr IV ASDIRECTED [facility] Last Admin: 10/31/17 15:04 Dose: 150 mls/hr Ceftriaxone Sodium 2 gm/ (Sodium Chloride) 100 mls @ 200 mls/hr IV ONETIME ONE Stop: 10/31/17 15:44 Last Admin: 10/31/17 15:22 Dose: 200 mls/hr Levofloxacin/Dextrose 750 mg/ (Premix) 150 mls @ 100 mls/hr IV Q24H [facility] Last Admin: 11/03/17 08:12 Dose: 100 mls/hr Piperacillin Sod/Tazobactam (Sod 4.5 gm/ Sodium Chloride) 100 mls @ 25 mls/hr IV Q8H MAIA Piperacillin Sod/Tazobactam (Sod 4.5 gm/ Sodium Chloride) 100 mls @ 200 mls/hr IV ONETIME ONE Stop: 10/31/17 18:29 Last Admin: 10/31/17 20:55 Dose: 200 mls/hr Sodium Chloride (Normal Saline) 1,000 mls @ 150 mls/hr IV ASDIRECTED MAIA Stop: 11/02/17 02:24 Last Admin: 11/01/17 04:22 Dose: 150 mls/hr Magnesium Sulfate 2 gm/ Premix 50 mls @ 25 mls/hr IV ONETIME ONE Stop: 10/31/17 21:32 Last Admin: 10/31/17 21:33 Dose: 25 mls/hr Piperacillin Sod/Tazobactam (Sod 4.5 gm/ Sodium Chloride) 100 mls @ 25 mls/hr IV Q8H [facility] Last Admin: 11/01/17 03:01 Dose: Not Given Piperacillin Sod/Tazobactam (Sod 4.5 gm/ Sodium Chloride) 100 mls @ 25 mls/hr IV Q8H [facility] Last Admin: 11/03/17 12:15 Dose: 25 mls/hr Magnesium Sulfate 2 gm/ Premix 50 mls @ 25 mls/hr IV ONETIME ONE Stop: 11/02/17 13:18 Last Admin: 11/02/17 12:14 Dose: 25 mls/hr Miscellaneous Information (Remove Patch) 1 ea TRDERM DAILY [facility] Last Admin: 11/01/17 10:21 Dose: Not Given Miscellaneous Information (Remove Patch) 1 ea TRDERM DAILY@2200 [facility] Nicotine (Habitrol) 21 mg TRDERM DAILY [facility] Non-Formulary Medication (Polyvinyl Alcohol/Povidone/Pf [Refresh Classic Eye Drops]) 1 each EYEBOTH TID PRN PRN Reason: Dryness Non-Formulary Medication (Umeclidinium Brm/Vilanterol Tr) 1 puff INH DAILY [facility] Last Admin: 11/01/17 12:36 Dose: Not Given Non-Formulary Medication (Zinc Gluconate [Elemental Zinc]) 30 mg PO DAILY [facility] Last Admin: 11/01/17 11:11 Dose: Not Given Potassium Chloride (Klor-Con 10) 10 meq PO DAILY [facility] Last Admin: 11/02/17 10:06 Dose: 10 meq Potassium Chloride (Potassium Chloride) 40 meq PO ONETIME ONE Stop: 11/03/17 16:49 Last Admin: 11/03/17 17:11 Dose: 40 meq - Exam Quality Assessment: DVT Prophylaxis General: Alert, Oriented, Cooperative, No Acute Distress HEENT: Pupils Equal, Pupils Reactive, EOMI, Mucous Membr. Moist/[place] Neck: Supple, Trachea Midline, No JVD, No Thyromegaly Lungs: Clear to Auscultation, Normal Respiratory Effort, Decreased Breath Sounds Cardiovascular: Regular Rate GI/Abdominal Exam: Normal Bowel Sounds, Soft, Non-Tender, No Organomegaly, No Distention, No Abnormal Bruit, No Mass, Pelvis Stable (Male) Exam: Deferred Back Exam: Normal Inspection, Full Range of Motion, Decreased Range of Motion Extremities: Normal Inspection, Normal Range of Motion, Non-Tender, No Pedal Edema, Normal Capillary Refill Peripheral Pulses: 2+: Radial (L), Radial (R), Posterior Tibial (L), Posterior Tibial (R), Dorsalis Pedis (L), Dorsalis Pedis (R) Skin: Warm, Dry, Intact Neurological: No New Focal Deficit Psy/Mental Status: Alert, Normal Affect, Normal Mood - Problem List & Annotations (1) Pneumonia SNOMED Code(s): 222152896 Code(s): J18.9 - PNEUMONIA, UNSPECIFIED ORGANISM Status: Acute Priority: High Current Visit: Yes Qualifiers: Pneumonia type: due to unspecified organism Laterality: right Lung location: lower lobe of lung Qualified Code(s): J18.1 - Lobar pneumonia, unspecified organism (2) Hypoxia SNOMED Code(s): 978964686 Code(s): R09.02 - HYPOXEMIA Status: Acute Priority: High Current Visit : Yes (3) Weakness SNOMED Code(s): 55021866 Code(s): R53.1 - WEAKNESS Status: Acute Priority: High Current Visit: Yes (4) Diabetes mellitus SNOMED Code(s): 35196269 Code(s): E11.9 - TYPE 2 DIABETES MELLITUS WITHOUT COMPLICATIONS Status: Chronic Priority: Medium Current Visit: Yes (5) Fever SNOMED Code(s): 843262069 Code(s): R50.9 - FEVER, UNSPECIFIED Status: Acute Priority: Medium Current Visit: Yes Onset Date: 09/06/14 (6) BPH (benign prostatic hyperplasia) SNOMED Code(s): 065169730 Code(s): N40.0 - BENIGN PROSTATIC HYPERPLASIA WITHOUT LOWER URINRY TRACT SYMP Status: Chronic Priority: Low Current Visit: No Qualifiers: Lower urinary tract symptom presence: unspecified whether lower urinary tract symptoms present Qualified Code(s): N40.0 - Benign prostatic hyperplasia without lower urinary tract symptoms (7) Hypertension SNOMED Code(s): 41011812 Code(s): I10 - ESSENTIAL (PRIMARY) HYPERTENSION Status: Chronic Priority : Low Current Visit: No Qualifiers: Hypertension type: essential hypertension Qualified Code(s): I10 - Essential (primary) hypertension (8) Paroxysmal atrial fibrillation SNOMED Code(s): 400221263 Code(s): I48.0 - PAROXYSMAL ATRIAL FIBRILLATION Status: Chronic Priority : Low Current Visit: No (9) Incidental lung nodule, > 3mm and < 8mm SNOMED Code(s): 265295461 Code(s): R91.1 - SOLITARY PULMONARY NODULE Status: Acute Priority: Low Current Visit: Yes - Problem List Review Problem List Initiated/Reviewed/Updated: Yes - My Orders Last 24 Hours: My Active Orders 11/03/17 21:20 Nicotine Polacrilex [Nicorelief] 4 mg CHEW Q2H PRN - Plan Plan:: I/P: Acute: Right lower lobe pneumonia -Fever - resolved -Leukocytosis - 12.21-->7.36, resolved -Chronic cough that has become productive over last day -Rocephin resume based on senstivity -Lactic acid 3.3 -->2.0 -CXR initally clear, however chest CT suggested RLL pneumonia -IV fluids -RT to evaluate and treat -Acapella -Duoneb PRN -Acetaminophen PRN for fever Hypoxia, improving -Pulse ox at 86% on ED arrival -Has home oxygen for night use and PRN daytime use -ABG in ED -pH 7.45 -pCO2 33.8 -pO2 63.0 -HCO3 23.2 -O2 saturation 92.5 -Base excess 0.2 -A-a gradient 49 -Obtained while on 1 L via NC -O2 - on 1L currently, taper as needed -RT to evaluate and treat -Hx/o COPD and chronic hypoxia per family Weakness, improving -Increasing in severity -Likely 2/2 above -PT/OT -He has been getting home health visits by physical and occupational therapists who serve our hospital -Monitor Lung Nodule -7mm in superior segment of right lung base -Family reports pt. has hx/o lymphoma with a lesion in this area prior -Dr. Chua recommends non-contrast chest CT follow-up in 6 months (Kate, 2018)\ -PCP to follow Resolved: Hypokalemia -Potassium 3.9-->3.6-->3.2-->3.1-->3.5 -Supplementation given -Continue to monitor Chronic: Hard of hearing HLD HTN AAA Hypoxia requiring home O2 at night and PRN daytime use BPH Chronic back pain Osteoporosis RA Hx/o CVA on Eliquis Periphreal neuropathy Depression Insomnia Delerium Confusion Type II DM Non-hodgkin's lymphoma - Port in place B-cell lymphoma Plan: Admit to medical floor on telemetry CM/SW for discharge planning PT/OT Other orders as indicated above GI prophylaxis: home PPI DVT/PE prophylaxis: MARY Prem and on eliquis Routine AM lab draws Home medications as ordered Code status: Full Code. His PCP is Dr. Butler at [facility] here in [place]. LOS>96 hrs due to slower than expected response to treatment DC 24-96 hours if continues to improve
[2017-11-04] MEDS: Rosuvastatin 10 MG Tab PO SCH (21:31)
[2017-11-05] MEDS: Metoprolol Tartrate 100 MG Tab PO SCH ×2 (00:44→08:22)
[2017-11-05] MEDS: Nicotine 21 MG/24 Hr Patch TRDERM SCH (00:45)
[2017-11-05] MEDS: Pantoprazole 40 MG Tab.CR PO SCH (06:03)
[2017-11-05] MEDS: Acetaminophen/HYDROcodone 325-5 MG Tab PO SCH (06:03)
[2017-11-05] MEDS: Insulin Aspart 100 Units/ML 3 ML Pen SUBCUT SCH ×2 (06:58→11:02)
[2017-11-05] MEDS ORDERED: Potassium Chloride 20 MEQ Tab.ER PO ONE (07:20)
[2017-11-05] MEDS ORDERED: Glimepiride 2 MG Tab PO SCH (08:00)
[2017-11-05] MEDS: CALCITONIN SALMON NAS SCH (08:21)
[2017-11-05] MEDS: predniSONE 10 MG Tab PO SCH (08:22)
[2017-11-05] MEDS: Apixaban 5 MG Tab PO SCH (08:22)
[2017-11-05] MEDS: Saccharomyces Boulardii (Probiotic) 250 MG Cap PO SCH (08:22)
[2017-11-05] MEDS: Potassium Chloride 10% 20 MEQ/15 ML Soln 30 ML UD Cup PO SCH (08:22)
[2017-11-05] MEDS: Magnesium Oxide 400 MG Tab PO SCH (08:23)
[2017-11-05] MEDS: Doxazosin 4 MG Tab PO SCH (08:23)
[2017-11-05 08:30] VITALS: BP 115/80
--- NOTE | 2017-11-05 10:59 | PCM.DCSUM1 ---
Discharge Summary - Hospital Course Free Text/Narrative:: Roosevelt Chino is a 77 yo male who was brought to our ED today via Ambulance for generalized weakness. It is reported he was doing okay after arriving in the ER. He reported increased worsening cough and was noted to be hypotensive. Fluids were initiated and he responded well. CXR was unremarkable. UA was normal. Labs were obtained: 30 DC was elevated at 12.21. Hemoglobin low at 13.4. Hematocrit good at 42.1. He was normocytic. Platelet count was very low at 79,000. Neutrophils elevated at 70% . There is no bandemia. PT is 11.7. INR 1.07. APTT is 29. ABG was obtained : PH was 7.45. PCO2 33.8. PO2 63.0. HCO3 normal at 23.2. O2 saturation low at 92.5. Base excess 0.2. A-a gradient at 49. This was obtained while on 1 L via nasal cannula. Sodium was good at 139. Potassium 3.9. Chloride 105. Carbon dioxide 27. Anion gap 10.9. BUN 16. Creatinine 1.0. EGFR greater than 60. Glucose 118. Lactic acid was elevated at 3.3. Calcium 8.9. Total bilirubin 0.7. Liver enzymes were good with AST at 17, ALT at 16, alkaline phosphatase at 55. Troponin negative at 0.017. Protein low at 5.3. Albumin low at 3.0. Because labs suggested an infection a chest CT was performed. Chest CT showed a patchy increased density within the right lung base thought to represent an early pneumonia. He also has a 7 mm nodule within the right lung base. Recommend follow-up in 6 months. Family report a prior history of lymphoma with a lesion in this area noted prior. It is recommended his primary care physician follow up on this. He was started on 2 g Rocephin. Blood cultures were pending. Twelve-lead was obtained and showed: Sinus rhythm at 96 BPM with abnormal R wave progression. Borderline repolarization abnormality is also noted. He carries a history of: HLD, HTN, AAA, hypoxia requiring oxygen at night and when necessary during the day, BPH, chronic back pain, osteoporosis, RA, prior fall with left hip fracture resulting in wheelchair bound status, CVA, peripheral neuropathy in both feet, depression, delirium, confusion, insomnia, type II DM, non-Hodgkin's lymphoma, B cell lymphoma. He is a former smoker. CODE STATUS: Full Code His primary care provider is Dr. Butler at in [place]. - Discharge Data Discharge Date: 11/05/17 (admit date 10/31/17) Discharge Disposition: Home, Self-Care 01 Condition: Fair - Discharge Diagnosis/Problem(s) (1) Pneumonia SNOMED Code(s): 874811311 ICD Code: J18.9 - PNEUMONIA, UNSPECIFIED ORGANISM Status: Acute Priority : High Current Visit: Yes Qualifiers: Pneumonia type: due to unspecified organism Laterality: right Lung location: lower lobe of lung Qualified Code(s): J18.1 - Lobar pneumonia, unspecified organism (2) Fever SNOMED Code(s): 858789214 ICD Code: R50.9 - FEVER, UNSPECIFIED Status: Resolved Priority: High Current Visit: Yes (3) Hypoxia SNOMED Code(s): 795586619 ICD Code: R09.02 - HYPOXEMIA Status: Resolved Priority: High Current Visit: Yes (4) Incidental lung nodule, > 3mm and < 8mm SNOMED Code(s): 299368527 ICD Code: R91.1 - SOLITARY PULMONARY NODULE Status: Chronic Priority: Low Current Visit: Yes (5) Weakness SNOMED Code(s): 90917378 ICD Code: R53.1 - WEAKNESS Status: Chronic Priority: High Current Visit : Yes (6) Diabetes mellitus SNOMED Code(s): 30826132 ICD Code: E11.9 - TYPE 2 DIABETES MELLITUS WITHOUT COMPLICATIONS Status: Chronic Priority: Medium Current Visit: Yes - Patient Summary/Data Operative Procedure(s) Performed: None Complications: None Consults: Consultations 10/31/17 17:32 Consult to Case Management [CONS] Routine Consult to Tool Repairer Bench [CONS] Routine OT Evaluation and Treatment [CONS] Routine PT Evaluation and Treatment [CONS] Routine Respiratory Care Assess and Treatment [CONS] Routine Labs Pending at D/C: None-- consider repeat CXR in 2-[address] to follow lung nodules. Recommended Follow-up Testing/Procedures: Patient DC instructions: Physical and occupational therapy to evaluate and treat. Follow up with Dr. Butler within one week of discharge Consider Inpatient Rehab stay if strength does not improve; this is strongly encouraged and recommended. Planned Operative Procedure(s) after DC: None Hospital Course: I/P: Acute: Right lower lobe pneumonia -Fever - resolved -Leukocytosis - 12.21-->7.36, resolved -Chronic cough that has become productive over last day; minimal cough today - day of discharge -Rocephin resume based on senstivity -Lactic acid 3.3 -->2.0 -CXR initally clear, however chest CT suggested RLL pneumonia--repeat CXR unchanged from initial. -IV fluids -RT to evaluate and treat -Acapella -Duoneb PRN -Acetaminophen PRN for fever Hypoxia, improving ---Resolved; 97% on RA on day of DC -Pulse ox at 86% on ED arrival -Has home oxygen for night use and PRN daytime use -ABG in ED -pH 7.45 -pCO2 33.8 -pO2 63.0 -HCO3 23.2 -O2 saturation 92.5 -Base excess 0.2 -A-a gradient 49 -Obtained while on 1 L via NC -O2 - on 1L currently, taper as needed -RT to evaluate and treat -Hx/o COPD and chronic hypoxia per family Weakness, improving -Increasing in severity -Likely 2/2 above -PT/OT---cont as ooutpatient -He has been getting home health visits by physical and occupational therapists who serve our hospital -Monitor Lung Nodule -7mm in superior segment of right lung base -Family reports pt. has hx/o lymphoma with a lesion in this area prior -Dr. Chua recommends non-contrast chest CT follow-up in 6 months (April,) -PCP to follow Resolved: Hypokalemia -Potassium 3.9-->3.6-->3.2-->3.1-->3.5 -Supplementation given -Continue to monitor Chronic: Hard of hearing HLD HTN AAA Hypoxia requiring home O2 at night and PRN daytime use BPH Chronic back pain Osteoporosis RA Hx/o CVA on Eliquis Periphreal neuropathy Depression Insomnia Delerium Confusion Type II DM Non-hodgkin's lymphoma - Port in place B-cell lymphoma Plan: Admit to medical floor on telemetry CM/SW for discharge planning PT/OT Other orders as indicated above GI prophylaxis: home PPI DVT/PE prophylaxis: MARY Hose and on eliquis Routine AM lab draws Home medications as ordered Code status: Full Code. His PCP is Dr. Butler at in [place]. LOS>96 hrs due to slower than expected response to treatment Plan DC home with today. - Patient Instructions Diet: Heart Healthy Diet, Diabetic Diet Activity: As Tolerated (ambulate 3 times daily) Driving: Do Not Drive Showering/Bathing: May Shower Notify Provider of: Fever, Increased Pain, Nausea and/or Vomiting - Discharge Plan Prescriptions/Med Rec: Amoxicillin/Potassium Clav [Augmentin 500-125 Tablet] 1 each PO BID #14 tablet Bifidobacter. Bifidum/B.Longum [Florajen Bifidoblend] 460 mg PO DAILY #30 capsule Home Medications: Home Meds Calcitonin,[place],Synthetic [Calcitonin-[place]] 200 unit MARILIN DAILY 09/06/14 [ History] Fluticasone Propionate [Flonase] 2 spray MARILIN DAILY 09/06/14 [History] predniSONE [Prednisone] 10 mg PO DAILY 09/06/14 [History] Cholecalciferol (Vitamin D3) [Vitamin D3] 2,000 unit PO DAILY 07/22/15 [History] Sennosides/Docusate Sodium [Senna-Docusate Sodium] 1 tab PO BID 07/22/15 [ History] Acetaminophen [Tylenol] 650 mg PO Q4H PRN #0 tablet 03/01/16 [Rx] Doxazosin [Cardura] 4 mg PO DAILY 05/28/17 [History] Triamcinolone Acetonide [Triamcinolone Acetonide 0.5%] 15 gm TOP BID PRN [History] Zinc Gluconate [Elemental Zinc] 30 mg PO DAILY 05/28/17 [History] Apixaban [Eliquis] 5 mg PO BID 06/15/17 [History] Glimepiride [Amaryl] 2 mg PO DAILY 06/15/17 [History] Melatonin 6 mg PO BEDTIME 06/15/17 [History] Metoprolol Tartrate 100 mg PO BID 06/15/17 [History] Omeprazole 20 mg PO DAILY 06/15/17 [History] Rosuvastatin [Crestor] 5 mg PO BEDTIME 06/15/17 [History] Acetaminophen/HYDROcodone [Victoria 325-5 MG] 1 tab PO TID 07/27/17 [History] Magnesium Oxide 400 mg PO DAILY 07/27/17 [History] Multivitamin with Minerals [Multiple Vitamin] 1 tab PO DAILY 07/27/17 [History] Nicotine Polacrilex [Nicotine Lozenge] 4 mg BC Q2H PRN 07/27/17 [History] Potassium Chloride 10 meq PO DAILY 07/27/17 [History] Nicotine [Habitrol] 21 mg TRDERM DAILY #30 patch 07/31/17 [Rx] Amoxicillin/Potassium Clav [Augmentin 500-125 Tablet] 1 each PO BID #14 tablet 11/05/17 [Rx] Bifidobacter. Bifidum/B.Longum [Florajen Bifidoblend] 460 mg PO DAILY #30 capsule 11/05/17 [Rx] Patient Handouts: Smoking Cessation, Tips for Success, [id number], Smoking Hazards, Smoking Cessation, Tips for Success, Community-Acquired Pneumonia, Adult, [id number] Forms: ED Department Discharge Referrals: Scottie Butler MD [Primary Care Provider] - (Follow-up chest CT recommended in 6 months.) - Discharge Summary/Plan Comment DC Time >30 min.: Yes (40 min) - General Info Date of Service: 11/05/17 Admission Dx/Problem (Free Text: Admission Diagnosis/Problem Admission Diagnosis/Problem Pneumonia Coughing is minimal; feeling better; still tired and weak. Patient and refuse SNF rehab stay; wish to be discharged home. Functional Status: Reports: Pain Controlled, Tolerating Diet, Urinating. Denies : New Symptoms - Review of Systems Pulmonary: Reports: Cough (minimal/improved). Denies: Shortness of Breath, Wheezing Cardiovascular: Reports: No Symptoms Gastrointestinal: Reports: No Symptoms Musculoskeletal: Reports: No Symptoms - Patient Data Vitals - Most Recent: Last Vital Signs Temp 98.1 F 11/05/17 08:09 Pulse 91 11/05/17 08:22 Resp 17 11/05/17 08:09 BP 115/80 11/05/17 08:23 Pulse Ox 92 L 11/05/17 08:11 Weight - Most Recent: 168 lb 14.4 oz I&O - Last 24 hours: Intake & Output 11/04/17 11/05/17 11/05/17 22:59 06:59 14:59 Intake Total 920 250 60 Output Total 325 Balance 920 -75 60 Lab Results - Last 24 hrs: Laboratory Results - last 24 hr 11/04/17 11/04/17 11/04/17 Range/Units 11:46 17:28 20:54 WBC (4.23-9.07) K/mm3 RBC (4.63-6.08) M/mm3 Hgb (13.7-17.5) gm/L Hct (40.1-51.0) % MCV (79.0-92.2) fl MCH (25.7-32.2) pg MCHC (32.2-35.5) g/dl RDW Std Deviation (35.1-43.9) fL Plt Count (163-337) K/mm3 MPV (9.4-12.3) fl Neut % (Auto) (34.0-67.9) % Lymph % (Auto) (21.8-53.1) % [place] % (Auto) (5.3-12.2) % Eos % (Auto) (0.8-7.0) Baso % (Auto) (0.1-1.2) % Neut # (Auto) (1.78-5.38) K/mm3 Lymph # (Auto) (1.32-3.57) K/mm3 [place] # (Auto) (0.30-0.82) K/mm3 Eos # (Auto) (0.04-0.54) K/mm3 Baso # (Auto) (0.01-0.08) K/mm3 Manual Slide Review Sodium (136-145) mEq/L Potassium (3.5-5.1) mEq/L Chloride (98-107) mEq/L Carbon Dioxide (21-32) mEq/L Anion Gap (5-15) BUN (7-18) mg/dL Creatinine (0.7-1.3) mg/dL Est Cr Clr Drug Dosing mL/min Estimated GFR (MDRD) (>60) mL/min BUN/Creatinine Ratio (14-18) Glucose (83-115) mg/dL POC Glucose 273 H 239 H 224 H (83-110) mg/dL Hemoglobin A1c (4.50-6.20) % Calcium (8.5-10.1) mg/dL Magnesium (1.8-2.4) mg/dl C-Reactive Protein (<1.0) mg/dL 11/05/17 11/05/17 11/05/17 Range/Units 05:41 05:41 05:41 WBC 7.05 (4.23-9.07) K/mm3 RBC 4.50 L (4.63-6.08) M/mm3 Hgb 12.2 L (13.7-17.5) gm/L Hct 38.7 L (40.1-51.0) % MCV 86.0 (79.0-92.2) fl MCH 27.1 (25.7-32.2) pg MCHC 31.5 L (32.2-35.5) g/dl RDW Std Deviation 51.3 H (35.1-43.9) fL Plt Count 81 L (163-337) K/mm3 MPV 11.3 (9.4-12.3) fl Neut % (Auto) 57.7 (34.0-67.9) % Lymph % (Auto) 29.4 (21.8-53.1) % [place] % (Auto) 9.9 (5.3-12.2) % Eos % (Auto) 1.3 (0.8-7.0) Baso % (Auto) 0.3 (0.1-1.2) % Neut # (Auto) 4.07 (1.78-5.38) K/mm3 Lymph # (Auto) 2.07 (1.32-3.57) K/mm3 [place] # (Auto) 0.70 (0.30-0.82) K/mm3 Eos # (Auto) 0.09 (0.04-0.54) K/mm3 Baso # (Auto) 0.02 (0.01-0.08) K/mm3 Manual Slide Review Abnormal smear Sodium 143 (136-145) mEq/L Potassium 3.4 L (3.5-5.1) mEq/L Chloride 105 (98-107) mEq/L Carbon Dioxide 27 (21-32) mEq/L Anion Gap 14.4 (5-15) BUN 11 (7-18) mg/dL Creatinine 0.7 (0.7-1.3) mg/dL Est Cr Clr Drug Dosing 86.97 mL/min Estimated GFR (MDRD) > 60 (>60) mL/min BUN/Creatinine Ratio 15.7 (14-18) Glucose 105 (83-115) mg/dL POC Glucose (83-110) mg/dL Hemoglobin A1c 6.60 H (4.50-6.20) % Calcium 8.5 (8.5-10.1) mg/dL Magnesium 1.8 (1.8-2.4) mg/dl C-Reactive Protein 7.1 H* (<1.0) mg/dL 11/05/17 Range/Units 05:54 WBC (4.23-9.07) K/mm3 RBC (4.63-6.08) M/mm3 Hgb (13.7-17.5) gm/L Hct (40.1-51.0) % MCV (79.0-92.2) fl MCH (25.7-32.2) pg MCHC (32.2-35.5) g/dl RDW Std Deviation (35.1-43.9) fL Plt Count (163-337) K/mm3 MPV (9.4-12.3) fl Neut % (Auto) (34.0-67.9) % Lymph % (Auto) (21.8-53.1) % [place] % (Auto) (5.3-12.2) % Eos % (Auto) (0.8-7.0) Baso % (Auto) (0.1-1.2) % Neut # (Auto) (1.78-5.38) K/mm3 Lymph # (Auto) (1.32-3.57) K/mm3 [place] # (Auto) (0.30-0.82) K/mm3 Eos # (Auto) (0.04-0.54) K/mm3 Baso # (Auto) (0.01-0.08) K/mm3 Manual Slide Review Sodium (136-145) mEq/L Potassium (3.5-5.1) mEq/L Chloride (98-107) mEq/L Carbon Dioxide (21-32) mEq/L Anion Gap (5-15) BUN (7-18) mg/dL Creatinine (0.7-1.3) mg/dL Est Cr Clr Drug Dosing mL/min Estimated GFR (MDRD) (>60) mL/min BUN/Creatinine Ratio (14-18) Glucose (83-115) mg/dL POC Glucose 94 (83-110) mg/dL Hemoglobin A1c (4.50-6.20) % Calcium (8.5-10.1) mg/dL Magnesium (1.8-2.4) mg/dl C-Reactive Protein (<1.0) mg/dL YAMILE Results - Last 24 hrs: Microbiology 11/01/17 05:20 Gram Stain - Final Sputum - Expectorated Sputum Culture - Final Escherichia Coli Angie Albicans 11/01/17 18:15 Streptococcus pneumoniae Antigen (M - Final Urine 11/01/17 18:15 Respiratory Virus Panel (PCR) (YAMILE) - Final Nasopharyngeal Swab - Nare, Unspecified Med Orders - Current: Current Medications Acetaminophen (Tylenol) 650 mg PO Q4H PRN PRN Reason: Pain (Mild 1-3)/fever Hydrocodone Bitart/Acetaminophen (Victoria 325-5 Mg) 1 tab PO 0600,1200,1800 [facility] Last Admin: 11/05/17 06:03 Dose: 1 tab Albuterol/Ipratropium (Duoneb 3.0-0.5 Mg/3 Ml) 3 ml NEB Q4H PRN PRN Reason: Shortness Of Breath/wheezing Last Admin: 11/01/17 21:38 Dose: 3 ml Apixaban (Eliquis) 5 mg PO BID [facility] Last Admin: 11/05/17 08:22 Dose: 5 mg Artificial Tears (Isopto Tears 0.5% Ophth Soln) 0 ml EYEBOTH TID PRN PRN Reason: Dry Eyes Last Admin: 10/31/17 21:13 Dose: 1 drop Bisacodyl (Dulcolax) 5 mg PO DAILY PRN PRN Reason: Constipation Dextrose/Water (Dextrose 50% In Water) 50 ml IVPUSH ASDIRECTED PRN PRN Reason: hypoglycemia Docusate Sodium (Colace) 100 mg PO BID PRN PRN Reason: Constipation Doxazosin Mesylate (Cardura) 4 mg PO DAILY [facility] Last Admin: 11/05/17 08:23 Dose: 4 mg Flunisolide (Nasalide Nasal [place]) 0 ml MARILIN BID [facility] Last Admin: 11/05/17 08:22 Dose: 2 spray Glimepiride (Amaryl) 2 mg PO DAILY@0800 [facility] Last Admin: 11/05/17 08:23 Dose: 2 mg Hydromorphone HCl (Dilaudid) 0.5 mg IVPUSH Q2H PRN PRN Reason: Pain (severe 7-10) Ceftriaxone Sodium 2 gm/ (Sodium Chloride) 100 mls @ 200 mls/hr IV Q24H [facility] Last Admin: 11/04/17 17:23 Dose: 200 mls/hr Insulin Aspart (Novolog) 0 unit SUBCUT QIDACANDBED [facility] PRN Reason: Protocol Last Admin: 11/05/17 06:58 Dose: Not Given Magnesium Oxide (Magnesium Oxide) 400 mg PO DAILY [facility] Last Admin: 11/05/17 08:23 Dose: 400 mg Metoprolol Tartrate (Lopressor) 100 mg PO BID [facility] Last Admin: 11/05/17 08:22 Dose: 100 mg Nicotine (Habitrol) 21 mg TRDERM Q24H [facility] Last Admin: 11/05/17 00:45 Dose: Not Given Nicotine Polacrilex (Nicorelief) 4 mg CHEW Q2H PRN PRN Reason: Other Last Admin: 11/04/17 17:35 Dose: 4 mg Ondansetron HCl (Zofran Odt) 4 mg PO Q6H PRN PRN Reason: nausea, able to take PO Ondansetron HCl (Zofran) 4 mg IV Q6H PRN PRN Reason: Nausea/Vomiting Pantoprazole Sodium (Protonix) 40 mg PO DAILY@0700 [facility] Last Admin: 11/05/17 06:03 Dose: 40 mg Calcitonin [place] (200 Unit Nasal [place]) 0 each MARILIN DAILY [facility] Last Admin: 11/05/17 08:21 Dose: Not Given Polyethylene Glycol (Miralax) 17 gm PO DAILY PRN PRN Reason: Constipation Last Admin: 11/02/17 21:36 Dose: 17 gm Potassium Chloride (Potassium Chloride) 40 meq PO DAILY [facility] Last Admin: 11/05/17 08:22 Dose: 40 meq Prednisone (Prednisone) 10 mg PO DAILY [facility] Last Admin: 11/05/17 08:22 Dose: 10 mg Rosuvastatin Calcium (Crestor) 5 mg PO BEDTIME [facility] Last Admin: 11/04/17 21:31 Dose: 5 mg Saccharomyces Boulardii (Florastor) 250 mg PO BID [facility] Last Admin: 11/05/17 08:22 Dose: 250 mg Senna/Docusate Sodium (Senna Plus) 1 tab PO BID [facility] Last Admin: 11/05/17 08:22 Dose: 1 tab Temazepam (Restoril) 7.5 mg PO BEDTIME PRN PRN Reason: sleep Triamcinolone Acetonide (Triamcinolone Acetonide 0.5%) 0 gm TOP BID PRN PRN Reason: Rash Discontinued Medications Hydrocodone Bitart/Acetaminophen (Victoria 325-5 Mg) 1 tab PO TID [facility] Last Admin: 11/01/17 18:22 Dose: 1 tab Ceftriaxone Sodium (Rocephin) 2 gm IVPUSH ONETIME ONE Stop: 10/31/17 14:54 Last Admin: 10/31/17 15:16 Dose: Not Given Heparin Sodium (Porcine) (Heparin Lock Flush 100 Units/Ml) 500 units FLUSH ASDIRECTED ONE Stop: 11/05/17 10:12 Lactated Ringer's (Ringers, Lactated) 500 mls @ 999 mls/hr IV .BOLUS ONE Stop: 10/31/17 12:41 Last Admin: 10/31/17 12:19 Dose: 999 mls/hr Lactated Ringer's (Ringers, Lactated) Confirm Administered Dose 1,000 mls @ as directed .ROUTE .STK-MED ONE Stop: 10/31/17 12:19 Last Admin: 10/31/17 12:20 Dose: Not Given Lactated Ringer's (Ringers, Lactated) 500 mls @ 999 mls/hr IV .BOLUS ONE Stop: 10/31/17 13:39 Last Admin: 10/31/17 20:51 Dose: Not Given Lactated Ringer's (Ringers, Lactated) 1,000 mls @ 125 mls/hr IV ASDIRECTED [facility] Last Admin: 10/31/17 13:50 Dose: 125 mls/hr Lactated Ringer's (Ringers, Lactated) 1,000 mls @ 999 mls/hr IV ASDIRECTED [facility] Lactated Ringer's (Ringers, Lactated) 1,000 mls @ 150 mls/hr IV ASDIRECTED [facility] Sodium Chloride (Normal Saline) 1,000 mls @ 150 mls/hr IV ASDIRECTED [facility] Last Admin: 10/31/17 15:04 Dose: 150 mls/hr Ceftriaxone Sodium 2 gm/ (Sodium Chloride) 100 mls @ 200 mls/hr IV ONETIME ONE Stop: 10/31/17 15:44 Last Admin: 10/31/17 15:22 Dose: 200 mls/hr Levofloxacin/Dextrose 750 mg/ (Premix) 150 mls @ 100 mls/hr IV Q24H [facility] Last Admin: 11/03/17 08:12 Dose: 100 mls/hr Piperacillin Sod/Tazobactam (Sod 4.5 gm/ Sodium Chloride) 100 mls @ 25 mls/hr IV Q8H [facility] Piperacillin Sod/Tazobactam (Sod 4.5 gm/ Sodium Chloride) 100 mls @ 200 mls/hr IV ONETIME ONE Stop: 10/31/17 18:29 Last Admin: 10/31/17 20:55 Dose: 200 mls/hr Sodium Chloride (Normal Saline) 1,000 mls @ 150 mls/hr IV ASDIRECTED [facility] Stop: 11/02/17 02:24 Last Admin: 11/01/17 04:22 Dose: 150 mls/hr Magnesium Sulfate 2 gm/ Premix 50 mls @ 25 mls/hr IV ONETIME ONE Stop: 10/31/17 21:32 Last Admin: 10/31/17 21:33 Dose: 25 mls/hr Piperacillin Sod/Tazobactam (Sod 4.5 gm/ Sodium Chloride) 100 mls @ 25 mls/hr IV Q8H [facility] Last Admin: 11/01/17 03:01 Dose: Not Given Piperacillin Sod/Tazobactam (Sod 4.5 gm/ Sodium Chloride) 100 mls @ 25 mls/hr IV Q8H [facility] Last Admin: 11/03/17 12:15 Dose: 25 mls/hr Magnesium Sulfate 2 gm/ Premix 50 mls @ 25 mls/hr IV ONETIME ONE Stop: 11/02/17 13:18 Last Admin: 11/02/17 12:14 Dose: 25 mls/hr Miscellaneous Information (Remove Patch) 1 ea TRDERM DAILY [facility] Last Admin: 11/01/17 10:21 Dose: Not Given Miscellaneous Information (Remove Patch) 1 ea TRDERM DAILY@2200 [facility] Nicotine (Habitrol) 21 mg TRDERM DAILY [facility] Non-Formulary Medication (Polyvinyl Alcohol/Povidone/Pf [Refresh Classic Eye Drops]) 1 each EYEBOTH TID PRN PRN Reason: Dryness Non-Formulary Medication (Umeclidinium Brm/Vilanterol Tr) 1 puff INH DAILY [facility] Last Admin: 11/01/17 12:36 Dose: Not Given Non-Formulary Medication (Zinc Gluconate [Elemental Zinc]) 30 mg PO DAILY [facility] Last Admin: 11/01/17 11:11 Dose: Not Given Potassium Chloride (Klor-Con 10) 10 meq PO DAILY [facility] Last Admin: 11/02/17 10:06 Dose: 10 meq Potassium Chloride (Potassium Chloride) 40 meq PO ONETIME ONE Stop: 11/03/17 16:49 Last Admin: 11/03/17 17:11 Dose: 40 meq Potassium Chloride (Klor-Con M20) 40 meq PO ONETIME ONE Stop: 11/05/17 07:21 Last Admin: 11/05/17 08:21 Dose: 40 meq - Exam Quality Assessment: Reports: DVT Prophylaxis General: Reports: Alert, Oriented, Cooperative, No Acute Distress HEENT: Reports: Pupils Equal, EOMI, Mucous Membr. Moist/[place] Neck: Reports: Supple Lungs: Reports: Clear to Auscultation, Normal Respiratory Effort, Decreased Breath Sounds (bases) Cardiovascular: Reports: Regular Rate, Regular Rhythm GI/Abdominal Exam: Normal Bowel Sounds, Soft, Non-Tender (Male) Exam: Deferred Rectal (Males) Exam: Deferred Extremities: No Pedal Edema, Normal Capillary Refill Neurological: Reports: No New Focal Deficit Psy/Mental Status: Reports: Alert, Normal Affect *Q Meaningful Use (DIS) - VTE *Q VTE Criteria *Q: - Stroke *Q Stroke Criteria *Q: - AMI *Q AMI Criteria *Q:
[2017-11-05] MEDS ORDERED: Sodium Chloride 0.9% 50 ML SDV FLUSH ONE (11:07)
--- NOTE | 2017-11-05 15:43 | CR ---
Chest: Two views of the chest were obtained. Comparison: Prior chest CT of 10/31/17 is available and chest x-ray of 10/31/17 is available. Left-sided infusion port is seen. Moderate hiatal hernia is seen with air-fluid level. Heart size appears within normal limits. Mild tortuosity of the thoracic aorta is seen. Compression deformities are seen within the thoracic and lumbar spine. These compression deformities are most likely old. Scoliosis is also seen within the spine. Osteopenia is noted. Impression: 1. Multiple findings which are felt to be incidental. 2. Nothing acute is appreciated. Diagnostic code #2
== END 2017-11-05 11:52 | disposition home or self-care (01) | DRG 194 ==
LOC: JD.ED 11:35 → JD.MS 15:42 → UNDOADMIN 15:42 → JD.MS 16:28 → UNDODISIN 11-05 11:52
PROVIDERS: ADMIT Internal Medicine; ATTEND Internal Medicine
DX: J18.9 Pneumonia, unspecified organism (principal); I69.351 Hemiplegia and hemiparesis following cerebral infarction affecting right dominant side; I95.9 Hypotension, unspecified; C85.90 Non-Hodgkin lymphoma, unspecified, unspecified site; C85.10 Unspecified B-cell lymphoma, unspecified site; R09.02 Hypoxemia; E78.00 Pure hypercholesterolemia, unspecified; R53.1 Weakness; E11.42 Type 2 diabetes mellitus with diabetic polyneuropathy; Z79.84 Long term (current) use of oral hypoglycemic drugs; N40.1 Benign prostatic hyperplasia with lower urinary tract symptoms; R35.1 Nocturia; R39.15 Urgency of urination; I10 Essential (primary) hypertension; I48.0 Paroxysmal atrial fibrillation; R91.1 Solitary pulmonary nodule; H91.90 Unspecified hearing loss, unspecified ear; E78.5 Hyperlipidemia, unspecified; I71.4 Abdominal aortic aneurysm, without rupture; G89.29 Other chronic pain; M54.9 Dorsalgia, unspecified; M06.9 Rheumatoid arthritis, unspecified; M81.0 Age-related osteoporosis without current pathological fracture; F32.9 Major depressive disorder, single episode, unspecified; G47.00 Insomnia, unspecified; R41.0 Disorientation, unspecified; Z91.048 Other nonmedicinal substance allergy status; Z79.01 Long term (current) use of anticoagulants; Z99.81 Dependence on supplemental oxygen; Z79.899 Other long term (current) drug therapy; Z87.891 Personal history of nicotine dependence
CPT/HCPCS: 36415; 36600; 70450; 71010; 71250; 80053; 81001; 82803; 83605; 84484; 85025; 85610; 85730; 87040 ×2; 87804 ×2; 93005; 96361; 96365; 99285; J0696; J7030; J7040; J7120 ×2; P9612; 71020; 71020-26; 80048; 82962; 83036; 83735; 86140; 86738; 87070; 87077; 87106; 87186; 87205; 87486; 87581; 87633; 87798; 87899; 94640; 94667; 94760; 97110-GP; 97116-GP; 97162-GP; 97166-GO; 97530-GO; 97530-GP; A9270-GY; J1642; J1815-GY; J1956; J2543; J3475

== ENCOUNTER 2017-11-06 09:07 | Observation (INO) | payer MEDICARE, OTHER ==
[2017-11-06] MEDS ORDERED: Sodium Chloride 0.9% 10 ML Syringe FLUSH PRN (09:28)
[2017-11-06] MEDS ORDERED: methylPREDNISolone Sodium Succinate 125 MG/2 ML SDV IVPUSH ONE (09:46)
[2017-11-06] MEDS ORDERED: Albuterol/Ipratropium 3.0-0.5 MG/3 ML Neb Soln NEB ONE (09:46)
[2017-11-06] MEDS ORDERED: Piperacillin/Tazobactam 4.5 GM in Sodium Chloride 0.9% 100 ML IV ONE (10:57)
--- NOTE | 2017-11-06 10:57 | EDM.PDOC ---
ED HPI GENERAL MEDICAL PROBLEM - General Chief Complaint: Respiratory Problem Stated Complaint: [facility] Time Seen by Provider: 11/06/17 09:16 Source of Information: Reports: Patient, Family History Limitations: Reports: No Limitations - History of Present Illness INITIAL COMMENTS - FREE TEXT/NARRATIVE: The patient is a 77-year-old male with a history of COPD, prior CVA, recent admission for pneumonia, who was discharged yesterday, who presents with generalized weakness, altered mental status, and difficulty breathing. Patient is here now with his and daughter. They state that he was doing okay yesterday. He was able to move about the house and eat something for dinner. He did not use oxygen during the night. This morning he was confused and weak and dizzy and I wasn't able to get out of bed. He'll seem to be having some difficulty breathing. By the time EMS arrived he was on 2 L nasal cannula but his oxygen saturations were only 79% on supplemental oxygen. Family states that he did take his morning medications but then vomited 3 times. Patient is confused and not able to provide much history. He is able to tell me his name and answer basic questions but he doesn't really provide information which limits the history. He was given a nebulizer treatment by EMS en route. Abdominal Pain Score (Numeric/FACES): 2 - Related Data Allergies Allergy/AdvReac Type Severity Reaction Status Date / Time adhesive Allergy Intermediate thin skin, Verified 11/06/17 09:20 tears and bruising Home Meds: Home Meds Calcitonin,Bynum,Synthetic [Calcitonin-Bynum] 200 unit MARILIN DAILY 09/06/14 [ History] Fluticasone Propionate [Flonase] 2 spray MARILIN DAILY 09/06/14 [History] predniSONE [Prednisone] 10 mg PO DAILY 09/06/14 [History] Cholecalciferol (Vitamin D3) [Vitamin D3] 2,000 unit PO DAILY 07/22/15 [History] Sennosides/Docusate Sodium [Senna-Docusate Sodium] 1 tab PO BID 07/22/15 [ History] Acetaminophen [Tylenol] 650 mg PO Q4H PRN #0 tablet 03/01/16 [Rx] Doxazosin [Cardura] 4 mg PO DAILY 05/28/17 [History] Triamcinolone Acetonide [Triamcinolone Acetonide 0.5%] 15 gm TOP BID PRN [History] Zinc Gluconate [Elemental Zinc] 30 mg PO DAILY 05/28/17 [History] Apixaban [Eliquis] 5 mg PO BID 06/15/17 [History] Glimepiride [Amaryl] 2 mg PO DAILY 06/15/17 [History] Melatonin 6 mg PO BEDTIME 06/15/17 [History] Metoprolol Tartrate 50 mg PO BID 06/15/17 [History] Omeprazole 20 mg PO DAILY 06/15/17 [History] Rosuvastatin [Crestor] 5 mg PO BEDTIME 06/15/17 [History] Acetaminophen/HYDROcodone [[place] 325-5 MG] 1 tab PO TID 07/27/17 [History] Magnesium Oxide 400 mg PO DAILY 07/27/17 [History] Multivitamin with Minerals [Multiple Vitamin] 1 tab PO DAILY 07/27/17 [History] Nicotine Polacrilex [Nicotine Lozenge] 4 mg BC Q2H PRN 07/27/17 [History] Potassium Chloride 10 meq PO DAILY 07/27/17 [History] Nicotine [Habitrol] 21 mg TRDERM DAILY #30 patch 07/31/17 [Rx] Amoxicillin/Potassium Clav [Augmentin 500-125 Tablet] 1 each PO BID #14 tablet 11/05/17 [Rx] Bifidobacter. Bifidum/B.Longum [Florajen Bifidoblend] 460 mg PO DAILY #30 capsule 11/05/17 [Rx] Past Medical History HEENT History: Reports: Hard of Hearing, Other (See Below) Other HEENT History: cerumen impaction, tinnitis, very [place] Cardiovascular History: Reports: Aneurysm, High Cholesterol, Hypertension, SOB on Exertion, Other (See Below) Other Cardiovascular History: AAA, tachycardia, SVT Respiratory History: Reports: SOB, Other (See Below) Other Respiratory History: hypoxia,Oxygen at home at night and sometimes during the day, cough Gastrointestinal History: Reports: Other (See Below) Other Gastrointestinal History: abdominal air of unknown origin, colon polyps Genitourinary History: Reports: BPH, Other (See Below) Other Genitourinary History: dysuria, nocturia, urgency Musculoskeletal History: Reports: Back Pain, Chronic, Osteoporosis, RA, Other ( See Below) Other Musculoskeletal History: fall and Lt hip fracture in April 2015. Wheelchair bound since then. Reports having old fractures in lumbar vertebrae. Neurological History: Reports: None, CVA, Neuropathy, Peripheral Other Neuro History: two mini strokes followed by a Massive Stroke in April - flown to [place] and intubated during stay. Psychiatric History: Reports: Depression Other Psychiatric History: delerium, confusion, insomnia Endocrine/Metabolic History: Reports: Diabetes, Type II Hematologic History: Reports: None Immunologic History: Reports: None Oncologic (Cancer) History: Reports: Lymphoma, Non-Hodgkin's Lymphoma Other Oncologic History: B-cell lymphoma. Patient has a implanted IV port Dermatologic History: Reports: None - Infectious Disease History Infectious Disease History: Reports: None - Past Surgical History Head Surgeries/Procedures: Reports: None Cardiovascular Surgical History: Reports: AAA Repair, Other (See Below) GI Surgical History: Reports: Appendectomy, Colonoscopy, Other (See Below) Musculoskeletal Surgical History: Reports: Other (See Below) Social & Family History - Family History Family Medical History: Noncontributory - Tobacco Use Smoking Status *Q: Never Smoker Years of Tobacco use: 25 Packs/Tins Daily: 1 Used Tobacco, but Quit: Yes Month Tobacco Last Used: 1985 Second Hand Smoke Exposure: No - Caffeine Use Caffeine Use: Reports: Coffee Other Caffeine Use: 4 cups/day - Alcohol Use Days Per Week of Alcohol Use: 0 - Recreational Drug Use Recreational Drug Use: No Drug Use in Last 12 Months: No Other Recreational Drug Type: Unknown- patient unresponsive - Living Situation & Occupation Living situation: Reports: , Extended Care Facility Occupation: Retired ED ROS GENERAL - Review of Systems Review Of Systems: See Below Constitutional: Reports: Malaise, Weakness, Fatigue. Denies: Fever HEENT: Reports: Vision Change Respiratory: Reports: Shortness of Breath, Cough Cardiovascular: Denies: Chest Pain Endocrine: Reports: Fatigue GI/Abdominal: Reports: Vomiting. Denies: Abdominal Pain : Reports: No Symptoms Musculoskeletal: Reports: No Symptoms Skin: Reports: No Symptoms Neurological: Reports: Confusion, Dizziness Psychiatric: Reports: No Symptoms Hematologic/Lymphatic: Reports: No Symptoms Immunologic: Reports: No Symptoms ED EXAM, GENERAL - Physical Exam Exam: See Below Exam Limited By: Altered Mental Status General Appearance: Alert, Lethargic, Other (Ill appearing) Eye Exam: Bilateral Eye: Normal Inspection, PERRL Ears: Normal External Exam Nose: Normal Inspection Throat/Mouth: Normal Voice, Other (Dry mucous membranes) Head: Atraumatic, Normocephalic Neck: Normal Inspection, Supple, Non-Tender Respiratory/Chest: Other (Bilateral rhonchi, prolonged expiration, mild tachypnea) Cardiovascular: Normal Peripheral Pulses, Regular Rate, Rhythm, No Murmur GI/Abdominal: Soft, Non-Tender, No Distention. No: Rebound Back Exam: Normal Inspection Extremities: Normal Inspection Neurological: Alert, Other (Answers some questions but is mildly confused, moves all extremities, no facial droop, pupils equal round and reactive) Skin Exam: Warm, Dry, Normal Color, No Rash Course - Vital Signs Last Recorded V/S: Last Vital Signs Temp 35.8 C 11/06/17 09:14 Pulse 78 11/06/17 19:12 Resp 16 11/06/17 19:12 BP 118/80 11/06/17 19:12 Pulse Ox 98 11/06/17 19:12 - Orders/Labs/Meds Orders: Active Orders 24 hr Category Date Time Status EKG 12 Lead [EKG Documentation Completion] [RC] STAT Care 11/06/17 09:28 Active Peripheral IV Care [RC] . DIRECTED Care 11/06/17 09:28 Active RT Aerosol Therapy [RC] ASDIRECTED Care 11/06/17 09:46 Active CULTURE BLOOD [BC] Stat Lab 11/06/17 09:50 Received CULTURE BLOOD [] Stat Lab 11/06/17 10:10 Received Sodium Chloride 0.9% [Saline Flush] Med 11/06/17 09:28 Active 10 ml FLUSH ASDIRECTED PRN Blood Culture x2 Reflex Set [OM.PC] Stat Oth 11/06/17 09:28 Ordered Peripheral IV Insertion Adult [OM.PC] Routine Oth 11/06/17 09:28 Ordered Medication Orders Sodium Chloride (Saline Flush) 10 ml FLUSH ASDIRECTED PRN PRN Reason: Keep Vein Open Last Admin: 11/06/17 09:39 Dose: 10 ml Labs: Laboratory Tests 11/06/17 11/06/17 11/06/17 Range/Units 09:50 09:50 09:50 WBC 7.06 (4.23-9.07) K/mm3 RBC 4.82 (4.63-6.08) M/mm3 Hgb 13.0 L (13.7-17.5) gm/L Hct 41.6 (40.1-51.0) % MCV 86.3 (79.0-92.2) fl MCH 27.0 (25.7-32.2) pg MCHC 31.3 L (32.2-35.5) g/dl RDW Std Deviation 50.7 H (35.1-43.9) fL Plt Count 84 L (163-337) K/mm3 MPV 11.4 (9.4-12.3) fl Neut % (Auto) 72.7 H (34.0-67.9) % Lymph % (Auto) 16.6 L (21.8-53.1) % [place] % (Auto) 8.6 (5.3-12.2) % Eos % (Auto) 0.4 L (0.8-7.0) Baso % (Auto) 0.3 (0.1-1.2) % Neut # (Auto) 5.13 (1.78-5.38) K/mm3 Lymph # (Auto) 1.17 L (1.32-3.57) K/mm3 [place] # (Auto) 0.61 (0.30-0.82) K/mm3 Eos # (Auto) 0.03 L (0.04-0.54) K/mm3 Baso # (Auto) 0.02 (0.01-0.08) K/mm3 Manual Slide Review Abnormal smear VBG pH (7.30-7.40) VBG pCO2 (41-51) mmHg VBG pO2 (40-80) mmHG VBG HCO3 (22-26) meq/L VBG O2 Saturation VBG Base Excess (-4.0-2.0) O2 Delivery Device Oxygen Flow Rate Sodium 142 (136-145) mEq/L Potassium 3.7 (3.5-5.1) mEq/L Chloride 105 (98-107) mEq/L Carbon Dioxide 26 (21-32) mEq/L Anion Gap 14.7 (5-15) BUN 16 (7-18) mg/dL Creatinine 0.9 (0.7-1.3) mg/dL Est Cr Clr Drug Dosing 67.65 mL/min Estimated GFR (MDRD) > 60 (>60) mL/min BUN/Creatinine Ratio 17.8 (14-18) Glucose 223 H (83-115) mg/dL Lactic Acid 1.5 (0.4-2.0) mmol/L Calcium 9.0 (8.5-10.1) mg/dL Magnesium (1.8-2.4) mg/dl Total Bilirubin 0.6 (0.2-1.0) mg/dL AST 20 (15-37) U/L ALT 25 (16-63) U/L Alkaline Phosphatase 54 (46-116) U/L Troponin I < 0.017 (0.00-0.056) ng/mL NT-Pro-B Natriuret Pep (0-450) pg/mL Total Protein 6.3 L (6.4-8.2) g/dl Albumin 3.2 L (3.4-5.0) g/dl Globulin 3.1 gm/dL Albumin/Globulin Ratio 1.0 (1-2) Urine Color (Yellow) Urine Appearance (Clear) Urine pH (5.0-8.0) Ur Specific [place] (1.005-1.030) Urine Protein (Negative) Urine Glucose (UA) (Negative) Urine Ketones (Negative) Urine Occult Blood (Negative) Urine Nitrite (Negative) Urine Bilirubin (Negative) Urine Urobilinogen (0.2-1.0) Ur Leukocyte Esterase (Negative) Urine RBC (0-5) /hpf Urine WBC (0-5) /hpf Ur Epithelial Cells (0-5) /hpf Urine Bacteria (FEW) /hpf Urine Mucus (FEW) /hpf 11/06/17 11/06/17 11/06/17 Range/Units 09:50 10:13 17:20 WBC (4.23-9.07) K/mm3 RBC (4.63-6.08) M/mm3 Hgb (13.7-17.5) gm/L Hct (40.1-51.0) % MCV (79.0-92.2) fl MCH (25.7-32.2) pg MCHC (32.2-35.5) g/dl RDW Std Deviation (35.1-43.9) fL Plt Count (163-337) K/mm3 MPV (9.4-12.3) fl Neut % (Auto) (34.0-67.9) % Lymph % (Auto) (21.8-53.1) % [place] % (Auto) (5.3-12.2) % Eos % (Auto) (0.8-7.0) Baso % (Auto) (0.1-1.2) % Neut # (Auto) (1.78-5.38) K/mm3 Lymph # (Auto) (1.32-3.57) K/mm3 [place] # (Auto) (0.30-0.82) K/mm3 Eos # (Auto) (0.04-0.54) K/mm3 Baso # (Auto) (0.01-0.08) K/mm3 Manual Slide Review VBG pH 7.39 (7.30-7.40) VBG pCO2 43.5 (41-51) mmHg VBG pO2 38.0 L (40-80) mmHG VBG HCO3 25.7 (22-26) meq/L VBG O2 Saturation 76.3 VBG Base Excess 0.9 (-4.0-2.0) O2 Delivery Device Nasal cannula Oxygen Flow Rate 2.0 Sodium (136-145) mEq/L Potassium (3.5-5.1) mEq/L Chloride (98-107) mEq/L Carbon Dioxide (21-32) mEq/L Anion Gap (5-15) BUN (7-18) mg/dL Creatinine (0.7-1.3) mg/dL Est Cr Clr Drug Dosing mL/min Estimated GFR (MDRD) (>60) mL/min BUN/Creatinine Ratio (14-18) Glucose (83-115) mg/dL Lactic Acid (0.4-2.0) mmol/L Calcium (8.5-10.1) mg/dL Magnesium 2.0 (1.8-2.4) mg/dl Total Bilirubin (0.2-1.0) mg/dL AST (15-37) U/L ALT (16-63) U/L Alkaline Phosphatase (46-116) U/L Troponin I (0.00-0.056) ng/mL NT-Pro-B Natriuret Pep 182 (0-450) pg/mL Total Protein (6.4-8.2) g/dl Albumin (3.4-5.0) g/dl Globulin gm/dL Albumin/Globulin Ratio (1-2) Urine Color Yellow (Yellow) Urine Appearance Clear (Clear) Urine pH 6.0 (5.0-8.0) Ur Specific [place] > or = 1.030 (1.005-1.030) Urine Protein Negative (Negative) Urine Glucose (UA) 2+ H (Negative) Urine Ketones 3+ H (Negative) Urine Occult Blood Negative (Negative) Urine Nitrite Negative (Negative) Urine Bilirubin Negative (Negative) Urine Urobilinogen 0.2 (0.2-1.0) Ur Leukocyte Esterase Negative (Negative) Urine RBC 0-5 (0-5) /hpf Urine WBC 0-5 (0-5) /hpf Ur Epithelial Cells 0-5 (0-5) /hpf Urine Bacteria Occasional (FEW) /hpf Urine Mucus Few (FEW) /hpf Meds: Medications Generic Name Dose Route Start Last Admin Trade Name Frefrancis PRN Reason Stop Dose Admin Sodium Chloride 10 ml 11/06/17 09:28 11/06/17 09:39 Saline Flush FLUSH 10 ml ASDIRECTED PRN Administration Keep Vein Open Discontinued Medications Generic Name Dose Route Start Last Admin Trade Name Frefrancis PRN Reason Stop Dose Admin Albuterol/Ipratropium 3 ml 11/06/17 09:46 11/06/17 10:01 Duoneb 3.0-0.5 Mg/3 Ml NEB 11/06/17 09:47 3 ml ONETIME ONE Administration Piperacillin Sod/Tazobactam 100 mls @ 200 mls/hr 11/06/17 10:57 11/06/17 11: 19 Sod 4.5 gm/ Sodium Chloride IV 11/06/17 11:26 200 mls/hr ONETIME ONE Administration Vancomycin HCl 1.5 gm/ Sodium 250 mls @ 250 mls/hr 11/06/17 10:57 11/06/17 12 :56 Chloride IV 11/06/17 11:56 Not Given ONETIME ONE Vancomycin HCl 1 gm/ 500 mls @ 250 mls/hr 11/06/17 12:15 11/06/17 12:48 Vancomycin HCl 500 mg/ Sodium IV 11/06/17 14:14 250 mls/hr Chloride ONETIME ONE Administration Methylprednisolone Sodium Succinate 125 mg 11/06/17 09:46 11/06/17 10:00 Solu-Medrol IVPUSH 11/06/17 09:47 125 mg ONETIME ONE Administration - Re-Assessments/Exams Free Text/Narrative Re-Assessment/Exam: 11/06/17 10:56 EKG shows normal sinus rhythm, T-wave flattening throughout the inferior leads, no significant ST abnormality. Chest x-ray shows normal cardiac silhouette, slightly increased density at the left base which could be atelectasis versus early pneumonia or evolution of his recent pneumonia. CT head is neg for acute pathology. Labs unremarkable, with normal CBC and chemistry. ABX initially broadened as I suspected his worsening condition could be due to HCAP. However , he has had normal vitals, no fever, and no SIRS criteria throughout his several hour ED stay. I suspect his hypoxia and increased work of breathing may be due to COPD exacerbation. Steroids given. Had extensive discussion with family. Patient is too weak to go home. He needs physical therapy/ inpatient rehab. Discussed with child welfare social worker who was unable to find him a bed for today. Given acute COPD exacerbation with increased O2 requirement in frail elderly patient will plan to admit. 11/06/17 15:[address] Kahn who agrees to admit the patient to [facility] for further care. 11/06/17 16:19 Departure - Departure Time of Disposition: 15:52 Disposition: Refer to Observation Clinical Impression: COPD exacerbation, Hypoxia Altered mental status Qualifiers: Altered mental status type: disorientation Qualified Code(s): R41.0 - Disorientation, unspecified - Discharge Information - My Orders Last 24 Hours: My Active Orders 11/06/17 09:28 EKG 12 Lead [EKG Documentation Completion] [RC] STAT Peripheral IV Care [RC] . DIRECTED Sodium Chloride 0.9% [Saline Flush] 10 ml FLUSH ASDIRECTED PRN Blood Culture x2 Reflex Set [OM.PC] Stat Peripheral IV Insertion Adult [OM.PC] Routine 11/06/17 09:46 RT Aerosol Therapy [RC] ASDIRECTED 11/06/17 09:50 CULTURE BLOOD [BC] Stat 11/06/17 10:10 CULTURE BLOOD [BC] Stat - Assessment/Plan Last 24 Hours: My Active Orders 11/06/17 09:28 EKG 12 Lead [EKG Documentation Completion] [RC] STAT Peripheral IV Care [RC] . DIRECTED Sodium Chloride 0.9% [Saline Flush] 10 ml FLUSH ASDIRECTED PRN Blood Culture x2 Reflex Set [OM.PC] Stat Peripheral IV Insertion Adult [OM.PC] Routine 11/06/17 09:46 RT Aerosol Therapy [RC] ASDIRECTED 11/06/17 09:50 CULTURE BLOOD [BC] Stat 11/06/17 10:10 CULTURE BLOOD [BC] Stat
--- NOTE | 2017-11-06 11:05 | CT ---
Head CT Technique: Multiple axial sections through the brain were obtained. Intravenous contrast was not utilized. Comparison: Prior head CT study of 10/31/17. Findings: Ventricles along with basal cisterns and sulci over the convexities are moderately prominent. Old infarct is again noted within the left cerebellar hemisphere. Minimal areas of diminished density are noted within the periventricular white matter compatible with slight small vessel ischemic demyelination change. No other abnormal parenchymal densities are seen. No evidence of intracranial hemorrhage. No midline shift or mass effect is seen. No acute calvarial abnormality is seen. Small retention cyst is again noted within the left ethmoid sinus. Other visualized sinuses are clear. Mild atherosclerotic calcification is seen within the carotid siphon. Impression: 1. Mild senescent change as noted above. No significant change from prior head CT exam is seen. Diagnostic code #2
--- NOTE | 2017-11-06 11:14 | CR ---
Chest: Portable view of the chest was obtained. Comparison: Previous chest x-ray of 11/05/17. Heart size and mediastinum are within normal limits for portable technique. Previous study showed a hiatal hernia which is not well seen on current exam. Lungs are clear. Infusion port is seen entering from the left side. Bony structures are grossly intact. Impression: 1. Incidental findings. Nothing acute is seen. Diagnostic code #2
[2017-11-06] MEDS ORDERED: Vancomycin 1 GM, Vancomycin 500 MG in Sodium Chloride 0.9% 500 ML IV ONE (12:15)
[2017-11-06] MEDS ORDERED: Nicotine Polacrilex 2 MG Gum CHEW PRN (19:29)
[2017-11-06] MEDS ORDERED: 50% Dextrose in Water 50 ML Syringe IVPUSH PRN (19:34)
[2017-11-06] MEDS ORDERED: Lactated Ringers 1,000 ML IV SCH (20:00)
[2017-11-06] MEDS ORDERED: Rosuvastatin 10 MG Tab PO SCH (22:30)
[2017-11-06] MEDS: Acetaminophen/HYDROcodone 325-5 MG Tab PO SCH ×2 (22:32→22:33)
[2017-11-06] MEDS: methylPREDNISolone Sodium Succinate 125 MG/2 ML SDV IVPUSH SCH (22:40)
[2017-11-06] MEDS: Metoprolol Tartrate 25 MG Tab PO SCH (22:45)
[2017-11-06] MEDS: Apixaban 5 MG Tab PO SCH (22:46)
[2017-11-06] MEDS: Insulin Aspart 100 Units/ML 3 ML Pen SUBCUT SCH (22:57)
[2017-11-07] MEDS ORDERED: Pantoprazole 40 MG Tab.CR PO SCH (06:00)
[2017-11-07] MEDS: methylPREDNISolone Sodium Succinate 125 MG/2 ML SDV IVPUSH SCH ×2 (06:16→12:07)
[2017-11-07] MEDS ORDERED: Glimepiride 2 MG Tab PO SCH (07:00)
[2017-11-07] MEDS ORDERED: Doxazosin 4 MG Tab PO SCH (09:00)
[2017-11-07] MEDS ORDERED: Non-Formulary Medication 1 Each (Omeprazole 20 MG) PO SCH (09:00)
[2017-11-07] MEDS ORDERED: Saccharomyces Boulardii (Probiotic) 250 MG Cap PO SCH (09:00)
[2017-11-07] MEDS ORDERED: Nicotine 21 MG/24 Hr Patch TRDERM SCH (09:00)
[2017-11-07] MEDS ORDERED: CALCITONIN NAS SCH (09:00)
[2017-11-07 09:42] VITALS: BP 111/63
[2017-11-07] MEDS: Acetaminophen/HYDROcodone 325-5 MG Tab PO SCH ×2 (09:48→14:19)
[2017-11-07] MEDS: Metoprolol Tartrate 25 MG Tab PO SCH (09:49)
[2017-11-07] MEDS: Apixaban 5 MG Tab PO SCH (09:49)
[2017-11-07] MEDS: Insulin Aspart 100 Units/ML 3 ML Pen SUBCUT SCH ×2 (09:51→12:07)
--- NOTE | 2017-11-07 11:15 | PCM.PN ---
- General Info Date of Service: 11/07/17 - Patient Data Vitals - Most Recent: Last Vital Signs Temp 36.8 C 11/07/17 08:39 Pulse 83 11/07/17 09:49 Resp 18 11/07/17 08:39 BP 111/63 11/07/17 09:51 Pulse Ox 96 11/07/17 08:39 Weight - Most Recent: 75.977 kg I&O - Last 24 Hours: Intake & Output 11/06/17 11/07/17 11/07/17 22:59 06:59 14:59 Intake Total 670 220 Balance 670 220 Lab Results Last 24 Hours: Laboratory Results - last 24 hr 11/06/17 11/07/17 11/07/17 Range/Units 22:52 06:38 10:30 WBC 8.11 (4.23-9.07) K/mm3 RBC 4.28 L (4.63-6.08) M/mm3 Hgb 11.6 L (13.7-17.5) gm/L Hct 36.9 L (40.1-51.0) % MCV 86.2 (79.0-92.2) fl MCH 27.1 (25.7-32.2) pg MCHC 31.4 L (32.2-35.5) g/dl RDW Std Deviation 49.6 H (35.1-43.9) fL Plt Count 107 L (163-337) K/mm3 MPV 11.9 (9.4-12.3) fl Neut % (Auto) 83.6 H (34.0-67.9) % Lymph % (Auto) 11.2 L (21.8-53.1) % Nolan % (Auto) 3.9 L (5.3-12.2) % Eos % (Auto) 0 L (0.8-7.0) Baso % (Auto) 0.1 (0.1-1.2) % Neut # (Auto) 6.77 H (1.78-5.38) K/mm3 Lymph # (Auto) 0.91 L (1.32-3.57) K/mm3 Nolan # (Auto) 0.32 (0.30-0.82) K/mm3 Eos # (Auto) 0.00 L (0.04-0.54) K/mm3 Baso # (Auto) 0.01 (0.01-0.08) K/mm3 Sodium (136-145) mEq/L Potassium (3.5-5.1) mEq/L Chloride (98-107) mEq/L Carbon Dioxide (21-32) mEq/L Anion Gap (5-15) BUN (7-18) mg/dL Creatinine (0.7-1.3) mg/dL Est Cr Clr Drug Dosing mL/min Estimated GFR (MDRD) (>60) mL/min BUN/Creatinine Ratio (14-18) Glucose (83-115) mg/dL POC Glucose 191 H 188 H (83-110) mg/dL Calcium (8.5-10.1) mg/dL Magnesium (1.8-2.4) mg/dl Troponin I (0.00-0.056) ng/mL C-Reactive Protein (<1.0) mg/dL 11/07/17 Range/Units 10:30 WBC (4.23-9.07) K/mm3 RBC (4.63-6.08) M/mm3 Hgb (13.7-17.5) gm/L Hct (40.1-51.0) % MCV (79.0-92.2) fl MCH (25.7-32.2) pg MCHC (32.2-35.5) g/dl RDW Std Deviation (35.1-43.9) fL Plt Count (163-337) K/mm3 MPV (9.4-12.3) fl Neut % (Auto) (34.0-67.9) % Lymph % (Auto) (21.8-53.1) % Nolan % (Auto) (5.3-12.2) % Eos % (Auto) (0.8-7.0) Baso % (Auto) (0.1-1.2) % Neut # (Auto) (1.78-5.38) K/mm3 Lymph # (Auto) (1.32-3.57) K/mm3 Nolan # (Auto) (0.30-0.82) K/mm3 Eos # (Auto) (0.04-0.54) K/mm3 Baso # (Auto) (0.01-0.08) K/mm3 Sodium 142 (136-145) mEq/L Potassium 4.0 (3.5-5.1) mEq/L Chloride 107 (98-107) mEq/L Carbon Dioxide 26 (21-32) mEq/L Anion Gap 13.0 (5-15) BUN 19 H (7-18) mg/dL Creatinine 0.8 (0.7-1.3) mg/dL Est Cr Clr Drug Dosing 76.10 mL/min Estimated GFR (MDRD) > 60 (>60) mL/min BUN/Creatinine Ratio 23.8 H (14-18) Glucose 235 H (83-115) mg/dL POC Glucose (83-110) mg/dL Calcium 8.9 (8.5-10.1) mg/dL Magnesium 2.0 (1.8-2.4) mg/dl Troponin I 0.021 (0.00-0.056) ng/mL C-Reactive Protein 2.2 H* (<1.0) mg/dL Med Orders - Current: Current Medications Hydrocodone Bitart/Acetaminophen ([place] 325-5 Mg) 1 tab PO TID [facility] Last Admin: 11/07/17 09:48 Dose: 1 tab Apixaban (Eliquis) 5 mg PO BID [facility] Last Admin: 11/07/17 09:49 Dose: 5 mg Dextrose/Water (Dextrose 50% In Water) 50 ml IVPUSH ASDIRECTED PRN PRN Reason: Hypoglycemia Doxazosin Mesylate (Cardura) 4 mg PO DAILY [facility] Last Admin: 11/07/17 09:51 Dose: Not Given Flunisolide (Nasalide Nasal [place]) 0 ml MARILIN BID [facility] Last Admin: 11/07/17 09:47 Dose: 1 inhalation Glimepiride (Amaryl) 2 mg PO DAILY@0700 [facility] Last Admin: 11/07/17 09:52 Dose: 2 mg Lactated Ringer's (Ringers, Lactated) 1,000 mls @ 125 mls/hr IV ASDIRECTED [facility] Last Admin: 11/06/17 23:03 Dose: 125 mls/hr Insulin Aspart (Novolog) 0 unit SUBCUT QIDACANDBED [facility] PRN Reason: Protocol Last Admin: 11/07/17 09:51 Dose: 2 units Methylprednisolone Sodium Succinate (Solu-Medrol) 125 mg IVPUSH Q6H [facility] Last Admin: 11/07/17 06:16 Dose: 125 mg Metoprolol Tartrate (Lopressor) 50 mg PO BID [facility] Last Admin: 11/07/17 09:49 Dose: 50 mg Miscellaneous Information (Remove Patch) 1 ea TRDERM DAILY [facility] Nicotine (Habitrol) 21 mg TRDERM DAILY [facility] Last Admin: 11/07/17 09:50 Dose: 21 mg Nicotine Polacrilex (Nicorelief) 4 mg CHEW Q2H PRN PRN Reason: Other Pantoprazole Sodium (Protonix) 40 mg PO ACBREAKFAST [facility] Last Admin: 11/07/17 06:15 Dose: 40 mg Calcitonin ([place]) 200 Unit) Nasal [place] 0 each MARILIN DAILY [facility] Last Admin: 11/07/17 09:52 Dose: Not Given Rosuvastatin Calcium (Crestor) 5 mg PO BEDTIME [facility] Last Admin: 11/06/17 22:44 Dose: 5 mg Saccharomyces Boulardii (Florastor) 250 mg PO DAILY [facility] Last Admin: 11/07/17 09:48 Dose: 250 mg Sodium Chloride (Saline Flush) 10 ml FLUSH ASDIRECTED PRN PRN Reason: Keep Vein Open Last Admin: 11/06/17 09:39 Dose: 10 ml Discontinued Medications Albuterol/Ipratropium (Duoneb 3.0-0.5 Mg/3 Ml) 3 ml NEB ONETIME ONE Stop: 11/06/17 09:47 Last Admin: 11/06/17 10:01 Dose: 3 ml Piperacillin Sod/Tazobactam (Sod 4.5 gm/ Sodium Chloride) 100 mls @ 200 mls/hr IV ONETIME ONE Stop: 11/06/17 11:26 Last Admin: 11/06/17 11:19 Dose: 200 mls/hr Vancomycin HCl 1.5 gm/ Sodium (Chloride) 250 mls @ 250 mls/hr IV ONETIME ONE Stop: 11/06/17 11:56 Last Admin: 11/06/17 12:56 Dose: Not Given Vancomycin HCl 1 gm/Vancomycin HCl 500 mg/ Sodium Chloride 500 mls @ 250 mls/ hr IV ONETIME ONE Stop: 11/06/17 14:14 Last Admin: 11/06/17 12:48 Dose: 250 mls/hr Methylprednisolone Sodium Succinate (Solu-Medrol) 125 mg IVPUSH ONETIME ONE Stop: 11/06/17 09:47 Last Admin: 11/06/17 10:00 Dose: 125 mg Non-Formulary Medication (Omeprazole) 20 mg PO DAILY [facility] - My Orders Last 24 Hours: My Active Orders 11/06/17 18:45 Patient Status [ADT] Routine 11/06/17 19:23 Vital Signs [RC] Q4HR 11/06/17 19:24 Neuro Check [RC] BID Swallow Screen [Nursing Bedside Swallow Screen] [RC] ASDIRECTED 11/06/17 19:29 Nicotine Polacrilex [Nicorelief] 4 mg CHEW Q2H PRN 11/06/17 19:34 Blood Glucose Check, Bedside [RC] QIDACANDBED Dextrose 50% in Water 50 ml IVPUSH ASDIRECTED PRN 11/06/17 19:35 Consult to Physical Therapy [PT Evaluation and Treatment] [CONS] Routine Consult to Poultry Field Service Technician [CONS] Routine 11/06/17 19:36 Consult to Occupational Therapy [OT Evaluation and Treatment] [CONS] Routine 11/06/17 19:37 INFLUENZA A+B AG SCREEN [RM] Routine 11/06/17 19:44 Activity as Tolerated [RC] .Routine 11/06/17 19:45 Aspiration Precautions [RC] ASDIRECTED 11/06/17 20:00 Lactated Ringers [Ringers, Lactated] 1,000 ml IV ASDIRECTED 11/06/17 21:00 Acetaminophen/HYDROcodone [[place] 325-5 MG] 1 tab PO TID 11/06/17 22:00 Oxygen Therapy Adult [Oxygen Therapy] [RC] ASDIRECTED Insulin Aspart [NovoLOG] See Protocol SUBCUT QIDACANDBED 11/06/17 22:30 Apixaban [Eliquis] 5 mg PO BID Metoprolol Tartrate [Lopressor] 50 mg PO BID Rosuvastatin [Crestor] 5 mg PO BEDTIME 11/06/17 22:45 Flunisolide [Nasalide Nasal [place]] 0 ml MARILIN BID 11/06/17 23:00 methylPREDNISolone Sod Succ [Solu-MEDROL] 125 mg IVPUSH Q6H 11/06/17 23:07 Resuscitation Status Routine 11/06/17 Dinner Clear Liquid Diet [DIET] 11/07/17 06:00 Pantoprazole [ProTONIX] 40 mg PO ACBREAKFAST 11/07/17 07:00 Glimepiride [Amaryl] 2 mg PO DAILY@0700 11/07/17 09:00 Doxazosin [Cardura] 4 mg PO DAILY Nicotine [Habitrol] 21 mg TRDERM DAILY Patient's Own Medication [Ptom] 0 each MARILIN DAILY Saccharomyces Boulardii [Florastor] 250 mg PO DAILY 11/08/17 05:00 BMP [BASIC METABOLIC PANEL,BMP] [CHEM] DAILY CBC WITH AUTO DIFF [HEME] DAILY CRP [C-REACTIVE PROTEIN] [CHEM] DAILY MAGNESIUM [CHEM] DAILY 11/08/17 09:00 Remove Patch 1 ea TRDERM DAILY 11/09/17 05:00 BMP [BASIC METABOLIC PANEL,BMP] [CHEM] DAILY CBC WITH AUTO DIFF [HEME] DAILY CRP [C-REACTIVE PROTEIN] [CHEM] DAILY MAGNESIUM [CHEM] DAILY 11/10/17 05:00 BMP [BASIC METABOLIC PANEL,BMP] [CHEM] DAILY CBC WITH AUTO DIFF [HEME] DAILY CRP [C-REACTIVE PROTEIN] [CHEM] DAILY MAGNESIUM [CHEM] DAILY
--- NOTE | 2017-11-07 11:15 | PCM.HP ---
H&P History of Present Illness - General Date of Service: 11/06/17 Admit Problem/Dx: Admission Diagnosis/Problem Admission Diagnosis/Problem COPD, Moderate chronic obstructive pulmonary disease Source of Information: Family, Provider History Limitations: Reports: No Limitations - History of Present Illness Initial Comments - Free Text/Narative: 77 year old male abruptly had a change in activity level and mental status was hypoxic when picked up by the EMS service. He was unable to provide the history , this was supplied by his and a family member. The patient had just be discharged less than 48 hours ago. He was treated at that time for pneumonia. On the day of admission he is dizzy and confused. This apparently is an abrupt change in status, he had had an uneventful first day at home after DC.. He has been having AYAD, and a subsequent need for oxygen. Normal use is at night, prior to the arrival of EMS, O2 had been applied, 2 l/min with minimal improvement in mental status. The patient will be treated for hypoxia/COPD exacerbation. Onset of Symptoms: Reports: Sudden Duration of Symptoms: Reports: Hour(s):, Getting Worse Location: Reports: Generalized Quality: Reports: Same as Previous Episode Severity: Moderate Improves with: Reports: Medication Worsens with: Reports: None Associated Symptoms: Reports: Confusion, Weakness Abdominal Pain Score (Numeric/FACES): 2 - Related Data Allergies/Adverse Reactions: Allergies Allergy/AdvReac Type Severity Reaction Status Date / Time adhesive Allergy Intermediate thin skin, Verified 11/06/17 09:20 tears and bruising Home Medications: Home Meds Calcitonin,[place],Synthetic [Calcitonin-[place]] 200 unit MARILIN DAILY 09/06/14 [ History] Fluticasone Propionate [Flonase] 2 spray MARILIN DAILY 09/06/14 [History] Cholecalciferol (Vitamin D3) [Vitamin D3] 2,000 unit PO DAILY 07/22/15 [History] Acetaminophen [Tylenol] 650 mg PO Q4H PRN #100 tablet 11/07/17 [Rx] Acetaminophen/HYDROcodone [[place] 325-5 MG] 1 tab PO TID #60 tablet 11/07/17 [Rx] Amoxicillin/Potassium Clav [Augmentin 500-125 Tablet] 1 each PO BID #14 tablet 11/07/17 [Rx] Apixaban [Eliquis] 5 mg PO BID #60 tablet 11/07/17 [Rx] Bifidobacter. Bifidum/B.Longum [Florajen Bifidoblend] 460 mg PO DAILY #30 capsule 11/07/17 [Rx] Doxazosin [Cardura] 4 mg PO DAILY #30 tablet 11/07/17 [Rx] Glimepiride [Amaryl] 2 mg PO DAILY #30 tablet 11/07/17 [Rx] Magnesium Oxide 400 mg PO DAILY #30 tablet 11/07/17 [Rx] Melatonin 6 mg PO BEDTIME #30 tablet 11/07/17 [Rx] Metoprolol Tartrate 50 mg PO BID #60 tablet 11/07/17 [Rx] Multivitamin with Minerals [Multiple Vitamin] 1 tab PO DAILY #30 tablet [Rx] Nicotine Polacrilex [Nicotine Lozenge] 4 mg BC Q2H PRN #30 lozenge 11/07/17 [Rx] Nicotine [Habitrol] 21 mg TRDERM DAILY #30 patch 11/07/17 [Rx] Omeprazole 20 mg PO DAILY #30 cap.cr 11/07/17 [Rx] Potassium Chloride 10 meq PO DAILY #30 capsule.er 11/07/17 [Rx] Rosuvastatin [Crestor] 5 mg PO BEDTIME #15 tablet 11/07/17 [Rx] Sennosides/Docusate Sodium [Senna-Docusate Sodium] 1 tab PO BID #60 tablet 11/07 [Rx] Triamcinolone Acetonide [Triamcinolone Acetonide 0.5%] 15 gm TOP BID PRN #3 tube 11/07/17 [Rx] Zinc Gluconate [Elemental Zinc] 30 mg PO DAILY #30 tablet 11/07/17 [Rx] predniSONE [Prednisone] 10 mg PO DAILY #30 tablet 11/07/17 [Rx] Past Medical History HEENT History: Reports: Hard of Hearing, Other (See Below) Other HEENT History: cerumen impaction, tinnitis, very [place] Cardiovascular History: Reports: Aneurysm, High Cholesterol, Hypertension, SOB on Exertion, Other (See Below) Other Cardiovascular History: AAA, tachycardia, SVT Respiratory History: Reports: SOB, Other (See Below) Other Respiratory History: hypoxia,Oxygen at home at night and sometimes during the day, cough Gastrointestinal History: Reports: Other (See Below) Other Gastrointestinal History: abdominal air of unknown origin, colon polyps Genitourinary History: Reports: BPH, Other (See Below) Other Genitourinary History: dysuria, nocturia, urgency Musculoskeletal History: Reports: Back Pain, Chronic, Osteoporosis, RA, Other ( See Below) Other Musculoskeletal History: fall and Lt hip fracture in April 2015. Wheelchair bound since then. Reports having old fractures in lumbar vertebrae. Neurological History: Reports: None, CVA, Neuropathy, Peripheral Other Neuro History: two mini strokes followed by a Massive Stroke in April - flown to [place] and intubated during stay. Psychiatric History: Reports: Depression Other Psychiatric History: delerium, confusion, insomnia Endocrine/Metabolic History: Reports: Diabetes, Type II Hematologic History: Reports: None Immunologic History: Reports: None Oncologic (Cancer) History: Reports: Lymphoma, Non-Hodgkin's Lymphoma Other Oncologic History: B-cell lymphoma. Patient has a implanted IV port Dermatologic History: Reports: None - Infectious Disease History Infectious Disease History: Reports: None - Past Surgical History Head Surgeries/Procedures: Reports: None Cardiovascular Surgical History: Reports: AAA Repair, Other (See Below) GI Surgical History: Reports: Appendectomy, Colonoscopy, Other (See Below) Musculoskeletal Surgical History: Reports: Other (See Below) Social & Family History - Family History Family Medical History: Noncontributory - Tobacco Use Smoking Status *Q: Former Smoker Years of Tobacco use: 22 Packs/Tins Daily: 3 Used Tobacco, but Quit: Yes Month Tobacco Last Used: 11/1985 Second Hand Smoke Exposure: No - Caffeine Use Caffeine Use: Reports: None Other Caffeine Use: 4 cups/day - Alcohol Use Days Per Week of Alcohol Use: 0 - Recreational Drug Use Recreational Drug Use: No Drug Use in Last 12 Months: No Other Recreational Drug Type: Unknown- patient unresponsive - Living Situation & Occupation Living situation: Reports: , Extended Care Facility Occupation: Retired H&P Review of Systems - Review of Systems: Review Of Systems: See Below General: Reports: Malaise, Weakness, Fatigue, Decreased Appetite HEENT: Reports: No Symptoms Pulmonary: Reports: Shortness of Breath, Wheezing, Cough, Sputum Cardiovascular: Reports: No Symptoms Gastrointestinal: Reports: No Symptoms Genitourinary: Reports: No Symptoms Musculoskeletal: Reports: No Symptoms Skin: Reports: No Symptoms Psychiatric: Reports: No Symptoms Neurological: Reports: Confusion Hematologic/Lymphatic: Reports: No Symptoms Immunologic: Reports: No Symptoms Exam - Exam Exam: See Below - Vital Signs Vital Signs: Last Vital Signs Temp 36.8 C 11/07/17 08:39 Pulse 83 11/07/17 09:49 Resp 18 11/07/17 08:39 BP 111/63 11/07/17 09:51 Pulse Ox 96 11/07/17 08:39 Weight: 75.977 kg - Exam Quality Assessment: Supplemental Oxygen, Urinary Catheter, DVT Prophylaxis General: Oriented, Cooperative HEENT: Nares Patent, Normal Nasal Septum, Pupils Equal, Pupils Reactive, PERRLA Neck: Trachea Midline Lungs: Normal Respiratory Effort, Decreased Breath Sounds, Wheezing Cardiovascular: Regular Rhythm, Tachycardia GI/Abdominal Exam: Normal Bowel Sounds, Soft (Male) Exam: Deferred Rectal (Males) Exam: Normal Exam, Deferred Back Exam: Full Range of Motion Extremities: Normal Inspection, Non-Tender, Pedal Edema Skin: Warm Neurological: Cranial Nerves Intact Neuro Extensive - Mental Status: Disorientation to Time Neuro Extensive - Motor, Sensory, Reflexes: CN II-XII Intact - Patient Data Lab Results Last 24 hrs: Laboratory Results - last 24 hr 11/06/17 11/07/17 11/07/17 Range/Units 22:52 06:38 10:30 WBC 8.11 (4.23-9.07) K/mm3 RBC 4.28 L (4.63-6.08) M/mm3 Hgb 11.6 L (13.7-17.5) gm/L Hct 36.9 L (40.1-51.0) % MCV 86.2 (79.0-92.2) fl MCH 27.1 (25.7-32.2) pg MCHC 31.4 L (32.2-35.5) g/dl RDW Std Deviation 49.6 H (35.1-43.9) fL Plt Count 107 L (163-337) K/mm3 MPV 11.9 (9.4-12.3) fl Neut % (Auto) 83.6 H (34.0-67.9) % Lymph % (Auto) 11.2 L (21.8-53.1) % Morgan % (Auto) 3.9 L (5.3-12.2) % Eos % (Auto) 0 L (0.8-7.0) Baso % (Auto) 0.1 (0.1-1.2) % Neut # (Auto) 6.77 H (1.78-5.38) K/mm3 Lymph # (Auto) 0.91 L (1.32-3.57) K/mm3 Morgan # (Auto) 0.32 (0.30-0.82) K/mm3 Eos # (Auto) 0.00 L (0.04-0.54) K/mm3 Baso # (Auto) 0.01 (0.01-0.08) K/mm3 Sodium (136-145) mEq/L Potassium (3.5-5.1) mEq/L Chloride (98-107) mEq/L Carbon Dioxide (21-32) mEq/L Anion Gap (5-15) BUN (7-18) mg/dL Creatinine (0.7-1.3) mg/dL Est Cr Clr Drug Dosing mL/min Estimated GFR (MDRD) (>60) mL/min BUN/Creatinine Ratio (14-18) Glucose (83-115) mg/dL POC Glucose 191 H 188 H (83-110) mg/dL Calcium (8.5-10.1) mg/dL Magnesium (1.8-2.4) mg/dl Troponin I (0.00-0.056) ng/mL C-Reactive Protein (<1.0) mg/dL 11/07/17 Range/Units 10:30 WBC (4.23-9.07) K/mm3 RBC (4.63-6.08) M/mm3 Hgb (13.7-17.5) gm/L Hct (40.1-51.0) % MCV (79.0-92.2) fl MCH (25.7-32.2) pg MCHC (32.2-35.5) g/dl RDW Std Deviation (35.1-43.9) fL Plt Count (163-337) K/mm3 MPV (9.4-12.3) fl Neut % (Auto) (34.0-67.9) % Lymph % (Auto) (21.8-53.1) % [place] % (Auto) (5.3-12.2) % Eos % (Auto) (0.8-7.0) Baso % (Auto) (0.1-1.2) % Neut # (Auto) (1.78-5.38) K/mm3 Lymph # (Auto) (1.32-3.57) K/mm3 [place] # (Auto) (0.30-0.82) K/mm3 Eos # (Auto) (0.04-0.54) K/mm3 Baso # (Auto) (0.01-0.08) K/mm3 Sodium 142 (136-145) mEq/L Potassium 4.0 (3.5-5.1) mEq/L Chloride 107 (98-107) mEq/L Carbon Dioxide 26 (21-32) mEq/L Anion Gap 13.0 (5-15) BUN 19 H (7-18) mg/dL Creatinine 0.8 (0.7-1.3) mg/dL Est Cr Clr Drug Dosing 76.10 mL/min Estimated GFR (MDRD) > 60 (>60) mL/min BUN/Creatinine Ratio 23.8 H (14-18) Glucose 235 H (83-115) mg/dL POC Glucose (83-110) mg/dL Calcium 8.9 (8.5-10.1) mg/dL Magnesium 2.0 (1.8-2.4) mg/dl Troponin I 0.021 (0.00-0.056) ng/mL C-Reactive Protein 2.2 H* (<1.0) mg/dL Result Diagrams: 11/07/17 10:30 11/07/17 10:30 *Q Meaningful Use (ADM) - VTE *Q VTE Criteria *Q: - Stroke *Q Stroke Criteria *Q: - AMI *Q AMI Criteria *Q: Problem List Initiated/Reviewed/Updated: Yes Orders Last 24hrs: Active Orders 24 hr Category Date Time Status Patient Status [ADT] Routine ADT 11/06/17 18:45 Active Activity as Tolerated [RC] .Routine Care 11/06/17 19:44 Active Aspiration Precautions [RC] ASDIRECTED Care 11/06/17 19:45 Active Blood Glucose Check, Bedside [RC] QIDACANDBED Care 11/06/17 19:34 Active Neuro Check [RC] BID Care 11/06/17 19:24 Active Oxygen Therapy Adult [Oxygen Therapy] [RC] ASDIRECTED Care 11/06/17 22:00 Active Swallow Screen [Nursing Bedside Swallow Screen] [RC] Care 11/06/17 19:24 Active ASDIRECTED Vital Signs [RC] Q4HR Care 11/06/17 19:23 Active Consult to Occupational Therapy [OT Evaluation and Cons 11/06/17 19:36 Active Treatment] [CONS] Routine Consult to Physical Therapy [PT Evaluation and Cons 11/06/17 19:35 Active Treatment] [CONS] Routine Consult to Humane Officer [CONS] Routine Cons 11/06/17 19:35 Active Clear Liquid Diet [DIET] Diet 11/06/17 Dinner Active BMP [BASIC METABOLIC PANEL,BMP] [CHEM] DAILY Lab 11/08/17 05:00 Ordered BMP [BASIC METABOLIC PANEL,BMP] [CHEM] DAILY Lab 11/09/17 05:00 Ordered BMP [BASIC METABOLIC PANEL,BMP] [CHEM] DAILY Lab 11/10/17 05:00 Ordered CBC WITH AUTO DIFF [HEME] DAILY Lab 11/08/17 05:00 Ordered CBC WITH AUTO DIFF [HEME] DAILY Lab 11/09/17 05:00 Ordered CBC WITH AUTO DIFF [HEME] DAILY Lab 11/10/17 05:00 Ordered CRP [C-REACTIVE PROTEIN] [CHEM] DAILY Lab 11/08/17 05:00 Ordered CRP [C-REACTIVE PROTEIN] [CHEM] DAILY Lab 11/09/17 05:00 Ordered CRP [C-REACTIVE PROTEIN] [CHEM] DAILY Lab 11/10/17 05:00 Ordered INFLUENZA A+B AG SCREEN [RM] Routine Lab 11/06/17 19:37 Uncollected MAGNESIUM [CHEM] DAILY Lab 11/08/17 05:00 Ordered MAGNESIUM [CHEM] DAILY Lab 11/09/17 05:00 Ordered MAGNESIUM [CHEM] DAILY Lab 11/10/17 05:00 Ordered Acetaminophen/HYDROcodone [[place] 325-5 MG] Med 11/06/17 21:00 Active 1 tab PO TID Apixaban [Eliquis] Med 11/06/17 22:30 Active 5 mg PO BID Dextrose 50% in Water Med 11/06/17 19:34 Active 50 ml IVPUSH ASDIRECTED PRN Doxazosin [Cardura] Med 11/07/17 09:00 Active 4 mg PO DAILY Flunisolide [Nasalide Nasal [place]] Med 11/06/17 22:45 Active 0 ml MARILIN BID Glimepiride [Amaryl] Med 11/07/17 07:00 Active 2 mg PO DAILY@0700 Insulin Aspart [NovoLOG] Med 11/06/17 22:00 Active See Protocol SUBCUT QIDACANDBED Lactated Ringers [Ringers, Lactated] 1,000 ml Med 11/06/17 20:00 Active IV ASDIRECTED Metoprolol Tartrate [Lopressor] Med 11/06/17 22:30 Active 50 mg PO BID Nicotine Polacrilex [Nicorelief] Med 11/06/17 19:29 Active 4 mg CHEW Q2H PRN Nicotine [Habitrol] Med 11/07/17 09:00 Active 21 mg TRDERM DAILY Pantoprazole [ProTONIX] Med 11/07/17 06:00 Active 40 mg PO ACBREAKFAST Patient's Own Medication [Ptom] Med 11/07/17 09:00 Active 0 each MARILIN DAILY Remove Patch Med 11/08/17 09:00 Active 1 ea TRDERM DAILY Rosuvastatin [Crestor] Med 11/06/17 22:30 Active 5 mg PO BEDTIME Saccharomyces Boulardii [Florastor] Med 11/07/17 09:00 Active 250 mg PO DAILY methylPREDNISolone Sod Succ [Solu-MEDROL] Med 11/06/17 23:00 Active 125 mg IVPUSH Q6H Resuscitation Status Routine Resus Stat 11/06/17 23:07 Ordered Medication Orders Hydrocodone Bitart/Acetaminophen ([place] 325-5 Mg) 1 tab PO TID [facility] Last Admin: 11/07/17 09:48 Dose: 1 tab Admin: 11/06/17 22:33 Dose: Admin: 11/06/17 22:32 Dose: 1 tab Apixaban (Eliquis) 5 mg PO BID [facility] Last Admin: 11/07/17 09:49 Dose: 5 mg Admin: 11/06/17 22:46 Dose: 5 mg Dextrose/Water (Dextrose 50% In Water) 50 ml IVPUSH ASDIRECTED PRN PRN Reason: Hypoglycemia Doxazosin Mesylate (Cardura) 4 mg PO DAILY [facility] Last Admin: 11/07/17 09:51 Dose: Flunisolide (Nasalide Nasal [place]) 0 ml MARILIN BID [facility] Last Admin: 11/07/17 09:47 Dose: 1 inhalation Admin: 11/06/17 22:43 Dose: 1 inhalation Glimepiride (Amaryl) 2 mg PO DAILY@0700 [facility] Last Admin: 11/07/17 09:52 Dose: 2 mg Lactated Ringer's (Ringers, Lactated) 1,000 mls @ 125 mls/hr IV ASDIRECTED [facility] Last Admin: 11/06/17 23:03 Dose: 125 mls/hr Insulin Aspart (Novolog) 0 unit SUBCUT QIDACANDBED [facility] PRN Reason: Protocol Last Admin: 11/07/17 09:51 Dose: 2 units Admin: 11/06/17 22:57 Dose: 2 units Methylprednisolone Sodium Succinate (Solu-Medrol) 125 mg IVPUSH Q6H [facility] Last Admin: 11/07/17 06:16 Dose: 125 mg Admin: 11/06/17 22:40 Dose: 125 mg Metoprolol Tartrate (Lopressor) 50 mg PO BID [facility] Last Admin: 11/07/17 09:49 Dose: 50 mg Admin: 11/06/17 22:45 Dose: 50 mg Miscellaneous Information (Remove Patch) 1 ea TRDERM DAILY [facility] Nicotine (Habitrol) 21 mg TRDERM DAILY [facility] Last Admin: 11/07/17 09:50 Dose: 21 mg Nicotine Polacrilex (Nicorelief) 4 mg CHEW Q2H PRN PRN Reason: Other Pantoprazole Sodium (Protonix) 40 mg PO ACBREAKFAST [facility] Last Admin: 11/07/17 06:15 Dose: 40 mg Calcitonin ([place]) 200 Unit) Nasal [place] 0 each MARILIN DAILY [facility] Last Admin: 11/07/17 09:52 Dose: Rosuvastatin Calcium (Crestor) 5 mg PO BEDTIME [facility] Last Admin: 11/06/17 22:44 Dose: 5 mg Saccharomyces Boulardii (Florastor) 250 mg PO DAILY [facility] Last Admin: 11/07/17 09:48 Dose: 250 mg Sodium Chloride (Saline Flush) 10 ml FLUSH ASDIRECTED PRN PRN Reason: Keep Vein Open Last Admin: 11/06/17 09:39 Dose: 10 ml Assessment/Plan Comment:: Impression: AMS Dehydration Query hypoxia Presumptive COPD exacerbation Recent PNA with complete IV ATB therapy Chronic HLD HTN CVA DM type 2 Hx of AAA Hx of Colon poyps Hx of NHL Plan: IV steroids O2 as needed IVF LR at 100 cc/hr Home meds Daily labs Disposition possible SNF, [place] DVT/GI prophylaxis
--- NOTE | 2017-11-07 13:32 | PCM.DCSUM1 ---
Discharge Summary - Hospital Course Free Text/Narrative:: 77 year old male presented with confusion, hypoxic was admitted to observation with telemetry. He was treated for acute exacerbation of COPD. Responding rapidly to IV steroids, no change in O2 requirements was noted. IVF resuscitation and electrolytes were also corrected. He was maintained on his previous oral antibiotics which were prescribed less than 48 hours before admission. The patient was also seen by Case Management and PT/OT. The patient and his with agreed to a short SNF for rehab. He will therefore be transferred to [place] via [place] service with O2 provided by [employer] after 1430 hour today. Primary Dx AMS Dehydration COPD exacerbation Electrolyte abnormalities Condition Stable Meds Home List PCP As previously arranged Diet ADA/Heart Healthy Activities As outlined by PT/OT, TBA at [place] - Discharge Data Discharge Date: 11/07/17 Discharge Disposition: DC/Tfer to SNF 03 Condition: Good - Patient Summary/Data Consults: Consultations 11/06/17 19:35 Consult to Physical Therapy [PT Evaluation and Treatment] [CONS] Routine Consult to Bottle Labeler [CONS] Routine 11/06/17 19:36 Consult to Occupational Therapy [OT Evaluation and Treatment] [CONS] Routine - Patient Instructions Diet: Heart Healthy Diet, Diabetic Diet Activity: As Tolerated Driving: Do Not Drive Showering/Bathing: May Shower Notify Provider of: Fever - Discharge Plan Prescriptions/Med Rec: Acetaminophen [Tylenol] 650 mg PO Q4H PRN #100 tablet PRN Reason: Pain Acetaminophen/HYDROcodone [Calvert 325-5 MG] 1 tab PO TID #60 tablet Amoxicillin/Potassium Clav [Augmentin 500-125 Tablet] 1 each PO BID #14 tablet Apixaban [Eliquis] 5 mg PO BID #60 tablet Bifidobacter. Bifidum/B.Longum [Florajen Bifidoblend] 460 mg PO DAILY #30 capsule Doxazosin [Cardura] 4 mg PO DAILY #30 tablet Glimepiride [Amaryl] 2 mg PO DAILY #30 tablet Magnesium Oxide 400 mg PO DAILY #30 tablet Melatonin 6 mg PO BEDTIME #30 tablet Metoprolol Tartrate 50 mg PO BID #60 tablet Multivitamin with Minerals [Multiple Vitamin] 1 tab PO DAILY #30 tablet Nicotine [Habitrol] 21 mg TRDERM DAILY #30 patch Nicotine Polacrilex [Nicotine Lozenge] 4 mg BC Q2H PRN #30 lozenge PRN Reason: nicotine withdrawal Omeprazole 20 mg PO DAILY #30 cap.cr Potassium Chloride 10 meq PO DAILY #30 capsule.er predniSONE [Prednisone] 10 mg PO DAILY #30 tablet Rosuvastatin [Crestor] 5 mg PO BEDTIME #15 tablet Sennosides/Docusate Sodium [Senna-Docusate Sodium] 1 tab PO BID #60 tablet Triamcinolone Acetonide [Triamcinolone Acetonide 0.5%] 15 gm TOP BID PRN #3 tube PRN Reason: Rash Zinc Gluconate [Elemental Zinc] 30 mg PO DAILY #30 tablet Home Medications: Home Meds Calcitonin,Pratts,Synthetic [Calcitonin-Pratts] 200 unit MARILIN DAILY 09/06/14 [ History] Fluticasone Propionate [Flonase] 2 spray MARILIN DAILY 09/06/14 [History] Cholecalciferol (Vitamin D3) [Vitamin D3] 2,000 unit PO DAILY 07/22/15 [History] Acetaminophen [Tylenol] 650 mg PO Q4H PRN #100 tablet 11/07/17 [Rx] Acetaminophen/HYDROcodone [Calvert 325-5 MG] 1 tab PO TID #60 tablet 11/07/17 [Rx] Amoxicillin/Potassium Clav [Augmentin 500-125 Tablet] 1 each PO BID #14 tablet 11/07/17 [Rx] Apixaban [Eliquis] 5 mg PO BID #60 tablet 11/07/17 [Rx] Bifidobacter. Bifidum/B.Longum [Florajen Bifidoblend] 460 mg PO DAILY #30 capsule 11/07/17 [Rx] Doxazosin [Cardura] 4 mg PO DAILY #30 tablet 11/07/17 [Rx] Glimepiride [Amaryl] 2 mg PO DAILY #30 tablet 11/07/17 [Rx] Magnesium Oxide 400 mg PO DAILY #30 tablet 11/07/17 [Rx] Melatonin 6 mg PO BEDTIME #30 tablet 11/07/17 [Rx] Metoprolol Tartrate 50 mg PO BID #60 tablet 11/07/17 [Rx] Multivitamin with Minerals [Multiple Vitamin] 1 tab PO DAILY #30 tablet [Rx] Nicotine Polacrilex [Nicotine Lozenge] 4 mg BC Q2H PRN #30 lozenge 11/07/17 [Rx] Nicotine [Habitrol] 21 mg TRDERM DAILY #30 patch 11/07/17 [Rx] Omeprazole 20 mg PO DAILY #30 cap.cr 11/07/17 [Rx] Potassium Chloride 10 meq PO DAILY #30 capsule.er 11/07/17 [Rx] Rosuvastatin [Crestor] 5 mg PO BEDTIME #15 tablet 11/07/17 [Rx] Sennosides/Docusate Sodium [Senna-Docusate Sodium] 1 tab PO BID #60 tablet 11/07 [Rx] Triamcinolone Acetonide [Triamcinolone Acetonide 0.5%] 15 gm TOP BID PRN #3 tube 11/07/17 [Rx] Zinc Gluconate [Elemental Zinc] 30 mg PO DAILY #30 tablet 11/07/17 [Rx] predniSONE [Prednisone] 10 mg PO DAILY #30 tablet 11/07/17 [Rx] Patient Handouts: Chronic Obstructive Pulmonary Disease Exacerbation, Easy-to- Read, Hypoxemia, Chronic Obstructive Pulmonary Disease, [id number] Referrals: Scottie Butler MD [Primary Care Provider] - - Discharge Summary/Plan Comment DC Time >30 min.: No - General Info Date of Service: 11/06/17 Functional Status: Reports: Tolerating Diet, Urinating - Review of Systems General: Reports: No Symptoms HEENT: Reports: No Symptoms Pulmonary: Reports: No Symptoms Cardiovascular: Reports: No Symptoms Gastrointestinal: Reports: No Symptoms Genitourinary: Reports: No Symptoms Musculoskeletal: Reports: No Symptoms Skin: Reports: No Symptoms Neurological: Reports: No Symptoms Psychiatric: Reports: No Symptoms - Patient Data Vitals - Most Recent: Last Vital Signs Temp 36.8 C 11/07/17 08:39 Pulse 83 11/07/17 09:49 Resp 18 11/07/17 08:39 BP 111/63 11/07/17 09:51 Pulse Ox 94 L 11/07/17 10:00 Weight - Most Recent: 75.977 kg I&O - Last 24 hours: Intake & Output 11/06/17 11/07/17 11/07/17 22:59 06:59 14:59 Intake Total 670 220 Balance 670 220 Lab Results - Last 24 hrs: Laboratory Results - last 24 hr 11/06/17 11/07/17 11/07/17 Range/Units 22:52 06:38 10:30 WBC 8.11 (4.23-9.07) K/mm3 RBC 4.28 L (4.63-6.08) M/mm3 Hgb 11.6 L (13.7-17.5) gm/L Hct 36.9 L (40.1-51.0) % MCV 86.2 (79.0-92.2) fl MCH 27.1 (25.7-32.2) pg MCHC 31.4 L (32.2-35.5) g/dl RDW Std Deviation 49.6 H (35.1-43.9) fL Plt Count 107 L (163-337) K/mm3 MPV 11.9 (9.4-12.3) fl Neut % (Auto) 83.6 H (34.0-67.9) % Lymph % (Auto) 11.2 L (21.8-53.1) % [place] % (Auto) 3.9 L (5.3-12.2) % Eos % (Auto) 0 L (0.8-7.0) Baso % (Auto) 0.1 (0.1-1.2) % Neut # (Auto) 6.77 H (1.78-5.38) K/mm3 Lymph # (Auto) 0.91 L (1.32-3.57) K/mm3 [place] # (Auto) 0.32 (0.30-0.82) K/mm3 Eos # (Auto) 0.00 L (0.04-0.54) K/mm3 Baso # (Auto) 0.01 (0.01-0.08) K/mm3 Sodium (136-145) mEq/L Potassium (3.5-5.1) mEq/L Chloride (98-107) mEq/L Carbon Dioxide (21-32) mEq/L Anion Gap (5-15) BUN (7-18) mg/dL Creatinine (0.7-1.3) mg/dL Est Cr Clr Drug Dosing mL/min Estimated GFR (MDRD) (>60) mL/min BUN/Creatinine Ratio (14-18) Glucose (83-115) mg/dL POC Glucose 191 H 188 H (83-110) mg/dL Calcium (8.5-10.1) mg/dL Magnesium (1.8-2.4) mg/dl Troponin I (0.00-0.056) ng/mL C-Reactive Protein (<1.0) mg/dL 11/07/17 Range/Units 10:30 WBC (4.23-9.07) K/mm3 RBC (4.63-6.08) M/mm3 Hgb (13.7-17.5) gm/L Hct (40.1-51.0) % MCV (79.0-92.2) fl MCH (25.7-32.2) pg MCHC (32.2-35.5) g/dl RDW Std Deviation (35.1-43.9) fL Plt Count (163-337) K/mm3 MPV (9.4-12.3) fl Neut % (Auto) (34.0-67.9) % Lymph % (Auto) (21.8-53.1) % [place] % (Auto) (5.3-12.2) % Eos % (Auto) (0.8-7.0) Baso % (Auto) (0.1-1.2) % Neut # (Auto) (1.78-5.38) K/mm3 Lymph # (Auto) (1.32-3.57) K/mm3 [place] # (Auto) (0.30-0.82) K/mm3 Eos # (Auto) (0.04-0.54) K/mm3 Baso # (Auto) (0.01-0.08) K/mm3 Sodium 142 (136-145) mEq/L Potassium 4.0 (3.5-5.1) mEq/L Chloride 107 (98-107) mEq/L Carbon Dioxide 26 (21-32) mEq/L Anion Gap 13.0 (5-15) BUN 19 H (7-18) mg/dL Creatinine 0.8 (0.7-1.3) mg/dL Est Cr Clr Drug Dosing 76.10 mL/min Estimated GFR (MDRD) > 60 (>60) mL/min BUN/Creatinine Ratio 23.8 H (14-18) Glucose 235 H (83-115) mg/dL POC Glucose (83-110) mg/dL Calcium 8.9 (8.5-10.1) mg/dL Magnesium 2.0 (1.8-2.4) mg/dl Troponin I 0.021 (0.00-0.056) ng/mL C-Reactive Protein 2.2 H* (<1.0) mg/dL Med Orders - Current: Current Medications Hydrocodone Bitart/Acetaminophen (Calvert 325-5 Mg) 1 tab PO TID [facility] Last Admin: 11/07/17 09:48 Dose: 1 tab Apixaban (Eliquis) 5 mg PO BID [facility] Last Admin: 11/07/17 09:49 Dose: 5 mg Dextrose/Water (Dextrose 50% In Water) 50 ml IVPUSH ASDIRECTED PRN PRN Reason: Hypoglycemia Doxazosin Mesylate (Cardura) 4 mg PO DAILY [facility] Last Admin: 11/07/17 09:51 Dose: Not Given Flunisolide (Nasalide Nasal [place]) 0 ml MARILIN BID [facility] Last Admin: 11/07/17 09:47 Dose: 1 inhalation Glimepiride (Amaryl) 2 mg PO DAILY@0700 [facility] Last Admin: 11/07/17 09:52 Dose: 2 mg Lactated Ringer's (Ringers, Lactated) 1,000 mls @ 125 mls/hr IV ASDIRECTED [facility] Last Admin: 11/06/17 23:03 Dose: 125 mls/hr Insulin Aspart (Novolog) 0 unit SUBCUT QIDACANDBED [facility] PRN Reason: Protocol Last Admin: 11/07/17 12:07 Dose: 4 units Methylprednisolone Sodium Succinate (Solu-Medrol) 125 mg IVPUSH Q6H [facility] Last Admin: 11/07/17 12:07 Dose: 125 mg Metoprolol Tartrate (Lopressor) 50 mg PO BID [facility] Last Admin: 11/07/17 09:49 Dose: 50 mg Miscellaneous Information (Remove Patch) 1 ea TRDERM DAILY [facility] Nicotine (Habitrol) 21 mg TRDERM DAILY [facility] Last Admin: 11/07/17 09:50 Dose: 21 mg Nicotine Polacrilex (Nicorelief) 4 mg CHEW Q2H PRN PRN Reason: Other Pantoprazole Sodium (Protonix) 40 mg PO ACBREAKFAST [facility] Last Admin: 11/07/17 06:15 Dose: 40 mg Calcitonin (Pratts) 200 Unit) Nasal [place] 0 each MARILIN DAILY [facility] Last Admin: 11/07/17 09:52 Dose: Not Given Rosuvastatin Calcium (Crestor) 5 mg PO BEDTIME [facility] Last Admin: 11/06/17 22:44 Dose: 5 mg Saccharomyces Boulardii (Florastor) 250 mg PO DAILY [facility] Last Admin: 11/07/17 09:48 Dose: 250 mg Sodium Chloride (Saline Flush) 10 ml FLUSH ASDIRECTED PRN PRN Reason: Keep Vein Open Last Admin: 11/06/17 09:39 Dose: 10 ml Discontinued Medications Albuterol/Ipratropium (Duoneb 3.0-0.5 Mg/3 Ml) 3 ml NEB ONETIME ONE Stop: 11/06/17 09:47 Last Admin: 11/06/17 10:01 Dose: 3 ml Piperacillin Sod/Tazobactam (Sod 4.5 gm/ Sodium Chloride) 100 mls @ 200 mls/hr IV ONETIME ONE Stop: 11/06/17 11:26 Last Admin: 11/06/17 11:19 Dose: 200 mls/hr Vancomycin HCl 1.5 gm/ Sodium (Chloride) 250 mls @ 250 mls/hr IV ONETIME ONE Stop: 11/06/17 11:56 Last Admin: 11/06/17 12:56 Dose: Not Given Vancomycin HCl 1 gm/Vancomycin HCl 500 mg/ Sodium Chloride 500 mls @ 250 mls/ hr IV ONETIME ONE Stop: 11/06/17 14:14 Last Admin: 11/06/17 12:48 Dose: 250 mls/hr Methylprednisolone Sodium Succinate (Solu-Medrol) 125 mg IVPUSH ONETIME ONE Stop: 11/06/17 09:47 Last Admin: 11/06/17 10:00 Dose: 125 mg Non-Formulary Medication (Omeprazole) 20 mg PO DAILY MAIA - Exam Quality Assessment: Reports: Supplemental Oxygen, DVT Prophylaxis General: Reports: Alert, No Acute Distress HEENT: Reports: Pupils Equal, Pupils Reactive, EOMI Neck: Reports: Supple, Trachea Midline Lungs: Reports: Normal Respiratory Effort, Decreased Breath Sounds Cardiovascular: Reports: Regular Rate GI/Abdominal Exam: Normal Bowel Sounds, Soft, Non-Tender, No Organomegaly (Male) Exam: Deferred Rectal (Males) Exam: Deferred Back Exam: Reports: Normal Inspection Extremities: Normal Inspection, Normal Range of Motion, Non-Tender Skin: Reports: Warm Neurological: Reports: No New Focal Deficit, Normal Speech Psy/Mental Status: Reports: Alert, Depressed *Q Meaningful Use (DIS) - VTE *Q VTE Criteria *Q: - Stroke *Q Stroke Criteria *Q: - AMI *Q AMI Criteria *Q:
== END 2017-11-07 15:41 ==
LOC: JD.ED 09:07 → JD.MS 17:42
PROVIDERS: ADMIT Internal Medicine Cardiovascular Disease; ATTEND Internal Medicine Cardiovascular Disease
DX: J44.1 Chronic obstructive pulmonary disease with (acute) exacerbation (principal); R41.82 Altered mental status, unspecified; E78.00 Pure hypercholesterolemia, unspecified; I10 Essential (primary) hypertension; M81.0 Age-related osteoporosis without current pathological fracture; G89.29 Other chronic pain; M54.9 Dorsalgia, unspecified; N40.1 Benign prostatic hyperplasia with lower urinary tract symptoms; R35.1 Nocturia; M06.9 Rheumatoid arthritis, unspecified; E11.42 Type 2 diabetes mellitus with diabetic polyneuropathy; F32.9 Major depressive disorder, single episode, unspecified; G47.00 Insomnia, unspecified; Z85.72 Personal history of non-Hodgkin lymphomas; Z86.010 Personal history of colon polyps; Z86.79 Personal history of other diseases of the circulatory system; Z87.891 Personal history of nicotine dependence; Z86.73 Personal history of transient ischemic attack (TIA), and cerebral infarction without residual deficits; Z79.01 Long term (current) use of anticoagulants; Z79.84 Long term (current) use of oral hypoglycemic drugs; Z79.52 Long term (current) use of systemic steroids; Z79.899 Other long term (current) drug therapy; Z88.8 Allergy status to other drugs, medicaments and biological substances; Z99.3 Dependence on wheelchair; Z99.81 Dependence on supplemental oxygen; Z95.828 Presence of other vascular implants and grafts; Z98.890 Other specified postprocedural states
CPT/HCPCS: 36415; 70450; 71010; 80048; 80053; 81001; 82803; 82962; 83605; 83735; 83880; 84484; 85025; 86140; 87040; 93005; 94640; 94760; 96365; 96366; 96367; 96375; 96376; 97110; 97162; 97166; 99285; A9270; G0378; J1815; J2543; J2930; J3370; J7030; J7040; J7050; J7120; 93010; 99217; 99219; 99284-25

== ENCOUNTER 2018-02-02 14:34 | Emergency (ER) | payer MEDICARE, OTHER ==
[2018-02-02 14:49] VITALS: BP 136/99
--- NOTE | 2018-02-02 14:53 | EDM.PDOC ---
ED HPI GENERAL MEDICAL PROBLEM - General Chief Complaint: Abdominal Pain Stated Complaint: FEVER Time Seen by Provider: 02/02/18 14:53 - History of Present Illness INITIAL COMMENTS - FREE TEXT/NARRATIVE: 78-year-old male since the emergency room with fevers and abdominal pain. Earlier today patient was having fevers and abdominal pain this probably started last night. However the voices concern of significant weight loss since his last visit to the hospital. The patient describes left upper quadrant abdominal pain that has resolved the fevers are a little concerning he is not having any breathing difficulties or shortness of breath no cough no pain or frequency with urination he is denying any headaches or neck pain. His 's some concerned about a rash on his elbows. This started out on the left elbow than over to the right elbow with his last hospitalization he left the hospital with it on his left side and over time developed it on the right it does not cause the patient any discomfort itching or any other distresses. Treatments STRAP SETTER: Reports: Acetaminophen - Related Data Allergies Allergy/AdvReac Type Severity Reaction Status Date / Time adhesive Allergy Intermediate thin skin, Verified 02/02/18 14:45 tears and bruising Home Meds: Home Meds Calcitonin,Biggers,Synthetic [Calcitonin-Biggers] 200 unit MARILIN DAILY 09/06/14 [ History] Fluticasone Propionate [Flonase] 2 spray MARILIN DAILY 09/06/14 [History] Cholecalciferol (Vitamin D3) [Vitamin D3] 2,000 unit PO DAILY 07/22/15 [History] Acetaminophen [Tylenol] 650 mg PO Q4H PRN #100 tablet 11/07/17 [Rx] Acetaminophen/HYDROcodone [[place] 325-5 MG] 1 tab PO TID #60 tablet 11/07/17 [Rx] Amoxicillin/Potassium Clav [Augmentin 500-125 Tablet] 1 each PO BID #14 tablet 11/07/17 [Rx] Apixaban [Eliquis] 5 mg PO BID #60 tablet 11/07/17 [Rx] Bifidobacter. Bifidum/B.Longum [Florajen Bifidoblend] 460 mg PO DAILY #30 capsule 11/07/17 [Rx] Doxazosin [Cardura] 4 mg PO DAILY #30 tablet 11/07/17 [Rx] Glimepiride [Amaryl] 2 mg PO DAILY #30 tablet 11/07/17 [Rx] Magnesium Oxide 400 mg PO DAILY #30 tablet 11/07/17 [Rx] Melatonin 6 mg PO BEDTIME #30 tablet 11/07/17 [Rx] Metoprolol Tartrate 50 mg PO BID #60 tablet 11/07/17 [Rx] Multivitamin with Minerals [Multiple Vitamin] 1 tab PO DAILY #30 tablet [Rx] Nicotine Polacrilex [Nicotine Lozenge] 4 mg BC Q2H PRN #30 lozenge 11/07/17 [Rx] Nicotine [Habitrol] 21 mg TRDERM DAILY #30 patch 11/07/17 [Rx] Omeprazole 20 mg PO DAILY #30 cap.cr 11/07/17 [Rx] Potassium Chloride 10 meq PO DAILY #30 capsule.er 11/07/17 [Rx] Rosuvastatin [Crestor] 5 mg PO BEDTIME #15 tablet 11/07/17 [Rx] Sennosides/Docusate Sodium [Senna-Docusate Sodium] 1 tab PO BID #60 tablet 11/07 [Rx] Triamcinolone Acetonide [Triamcinolone Acetonide 0.5%] 15 gm TOP BID PRN #3 tube 11/07/17 [Rx] Zinc Gluconate [Elemental Zinc] 30 mg PO DAILY #30 tablet 11/07/17 [Rx] predniSONE [Prednisone] 10 mg PO DAILY #30 tablet 11/07/17 [Rx] Past Medical History HEENT History: Reports: Hard of Hearing, Other (See Below) Other HEENT History: cerumen impaction, tinnitis, very [place] Cardiovascular History: Reports: Aneurysm, High Cholesterol, Hypertension, SOB on Exertion, Other (See Below) Other Cardiovascular History: AAA, tachycardia, SVT Respiratory History: Reports: SOB, Other (See Below) Other Respiratory History: hypoxia,Oxygen at home at night and sometimes during the day, cough Gastrointestinal History: Reports: Other (See Below) Other Gastrointestinal History: abdominal air of unknown origin, colon polyps Genitourinary History: Reports: BPH, Other (See Below) Other Genitourinary History: dysuria, nocturia, urgency Musculoskeletal History: Reports: Back Pain, Chronic, Osteoporosis, RA, Other ( See Below) Other Musculoskeletal History: fall and Lt hip fracture in April 2015. Wheelchair bound since then. Reports having old fractures in lumbar vertebrae. Neurological History: Reports: None, CVA, Neuropathy, Peripheral Other Neuro History: two mini strokes followed by a Massive Stroke in April - flown to [place] and intubated during stay. Psychiatric History: Reports: Depression Other Psychiatric History: delerium, confusion, insomnia Endocrine/Metabolic History: Reports: Diabetes, Type II Hematologic History: Reports: None Immunologic History: Reports: None Oncologic (Cancer) History: Reports: Lymphoma, Non-Hodgkin's Lymphoma Other Oncologic History: B-cell lymphoma. Patient has a implanted IV port Dermatologic History: Reports: None - Infectious Disease History Infectious Disease History: Reports: None - Past Surgical History Head Surgeries/Procedures: Reports: None Cardiovascular Surgical History: Reports: AAA Repair, Other (See Below) GI Surgical History: Reports: Appendectomy, Colonoscopy, Other (See Below) Musculoskeletal Surgical History: Reports: Other (See Below) Social & Family History - Family History Family Medical History: Noncontributory - Tobacco Use Smoking Status *Q: Current Status Unknown Years of Tobacco use: 22 Packs/Tins Daily: 3 Used Tobacco, but Quit: Yes Month Tobacco Last Used: 11/1985 Second Hand Smoke Exposure: No - Caffeine Use Caffeine Use: Reports: None Other Caffeine Use: 4 cups/day - Alcohol Use Days Per Week of Alcohol Use: 0 - Recreational Drug Use Recreational Drug Use: No Drug Use in Last 12 Months: No Other Recreational Drug Type: Unknown- patient unresponsive - Living Situation & Occupation Living situation: Reports: , Extended Care Facility Occupation: Retired ED ROS GENERAL - Review of Systems Review Of Systems: See Below Constitutional: Reports: Fever, Chills, Other (Fever at home is been as high as 100.5). Denies: No Symptoms HEENT: Reports: No Symptoms Respiratory: Reports: No Symptoms Cardiovascular: Reports: No Symptoms GI/Abdominal: Reports: Abdominal Pain. Denies: Constipation, Diarrhea, Nausea, Vomiting : Reports: No Symptoms Musculoskeletal: Reports: Other (He hurts all over he's had significant osteoporosis and rheumatoid arthritis) Neurological: Reports: No Symptoms Psychiatric: Reports: No Symptoms Hematologic/Lymphatic: Reports: No Symptoms ED EXAM, GI/ABD - Physical Exam Exam: See Below Exam Limited By: No Limitations General Appearance: Alert, No Apparent Distress, Other (At this time I exam the patient complains of no pain) Eyes: Bilateral: Normal Appearance (Patient has blindness in the left eye decreasing vision in the right eye) Ears: Normal External Exam, Normal Canal, Other (Tympanic membranes partially visualized due to cerumen accumulation what is seen appears normal) Nose: Normal Inspection, Normal Mucosa, No Blood Throat/Mouth: Normal Inspection, Normal Lips, Normal Gums, Normal Oropharynx, Normal Voice, No Airway Compromise, Other Head: Atraumatic, Normocephalic Neck: Normal Inspection. No: Lymphadenopathy (L), Lymphadenopathy (R) Respiratory/Chest: No Respiratory Distress, Lungs Clear, Normal Breath Sounds Cardiovascular: Regular Rate, Rhythm, No Edema, No Murmur GI/Abdominal Exam: Normal Bowel Sounds, Soft, Non-Tender, Other (He describes pain up in the left upper quadrant this seems to have resolved) Back Exam: Normal Inspection, Other (Right upper back prior tumor removal site appears well-healed). No: CVA Tenderness (L), CVA Tenderness (R) Extremities: Normal Inspection, Other (Trace pitting edema) Neurological: Alert, Oriented, Normal Cognition Psychiatric: Normal Affect, Normal Mood Skin Exam: Warm, Dry, Intact, Other (The skin over his elbows he has blotchy erythema no scalene no raised skin I wonder if the patient is pretty excessive pressure on his elbows at times when he maneuvers himself around.) Lymphatic: No Adenopathy EKG INTERPRETATION Rhythm: Other (Sinus tachycardia rate 109 he has 1 PVC on EKG) [place]: Normal P-Wave: Present QRS: Normal ST-T: Other (Nonspecific nondiagnostic changes) QT: Normal Course - Vital Signs Last Recorded V/S: Last Vital Signs Temp 37.2 C 02/02/18 14:45 Pulse 123 H 02/02/18 14:45 Resp 20 02/02/18 14:45 BP 136/99 H 02/02/18 14:45 Pulse Ox 96 02/02/18 14:45 - Orders/Labs/Meds Orders: Active Orders 24 hr Category Date Time Status EKG Documentation Completion [RC] STAT Care 02/02/18 15:26 Active Abdomen Series w Chest 1V [CR] Stat Exams 02/02/18 15:26 Taken CULTURE BLOOD [BC] Stat Lab 02/02/18 15:00 Received CULTURE BLOOD [BC] Stat Lab 02/02/18 15:15 Received Sodium Chloride 0.9% [Normal Saline] 1,000 ml Med 02/02/18 17:45 Active IV ASDIRECTED Blood Culture x2 Reflex Set [OM.PC] Stat Oth 02/02/18 15:28 Ordered Medication Orders Sodium Chloride (Normal Saline) 1,000 mls @ 125 mls/hr IV ASDIRECTED [facility] Labs: Laboratory Tests 02/02/18 02/02/18 02/02/18 Range/Units 15:00 15:00 15:00 WBC 8.90 (4.23-9.07) K/mm3 RBC 5.11 (4.63-6.08) M/mm3 Hgb 12.9 L (13.7-17.5) gm/L Hct 41.6 (40.1-51.0) % MCV 81.4 (79.0-92.2) fl MCH 25.2 L (25.7-32.2) pg MCHC 31.0 L (32.2-35.5) g/dl RDW Std Deviation 45.1 H (35.1-43.9) fL Plt Count 123 L (163-337) K/mm3 MPV 12.2 (9.4-12.3) fl Neutrophils % (Manual) 76 H (40-60) % Band Neutrophils % 0 (0-10) % Lymphocytes % (Manual) 19 L (20-40) % Atypical Lymphs % 0 % Monocytes % (Manual) 3 (2-10) % Eosinophils % (Manual) 2 (0.8-7.0) % Basophils % (Manual) 0 L (0.2-1.2) Platelet Estimate Adequate RBC Morph Comment Normal PT 11.4 (8.0-13.0) SECONDS INR 1.06 Sodium 137 (136-145) mEq/L Potassium 3.8 (3.5-5.1) mEq/L Chloride 100 (98-107) mEq/L Carbon Dioxide 24 (21-32) mEq/L Anion Gap 16.8 H (5-15) BUN 18 (7-18) mg/dL Creatinine 1.0 (0.7-1.3) mg/dL Est Cr Clr Drug Dosing 54.05 mL/min Estimated GFR (MDRD) > 60 (>60) mL/min BUN/Creatinine Ratio 18.0 (14-18) Glucose 218 H (83-115) mg/dL Lactic Acid (0.4-2.0) mmol/L Calcium 8.8 (8.5-10.1) mg/dL Total Bilirubin 0.6 (0.2-1.0) mg/dL AST 19 (15-37) U/L ALT 20 (16-63) U/L Alkaline Phosphatase 67 (46-116) U/L Total Protein 6.4 (6.4-8.2) g/dl Albumin 2.9 L (3.4-5.0) g/dl Globulin 3.5 gm/dL Albumin/Globulin Ratio 0.8 L (1-2) Urine Color (Yellow) Urine Appearance (Clear) Urine pH (5.0-8.0) Ur Specific [place] (1.005-1.030) Urine Protein (Negative) Urine Glucose (UA) (Negative) Urine Ketones (Negative) Urine Occult Blood (Negative) Urine Nitrite (Negative) Urine Bilirubin (Negative) Urine Urobilinogen (0.2-1.0) Ur Leukocyte Esterase (Negative) Urine RBC (0-5) /hpf Urine WBC (0-5) /hpf Ur Epithelial Cells (0-5) /hpf Urine Bacteria (FEW) /hpf Urine Mucus (FEW) /hpf 02/02/18 02/02/18 Range/Units 15:00 17:25 WBC (4.23-9.07) K/mm3 RBC (4.63-6.08) M/mm3 Hgb (13.7-17.5) gm/L Hct (40.1-51.0) % MCV (79.0-92.2) fl MCH (25.7-32.2) pg MCHC (32.2-35.5) g/dl RDW Std Deviation (35.1-43.9) fL Plt Count (163-337) K/mm3 MPV (9.4-12.3) fl Neutrophils % (Manual) (40-60) % Band Neutrophils % (0-10) % Lymphocytes % (Manual) (20-40) % Atypical Lymphs % % Monocytes % (Manual) (2-10) % Eosinophils % (Manual) (0.8-7.0) % Basophils % (Manual) (0.2-1.2) Platelet Estimate RBC Morph Comment PT (8.0-13.0) SECONDS INR Sodium (136-145) mEq/L Potassium (3.5-5.1) mEq/L Chloride (98-107) mEq/L Carbon Dioxide (21-32) mEq/L Anion Gap (5-15) BUN (7-18) mg/dL Creatinine (0.7-1.3) mg/dL Est Cr Clr Drug Dosing mL/min Estimated GFR (MDRD) (>60) mL/min BUN/Creatinine Ratio (14-18) Glucose (83-115) mg/dL Lactic Acid 4.6 H (0.4-2.0) mmol/L Calcium (8.5-10.1) mg/dL Total Bilirubin (0.2-1.0) mg/dL AST (15-37) U/L ALT (16-63) U/L Alkaline Phosphatase (46-116) U/L Total Protein (6.4-8.2) g/dl Albumin (3.4-5.0) g/dl Globulin gm/dL Albumin/Globulin Ratio (1-2) Urine Color Dark yellow (Yellow) Urine Appearance Clear (Clear) Urine pH 5.5 (5.0-8.0) Ur Specific [place] > or = 1.030 (1.005-1.030) Urine Protein 1+ H (Negative) Urine Glucose (UA) 1+ H (Negative) Urine Ketones 1+ H (Negative) Urine Occult Blood Negative (Negative) Urine Nitrite Negative (Negative) Urine Bilirubin 1+ H (Negative) Urine Urobilinogen 0.2 (0.2-1.0) Ur Leukocyte Esterase Negative (Negative) Urine RBC 0-5 (0-5) /hpf Urine WBC 0-5 (0-5) /hpf Ur Epithelial Cells Not seen (0-5) /hpf Urine Bacteria Few (FEW) /hpf Urine Mucus Moderate H (FEW) /hpf Meds: Medications Generic Name Dose Route Start Last Admin Trade Name Freq PRN Reason Stop Dose Admin Sodium Chloride 1,000 mls @ 125 mls/hr 02/02/18 17:45 Normal Saline IV ASDIRECTED MAIA Discontinued Medications Generic Name Dose Route Start Last Admin Trade Name Freq PRN Reason Stop Dose Admin Sodium Chloride 500 mls @ 999 mls/hr 02/02/18 17:35 02/02/18 17:42 Normal Saline IV 02/02/18 18:05 999 mls/hr .BOLUS ONE Administration - Re-Assessments/Exams Free Text/Narrative Re-Assessment/Exam: 02/02/18 19:41 Laboratory evaluation is not that striking however his lactic acid slightly elevated just above for he is mildly prerenal. Urinalysis it took us quite a long time to finally get resulted does not suggest infectious process. The patient is quite weak he can ambulate from the foot of the bed to the door the exam room with assistance and then needs to sit down immediately. His abdominal pain is premature resolved. The patient can't not very well go home like this I discussed it with our hospitalist Dr. Giron who will discuss hospital care with the patient. AP chest shows no obvious infiltrate poor inspiration. KB and upright no free air no evidence of obstruction he has a fairly full stool pattern but no impaction 02/02/18 19:57 Dr. Giron did discuss the situation with the patient and family and unfortunately we can only qualify him for an observation stay and because of financial restraints the family would like to take him home. 02/02/18 20:07 Departure - Departure Time of Disposition: 19:42 Disposition: Home, Self-Care 01 Clinical Impression: Dehydration, Weakness - Discharge Information Referrals: Scottie Butler MD [Primary Care Provider] - Forms: ED Department Discharge Additional Instructions: Return to emergency room with any questions problems worsening symptoms return with increasing fevers or any other problems. Return with worsening or returning abdominal pain. Push lots of fluids. Take your medications as directed. I magnesium citrate one bottle. Repeat in 6 hours if you don't get the desired effect. This goes down better either chilled or on ice. - My Orders Last 24 Hours: My Active Orders 02/02/18 15:00 CULTURE BLOOD [BC] Stat 02/02/18 15:15 CULTURE BLOOD [BC] Stat 02/02/18 15:26 EKG Documentation Completion [RC] STAT Abdomen Series w Chest 1V [CR] Stat 02/02/18 15:28 Blood Culture x2 Reflex Set [OM.PC] Stat 02/02/18 17:45 Sodium Chloride 0.9% [Normal Saline] 1,000 ml IV ASDIRECTED - Assessment/Plan Last 24 Hours: My Active Orders 02/02/18 15:00 CULTURE BLOOD [BC] Stat 02/02/18 15:15 CULTURE BLOOD [BC] Stat 02/02/18 15:26 EKG Documentation Completion [RC] STAT Abdomen Series w Chest 1V [CR] Stat 02/02/18 15:28 Blood Culture x2 Reflex Set [OM.PC] Stat 02/02/18 17:45 Sodium Chloride 0.9% [Normal Saline] 1,000 ml IV ASDIRECTED
[2018-02-02] MEDS ORDERED: Sodium Chloride 0.9% 500 ML IV ONE (17:35)
[2018-02-02] MEDS ORDERED: Sodium Chloride 0.9% 1,000 ML IV SCH (17:45)
--- NOTE | 2018-02-03 11:14 | CR ---
Abdominal series: Supine and upright views the abdomen were obtained as well as frontal view of the chest. Comparison: Previous chest x-ray of 11/06/17 and abdominal x-ray of 06/15/17. Infusion port is seen entering from the left side which is stable. Lungs are clear with no acute pulmonary densities. Hiatal hernia is noted. Left hip prosthesis is noted. Bony structures are osteopenic. Bowel gas pattern appears normal. Vascular calcification is seen. Impression: 1. Incidental findings. Nothing acute is appreciated on abdominal series. Diagnostic code #2
== END 2018-02-02 20:20 | disposition home or self-care (01) ==
LOC: JD.ED 14:34
DX: E86.0 Dehydration (principal); I10 Essential (primary) hypertension; E78.00 Pure hypercholesterolemia, unspecified; E11.42 Type 2 diabetes mellitus with diabetic polyneuropathy; F32.9 Major depressive disorder, single episode, unspecified; Z87.891 Personal history of nicotine dependence; Z79.52 Long term (current) use of systemic steroids; Z79.899 Other long term (current) drug therapy; Z91.048 Other nonmedicinal substance allergy status
CPT/HCPCS: 36415; 74022; 80053; 81001; 83605; 85025; 85610; 87040; 93005; 96360; 96361; 99284; J1642; J7040

== ENCOUNTER 2018-11-27 09:32 | Inpatient (IN) | payer MEDICARE, OTHER ==
--- NOTE | 2018-11-27 10:01 | EDM.PDOC ---
ED HPI GENERAL MEDICAL PROBLEM - General Chief Complaint: Respiratory Problem Stated Complaint: [facility] Time Seen by Provider: 11/27/18 10:01 - History of Present Illness INITIAL COMMENTS - FREE TEXT/NARRATIVE: 78-year-old male brought in by EMS with increasing shortness of breath. Patient has had increased weakness worsening cough over the last 24-48 hours however the has noticed that his O2 saturation has been dropping over the last several days. The patient usually uses 2 L of oxygen at night the is been keeping him on supplemental oxygen all day today and yesterday. He has an increasing cough bringing up white off-colored sputum. He denies any chest pain or chest pressure. His lower extremity edema has not been worsening. No obvious fevers or chills. This year he did not get a flu shot. He has become increasingly weak. This was noticed yesterday today cannot hardly stand up on his own. - Related Data Allergies Allergy/AdvReac Type Severity Reaction Status Date / Time adhesive Allergy Intermediate thin skin, Verified 11/27/18 09:45 tears and bruising Home Meds: Home Meds Calcitonin,Bostic,Synthetic [Calcitonin-Bostic] 200 unit MARILIN DAILY 09/06/14 [ History] Fluticasone Propionate [Flonase] 2 spray MARILIN DAILY 09/06/14 [History] Cholecalciferol (Vitamin D3) [Vitamin D3] 2,000 unit PO DAILY 07/22/15 [History] Acetaminophen/HYDROcodone [[place] 325-5 MG] 1 tab PO TID #60 tablet 11/07/17 [Rx] Apixaban [Eliquis] 5 mg PO BID #60 tablet 11/07/17 [Rx] Bifidobacter. Bifidum/B.Longum [[place] Bifidoblend] 460 mg PO DAILY #30 capsule 11/07/17 [Rx] Magnesium Oxide 400 mg PO DAILY #30 tablet 11/07/17 [Rx] Melatonin 6 mg PO BEDTIME #30 tablet 11/07/17 [Rx] Multivitamin with Minerals [Multiple Vitamin] 1 tab PO DAILY #30 tablet [Rx] Nicotine Polacrilex [Nicotine Lozenge] 4 mg BC Q2H PRN #30 lozenge 11/07/17 [Rx] Omeprazole 20 mg PO DAILY #30 cap.cr 11/07/17 [Rx] Potassium Chloride 10 meq PO DAILY #30 capsule.er 11/07/17 [Rx] Rosuvastatin [Crestor] 5 mg PO BEDTIME #15 tablet 11/07/17 [Rx] Sennosides/Docusate Sodium [Senna-Docusate Sodium] 1 tab PO BID #60 tablet 11/07 [Rx] Triamcinolone Acetonide [Triamcinolone Acetonide 0.5%] 15 gm TOP BID PRN #3 tube 11/07/17 [Rx] predniSONE [Prednisone] 10 mg PO DAILY #30 tablet 11/07/17 [Rx] Acetaminophen [Tylenol] 650 mg PO Q6H PRN 11/27/18 [History] Linagliptin [Tradjenta] 2.5 mg PO DAILY 11/27/18 [History] Metoprolol Tartrate 75 mg PO BID 11/27/18 [History] Umeclidinium Brm/Vilanterol Tr [Anoro Ellipta 62.5-25 MCG] 1 puff INH DAILY 03/12 [History] Past Medical History HEENT History: Reports: Hard of Hearing, Other (See Below) Other HEENT History: cerumen impaction, tinnitis, very [place] Cardiovascular History: Reports: Aneurysm, High Cholesterol, Hypertension, SOB on Exertion, Other (See Below) Other Cardiovascular History: AAA, tachycardia, SVT Respiratory History: Reports: SOB, Other (See Below) Other Respiratory History: hypoxia,Oxygen at home at night and sometimes during the day, cough Gastrointestinal History: Reports: Other (See Below) Other Gastrointestinal History: abdominal air of unknown origin, colon polyps Genitourinary History: Reports: BPH, Other (See Below) Other Genitourinary History: dysuria, nocturia, urgency Musculoskeletal History: Reports: Back Pain, Chronic, Osteoporosis, RA, Other ( See Below) Other Musculoskeletal History: fall and Lt hip fracture in April 2015. Wheelchair bound since then. Reports having old fractures in lumbar vertebrae. Neurological History: Reports: None, CVA, Neuropathy, Peripheral Other Neuro History: two mini strokes followed by a Massive Stroke in April - flown to [place] and intubated during stay. Psychiatric History: Reports: Depression Other Psychiatric History: delerium, confusion, insomnia Endocrine/Metabolic History: Reports: Diabetes, Type II Hematologic History: Reports: None Immunologic History: Reports: None Oncologic (Cancer) History: Reports: Lymphoma, Non-Hodgkin's Lymphoma Other Oncologic History: B-cell lymphoma. Patient has a implanted IV port Dermatologic History: Reports: None - Infectious Disease History Infectious Disease History: Reports: None - Past Surgical History Head Surgeries/Procedures: Reports: None Cardiovascular Surgical History: Reports: AAA Repair, Other (See Below) GI Surgical History: Reports: Appendectomy, Colonoscopy, Other (See Below) Musculoskeletal Surgical History: Reports: Other (See Below) Social & Family History - Family History Family Medical History: Noncontributory - Tobacco Use Smoking Status *Q: Former Smoker Used Tobacco, but Quit: Yes Month/Year Tobacco Last Used: 1985 - Caffeine Use Caffeine Use: Reports: Coffee Other Caffeine Use: 4 cups/day - Recreational Drug Use Recreational Drug Use: No - Living Situation & Occupation Living situation: Reports: , Extended Care Facility Occupation: Retired ED ROS GENERAL - Review of Systems Review Of Systems: See Below Constitutional: Reports: Weakness. Denies: Fever, Chills HEENT: Reports: No Symptoms Respiratory: Reports: Shortness of Breath, Cough, Sputum. Denies: Pleuritic Chest Pain, Hemoptysis Cardiovascular: Reports: No Symptoms Endocrine: Reports: No Symptoms GI/Abdominal: Reports: No Symptoms : Reports: No Symptoms Musculoskeletal: Reports: No Symptoms Skin: Reports: No Symptoms Neurological: Reports: No Symptoms Psychiatric: Reports: No Symptoms Hematologic/Lymphatic: Reports: No Symptoms ED EXAM, GENERAL - Physical Exam Exam: See Below Exam Limited By: No Limitations General Appearance: No Apparent Distress, Other (A she answers questions appropriately but is otherwise on the tired side. He appears to be in poor health.) Eye Exam: Bilateral Eye: Normal Inspection Ears: Normal External Exam, Normal Canal, Hearing Grossly Normal, Normal TMs Nose: Normal Inspection, Normal Mucosa, No Blood Throat/Mouth: Normal Inspection, Normal Lips, Normal Gums, Normal Oropharynx, Normal Voice, No Airway Compromise Head: Atraumatic, Normocephalic Neck: Normal Inspection, Supple, Non-Tender, Full Range of Motion. No: Lymphadenopathy (L), Lymphadenopathy (R) Respiratory/Chest: No Respiratory Distress, Other (Coarse breath sounds noted in both lung masters diminished breath sounds in the right base) GI/Abdominal: Normal Bowel Sounds, Soft, Non-Tender Extremities: Normal Inspection, No Pedal Edema Neurological: Alert, Oriented, Normal Cognition Psychiatric: Normal Affect, Normal Mood Skin Exam: Warm, Dry Lymphatic: No Adenopathy Course - Vital Signs Last Recorded V/S: Last Vital Signs Temp 36.6 C 11/27/18 09:40 Pulse 106 H 11/27/18 09:40 Resp 26 H 11/27/18 09:40 BP 90/78 11/27/18 09:40 Pulse Ox 92 L 11/27/18 09:40 - Orders/Labs/Meds Orders: Active Orders 24 hr Category Date Time Status EKG Documentation Completion [RC] STAT Care 11/27/18 10:13 Active COMPREHENSIVE METABOLIC PN,CMP [CHEM] Stat Lab 11/27/18 10:36 Results CULTURE BLOOD [BC] Stat Lab 11/27/18 10:36 Received CULTURE BLOOD [BC] Stat Lab 11/27/18 10:46 Received LIPASE [CHEM] Stat Lab 11/27/18 10:36 Results MYCOPLASMA PNEUMONIAE IGM AB [CHEM] Stat Lab 11/27/18 10:36 Results TROPONIN I [CHEM] Stat Lab 11/27/18 10:36 Results Doxycycline [Vibramycin] 100 mg Med 11/27/18 11:43 Ordered Sodium Chloride 0.9% [Normal Saline] 100 ml IV ONETIME Oseltamivir [Tamiflu] Med 11/27/18 11:43 Once 75 mg PO ONETIME ONE Labs: Laboratory Tests 11/27/18 11/27/18 11/27/18 Range/Units 09:45 10:36 10:36 WBC 10.28 H (4.23-9.07) K/mm3 RBC 5.17 (4.63-6.08) M/mm3 Hgb 13.6 L (13.7-17.5) gm/L Hct 42.9 (40.1-51.0) % MCV 83.0 (79.0-92.2) fl MCH 26.3 (25.7-32.2) pg MCHC 31.7 L (32.2-35.5) g/dl RDW Std Deviation 48.7 H (35.1-43.9) fL Plt Count 119 L (163-337) K/mm3 MPV 11.4 (9.4-12.3) fl Neutrophils % (Manual) 75 H (40-60) % Band Neutrophils % 3 (0-10) % Lymphocytes % (Manual) 16 L (20-40) % Atypical Lymphs % 0 % Monocytes % (Manual) 6 (2-10) % Eosinophils % (Manual) 0 L (0.8-7.0) % Basophils % (Manual) 0 L (0.2-1.2) Platelet Estimate See note RBC Morph Comment Normal PT 13.0 H (9.5-12.1) SECONDS INR 1.20 APTT 30 (24-31) SECONDS Sodium 139 (136-145) mEq/L Potassium 4.2 (3.5-5.1) mEq/L Chloride 103 (98-107) mEq/L Carbon Dioxide 24 (21-32) mEq/L Anion Gap 16.2 H (5-15) BUN 16 (7-18) mg/dL Creatinine 0.7 (0.7-1.3) mg/dL Est Cr Clr Drug Dosing 88.35 mL/min Estimated GFR (MDRD) > 60 (>60) mL/min BUN/Creatinine Ratio 22.9 H (14-18) Glucose 210 H (83-115) mg/dL Lactic Acid (0.4-2.0) mmol/L Calcium 9.1 (8.5-10.1) mg/dL Total Bilirubin 0.4 (0.2-1.0) mg/dL AST 26 (15-37) U/L ALT 30 (16-63) U/L Alkaline Phosphatase 79 (46-116) U/L Troponin I < 0.017 (0.00-0.056) ng/mL NT-Pro-B Natriuret Pep (0-450) pg/mL Total Protein 6.3 L (6.4-8.2) g/dl Albumin 2.3 L (3.4-5.0) g/dl Globulin 4.0 gm/dL Albumin/Globulin Ratio 0.6 L (1-2) Lipase 153 (73-393) U/L 11/27/18 11/27/18 Range/Units 10:36 10:46 WBC (4.23-9.07) K/mm3 RBC (4.63-6.08) M/mm3 Hgb (13.7-17.5) gm/L Hct (40.1-51.0) % MCV (79.0-92.2) fl MCH (25.7-32.2) pg MCHC (32.2-35.5) g/dl RDW Std Deviation (35.1-43.9) fL Plt Count (163-337) K/mm3 MPV (9.4-12.3) fl Neutrophils % (Manual) (40-60) % Band Neutrophils % (0-10) % Lymphocytes % (Manual) (20-40) % Atypical Lymphs % % Monocytes % (Manual) (2-10) % Eosinophils % (Manual) (0.8-7.0) % Basophils % (Manual) (0.2-1.2) Platelet Estimate RBC Morph Comment PT (9.5-12.1) SECONDS INR APTT (24-31) SECONDS Sodium (136-145) mEq/L Potassium (3.5-5.1) mEq/L Chloride (98-107) mEq/L Carbon Dioxide (21-32) mEq/L Anion Gap (5-15) BUN (7-18) mg/dL Creatinine (0.7-1.3) mg/dL Est Cr Clr Drug Dosing mL/min Estimated GFR (MDRD) (>60) mL/min BUN/Creatinine Ratio (14-18) Glucose (83-115) mg/dL Lactic Acid 1.6 (0.4-2.0) mmol/L Calcium (8.5-10.1) mg/dL Total Bilirubin (0.2-1.0) mg/dL AST (15-37) U/L ALT (16-63) U/L Alkaline Phosphatase (46-116) U/L Troponin I (0.00-0.056) ng/mL NT-Pro-B Natriuret Pep 767 H (0-450) pg/mL Total Protein (6.4-8.2) g/dl Albumin (3.4-5.0) g/dl Globulin gm/dL Albumin/Globulin Ratio (1-2) Lipase (73-393) U/L Meds: Medications Discontinued Medications Generic Name Dose Route Start Last Admin Trade Name Freq PRN Reason Stop Dose Admin Methylprednisolone Sodium Succinate 125 mg 11/27/18 11:34 11/27/18 11:41 Solu-Medrol IVPUSH 11/27/18 11:35 125 mg ONETIME ONE Administration - Re-Assessments/Exams Free Text/Narrative Re-Assessment/Exam: 11/27/18 11:51 Influenza B positive BNP is also elevated however this is probably chronic. Mycoplasma pending chest x-ray no obvious infiltrate. Case discussed with Dr. Kahn the hospitalist who will admit. Departure - Departure Time of Disposition: 11:51 Disposition: Admitted As Inpatient 65 Clinical Impression: Influenza B, Congestive heart failure, COPD with exacerbation - Discharge Information Referrals: Scottie Butler MD [Primary Care Provider] - Forms: ED Department Discharge - My Orders Last 24 Hours: My Active Orders 11/27/18 10:13 EKG Documentation Completion [RC] STAT 11/27/18 10:36 COMPREHENSIVE METABOLIC PN,CMP [CHEM] Stat CULTURE BLOOD [BC] Stat LIPASE [CHEM] Stat MYCOPLASMA PNEUMONIAE IGM AB [CHEM] Stat TROPONIN I [CHEM] Stat 11/27/18 10:46 CULTURE BLOOD [BC] Stat 11/27/18 11:43 Doxycycline [Vibramycin] 100 mg Sodium Chloride 0.9% [Normal Saline] 100 ml IV ONETIME Oseltamivir [Tamiflu] 75 mg PO ONETIME ONE - Assessment/Plan Last 24 Hours: My Active Orders 11/27/18 10:13 EKG Documentation Completion [RC] STAT 11/27/18 10:36 COMPREHENSIVE METABOLIC PN,CMP [CHEM] Stat CULTURE BLOOD [BC] Stat LIPASE [CHEM] Stat MYCOPLASMA PNEUMONIAE IGM AB [CHEM] Stat TROPONIN I [CHEM] Stat 11/27/18 10:46 CULTURE BLOOD [BC] Stat 11/27/18 11:43 Doxycycline [Vibramycin] 100 mg Sodium Chloride 0.9% [Normal Saline] 100 ml IV ONETIME Oseltamivir [Tamiflu] 75 mg PO ONETIME ONE
--- NOTE | 2018-11-27 10:47 | CR ---
Chest: Portable view of the chest was obtained. Comparison: Prior chest x-ray of 02/02/18. Heart size is normal. Tortuous thoracic aorta is seen. Left-sided infusion port is seen. Lungs are clear without acute parenchymal change. Bony structures are grossly intact. Impression: 1. Incidental findings. Nothing acute is appreciated on portable chest x-ray. Diagnostic code #2
[2018-11-27] MEDS ORDERED: methylPREDNISolone Sodium Succinate 125 MG/2 ML SDV IVPUSH ONE (11:34)
[2018-11-27] MEDS ORDERED: Doxycycline 100 MG in Sodium Chloride 0.9% 100 ML IV ONE (11:43)
[2018-11-27] MEDS ORDERED: Oseltamivir 75 MG Cap PO ONE (11:43)
[2018-11-27] MEDS ORDERED: Lactated Ringers 500 ML IV ONE (11:48)
[2018-11-27] MEDS ORDERED: Ipratropium 0.02% 0.5 MG/2.5 ML Neb Soln NEB ONE (11:50)
[2018-11-27] MEDS ORDERED: Lactated Ringers 1,000 ML IV SCH (12:00)
[2018-11-27] MEDS: Nicotine 21 MG/24 Hr Patch TRDERM SCH (15:08)
[2018-11-27] MEDS: Insulin Lispro 100 Unit/ML 3 ML KwikPen SUBCUT SCH ×2 (17:07→21:27)
--- NOTE | 2018-11-27 17:08 | PCM.HP ---
H&P History of Present Illness - General Date of Service: 11/27/18 Admit Problem/Dx: Admission Diagnosis/Problem Admission Diagnosis/Problem COPD, Severe chronic obstructive pulmonary disease Source of Information: Family, Provider History Limitations: Reports: No Limitations - History of Present Illness Initial Comments - Free Text/Narative: 78 year old male residing at home presents with malaise, SOB, productive cough. He has tested positive for Influenza B as well as Mycoplasma. The patient and family can only provide minimal history. [facility] and is a full code. Onset of Symptoms: Reports: Unknown/Unsure Symptom Onset Date: 11/24/18 Duration of Symptoms: Reports: Day(s):, Getting Worse Location: Reports: Chest, Generalized Severity: Moderate Improves with: Reports: Medication Worsens with: Reports: None Context: Reports: Sick Contact Associated Symptoms: Reports: Confusion, Chest Pain, Cough, Fever/Chills, Headaches, Loss of Appetite, Malaise, Nausea/Vomiting, Shortness of Breath, Weakness - Related Data Allergies/Adverse Reactions: Allergies Allergy/AdvReac Type Severity Reaction Status Date / Time adhesive Allergy Intermediate thin skin, Verified 11/27/18 09:45 tears and bruising Home Medications: Home Meds Calcitonin,Allison,Synthetic [Calcitonin-Allison] 200 unit MARILIN DAILY 09/06/14 [ History] Fluticasone Propionate [Flonase] 2 spray MARILIN DAILY 09/06/14 [History] Cholecalciferol (Vitamin D3) [Vitamin D3] 2,000 unit PO DAILY 07/22/15 [History] Acetaminophen/HYDROcodone [[place] 325-5 MG] 1 tab PO TID #60 tablet 11/07/17 [Rx] Magnesium Oxide 400 mg PO DAILY #30 tablet 11/07/17 [Rx] Melatonin 6 mg PO BEDTIME #30 tablet 11/07/17 [Rx] Multivitamin with Minerals [Multiple Vitamin] 1 tab PO DAILY #30 tablet [Rx] Nicotine Polacrilex [Nicotine Lozenge] 4 mg BC Q2H PRN #30 lozenge 11/07/17 [Rx] Omeprazole 20 mg PO DAILY #30 cap.cr 11/07/17 [Rx] Potassium Chloride 10 meq PO DAILY #30 capsule.er 11/07/17 [Rx] Rosuvastatin [Crestor] 5 mg PO BEDTIME #15 tablet 11/07/17 [Rx] Sennosides/Docusate Sodium [Senna-Docusate Sodium] 1 tab PO BID #60 tablet 11/07 [Rx] Triamcinolone Acetonide [Triamcinolone Acetonide 0.5%] 15 gm TOP BID PRN #3 tube 11/07/17 [Rx] predniSONE [Prednisone] 10 mg PO DAILY #30 tablet 11/07/17 [Rx] Acetaminophen [Tylenol] 650 mg PO Q6H PRN 11/27/18 [History] Bifidobacter. Bifidum/B.Longum [Florajen Bifidoblend] 1 cap PO DAILY 11/27/18 [ History] Bisacodyl [Biscolax] 10 mg RC DAILY PRN 11/27/18 [History] Doxazosin [Doxazosin Mesylate] 4 mg PO DAILY 11/27/18 [History] Linagliptin [Tradjenta] 5 mg PO DAILY 11/27/18 [History] Magnesium Hydroxide [Milk of Magnesia] 30 ml PO TID PRN 11/27/18 [History] Metoprolol Tartrate 50 mg PO BID 11/27/18 [History] Na Phos,M-B/Na Phos,Di-Ba [Fleet Enema] 1 bottle RECTAL DAILY PRN 11/27/18 [ History] Rivaroxaban [Xarelto] 15 mg PO DAILY 11/27/18 [History] Umeclidinium Brm/Vilanterol Tr [Anoro Ellipta 62.5-25 MCG] 1 puff INH DAILY 03/12 [History] Zinc Gluconate [Zinc] 30 mg PO DAILY 11/27/18 [History] Megestrol [Megace 40 MG/ML Susp] 800 mg PO DAILY 11/28/18 [History] Past Medical History HEENT History: Reports: Hard of Hearing, Impaired Vision, Macular Degeneration, Other (See Below) Other HEENT History: cerumen impaction, tinnitis, very [place] Cardiovascular History: Reports: Afib, Aneurysm, Arrhythmia, High Cholesterol, Hypertension, SOB on Exertion, Other (See Below) Other Cardiovascular History: AAA, tachycardia, SVT Respiratory History: Reports: COPD, Pneumonia, Recurrent, SOB, Other (See Below) Other Respiratory History: hypoxia,Oxygen at home at night and sometimes during the day, cough Gastrointestinal History: Reports: Hiatal Hernia, Other (See Below) Other Gastrointestinal History: abdominal air of unknown origin, colon polyps Genitourinary History: Reports: BPH, Other (See Below) Other Genitourinary History: dysuria, nocturia, urgency Musculoskeletal History: Reports: Back Pain, Chronic, Gout, Osteoporosis, RA, Other (See Below) Other Musculoskeletal History: fall and Lt hip fracture in April 2015. Wheelchair bound since then. Reports having old fractures in lumbar vertebrae. Neurological History: Reports: None, CVA, Neuropathy, Peripheral Other Neuro History: two mini strokes followed by a Massive Stroke in April - flown to [place] and intubated during stay. Psychiatric History: Reports: Anxiety, Depression Other Psychiatric History: delerium, confusion, insomnia Endocrine/Metabolic History: Reports: Diabetes, Type II, Osteoporosis Hematologic History: Reports: Anemia, Blood Transfusion(s) Immunologic History: Reports: None Oncologic (Cancer) History: Reports: Lymphoma, Non-Hodgkin's Lymphoma Other Oncologic History: B-cell lymphoma. Patient has a implanted IV port Dermatologic History: Reports: None Other Dermatologic History: stage pressure 2 ulcer on coccyx - Infectious Disease History Infectious Disease History: Reports: None - Past Surgical History Head Surgeries/Procedures: Reports: None Cardiovascular Surgical History: Reports: AAA Repair, Other (See Below) GI Surgical History: Reports: Appendectomy, Colonoscopy, Other (See Below) Musculoskeletal Surgical History: Reports: Other (See Below) Social & Family History - Family History Family Medical History: Noncontributory - Tobacco Use Smoking Status *Q: Former Smoker Years of Tobacco use: 23 Packs/Tins Daily: 3 Used Tobacco, but Quit: No Month/Year Tobacco Last Used: 1985 Second Hand Smoke Exposure: No - Caffeine Use Caffeine Use: Reports: Coffee Other Caffeine Use: 1 cup/day - Recreational Drug Use Recreational Drug Use: No - Living Situation & Occupation Living situation: Reports: , Extended Care Facility Occupation: Retired H&P Review of Systems - Review of Systems: Review Of Systems: See Below General: Reports: Fever, Chills, Malaise, Weakness HEENT: Reports: No Symptoms Pulmonary: Reports: Shortness of Breath Cardiovascular: Reports: Palpitations Gastrointestinal: Reports: No Symptoms Genitourinary: Reports: No Symptoms Musculoskeletal: Reports: No Symptoms Skin: Reports: No Symptoms Psychiatric: Reports: No Symptoms Neurological: Reports: No Symptoms Hematologic/Lymphatic: Reports: No Symptoms Immunologic: Reports: No Symptoms Exam - Exam Exam: See Below - Vital Signs Vital Signs: Last Vital Signs Temp 36.8 C 11/27/18 13:20 Pulse 77 11/27/18 13:20 Resp 22 H 11/27/18 13:20 BP 105/63 11/27/18 13:20 Pulse Ox 96 11/27/18 13:20 Weight: 63.004 kg - Exam Quality Assessment: Supplemental Oxygen, DVT Prophylaxis General: Alert, Oriented, Cooperative, Mild Distress HEENT: Conjunctiva Clear, EOMI, Hearing Intact, Nares Patent, Normal Nasal Septum, Pupils Equal, Pupils Reactive, PERRLA Neck: Trachea Midline Lungs: Normal Respiratory Effort, Decreased Breath Sounds, Rhonchi Cardiovascular: Regular Rate, Regular Rhythm GI/Abdominal Exam: Normal Bowel Sounds, Soft, Non-Tender, No Organomegaly, No Distention (Male) Exam: Deferred Rectal (Males) Exam: Deferred Back Exam: Normal Inspection Extremities: Normal Inspection, Non-Tender, Normal Capillary Refill Skin: Warm Neurological: Cranial Nerves Intact, Normal Speech Neuro Extensive - Mental Status: Alert, Oriented x3, Normal Mood/Affect, Normal Cognition, Memory Intact Neuro Extensive - Motor, Sensory, Reflexes: CN II-XII Intact Psychiatric: Alert, Normal Affect, Normal Mood - Patient Data Lab Results Last 24 hrs: Laboratory Results - last 24 hr 11/27/18 11/27/18 11/27/18 Range/Units 09:45 10:36 10:36 WBC 10.28 H (4.23-9.07) K/mm3 RBC 5.17 (4.63-6.08) M/mm3 Hgb 13.6 L (13.7-17.5) gm/L Hct 42.9 (40.1-51.0) % MCV 83.0 (79.0-92.2) fl MCH 26.3 (25.7-32.2) pg MCHC 31.7 L (32.2-35.5) g/dl RDW Std Deviation 48.7 H (35.1-43.9) fL Plt Count 119 L (163-337) K/mm3 MPV 11.4 (9.4-12.3) fl Neutrophils % (Manual) 75 H (40-60) % Band Neutrophils % 3 (0-10) % Lymphocytes % (Manual) 16 L (20-40) % Atypical Lymphs % 0 % Monocytes % (Manual) 6 (2-10) % Eosinophils % (Manual) 0 L (0.8-7.0) % Basophils % (Manual) 0 L (0.2-1.2) Platelet Estimate See note RBC Morph Comment Normal PT 13.0 H (9.5-12.1) SECONDS INR 1.20 APTT 30 (24-31) SECONDS Sodium 139 (136-145) mEq/L Potassium 4.2 (3.5-5.1) mEq/L Chloride 103 (98-107) mEq/L Carbon Dioxide 24 (21-32) mEq/L Anion Gap 16.2 H (5-15) BUN 16 (7-18) mg/dL Creatinine 0.7 (0.7-1.3) mg/dL Est Cr Clr Drug Dosing 88.35 mL/min Estimated GFR (MDRD) > 60 (>60) mL/min BUN/Creatinine Ratio 22.9 H (14-18) Glucose 210 H (83-115) mg/dL POC Glucose (83-110) mg/dL Lactic Acid (0.4-2.0) mmol/L Calcium 9.1 (8.5-10.1) mg/dL Total Bilirubin 0.4 (0.2-1.0) mg/dL AST 26 (15-37) U/L ALT 30 (16-63) U/L Alkaline Phosphatase 79 (46-116) U/L Troponin I < 0.017 (0.00-0.056) ng/mL NT-Pro-B Natriuret Pep (0-450) pg/mL Total Protein 6.3 L (6.4-8.2) g/dl Albumin 2.3 L (3.4-5.0) g/dl Globulin 4.0 gm/dL Albumin/Globulin Ratio 0.6 L (1-2) Lipase 153 (73-393) U/L Mycoplasma pneumon IgM Positive H (NEGATIVE) 11/27/18 11/27/18 11/27/18 Range/Units 10:36 10:46 16:38 WBC (4.23-9.07) K/mm3 RBC (4.63-6.08) M/mm3 Hgb (13.7-17.5) gm/L Hct (40.1-51.0) % MCV (79.0-92.2) fl MCH (25.7-32.2) pg MCHC (32.2-35.5) g/dl RDW Std Deviation (35.1-43.9) fL Plt Count (163-337) K/mm3 MPV (9.4-12.3) fl Neutrophils % (Manual) (40-60) % Band Neutrophils % (0-10) % Lymphocytes % (Manual) (20-40) % Atypical Lymphs % % Monocytes % (Manual) (2-10) % Eosinophils % (Manual) (0.8-7.0) % Basophils % (Manual) (0.2-1.2) Platelet Estimate RBC Morph Comment PT (9.5-12.1) SECONDS INR APTT (24-31) SECONDS Sodium (136-145) mEq/L Potassium (3.5-5.1) mEq/L Chloride (98-107) mEq/L Carbon Dioxide (21-32) mEq/L Anion Gap (5-15) BUN (7-18) mg/dL Creatinine (0.7-1.3) mg/dL Est Cr Clr Drug Dosing mL/min Estimated GFR (MDRD) (>60) mL/min BUN/Creatinine Ratio (14-18) Glucose (83-115) mg/dL POC Glucose 218 H (83-110) mg/dL Lactic Acid 1.6 (0.4-2.0) mmol/L Calcium (8.5-10.1) mg/dL Total Bilirubin (0.2-1.0) mg/dL AST (15-37) U/L ALT (16-63) U/L Alkaline Phosphatase (46-116) U/L Troponin I (0.00-0.056) ng/mL NT-Pro-B Natriuret Pep 767 H (0-450) pg/mL Total Protein (6.4-8.2) g/dl Albumin (3.4-5.0) g/dl Globulin gm/dL Albumin/Globulin Ratio (1-2) Lipase (73-393) U/L Mycoplasma pneumon IgM (NEGATIVE) Result Diagrams: 11/28/18 05:10 11/28/18 05:10 Juan Luis Results Last 24 hrs: Microbiology 11/27/18 15:15 Gram Stain - Final Sputum - Expectorated 11/27/18 11:03 Influenza Type A Antigen Screen - Final Nasal Aspirate, Unspecified NEGATIVE INFLUENZA A VIRUS AG Influenza Type B Antigen Screen - Final Positive Influenza B Ag - Problem List (1) COPD with exacerbation SNOMED Code(s): 422854340 ICD Code: J44.1 - CHRONIC OBSTRUCTIVE PULMONARY DISEASE W (ACUTE) EXACERBATION Status: Acute Current Visit: Yes (2) Influenza B SNOMED Code(s): 08347775 ICD Code: J10.1 - FLU DUE TO OTH IDENT INFLUENZA VIRUS W OTH RESP MANIFEST Status: Acute Current Visit: Yes (3) Altered mental status SNOMED Code(s): 303763321 ICD Code: R41.82 - ALTERED MENTAL STATUS, UNSPECIFIED Status: Acute Current Visit: No Qualifiers: Altered mental status type: disorientation Qualified Code(s): R41.0 - Disorientation, unspecified (4) Confusion SNOMED Code(s): 937539070 ICD Code: R41.0 - DISORIENTATION, UNSPECIFIED Status: Acute Current Visit : No (5) Dehydration SNOMED Code(s): 64243459 ICD Code: E86.0 - DEHYDRATION Status: Acute Current Visit: No (6) HTN, Benign hypertension SNOMED Code(s): 00043635 ICD Code: I10 - ESSENTIAL (PRIMARY) HYPERTENSION Status: Acute Current Visit: No (7) Hypoxemia SNOMED Code(s): 523569271 ICD Code: R09.02 - HYPOXEMIA Status: Acute Current Visit: No (8) Pneumonia SNOMED Code(s): 725728975 ICD Code: J18.9 - PNEUMONIA, UNSPECIFIED ORGANISM Status: Acute Priority : High Current Visit: No Qualifiers: Pneumonia type: due to unspecified organism Laterality: right Lung location: lower lobe of lung Qualified Code(s): J18.1 - Lobar pneumonia, unspecified organism (9) Diabetes mellitus SNOMED Code(s): 99056838 ICD Code: E11.9 - TYPE 2 DIABETES MELLITUS WITHOUT COMPLICATIONS Status: Chronic Priority: Medium Current Visit: No (10) Weakness SNOMED Code(s): 37592801 ICD Code: R53.1 - WEAKNESS Status: Chronic Priority: High Current Visit : No (11) Fever SNOMED Code(s): 927297581 ICD Code: R50.9 - FEVER, UNSPECIFIED Status: Resolved Priority: High Current Visit: No Problem List Initiated/Reviewed/Updated: Yes Orders Last 24hrs: Active Orders 24 hr Category Date Time Status Patient Status [ADT] Stat ADT 11/27/18 12:19 Active Communication Order [RC] DAILY Care 11/27/18 14:46 Inactive Communication Order [RC] DAILY Care 11/27/18 15:44 Active Glucose [Blood Glucose Check, Bedside] [RC] QIDACANDBED Care 11/27/18 16:50 Active RT Post Treatment Assessment [RC] Click to Edit Care 11/27/18 11:50 Active RT Pre-Treatment Assessment [RC] Click to Edit Care 11/27/18 11:50 Active Clear Liquid Diet [DIET] Diet 11/27/18 Dinner Active CULTURE BLOOD [BC] Stat Lab 11/27/18 10:36 Received CULTURE BLOOD [BC] Stat Lab 11/27/18 10:46 Received CULTURE SPUTUM + SMEAR [RM] Routine Lab 11/27/18 15:15 Results Alum Hydrox/Mag Hydrox/Simeth [Mag-Al Plus] Med 11/28/18 09:00 Active 30 ml PO DAILY Insulin Lispro [HumaLOG] Med 11/27/18 17:00 Active See Protocol SUBCUT QIDACANDBED Lactated Ringers [Ringers, Lactated] 1,000 ml Med 11/27/18 12:00 Active IV ASDIRECTED Nicotine [Habitrol] Med 11/27/18 15:00 Active 21 mg TRDERM Q24H Remove Patch Med 11/28/18 15:00 Active 0 ea TRDERM Q24H Isolation [COMM] Routine Oth 11/27/18 13:54 Ordered Resuscitation Status Routine Resus Stat 11/27/18 14:10 Ordered Medication Orders Al Hydroxide/Mg Hydroxide (Mag-Al Plus) 30 ml PO DAILY MAIA Lactated Ringer's (Ringers, Lactated) 1,000 mls @ 100 mls/hr IV ASDIRECTED MAIA Insulin Human Lispro (Humalog) 0 unit SUBCUT QIDACANDBED MAIA; Protocol Last Admin: 11/27/18 17:07 Dose: 2 units Miscellaneous Information (Remove Patch) 0 ea TRDERM Q24H MAIA Nicotine (Habitrol) 21 mg TRDERM Q24H MAIA Last Admin: 11/27/18 15:08 Dose: 21 mg Assessment/Plan Comment:: Impression: COPD exacerbation, steroid dependent PNA Influenza B Chronic Hx of AAA HLD HTN Hx of CVA DM type 2 NHL Depression Plan: IV ATBs IVF Nebs Droplet isolation DVT/GI prophylaxis Home meds Daily labs Consult PT/OT/CM
[2018-11-27] MEDS ORDERED: Triamcinolone Acetonide 0.5% Crm 15 GM Tube TOP PRN (17:10)
[2018-11-27] MEDS: methylPREDNISolone Sodium Succinate 40 MG/1 ML SDV IVPUSH SCH ×2 (17:59→23:20)
[2018-11-27] MEDS ORDERED: Albuterol/Ipratropium 3.0-0.5 MG/3 ML Neb Soln NEB PRN (18:13)
[2018-11-27] MEDS: Ipratropium 0.02% 0.5 MG/2.5 ML Neb Soln NEB SCH (20:56)
[2018-11-27] MEDS ORDERED: Aluminum Hydroxide/Magnesium Hydroxide/Simethicone Susp 30 ML Cup PO SCH (21:00)
[2018-11-27] MEDS: Rosuvastatin 10 MG Tab PO SCH (21:25)
[2018-11-27] MEDS: Doxycycline 100 MG in Sodium Chloride 0.9% 100 ML IV SCH (21:26)
[2018-11-27] MEDS: Oseltamivir 75 MG Cap PO SCH (21:26)
[2018-11-28] MEDS: Ipratropium 0.02% 0.5 MG/2.5 ML Neb Soln NEB SCH ×3 (05:34→20:50)
[2018-11-28] MEDS: methylPREDNISolone Sodium Succinate 40 MG/1 ML SDV IVPUSH SCH ×4 (06:14→23:02)
[2018-11-28] MEDS ORDERED: UMECLIDINIUM BRM INH SCH (09:00)
[2018-11-28] MEDS ORDERED: VILANTEROL TR INH SCH (09:00)
[2018-11-28] MEDS: Insulin Lispro 100 Unit/ML 3 ML KwikPen SUBCUT SCH ×4 (09:48→22:01)
[2018-11-28] MEDS: Rivaroxaban 10 MG Tab PO SCH (09:50)
[2018-11-28] MEDS: Doxycycline 100 MG in Sodium Chloride 0.9% 100 ML IV SCH (09:50)
[2018-11-28] MEDS: Oseltamivir 75 MG Cap PO SCH ×2 (09:51→22:00)
[2018-11-28] MEDS: Aluminum Hydroxide/Magnesium Hydroxide/Simethicone Susp 30 ML Cup PO SCH ×2 (09:53→10:13)
[2018-11-28] MEDS: Levofloxacin/Dextrose 5%-Water 750 MG in Premix Bag 1 BAG IV SCH (12:04)
[2018-11-28] MEDS: Nicotine 21 MG/24 Hr Patch TRDERM SCH (14:12)
[2018-11-28] MEDS: Sodium Chloride 0.9% 1,000 ML IV SCH (14:12)
--- NOTE | 2018-11-28 14:48 | PCM.PN ---
- General Info Date of Service: 11/28/18 Functional Status: Reports: Pain Controlled, Tolerating Diet, Urinating - Review of Systems General: Reports: Weakness HEENT: Reports: No Symptoms Pulmonary: Reports: No Symptoms Cardiovascular: Reports: No Symptoms Gastrointestinal: Reports: No Symptoms Genitourinary: Reports: No Symptoms Musculoskeletal: Reports: No Symptoms Skin: Reports: No Symptoms Neurological: Reports: No Symptoms Psychiatric: Reports: No Symptoms - Patient Data Vitals - Most Recent: Last Vital Signs Temp 36.6 C 11/28/18 11:57 Pulse 114 H 11/28/18 11:57 Resp 20 11/28/18 11:57 BP 103/69 11/28/18 11:57 Pulse Ox 94 L 11/28/18 13:12 Weight - Most Recent: 63.004 kg I&O - Last 24 Hours: Intake & Output 11/27/18 11/28/18 11/28/18 22:59 06:59 14:59 Intake Total 590 400 747 Output Total 400 Balance 190 400 747 Lab Results Last 24 Hours: Laboratory Results - last 24 hr 11/27/18 11/27/18 11/27/18 Range/Units 16:38 17:00 20:48 WBC (4.23-9.07) K/mm3 RBC (4.63-6.08) M/mm3 Hgb (13.7-17.5) gm/L Hct (40.1-51.0) % MCV (79.0-92.2) fl MCH (25.7-32.2) pg MCHC (32.2-35.5) g/dl RDW Std Deviation (35.1-43.9) fL Plt Count (163-337) K/mm3 MPV (9.4-12.3) fl Neut % (Auto) (34.0-67.9) % Lymph % (Auto) (21.8-53.1) % [place] % (Auto) (5.3-12.2) % Eos % (Auto) (0.8-7.0) Baso % (Auto) (0.1-1.2) % Neut # (Auto) (1.78-5.38) K/mm3 Lymph # (Auto) (1.32-3.57) K/mm3 [place] # (Auto) (0.30-0.82) K/mm3 Eos # (Auto) (0.04-0.54) K/mm3 Baso # (Auto) (0.01-0.08) K/mm3 Manual Slide Review Sodium (136-145) mEq/L Potassium (3.5-5.1) mEq/L Chloride (98-107) mEq/L Carbon Dioxide (21-32) mEq/L Anion Gap (5-15) BUN (7-18) mg/dL Creatinine (0.7-1.3) mg/dL Est Cr Clr Drug Dosing mL/min Estimated GFR (MDRD) (>60) mL/min BUN/Creatinine Ratio (14-18) Glucose (83-115) mg/dL POC Glucose 218 H 300 H (83-110) mg/dL Lactic Acid (0.4-2.0) mmol/L Calcium (8.5-10.1) mg/dL Magnesium (1.8-2.4) mg/dl C-Reactive Protein (<1.0) mg/dL Urine Color Yellow (Yellow) Urine Appearance Slt cloudy H (Clear) Urine pH 6.0 (5.0-8.0) Ur Specific [place] > or = 1.030 (1.005-1.030) Urine Protein Trace H (Negative) Urine Glucose (UA) 2+ H (Negative) Urine Ketones 2+ H (Negative) Urine Occult Blood Negative (Negative) Urine Nitrite Negative (Negative) Urine Bilirubin Negative (Negative) Urine Urobilinogen 0.2 (0.2-1.0) Ur Leukocyte Esterase Negative (Negative) Urine RBC 0-5 (0-5) /hpf Urine WBC 0-5 (0-5) /hpf Ur Epithelial Cells 0-5 (0-5) /hpf Urine Bacteria Few (FEW) /hpf Urine Mucus Moderate H (FEW) /hpf 11/28/18 11/28/18 11/28/18 Range/Units 05:10 05:10 05:10 WBC 7.95 (4.23-9.07) K/mm3 RBC 4.58 L (4.63-6.08) M/mm3 Hgb 12.7 L (13.7-17.5) gm/L Hct 38.3 L (40.1-51.0) % MCV 83.6 (79.0-92.2) fl MCH 27.7 (25.7-32.2) pg MCHC 33.2 (32.2-35.5) g/dl RDW Std Deviation 48.3 H (35.1-43.9) fL Plt Count 103 L (163-337) K/mm3 MPV 11.6 (9.4-12.3) fl Neut % (Auto) 84.5 H (34.0-67.9) % Lymph % (Auto) 13.1 L (21.8-53.1) % [place] % (Auto) 2.3 L (5.3-12.2) % Eos % (Auto) 0 L (0.8-7.0) Baso % (Auto) 0.1 (0.1-1.2) % Neut # (Auto) 6.72 H (1.78-5.38) K/mm3 Lymph # (Auto) 1.04 L (1.32-3.57) K/mm3 [place] # (Auto) 0.18 L (0.30-0.82) K/mm3 Eos # (Auto) 0.00 L (0.04-0.54) K/mm3 Baso # (Auto) 0.01 (0.01-0.08) K/mm3 Manual Slide Review Abnormal smear Sodium 138 (136-145) mEq/L Potassium 4.1 (3.5-5.1) mEq/L Chloride 103 (98-107) mEq/L Carbon Dioxide 24 (21-32) mEq/L Anion Gap 15.1 H (5-15) BUN 12 (7-18) mg/dL Creatinine 0.6 L (0.7-1.3) mg/dL Est Cr Clr Drug Dosing 88.96 mL/min Estimated GFR (MDRD) > 60 (>60) mL/min BUN/Creatinine Ratio 20.0 H (14-18) Glucose 228 H (83-115) mg/dL POC Glucose (83-110) mg/dL Lactic Acid 1.3 (0.4-2.0) mmol/L Calcium 8.8 (8.5-10.1) mg/dL Magnesium 2.0 (1.8-2.4) mg/dl C-Reactive Protein 16.8 H* (<1.0) mg/dL Urine Color (Yellow) Urine Appearance (Clear) Urine pH (5.0-8.0) Ur Specific [place] (1.005-1.030) Urine Protein (Negative) Urine Glucose (UA) (Negative) Urine Ketones (Negative) Urine Occult Blood (Negative) Urine Nitrite (Negative) Urine Bilirubin (Negative) Urine Urobilinogen (0.2-1.0) Ur Leukocyte Esterase (Negative) Urine RBC (0-5) /hpf Urine WBC (0-5) /hpf Ur Epithelial Cells (0-5) /hpf Urine Bacteria (FEW) /hpf Urine Mucus (FEW) /hpf 11/28/18 11/28/18 11/28/18 Range/Units 06:07 06:45 14:12 WBC (4.23-9.07) K/mm3 RBC (4.63-6.08) M/mm3 Hgb (13.7-17.5) gm/L Hct (40.1-51.0) % MCV (79.0-92.2) fl MCH (25.7-32.2) pg MCHC (32.2-35.5) g/dl RDW Std Deviation (35.1-43.9) fL Plt Count (163-337) K/mm3 MPV (9.4-12.3) fl Neut % (Auto) (34.0-67.9) % Lymph % (Auto) (21.8-53.1) % [place] % (Auto) (5.3-12.2) % Eos % (Auto) (0.8-7.0) Baso % (Auto) (0.1-1.2) % Neut # (Auto) (1.78-5.38) K/mm3 Lymph # (Auto) (1.32-3.57) K/mm3 [place] # (Auto) (0.30-0.82) K/mm3 Eos # (Auto) (0.04-0.54) K/mm3 Baso # (Auto) (0.01-0.08) K/mm3 Manual Slide Review Sodium (136-145) mEq/L Potassium (3.5-5.1) mEq/L Chloride (98-107) mEq/L Carbon Dioxide (21-32) mEq/L Anion Gap (5-15) BUN (7-18) mg/dL Creatinine (0.7-1.3) mg/dL Est Cr Clr Drug Dosing mL/min Estimated GFR (MDRD) (>60) mL/min BUN/Creatinine Ratio (14-18) Glucose (83-115) mg/dL POC Glucose 256 H 227 H 355 H (83-110) mg/dL Lactic Acid (0.4-2.0) mmol/L Calcium (8.5-10.1) mg/dL Magnesium (1.8-2.4) mg/dl C-Reactive Protein (<1.0) mg/dL Urine Color (Yellow) Urine Appearance (Clear) Urine pH (5.0-8.0) Ur Specific [place] (1.005-1.030) Urine Protein (Negative) Urine Glucose (UA) (Negative) Urine Ketones (Negative) Urine Occult Blood (Negative) Urine Nitrite (Negative) Urine Bilirubin (Negative) Urine Urobilinogen (0.2-1.0) Ur Leukocyte Esterase (Negative) Urine RBC (0-5) /hpf Urine WBC (0-5) /hpf Ur Epithelial Cells (0-5) /hpf Urine Bacteria (FEW) /hpf Urine Mucus (FEW) /hpf Juan Luis Results Last 24 Hours: Microbiology 11/27/18 15:15 Gram Stain - Final Sputum - Expectorated Sputum Culture - Preliminary Gram Negative Rods 11/27/18 10:46 Aerobic Blood Culture - Preliminary Blood NO GROWTH AFTER 1 DAY Anaerobic Blood Culture - Preliminary NO GROWTH AFTER 1 DAY 11/27/18 10:36 Aerobic Blood Culture - Preliminary Blood NO GROWTH AFTER 1 DAY Anaerobic Blood Culture - Preliminary NO GROWTH AFTER 1 DAY 11/27/18 11:03 Influenza Type A Antigen Screen - Final Nasal Aspirate, Unspecified NEGATIVE INFLUENZA A VIRUS AG Influenza Type B Antigen Screen - Final Positive Influenza B Ag Med Orders - Current: Current Medications Acetaminophen (Tylenol) 650 mg PO Q6H PRN PRN Reason: Pain Al Hydroxide/Mg Hydroxide (Mag-Al Plus) 30 ml PO DAILY MAIA Last Admin: 11/28/18 10:13 Dose: Not Given Albuterol/Ipratropium (Duoneb 3.0-0.5 Mg/3 Ml) 3 ml NEB QID PRN PRN Reason: Shortness of Breath Alogliptin Benzoate (Alogliptin) 25 mg PO DAILY MAIA Bisacodyl (Dulcolax) 10 mg RECTAL DAILY PRN PRN Reason: Constipation Doxazosin Mesylate (Cardura) 4 mg PO DAILY [facility] Flunisolide (Nasalide Nasal [place]) 0 ml MARILIN BID [facility] Levofloxacin/Dextrose 750 mg/ (Premix) 150 mls @ 100 mls/hr IV Q24H [facility] Last Admin: 11/28/18 12:04 Dose: 100 mls/hr Sodium Chloride (Normal Saline) 1,000 mls @ 100 mls/hr IV ASDIRECTED [facility] Last Admin: 11/28/18 14:12 Dose: 100 mls/hr Insulin Human Lispro (Humalog) 0 unit SUBCUT QIDACANDBED [facility]; Protocol Last Admin: 11/28/18 14:13 Dose: 5 units Ipratropium Starr (Atrovent) 0.5 mg NEB Q8HRRT [facility] Last Admin: 11/28/18 13:12 Dose: 0.5 mg Magnesium Oxide (Magnesium Oxide) 400 mg PO DAILY [facility] Megestrol Acetate (Megace 40 Mg/Ml Susp) 800 mg PO DAILY [facility] Methylprednisolone Sodium Succinate (Solu-Medrol) 80 mg IVPUSH Q6H [facility] Last Admin: 11/28/18 12:07 Dose: 80 mg Metoprolol Tartrate (Lopressor) 50 mg PO BID [facility] Miscellaneous Information (Remove Patch) 0 ea TRDERM Q24H [facility] Last Admin: 11/28/18 14:15 Dose: 1 ea Nicotine (Habitrol) 21 mg TRDERM Q24H [facility] Last Admin: 11/28/18 14:12 Dose: 21 mg Non-Formulary Medication (Bifidobacter. Bifidum/B.Longum [Florajen Bifidoblend] ) 1 cap PO DAILY [facility] Non-Formulary Medication (Calcitonin ([place])) 200 unit MARIL[place] DAILY [facility] Non-Formulary Medication (Melatonin) 6 mg PO BEDTIME [facility] Oseltamivir Phosphate (Tamiflu) 75 mg PO BID [facility] Last Admin: 11/28/18 09:51 Dose: 75 mg Rivaroxaban (Xarelto) 15 mg PO DAILY [facility] Last Admin: 11/28/18 09:50 Dose: 15 mg Rosuvastatin Calcium (Crestor) 5 mg PO BEDTIME [facility] Last Admin: 11/27/18 21:25 Dose: 5 mg Senna/Docusate Sodium (Senna Plus) 1 tab PO BID [facility] Last Admin: 11/28/18 09:51 Dose: 1 tab Triamcinolone Acetonide (Triamcinolone Acetonide 0.5%) 0 gm TOP BID PRN PRN Reason: Rash Discontinued Medications Al Hydroxide/Mg Hydroxide (Mag-Al Plus) 30 ml PO BID [facility] Doxycycline Hyclate 100 mg/ (Sodium Chloride) 100 mls @ 100 mls/hr IV ONETIME ONE Stop: 11/27/18 12:42 Last Admin: 11/27/18 11:59 Dose: 100 mls/hr Lactated Ringer's (Ringers, Lactated) 500 mls @ 500 mls/hr IV .BOLUS ONE Stop: 11/27/18 12:47 Last Admin: 11/27/18 11:59 Dose: 500 mls/hr Lactated Ringer's (Ringers, Lactated) 1,000 mls @ 100 mls/hr IV ASDIRECTED [facility] Last Admin: 11/27/18 17:19 Dose: 100 mls/hr Doxycycline Hyclate 100 mg/ (Sodium Chloride) 100 mls @ 100 mls/hr IV Q12HR [facility] Last Admin: 11/28/18 09:50 Dose: 100 mls/hr Ipratropium St[place] (Atrovent) 0.5 mg NEB ONETIME ONE Stop: 11/27/18 11:51 Last Admin: 11/27/18 12:14 Dose: 0.5 mg Methylprednisolone Sodium Succinate (Solu-Medrol) 125 mg IVPUSH ONETIME ONE Stop: 11/27/18 11:35 Last Admin: 11/27/18 11:41 Dose: 125 mg Non-Formulary Medication (Umeclidinium Brm/Vilanterol Tr) 1 puff INH DAILY [facility] Oseltamivir Phosphate (Tamiflu) 75 mg PO ONETIME ONE Stop: 11/27/18 11:44 Last Admin: 11/27/18 12:02 Dose: 75 mg - Exam Quality Assessment: Supplemental Oxygen, DVT Prophylaxis General: Alert, Oriented, Cooperative, No Acute Distress HEENT: Pupils Equal, Pupils Reactive, EOMI Neck: Trachea Midline Lungs: Normal Respiratory Effort, Decreased Breath Sounds Cardiovascular: Regular Rate GI/Abdominal Exam: Normal Bowel Sounds, Soft, Non-Tender, No Organomegaly, No Distention (Male) Exam: Deferred Back Exam: Normal Inspection Extremities: Normal Inspection, Non-Tender, Normal Capillary Refill Skin: Warm Neurological: No New Focal Deficit Psy/Mental Status: Alert, Normal Affect, Normal Mood - Problem List & Annotations (1) COPD with exacerbation SNOMED Code(s): 628926371 Code(s): J44.1 - CHRONIC OBSTRUCTIVE PULMONARY DISEASE W (ACUTE) EXACERBATION Status: Acute Current Visit: Yes (2) Influenza B SNOMED Code(s): 52981998 Code(s): J10.1 - FLU DUE TO OTH IDENT INFLUENZA VIRUS W OTH RESP MANIFEST Status: Acute Current Visit: Yes (3) Altered mental status SNOMED Code(s): 499020527 Code(s): R41.82 - ALTERED MENTAL STATUS, UNSPECIFIED Status: Acute Current Visit: No Qualifiers: Altered mental status type: disorientation Qualified Code(s): R41.0 - Disorientation, unspecified (4) Confusion SNOMED Code(s): 380089948 Code(s): R41.0 - DISORIENTATION, UNSPECIFIED Status: Acute Current Visit : No (5) Dehydration SNOMED Code(s): 75934168 Code(s): E86.0 - DEHYDRATION Status: Acute Current Visit: No (6) HTN, Benign hypertension SNOMED Code(s): 56489432 Code(s): I10 - ESSENTIAL (PRIMARY) HYPERTENSION Status: Acute Current Visit: No (7) Hypoxemia SNOMED Code(s): 107042283 Code(s): R09.02 - HYPOXEMIA Status: Acute Current Visit: No (8) Pneumonia SNOMED Code(s): 167495649 Code(s): J18.9 - PNEUMONIA, UNSPECIFIED ORGANISM Status: Acute Priority: High Current Visit: No Qualifiers: Pneumonia type: due to unspecified organism Laterality: right Lung location: lower lobe of lung Qualified Code(s): J18.1 - Lobar pneumonia, unspecified organism (9) Diabetes mellitus SNOMED Code(s): 78235316 Code(s): E11.9 - TYPE 2 DIABETES MELLITUS WITHOUT COMPLICATIONS Status: Chronic Priority: Medium Current Visit: No (10) Weakness SNOMED Code(s): 09383875 Code(s): R53.1 - WEAKNESS Status: Chronic Priority: High Current Visit : No (11) Fever SNOMED Code(s): 588921383 Code(s): R50.9 - FEVER, UNSPECIFIED Status: Resolved Priority: High Current Visit: No - Problem List Review Problem List Initiated/Reviewed/Updated: Yes - My Orders Last 24 Hours: My Active Orders 11/27/18 13:54 Isolation [COMM] Routine 11/27/18 14:10 Resuscitation Status Routine 11/27/18 14:46 Communication Order [RC] DAILY 11/27/18 15:00 Nicotine [Habitrol] 21 mg TRDERM Q24H 11/27/18 15:15 CULTURE SPUTUM + SMEAR [RM] Routine 11/27/18 15:44 Communication Order [RC] DAILY 11/27/18 16:50 Glucose [Blood Glucose Check, Bedside] [RC] QIDACANDBED 11/27/18 17:00 CULTURE URINE [RM] Routine Insulin Lispro [HumaLOG] See Protocol SUBCUT QIDACANDBED 11/27/18 17:10 Triamcinolone Acetonide [Triamcinolone Acetonide 0.5%] 0 gm TOP BID PRN 11/27/18 18:00 methylPREDNISolone Sod Succ [Solu-MEDROL] 80 mg IVPUSH Q6H 11/27/18 18:13 RT Aerosol Therapy [RC] ASDIRECTED Albuterol/Ipratropium [DuoNeb 3.0-0.5 MG/3 ML] 3 ml NEB QID PRN 11/27/18 21:00 Docusate Sodium/Sennosides [Senna Plus] 1 tab PO BID Ipratropium [Atrovent] 0.5 mg NEB Q8HRRT Oseltamivir [Tamiflu] 75 mg PO BID Rosuvastatin [Crestor] 5 mg PO BEDTIME 11/28/18 09:00 Consult to Occupational Therapy [OT Evaluation and Treatment] [CONS] Routine Consult to Physical Therapy [PT Evaluation and Treatment] [CONS] Routine Alum Hydrox/Mag Hydrox/Simeth [Mag-Al Plus] 30 ml PO DAILY Rivaroxaban [Xarelto] 15 mg PO DAILY 11/28/18 13:00 Levofloxacin/Dextrose 5%-Water [Levaquin in D5W 750 MG/150 ML] 750 mg Premix Bag 1 bag IV Q24H Sodium Chloride 0.9% [Normal Saline] 1,000 ml IV ASDIRECTED 11/28/18 14:14 Acetaminophen [Tylenol] 650 mg PO Q6H PRN Bisacodyl [Dulcolax] 10 mg RECTAL DAILY PRN 11/28/18 15:00 Remove Patch 0 ea TRDERM Q24H 11/28/18 21:00 Melatonin 6 mg PO BEDTIME Metoprolol Tartrate [Lopressor] 50 mg PO BID 11/28/18 Lunch Heart Healthy Diet [DIET] 11/29/18 05:00 BMP [BASIC METABOLIC PANEL,BMP] [CHEM] DAILY CBC WITH AUTO DIFF [HEME] DAILY CRP [C-REACTIVE PROTEIN] [CHEM] DAILY LACTIC ACID [CHEM] DAILY MAGNESIUM [CHEM] DAILY 11/29/18 09:00 Bifidobacter. Bifidum/B.Longum [Florajen Bifidoblend] 1 cap PO DAILY Calcitonin ([place]) 200 unit MARILIN DAILY Doxazosin [Cardura] 4 mg PO DAILY Fluticasone Propionate 2 spray MARIL[place] DAILY Linagliptin [Tradjenta] 5 mg PO DAILY Magnesium Oxide 400 mg PO DAILY Megestrol [Megace 40 MG/ML Susp] 800 mg PO DAILY 11/30/18 05:00 BMP [BASIC METABOLIC PANEL,BMP] [CHEM] DAILY CBC WITH AUTO DIFF [HEME] DAILY CRP [C-REACTIVE PROTEIN] [CHEM] DAILY LACTIC ACID [CHEM] DAILY MAGNESIUM [CHEM] DAILY 11/30/18 09:00 Consult to Case Management/Apparel Pattern Maker [CONS] Routine CXR [Chest 2V] [CR] Routine 12/01/18 05:00 BMP [BASIC METABOLIC PANEL,BMP] [CHEM] DAILY CBC WITH AUTO DIFF [HEME] DAILY CRP [C-REACTIVE PROTEIN] [CHEM] DAILY LACTIC ACID [CHEM] DAILY MAGNESIUM [CHEM] DAILY - Plan Plan:: Impression: COPD exacerbation, steroid dependent; expand for gram negative coverage PNA Influenza B Chronic Hx of AAA HLD HTN Hx of CVA DM type 2 NHL Depression Plan: IV ATBs IVF Nebs Droplet isolation DVT/GI prophylaxis Home meds Daily labs Consult PT/OT/CM
[2018-11-28] MEDS ORDERED: Metoprolol Tartrate 25 MG Tab PO ONE (15:15)
[2018-11-28] MEDS ORDERED: Doxazosin 4 MG Tab PO ONE (15:15)
[2018-11-28] MEDS ORDERED: MELATONIN 6 MG PO SCH (21:00)
[2018-11-28] MEDS: Rosuvastatin 10 MG Tab PO SCH (22:00)
[2018-11-28] MEDS: Metoprolol Tartrate 25 MG Tab PO SCH (22:03)
[2018-11-29] MEDS: Sodium Chloride 0.9% 1,000 ML IV SCH (01:58)
[2018-11-29] MEDS: Ipratropium 0.02% 0.5 MG/2.5 ML Neb Soln NEB SCH ×3 (05:27→20:51)
[2018-11-29] MEDS: methylPREDNISolone Sodium Succinate 40 MG/1 ML SDV IVPUSH SCH ×3 (05:35→17:58)
[2018-11-29] MEDS ORDERED: [UNRECOGNIZED DRUG - MIXTURE] PO SCH (09:00)
[2018-11-29] MEDS ORDERED: CALCITONIN NAS SCH (09:00)
[2018-11-29] MEDS: Aluminum Hydroxide/Magnesium Hydroxide/Simethicone Susp 30 ML Cup PO SCH (09:44)
[2018-11-29] MEDS: Insulin Lispro 100 Unit/ML 3 ML KwikPen SUBCUT SCH ×5 (09:44→22:00)
[2018-11-29] MEDS: Megestrol Susp 40 MG/ML 10 ML UD Cup PO SCH (09:44)
[2018-11-29] MEDS: Rivaroxaban 10 MG Tab PO SCH (09:45)
[2018-11-29] MEDS: Magnesium Oxide 400 MG Tab PO SCH (09:45)
[2018-11-29] MEDS: Metoprolol Tartrate 25 MG Tab PO SCH ×2 (09:46→20:37)
[2018-11-29] MEDS: Oseltamivir 75 MG Cap PO SCH ×2 (09:46→20:36)
[2018-11-29] MEDS: Doxazosin 4 MG Tab PO SCH (09:46)
[2018-11-29] MEDS: Levofloxacin/Dextrose 5%-Water 750 MG in Premix Bag 1 BAG IV SCH (12:30)
[2018-11-29] MEDS: Acetaminophen 325 MG Tab PO PRN (15:03)
[2018-11-29] MEDS: Nicotine 21 MG/24 Hr Patch TRDERM SCH (15:04)
--- NOTE | 2018-11-29 17:51 | PCM.PN ---
- General Info Date of Service: 11/29/18 Functional Status: Reports: Urinating - Review of Systems General: Reports: Weakness HEENT: Reports: No Symptoms Pulmonary: Reports: No Symptoms Cardiovascular: Reports: No Symptoms Gastrointestinal: Reports: No Symptoms Genitourinary: Reports: No Symptoms Musculoskeletal: Reports: No Symptoms Skin: Reports: No Symptoms Neurological: Reports: No Symptoms Psychiatric: Reports: No Symptoms - Patient Data Vitals - Most Recent: Last Vital Signs Temp 36.7 C 11/29/18 16:00 Pulse 111 H 11/29/18 15:50 Resp 16 11/29/18 16:00 BP 119/73 11/29/18 15:50 Pulse Ox 99 11/29/18 15:50 Weight - Most Recent: 63.231 kg I&O - Last 24 Hours: Intake & Output 11/29/18 11/29/18 11/29/18 06:59 14:59 22:59 Intake Total 1674 0 783 Output Total 350 Balance 1674 0 433 Lab Results Last 24 Hours: Laboratory Results - last 24 hr 11/28/18 11/28/18 11/29/18 Range/Units 17:44 21:52 04:10 WBC (4.23-9.07) K/mm3 RBC (4.63-6.08) M/mm3 Hgb (13.7-17.5) gm/L Hct (40.1-51.0) % MCV (79.0-92.2) fl MCH (25.7-32.2) pg MCHC (32.2-35.5) g/dl RDW Std Deviation (35.1-43.9) fL Plt Count (163-337) K/mm3 MPV (9.4-12.3) fl Neut % (Auto) (34.0-67.9) % Lymph % (Auto) (21.8-53.1) % [place] % (Auto) (5.3-12.2) % Eos % (Auto) (0.8-7.0) Baso % (Auto) (0.1-1.2) % Neut # (Auto) (1.78-5.38) K/mm3 Lymph # (Auto) (1.32-3.57) K/mm3 [place] # (Auto) (0.30-0.82) K/mm3 Eos # (Auto) (0.04-0.54) K/mm3 Baso # (Auto) (0.01-0.08) K/mm3 Manual Slide Review Sodium (136-145) mEq/L Potassium (3.5-5.1) mEq/L Chloride (98-107) mEq/L Carbon Dioxide (21-32) mEq/L Anion Gap (5-15) BUN (7-18) mg/dL Creatinine (0.7-1.3) mg/dL Est Cr Clr Drug Dosing mL/min Estimated GFR (MDRD) (>60) mL/min BUN/Creatinine Ratio (14-18) Glucose (83-115) mg/dL POC Glucose 315 H 202 H (83-110) mg/dL Lactic Acid 1.0 (0.4-2.0) mmol/L Calcium (8.5-10.1) mg/dL Magnesium (1.8-2.4) mg/dl C-Reactive Protein (<1.0) mg/dL 11/29/18 11/29/18 11/29/18 Range/Units 04:50 04:50 06:43 WBC 6.94 (4.23-9.07) K/mm3 RBC 4.07 L (4.63-6.08) M/mm3 Hgb 10.7 L (13.7-17.5) gm/L Hct 34.3 L (40.1-51.0) % MCV 84.3 (79.0-92.2) fl MCH 26.3 (25.7-32.2) pg MCHC 31.2 L (32.2-35.5) g/dl RDW Std Deviation 48.7 H (35.1-43.9) fL Plt Count 96 L (163-337) K/mm3 MPV 11.3 (9.4-12.3) fl Neut % (Auto) 86.0 H (34.0-67.9) % Lymph % (Auto) 10.1 L (21.8-53.1) % [place] % (Auto) 3.2 L (5.3-12.2) % Eos % (Auto) 0 L (0.8-7.0) Baso % (Auto) 0.0 L (0.1-1.2) % Neut # (Auto) 5.97 H (1.78-5.38) K/mm3 Lymph # (Auto) 0.70 L (1.32-3.57) K/mm3 [place] # (Auto) 0.22 L (0.30-0.82) K/mm3 Eos # (Auto) 0.00 L (0.04-0.54) K/mm3 Baso # (Auto) 0.00 L (0.01-0.08) K/mm3 Manual Slide Review Abnormal smear Sodium 142 (136-145) mEq/L Potassium 3.7 (3.5-5.1) mEq/L Chloride 107 (98-107) mEq/L Carbon Dioxide 25 (21-32) mEq/L Anion Gap 13.7 (5-15) BUN 17 (7-18) mg/dL Creatinine 0.6 L (0.7-1.3) mg/dL Est Cr Clr Drug Dosing 88.96 mL/min Estimated GFR (MDRD) > 60 (>60) mL/min BUN/Creatinine Ratio 28.3 H (14-18) Glucose 233 H (83-115) mg/dL POC Glucose 249 H (83-110) mg/dL Lactic Acid (0.4-2.0) mmol/L Calcium 8.2 L (8.5-10.1) mg/dL Magnesium 1.9 (1.8-2.4) mg/dl C-Reactive Protein 5.9 H* (<1.0) mg/dL 11/29/18 Range/Units 10:42 WBC (4.23-9.07) K/mm3 RBC (4.63-6.08) M/mm3 Hgb (13.7-17.5) gm/L Hct (40.1-51.0) % MCV (79.0-92.2) fl MCH (25.7-32.2) pg MCHC (32.2-35.5) g/dl RDW Std Deviation (35.1-43.9) fL Plt Count (163-337) K/mm3 MPV (9.4-12.3) fl Neut % (Auto) (34.0-67.9) % Lymph % (Auto) (21.8-53.1) % [place] % (Auto) (5.3-12.2) % Eos % (Auto) (0.8-7.0) Baso % (Auto) (0.1-1.2) % Neut # (Auto) (1.78-5.38) K/mm3 Lymph # (Auto) (1.32-3.57) K/mm3 [place] # (Auto) (0.30-0.82) K/mm3 Eos # (Auto) (0.04-0.54) K/mm3 Baso # (Auto) (0.01-0.08) K/mm3 Manual Slide Review Sodium (136-145) mEq/L Potassium (3.5-5.1) mEq/L Chloride (98-107) mEq/L Carbon Dioxide (21-32) mEq/L Anion Gap (5-15) BUN (7-18) mg/dL Creatinine (0.7-1.3) mg/dL Est Cr Clr Drug Dosing mL/min Estimated GFR (MDRD) (>60) mL/min BUN/Creatinine Ratio (14-18) Glucose (83-115) mg/dL POC Glucose 276 H (83-110) mg/dL Lactic Acid (0.4-2.0) mmol/L Calcium (8.5-10.1) mg/dL Magnesium (1.8-2.4) mg/dl C-Reactive Protein (<1.0) mg/dL Juan Luis Results Last 24 Hours: Microbiology 11/27/18 15:15 Gram Stain - Final Sputum - Expectorated Sputum Culture - Preliminary Pseudomonas Aeruginosa 11/27/18 17:00 Urine Culture - Final Urine, Clean Catch MIXED YUE SUGGESTIVE OF CONTAMINATION. 11/27/18 10:46 Aerobic Blood Culture - Preliminary Blood NO GROWTH AFTER 2 DAYS Anaerobic Blood Culture - Preliminary NO GROWTH AFTER 2 DAYS 11/27/18 10:36 Aerobic Blood Culture - Preliminary Blood NO GROWTH AFTER 2 DAYS Anaerobic Blood Culture - Preliminary NO GROWTH AFTER 2 DAYS Med Orders - Current: Current Medications Acetaminophen (Tylenol) 650 mg PO Q6H PRN PRN Reason: Pain Last Admin: 11/29/18 15:03 Dose: 650 mg Hydrocodone Bitart/Acetaminophen ([place] 325-5 Mg) 1 tab PO BID PRN PRN Reason: Pain Al Hydroxide/Mg Hydroxide (Mag-Al Plus) 30 ml PO DAILY [facility] Last Admin: 11/29/18 09:44 Dose: 30 ml Albuterol/Ipratropium (Duoneb 3.0-0.5 Mg/3 Ml) 3 ml NEB QID PRN PRN Reason: Shortness of Breath Alogliptin Benzoate (Alogliptin) 25 mg PO DAILY [facility] Last Admin: 11/29/18 09:46 Dose: 25 mg Bisacodyl (Dulcolax) 10 mg RECTAL DAILY PRN PRN Reason: Constipation Doxazosin Mesylate (Cardura) 4 mg PO DAILY [facility] Last Admin: 11/29/18 09:46 Dose: 4 mg Flunisolide (Nasalide Nasal [place]) 0 ml MARILIN BID [facility] Last Admin: 11/29/18 09:47 Dose: 2 spray Levofloxacin/Dextrose 750 mg/ (Premix) 150 mls @ 100 mls/hr IV Q24H [facility] Last Admin: 11/29/18 12:30 Dose: 100 mls/hr Insulin Human Lispro (Humalog) 0 unit SUBCUT QIDACANDBED [facility]; Protocol Last Admin: 11/29/18 17:00 Dose: Not Given Ipratropium [place] (Atrovent) 0.5 mg NEB Q8HRRT [facility] Last Admin: 11/29/18 13:04 Dose: 0.5 mg Magnesium Oxide (Magnesium Oxide) 400 mg PO DAILY [facility] Last Admin: 11/29/18 09:45 Dose: 400 mg Megestrol Acetate (Megace 40 Mg/Ml Susp) 800 mg PO DAILY [facility] Last Admin: 11/29/18 09:44 Dose: 800 mg Methylprednisolone Sodium Succinate (Solu-Medrol) 80 mg IVPUSH Q6H [facility] Last Admin: 11/29/18 12:30 Dose: 80 mg Metoprolol Tartrate (Lopressor) 50 mg PO BID [facility] Last Admin: 11/29/18 09:46 Dose: 50 mg Miscellaneous Information (Remove Patch) 0 ea TRDERM Q24H [facility] Last Admin: 11/29/18 15:05 Dose: 1 ea Nicotine (Habitrol) 21 mg TRDERM Q24H [facility] Last Admin: 11/29/18 15:04 Dose: 21 mg Oseltamivir Phosphate (Tamiflu) 75 mg PO BID [facility] Stop: 12/01/18 21:01 Last Admin: 11/29/18 09:46 Dose: 75 mg Rivaroxaban (Xarelto) 15 mg PO DAILY [facility] Last Admin: 11/29/18 09:45 Dose: 15 mg Rosuvastatin Calcium (Crestor) 5 mg PO BEDTIME [facility] Last Admin: 11/28/18 22:00 Dose: 5 mg Senna/Docusate Sodium (Senna Plus) 1 tab PO BID [facility] Last Admin: 11/29/18 09:45 Dose: 1 tab Triamcinolone Acetonide (Triamcinolone Acetonide 0.5%) 0 gm TOP BID PRN PRN Reason: Rash Discontinued Medications Al Hydroxide/Mg Hydroxide (Mag-Al Plus) 30 ml PO BID [facility] Doxazosin Mesylate (Cardura) 4 mg PO ONETIME ONE Stop: 11/28/18 15:16 Last Admin: 11/28/18 15:58 Dose: 4 mg Doxycycline Hyclate 100 mg/ (Sodium Chloride) 100 mls @ 100 mls/hr IV ONETIME ONE Stop: 11/27/18 12:42 Last Admin: 11/27/18 11:59 Dose: 100 mls/hr Lactated Ringer's (Ringers, Lactated) 500 mls @ 500 mls/hr IV .BOLUS ONE Stop: 11/27/18 12:47 Last Admin: 11/27/18 11:59 Dose: 500 mls/hr Lactated Ringer's (Ringers, Lactated) 1,000 mls @ 100 mls/hr IV ASDIRECTED [facility] Last Admin: 11/27/18 17:19 Dose: 100 mls/hr Doxycycline Hyclate 100 mg/ (Sodium Chloride) 100 mls @ 100 mls/hr IV Q12HR [facility] Last Admin: 11/28/18 09:50 Dose: 100 mls/hr Sodium Chloride (Normal Saline) 1,000 mls @ 100 mls/hr IV ASDIRECTED [facility] Last Admin: 11/29/18 01:58 Dose: 100 mls/hr Ipratropium [place] (Atrovent) 0.5 mg NEB ONETIME ONE Stop: 11/27/18 11:51 Last Admin: 11/27/18 12:14 Dose: 0.5 mg Methylprednisolone Sodium Succinate (Solu-Medrol) 125 mg IVPUSH ONETIME ONE Stop: 11/27/18 11:35 Last Admin: 11/27/18 11:41 Dose: 125 mg Metoprolol Tartrate (Lopressor) 50 mg PO ONETIME ONE Stop: 11/28/18 15:16 Last Admin: 11/28/18 15:58 Dose: 50 mg Non-Formulary Medication (Umeclidinium Brm/Vilanterol Tr) 1 puff INH DAILY [facility] Non-Formulary Medication (Bifidobacter. Bifidum/B.Longum [Florajen Bifidoblend] ) 1 cap PO DAILY [facility] Non-Formulary Medication (Calcitonin (Donnelly)) 200 unit MARILIN DAILY [facility] Non-Formulary Medication (Melatonin) 6 mg PO BEDTIME [facility] Oseltamivir Phosphate (Tamiflu) 75 mg PO ONETIME ONE Stop: 11/27/18 11:44 Last Admin: 11/27/18 12:02 Dose: 75 mg - Exam Quality Assessment: Supplemental Oxygen, DVT Prophylaxis General: Alert, Oriented, Cooperative, No Acute Distress HEENT: Pupils Equal, Pupils Reactive, EOMI Neck: Trachea Midline, No JVD Lungs: Normal Respiratory Effort Cardiovascular: Regular Rate GI/Abdominal Exam: Normal Bowel Sounds, Soft, Non-Tender, No Organomegaly, No Distention (Male) Exam: Deferred Back Exam: Normal Inspection Extremities: Normal Inspection, Non-Tender, Normal Capillary Refill Skin: Warm Neurological: No New Focal Deficit, Normal Gait, Normal Speech Psy/Mental Status: Alert, Normal Affect, Normal Mood - Problem List & Annotations (1) COPD with exacerbation SNOMED Code(s): 175459499 Code(s): J44.1 - CHRONIC OBSTRUCTIVE PULMONARY DISEASE W (ACUTE) EXACERBATION Status: Acute Current Visit: Yes (2) Influenza B SNOMED Code(s): 04882591 Code(s): J10.1 - FLU DUE TO OTH IDENT INFLUENZA VIRUS W OTH RESP MANIFEST Status: Acute Current Visit: Yes (3) Altered mental status SNOMED Code(s): 574156390 Code(s): R41.82 - ALTERED MENTAL STATUS, UNSPECIFIED Status: Acute Current Visit: No Qualifiers: Altered mental status type: disorientation Qualified Code(s): R41.0 - Disorientation, unspecified (4) Confusion SNOMED Code(s): 480610931 Code(s): R41.0 - DISORIENTATION, UNSPECIFIED Status: Acute Current Visit : No (5) Dehydration SNOMED Code(s): 53200685 Code(s): E86.0 - DEHYDRATION Status: Acute Current Visit: No (6) HTN, Benign hypertension SNOMED Code(s): 90939988 Code(s): I10 - ESSENTIAL (PRIMARY) HYPERTENSION Status: Acute Current Visit: No (7) Hypoxemia SNOMED Code(s): 712880825 Code(s): R09.02 - HYPOXEMIA Status: Acute Current Visit: No (8) Pneumonia SNOMED Code(s): 294338052 Code(s): J18.9 - PNEUMONIA, UNSPECIFIED ORGANISM Status: Acute Priority: High Current Visit: No Qualifiers: Pneumonia type: due to unspecified organism Laterality: right Lung location: lower lobe of lung Qualified Code(s): J18.1 - Lobar pneumonia, unspecified organism (9) Diabetes mellitus SNOMED Code(s): 40349511 Code(s): E11.9 - TYPE 2 DIABETES MELLITUS WITHOUT COMPLICATIONS Status: Chronic Priority: Medium Current Visit: No (10) Weakness SNOMED Code(s): 53045351 Code(s): R53.1 - WEAKNESS Status: Chronic Priority: High Current Visit : No (11) Fever SNOMED Code(s): 109203388 Code(s): R50.9 - FEVER, UNSPECIFIED Status: Resolved Priority: High Current Visit: No - Problem List Review Problem List Initiated/Reviewed/Updated: Yes - My Orders Last 24 Hours: My Active Orders 11/28/18 21:00 Metoprolol Tartrate [Lopressor] 50 mg PO BID 11/29/18 09:00 Alogliptin Benzoate [Alogliptin] 25 mg PO DAILY Doxazosin [Cardura] 4 mg PO DAILY Flunisolide [Nasalide Nasal [place]] 0 ml MARILIN BID Magnesium Oxide 400 mg PO DAILY Megestrol [Megace 40 MG/ML Susp] 800 mg PO DAILY 11/29/18 17:41 Acetaminophen/HYDROcodone [[place] 325-5 MG] 1 tab PO BID PRN 11/30/18 05:00 BMP [BASIC METABOLIC PANEL,BMP] [CHEM] DAILY CBC WITH AUTO DIFF [HEME] DAILY CRP [C-REACTIVE PROTEIN] [CHEM] DAILY LACTIC ACID [CHEM] DAILY MAGNESIUM [CHEM] DAILY 11/30/18 09:00 Consult to Case Management/[employer] Operator [CONS] Routine CXR [Chest 2V] [CR] Routine 12/01/18 05:00 BMP [BASIC METABOLIC PANEL,BMP] [CHEM] DAILY CBC WITH AUTO DIFF [HEME] DAILY CRP [C-REACTIVE PROTEIN] [CHEM] DAILY LACTIC ACID [CHEM] DAILY MAGNESIUM [CHEM] DAILY - Plan Plan:: Impression: COPD exacerbation, steroid dependent; expand for gram negative coverage PNA--Mycoplasma Influenza B Opiod dependence Chronic Hx of AAA HLD HTN Hx of CVA DM type 2 NHL Depression Plan: IV ATBs IVF Nebs Droplet isolation DVT/GI prophylaxis Home meds Daily labs Consult PT/OT/CM DC 24-48 hours
[2018-11-29] MEDS: Acetaminophen/HYDROcodone 325-5 MG Tab PO PRN (17:59)
[2018-11-29] MEDS: Rosuvastatin 10 MG Tab PO SCH (20:35)
[2018-11-30] MEDS: methylPREDNISolone Sodium Succinate 40 MG/1 ML SDV IVPUSH SCH ×5 (00:10→23:40)
[2018-11-30] MEDS: Ipratropium 0.02% 0.5 MG/2.5 ML Neb Soln NEB SCH ×3 (06:14→20:33)
[2018-11-30] MEDS: Rivaroxaban 10 MG Tab PO SCH (08:50)
[2018-11-30] MEDS: Oseltamivir 75 MG Cap PO SCH ×2 (08:50→21:24)
[2018-11-30] MEDS: Megestrol Susp 40 MG/ML 10 ML UD Cup PO SCH (08:50)
[2018-11-30] MEDS: Insulin Lispro 100 Unit/ML 3 ML KwikPen SUBCUT SCH ×4 (08:51→21:31)
[2018-11-30] MEDS: Magnesium Oxide 400 MG Tab PO SCH (08:51)
[2018-11-30] MEDS: Metoprolol Tartrate 25 MG Tab PO SCH ×2 (09:14→21:25)
[2018-11-30] MEDS: Aluminum Hydroxide/Magnesium Hydroxide/Simethicone Susp 30 ML Cup PO SCH (09:14)
[2018-11-30] MEDS: Acetaminophen 325 MG Tab PO PRN (09:14)
--- NOTE | 2018-11-30 11:43 | CR ---
Chest: Two views of the chest were obtained. Comparison: Prior chest x-ray of 11/27/18. Heart size is within normal limits. Small hiatal hernia is noted. Slight tortuosity of the thoracic aorta is seen. Infusion port is seen. Lungs are clear with no acute parenchymal change. Bony structures are grossly intact. Impression: 1. Incidental findings. Nothing acute is appreciated. No significant change from previous study is seen. Diagnostic code #2
[2018-11-30] MEDS: Doxazosin 4 MG Tab PO SCH (12:09)
[2018-11-30] MEDS: Acetaminophen/HYDROcodone 325-5 MG Tab PO PRN ×2 (12:13→21:22)
[2018-11-30] MEDS: Levofloxacin/Dextrose 5%-Water 750 MG in Premix Bag 1 BAG IV SCH (12:14)
--- NOTE | 2018-11-30 14:54 | PCM.PN ---
- General Info Date of Service: 11/30/18 Functional Status: Reports: Pain Controlled, Tolerating Diet - Review of Systems General: Reports: Weakness HEENT: Reports: No Symptoms Pulmonary: Reports: Shortness of Breath Cardiovascular: Reports: No Symptoms Gastrointestinal: Reports: No Symptoms Genitourinary: Reports: No Symptoms Musculoskeletal: Reports: No Symptoms Skin: Reports: No Symptoms Neurological: Reports: Confusion Psychiatric: Reports: No Symptoms - Patient Data Vitals - Most Recent: Last Vital Signs Temp 36.4 C 11/30/18 12:08 Pulse 66 11/30/18 12:08 Resp 19 11/30/18 12:08 BP 105/56 L 11/30/18 12:09 Pulse Ox 99 11/30/18 13:21 Weight - Most Recent: 62.732 kg I&O - Last 24 Hours: Intake & Output 11/29/18 11/30/18 11/30/18 22:59 06:59 14:59 Intake Total 783 200 0 Output Total 350 Balance 433 200 0 Lab Results Last 24 Hours: Laboratory Results - last 24 hr 11/29/18 11/29/18 11/30/18 Range/Units 18:15 20:11 05:39 WBC (4.23-9.07) K/mm3 RBC (4.63-6.08) M/mm3 Hgb (13.7-17.5) gm/L Hct (40.1-51.0) % MCV (79.0-92.2) fl MCH (25.7-32.2) pg MCHC (32.2-35.5) g/dl RDW Std Deviation (35.1-43.9) fL Plt Count (163-337) K/mm3 MPV (9.4-12.3) fl Neut % (Auto) (34.0-67.9) % Lymph % (Auto) (21.8-53.1) % [place] % (Auto) (5.3-12.2) % Eos % (Auto) (0.8-7.0) Baso % (Auto) (0.1-1.2) % Neut # (Auto) (1.78-5.38) K/mm3 Lymph # (Auto) (1.32-3.57) K/mm3 [place] # (Auto) (0.30-0.82) K/mm3 Eos # (Auto) (0.04-0.54) K/mm3 Baso # (Auto) (0.01-0.08) K/mm3 Manual Slide Review Sodium (136-145) mEq/L Potassium (3.5-5.1) mEq/L Chloride (98-107) mEq/L Carbon Dioxide (21-32) mEq/L Anion Gap (5-15) BUN (7-18) mg/dL Creatinine (0.7-1.3) mg/dL Est Cr Clr Drug Dosing mL/min Estimated GFR (MDRD) (>60) mL/min BUN/Creatinine Ratio (14-18) Glucose (83-115) mg/dL POC Glucose 343 H 269 H 247 H (83-110) mg/dL Lactic Acid (0.4-2.0) mmol/L Calcium (8.5-10.1) mg/dL Magnesium (1.8-2.4) mg/dl C-Reactive Protein (<1.0) mg/dL 11/30/18 11/30/18 11/30/18 Range/Units 05:55 05:55 05:55 WBC 6.10 (4.23-9.07) K/mm3 RBC 4.24 L (4.63-6.08) M/mm3 Hgb 11.3 L (13.7-17.5) gm/L Hct 35.7 L (40.1-51.0) % MCV 84.2 (79.0-92.2) fl MCH 26.7 (25.7-32.2) pg MCHC 31.7 L (32.2-35.5) g/dl RDW Std Deviation 48.8 H (35.1-43.9) fL Plt Count 97 L (163-337) K/mm3 MPV 10.8 (9.4-12.3) fl Neut % (Auto) 82.7 H (34.0-67.9) % Lymph % (Auto) 14.3 L (21.8-53.1) % [place] % (Auto) 2.1 L (5.3-12.2) % Eos % (Auto) 0 L (0.8-7.0) Baso % (Auto) 0.2 (0.1-1.2) % Neut # (Auto) 5.05 (1.78-5.38) K/mm3 Lymph # (Auto) 0.87 L (1.32-3.57) K/mm3 [place] # (Auto) 0.13 L (0.30-0.82) K/mm3 Eos # (Auto) 0.00 L (0.04-0.54) K/mm3 Baso # (Auto) 0.01 (0.01-0.08) K/mm3 Manual Slide Review Abnormal smear Sodium 142 (136-145) mEq/L Potassium 3.9 (3.5-5.1) mEq/L Chloride 108 H (98-107) mEq/L Carbon Dioxide 28 (21-32) mEq/L Anion Gap 9.9 (5-15) BUN 17 (7-18) mg/dL Creatinine 0.6 L (0.7-1.3) mg/dL Est Cr Clr Drug Dosing 88.58 mL/min Estimated GFR (MDRD) > 60 (>60) mL/min BUN/Creatinine Ratio 28.3 H (14-18) Glucose 226 H (83-115) mg/dL POC Glucose (83-110) mg/dL Lactic Acid 1.4 (0.4-2.0) mmol/L Calcium 8.3 L (8.5-10.1) mg/dL Magnesium 2.1 (1.8-2.4) mg/dl C-Reactive Protein 3.6 H* (<1.0) mg/dL 11/30/18 Range/Units 11:24 WBC (4.23-9.07) K/mm3 RBC (4.63-6.08) M/mm3 Hgb (13.7-17.5) gm/L Hct (40.1-51.0) % MCV (79.0-92.2) fl MCH (25.7-32.2) pg MCHC (32.2-35.5) g/dl RDW Std Deviation (35.1-43.9) fL Plt Count (163-337) K/mm3 MPV (9.4-12.3) fl Neut % (Auto) (34.0-67.9) % Lymph % (Auto) (21.8-53.1) % [place] % (Auto) (5.3-12.2) % Eos % (Auto) (0.8-7.0) Baso % (Auto) (0.1-1.2) % Neut # (Auto) (1.78-5.38) K/mm3 Lymph # (Auto) (1.32-3.57) K/mm3 [place] # (Auto) (0.30-0.82) K/mm3 Eos # (Auto) (0.04-0.54) K/mm3 Baso # (Auto) (0.01-0.08) K/mm3 Manual Slide Review Sodium (136-145) mEq/L Potassium (3.5-5.1) mEq/L Chloride (98-107) mEq/L Carbon Dioxide (21-32) mEq/L Anion Gap (5-15) BUN (7-18) mg/dL Creatinine (0.7-1.3) mg/dL Est Cr Clr Drug Dosing mL/min Estimated GFR (MDRD) (>60) mL/min BUN/Creatinine Ratio (14-18) Glucose (83-115) mg/dL POC Glucose 276 H (83-110) mg/dL Lactic Acid (0.4-2.0) mmol/L Calcium (8.5-10.1) mg/dL Magnesium (1.8-2.4) mg/dl C-Reactive Protein (<1.0) mg/dL Juan Luis Results Last 24 Hours: Microbiology 11/27/18 10:46 Aerobic Blood Culture - Preliminary Blood NO GROWTH AFTER 3 DAYS Anaerobic Blood Culture - Preliminary NO GROWTH AFTER 3 DAYS 11/27/18 10:36 Aerobic Blood Culture - Preliminary Blood NO GROWTH AFTER 3 DAYS Anaerobic Blood Culture - Preliminary NO GROWTH AFTER 3 DAYS 11/27/18 15:15 Gram Stain - Final Sputum - Expectorated Sputum Culture - Final Pseudomonas Aeruginosa 11/27/18 17:00 Urine Culture - Final Urine, Clean Catch MIXED YUE SUGGESTIVE OF CONTAMINATION. Med Orders - Current: Current Medications Acetaminophen (Tylenol) 650 mg PO Q6H PRN PRN Reason: Pain Last Admin: 11/30/18 09:14 Dose: 650 mg Hydrocodone Bitart/Acetaminophen ([place] 325-5 Mg) 1 tab PO BID PRN PRN Reason: Pain Last Admin: 11/30/18 12:13 Dose: 1 tab Al Hydroxide/Mg Hydroxide (Mag-Al Plus) 30 ml PO DAILY [facility] Last Admin: 11/30/18 09:14 Dose: 30 ml Albuterol/Ipratropium (Duoneb 3.0-0.5 Mg/3 Ml) 3 ml NEB QID PRN PRN Reason: Shortness of Breath Alogliptin Benzoate (Alogliptin) 25 mg PO DAILY [facility] Last Admin: 11/30/18 08:50 Dose: 25 mg Bisacodyl (Dulcolax) 10 mg RECTAL DAILY PRN PRN Reason: Constipation Doxazosin Mesylate (Cardura) 4 mg PO DAILY [facility] Last Admin: 11/30/18 12:09 Dose: 4 mg Flunisolide (Nasalide Nasal [place]) 0 ml MARILIN BID [facility] Last Admin: 11/30/18 08:53 Dose: 2 spray Levofloxacin/Dextrose 750 mg/ (Premix) 150 mls @ 100 mls/hr IV Q24H [facility] Last Admin: 11/30/18 12:14 Dose: 100 mls/hr Insulin Human Lispro (Humalog) 0 unit SUBCUT QIDACANDBED [facility]; Protocol Last Admin: 11/30/18 11:45 Dose: 3 units Ipratropium Colon (Atrovent) 0.5 mg NEB Q8HRRT [facility] Last Admin: 11/30/18 13:21 Dose: 0.5 mg Magnesium Oxide (Magnesium Oxide) 400 mg PO DAILY [facility] Last Admin: 11/30/18 08:51 Dose: 400 mg Megestrol Acetate (Megace 40 Mg/Ml Susp) 800 mg PO DAILY [facility] Last Admin: 11/30/18 08:50 Dose: 800 mg Methylprednisolone Sodium Succinate (Solu-Medrol) 80 mg IVPUSH Q6H [facility] Last Admin: 11/30/18 11:46 Dose: 80 mg Metoprolol Tartrate (Lopressor) 50 mg PO BID [facility] Last Admin: 11/30/18 09:14 Dose: 50 mg Miscellaneous Information (Remove Patch) 0 ea TRDERM Q24H [facility] Last Admin: 11/29/18 15:05 Dose: 1 ea Nicotine (Habitrol) 21 mg TRDERM Q24H [facility] Last Admin: 11/29/18 15:04 Dose: 21 mg Oseltamivir Phosphate (Tamiflu) 75 mg PO BID [facility] Stop: 12/01/18 21:01 Last Admin: 11/30/18 08:50 Dose: 75 mg Rivaroxaban (Xarelto) 15 mg PO DAILY [facility] Last Admin: 11/30/18 08:50 Dose: 15 mg Rosuvastatin Calcium (Crestor) 5 mg PO BEDTIME [facility] Last Admin: 11/29/18 20:35 Dose: 5 mg Senna/Docusate Sodium (Senna Plus) 1 tab PO BID [facility] Last Admin: 11/30/18 08:50 Dose: 1 tab Triamcinolone Acetonide (Triamcinolone Acetonide 0.5%) 0 gm TOP BID PRN PRN Reason: Rash Discontinued Medications Al Hydroxide/Mg Hydroxide (Mag-Al Plus) 30 ml PO BID [facility] Doxazosin Mesylate (Cardura) 4 mg PO ONETIME ONE Stop: 11/28/18 15:16 Last Admin: 11/28/18 15:58 Dose: 4 mg Doxycycline Hyclate 100 mg/ (Sodium Chloride) 100 mls @ 100 mls/hr IV ONETIME ONE Stop: 11/27/18 12:42 Last Admin: 11/27/18 11:59 Dose: 100 mls/hr Lactated Ringer's (Ringers, Lactated) 500 mls @ 500 mls/hr IV .BOLUS ONE Stop: 11/27/18 12:47 Last Admin: 11/27/18 11:59 Dose: 500 mls/hr Lactated Ringer's (Ringers, Lactated) 1,000 mls @ 100 mls/hr IV ASDIRECTED [facility] Last Admin: 11/27/18 17:19 Dose: 100 mls/hr Doxycycline Hyclate 100 mg/ (Sodium Chloride) 100 mls @ 100 mls/hr IV Q12HR [facility] Last Admin: 11/28/18 09:50 Dose: 100 mls/hr Sodium Chloride (Normal Saline) 1,000 mls @ 100 mls/hr IV ASDIRECTED [facility] Last Admin: 11/29/18 01:58 Dose: 100 mls/hr Ipratropium Colon (Atrovent) 0.5 mg NEB ONETIME ONE Stop: 11/27/18 11:51 Last Admin: 11/27/18 12:14 Dose: 0.5 mg Methylprednisolone Sodium Succinate (Solu-Medrol) 125 mg IVPUSH ONETIME ONE Stop: 11/27/18 11:35 Last Admin: 11/27/18 11:41 Dose: 125 mg Metoprolol Tartrate (Lopressor) 50 mg PO ONETIME ONE Stop: 11/28/18 15:16 Last Admin: 11/28/18 15:58 Dose: 50 mg Non-Formulary Medication (Umeclidinium Brm/Vilanterol Tr) 1 puff INH DAILY [facility] Non-Formulary Medication (Bifidobacter. Bifidum/B.Longum [Florajen Bifidoblend] ) 1 cap PO DAILY [facility] Non-Formulary Medication (Calcitonin ([place])) 200 unit MARILIN DAILY [facility] Non-Formulary Medication (Melatonin) 6 mg PO BEDTIME [facility] Oseltamivir Phosphate (Tamiflu) 75 mg PO ONETIME ONE Stop: 11/27/18 11:44 Last Admin: 11/27/18 12:02 Dose: 75 mg - Exam Quality Assessment: Supplemental Oxygen, DVT Prophylaxis General: Alert, Oriented, Cooperative, No Acute Distress HEENT: Pupils Equal, Pupils Reactive, EOMI Neck: Trachea Midline, No JVD Lungs: Clear to Auscultation, Normal Respiratory Effort Cardiovascular: Regular Rate, Regular Rhythm GI/Abdominal Exam: Normal Bowel Sounds, Soft, Non-Tender, No Organomegaly, No Distention (Male) Exam: Deferred Back Exam: Normal Inspection Extremities: Normal Inspection, Non-Tender, Normal Capillary Refill Skin: Warm Neurological: No New Focal Deficit Psy/Mental Status: Alert - Problem List & Annotations (1) COPD with exacerbation SNOMED Code(s): 033672633 Code(s): J44.1 - CHRONIC OBSTRUCTIVE PULMONARY DISEASE W (ACUTE) EXACERBATION Status: Acute Current Visit: Yes (2) Influenza B SNOMED Code(s): 47530766 Code(s): J10.1 - FLU DUE TO OTH IDENT INFLUENZA VIRUS W OTH RESP MANIFEST Status: Acute Current Visit: Yes (3) Altered mental status SNOMED Code(s): 024391397 Code(s): R41.82 - ALTERED MENTAL STATUS, UNSPECIFIED Status: Acute Current Visit: No Qualifiers: Altered mental status type: disorientation Qualified Code(s): R41.0 - Disorientation, unspecified (4) Confusion SNOMED Code(s): 611697449 Code(s): R41.0 - DISORIENTATION, UNSPECIFIED Status: Acute Current Visit : No (5) Dehydration SNOMED Code(s): 29118748 Code(s): E86.0 - DEHYDRATION Status: Acute Current Visit: No (6) HTN, Benign hypertension SNOMED Code(s): 18570703 Code(s): I10 - ESSENTIAL (PRIMARY) HYPERTENSION Status: Acute Current Visit: No (7) Hypoxemia SNOMED Code(s): 377688312 Code(s): R09.02 - HYPOXEMIA Status: Acute Current Visit: No (8) Pneumonia SNOMED Code(s): 578705902 Code(s): J18.9 - PNEUMONIA, UNSPECIFIED ORGANISM Status: Acute Priority: High Current Visit: No Qualifiers: Pneumonia type: due to unspecified organism Laterality: right Lung location: lower lobe of lung Qualified Code(s): J18.1 - Lobar pneumonia, unspecified organism (9) Diabetes mellitus SNOMED Code(s): 09126546 Code(s): E11.9 - TYPE 2 DIABETES MELLITUS WITHOUT COMPLICATIONS Status: Chronic Priority: Medium Current Visit: No (10) Weakness SNOMED Code(s): 84905485 Code(s): R53.1 - WEAKNESS Status: Chronic Priority: High Current Visit : No (11) Fever SNOMED Code(s): 613254482 Code(s): R50.9 - FEVER, UNSPECIFIED Status: Resolved Priority: High Current Visit: No - Problem List Review Problem List Initiated/Reviewed/Updated: Yes - My Orders Last 24 Hours: My Active Orders 11/29/18 17:41 Acetaminophen/HYDROcodone [[place] 325-5 MG] 1 tab PO BID PRN 11/30/18 09:00 Consult to Case Management/[employer] [place] [CONS] Routine 12/01/18 05:00 BMP [BASIC METABOLIC PANEL,BMP] [CHEM] DAILY CBC WITH AUTO DIFF [HEME] DAILY CRP [C-REACTIVE PROTEIN] [CHEM] DAILY LACTIC ACID [CHEM] DAILY MAGNESIUM [CHEM] DAILY - Plan Plan:: Impression: COPD exacerbation, steroid dependent; expand for gram negative coverage, Pseudomonas PNA--Mycoplasma Influenza B Opiod dependence Chronic Hx of AAA HLD HTN Hx of CVA DM type 2 NHL Depression Plan: IV ATBs IVF Nebs Droplet isolation DVT/GI prophylaxis Home meds Daily labs Consult PT/OT/CM DC 24-48 hours; query HH at DC.
[2018-11-30] MEDS: Nicotine 21 MG/24 Hr Patch TRDERM SCH (16:46)
[2018-11-30] MEDS: Rosuvastatin 10 MG Tab PO SCH (21:21)
[2018-12-01] MEDS: Ipratropium 0.02% 0.5 MG/2.5 ML Neb Soln NEB SCH ×3 (05:09→20:30)
[2018-12-01] MEDS: methylPREDNISolone Sodium Succinate 40 MG/1 ML SDV IVPUSH SCH ×3 (06:45→20:53)
[2018-12-01] MEDS: Magnesium Oxide 400 MG Tab PO SCH (08:05)
[2018-12-01] MEDS: Aluminum Hydroxide/Magnesium Hydroxide/Simethicone Susp 30 ML Cup PO SCH (08:05)
[2018-12-01] MEDS: Megestrol Susp 40 MG/ML 10 ML UD Cup PO SCH (08:05)
[2018-12-01] MEDS: Oseltamivir 75 MG Cap PO SCH ×2 (08:05→20:50)
[2018-12-01] MEDS: Metoprolol Tartrate 25 MG Tab PO SCH ×2 (08:05→20:51)
[2018-12-01] MEDS: Doxazosin 4 MG Tab PO SCH (08:06)
[2018-12-01] MEDS: Rivaroxaban 10 MG Tab PO SCH (08:07)
[2018-12-01] MEDS: Insulin Lispro 100 Unit/ML 3 ML KwikPen SUBCUT SCH ×4 (08:20→22:36)
[2018-12-01] MEDS: Acetaminophen/HYDROcodone 325-5 MG Tab PO PRN ×2 (08:59→20:49)
[2018-12-01] MEDS: Levofloxacin/Dextrose 5%-Water 750 MG in Premix Bag 1 BAG IV SCH (12:30)
--- NOTE | 2018-12-01 12:40 | PCM.PN ---
- General Info Date of Service: 12/01/18 Admission Dx/Problem (Free Text): Admission Diagnosis/Problem Admission Diagnosis/Problem COPD, Severe chronic obstructive pulmonary disease Subjective Update: In to see Roosevelt. His is at bedside. He has no acute complaints but still states he is not feeling 100%. Explained that he will likely not feel back to normal for some time, even after he is discharged. He is reporting a headache which is chronic. Labs continue to improve. No nursing concerns. Hopeful for discharge tomorrow. Functional Status: Reports: Pain Controlled, Tolerating Diet, Urinating, Incentive Spirometry, Other (acapella ). Denies: Ambulating, New Symptoms - Review of Systems General: Reports: Weakness, Fatigue, Malaise. Denies: Fever, Chills HEENT: Reports: Headaches (chronic - reports has been constant since stroke ) Pulmonary: Reports: Shortness of Breath, Cough. Denies: Sputum, Wheezing Cardiovascular: Reports: Dyspnea on Exertion. Denies: Chest Pain, Palpitations Gastrointestinal: Reports: No Symptoms. Denies: Abdominal Pain, Constipation, Diarrhea, Nausea, Vomiting Genitourinary: Reports: No Symptoms. Denies: Pain Musculoskeletal: Reports: No Symptoms Skin: Reports: No Symptoms Neurological: Reports: Pre-Existing Deficit, Trouble Speaking (very difficult to understand ), Difficulty Walking, Weakness, Gait Disturbance. Denies: Tremors, Change in Speech Psychiatric: Reports: No Symptoms - Patient Data Vitals - Most Recent: Last Vital Signs Temp 97.3 F 12/01/18 07:27 Pulse 63 12/01/18 08:05 Resp 16 12/01/18 07:27 BP 128/54 L 12/01/18 08:06 Pulse Ox 97 12/01/18 07:27 Weight - Most Recent: 142 lb 12.8 oz I&O - Last 24 Hours: Intake & Output 11/30/18 12/01/18 12/01/18 22:59 06:59 14:59 Intake Total 990 300 Output Total 345 400 Balance 645 -100 Lab Results Last 24 Hours: Laboratory Results - last 24 hr 11/30/18 11/30/18 12/01/18 Range/Units 17:02 21:31 05:25 WBC 5.54 (4.23-9.07) K/mm3 RBC 3.91 L (4.63-6.08) M/mm3 Hgb 10.7 L (13.7-17.5) gm/L Hct 33.1 L (40.1-51.0) % MCV 84.7 (79.0-92.2) fl MCH 27.4 (25.7-32.2) pg MCHC 32.3 (32.2-35.5) g/dl RDW Std Deviation 47.2 H (35.1-43.9) fL Plt Count 91 L (163-337) K/mm3 MPV 10.9 (9.4-12.3) fl Neut % (Auto) 87.2 H (34.0-67.9) % Lymph % (Auto) 10.5 L (21.8-53.1) % [place] % (Auto) 2.3 L (5.3-12.2) % Eos % (Auto) 0 L (0.8-7.0) Baso % (Auto) 0.0 L (0.1-1.2) % Neut # (Auto) 4.83 (1.78-5.38) K/mm3 Lymph # (Auto) 0.58 L (1.32-3.57) K/mm3 [place] # (Auto) 0.13 L (0.30-0.82) K/mm3 Eos # (Auto) 0.00 L (0.04-0.54) K/mm3 Baso # (Auto) 0.00 L (0.01-0.08) K/mm3 Manual Slide Review Abnormal smear Sodium (136-145) mEq/L Potassium (3.5-5.1) mEq/L Chloride (98-107) mEq/L Carbon Dioxide (21-32) mEq/L Anion Gap (5-15) BUN (7-18) mg/dL Creatinine (0.7-1.3) mg/dL Est Cr Clr Drug Dosing mL/min Estimated GFR (MDRD) (>60) mL/min BUN/Creatinine Ratio (14-18) Glucose (83-115) mg/dL POC Glucose 293 H 290 H (83-110) mg/dL Lactic Acid (0.4-2.0) mmol/L Calcium (8.5-10.1) mg/dL Magnesium (1.8-2.4) mg/dl C-Reactive Protein (<1.0) mg/dL 12/01/18 12/01/18 12/01/18 Range/Units 05:25 05:25 06:07 WBC (4.23-9.07) K/mm3 RBC (4.63-6.08) M/mm3 Hgb (13.7-17.5) gm/L Hct (40.1-51.0) % MCV (79.0-92.2) fl MCH (25.7-32.2) pg MCHC (32.2-35.5) g/dl RDW Std Deviation (35.1-43.9) fL Plt Count (163-337) K/mm3 MPV (9.4-12.3) fl Neut % (Auto) (34.0-67.9) % Lymph % (Auto) (21.8-53.1) % [place] % (Auto) (5.3-12.2) % Eos % (Auto) (0.8-7.0) Baso % (Auto) (0.1-1.2) % Neut # (Auto) (1.78-5.38) K/mm3 Lymph # (Auto) (1.32-3.57) K/mm3 [place] # (Auto) (0.30-0.82) K/mm3 Eos # (Auto) (0.04-0.54) K/mm3 Baso # (Auto) (0.01-0.08) K/mm3 Manual Slide Review Sodium 140 (136-145) mEq/L Potassium 4.0 (3.5-5.1) mEq/L Chloride 106 (98-107) mEq/L Carbon Dioxide 28 (21-32) mEq/L Anion Gap 10.0 (5-15) BUN 25 H (7-18) mg/dL Creatinine 0.6 L (0.7-1.3) mg/dL Est Cr Clr Drug Dosing 88.58 mL/min Estimated GFR (MDRD) > 60 (>60) mL/min BUN/Creatinine Ratio 41.7 H (14-18) Glucose 242 H (83-115) mg/dL POC Glucose 255 H (83-110) mg/dL Lactic Acid 1.4 (0.4-2.0) mmol/L Calcium 7.8 L (8.5-10.1) mg/dL Magnesium 2.2 (1.8-2.4) mg/dl C-Reactive Protein 2.2 H* (<1.0) mg/dL 12/01/18 Range/Units 10:55 WBC (4.23-9.07) K/mm3 RBC (4.63-6.08) M/mm3 Hgb (13.7-17.5) gm/L Hct (40.1-51.0) % MCV (79.0-92.2) fl MCH (25.7-32.2) pg MCHC (32.2-35.5) g/dl RDW Std Deviation (35.1-43.9) fL Plt Count (163-337) K/mm3 MPV (9.4-12.3) fl Neut % (Auto) (34.0-67.9) % Lymph % (Auto) (21.8-53.1) % [place] % (Auto) (5.3-12.2) % Eos % (Auto) (0.8-7.0) Baso % (Auto) (0.1-1.2) % Neut # (Auto) (1.78-5.38) K/mm3 Lymph # (Auto) (1.32-3.57) K/mm3 [place] # (Auto) (0.30-0.82) K/mm3 Eos # (Auto) (0.04-0.54) K/mm3 Baso # (Auto) (0.01-0.08) K/mm3 Manual Slide Review Sodium (136-145) mEq/L Potassium (3.5-5.1) mEq/L Chloride (98-107) mEq/L Carbon Dioxide (21-32) mEq/L Anion Gap (5-15) BUN (7-18) mg/dL Creatinine (0.7-1.3) mg/dL Est Cr Clr Drug Dosing mL/min Estimated GFR (MDRD) (>60) mL/min BUN/Creatinine Ratio (14-18) Glucose (83-115) mg/dL POC Glucose 246 H (83-110) mg/dL Lactic Acid (0.4-2.0) mmol/L Calcium (8.5-10.1) mg/dL Magnesium (1.8-2.4) mg/dl C-Reactive Protein (<1.0) mg/dL Juan Luis Results Last 24 Hours: Microbiology 11/27/18 10:46 Aerobic Blood Culture - Preliminary Blood NO GROWTH AFTER 4 DAYS Anaerobic Blood Culture - Preliminary NO GROWTH AFTER 4 DAYS 11/27/18 10:36 Aerobic Blood Culture - Preliminary Blood NO GROWTH AFTER 4 DAYS Anaerobic Blood Culture - Preliminary NO GROWTH AFTER 4 DAYS 11/27/18 15:15 Gram Stain - Final Sputum - Expectorated Sputum Culture - Final Pseudomonas Aeruginosa Med Orders - Current: Current Medications Acetaminophen (Tylenol) 650 mg PO Q6H PRN PRN Reason: Pain Last Admin: 11/30/18 09:14 Dose: 650 mg Hydrocodone Bitart/Acetaminophen ([place] 325-5 Mg) 1 tab PO BID PRN PRN Reason: Pain Last Admin: 12/01/18 08:59 Dose: 1 tab Al Hydroxide/Mg Hydroxide (Mag-Al Plus) 30 ml PO DAILY [facility] Last Admin: 12/01/18 08:05 Dose: 30 ml Albuterol/Ipratropium (Duoneb 3.0-0.5 Mg/3 Ml) 3 ml NEB QID PRN PRN Reason: Shortness of Breath Alogliptin Benzoate (Alogliptin) 25 mg PO DAILY [facility] Last Admin: 12/01/18 08:05 Dose: 25 mg Bisacodyl (Dulcolax) 10 mg RECTAL DAILY PRN PRN Reason: Constipation Doxazosin Mesylate (Cardura) 4 mg PO DAILY [facility] Last Admin: 12/01/18 08:06 Dose: 4 mg Flunisolide (Nasalide Nasal Protivin) 0 ml MARILIN BID [facility] Last Admin: 12/01/18 08:07 Dose: 2 spray Levofloxacin/Dextrose 750 mg/ (Premix) 150 mls @ 100 mls/hr IV Q24H [facility] Last Admin: 12/01/18 12:30 Dose: 100 mls/hr Insulin Human Lispro (Humalog) 0 unit SUBCUT QIDACANDBED [facility]; Protocol Last Admin: 12/01/18 12:29 Dose: 2 units Ipratropium Boomer (Atrovent) 0.5 mg NEB Q8HRRT [facility] Last Admin: 12/01/18 05:09 Dose: 0.5 mg Magnesium Oxide (Magnesium Oxide) 400 mg PO DAILY [facility] Last Admin: 12/01/18 08:05 Dose: 400 mg Megestrol Acetate (Megace 40 Mg/Ml Susp) 800 mg PO DAILY [facility] Last Admin: 12/01/18 08:05 Dose: 800 mg Methylprednisolone Sodium Succinate (Solu-Medrol) 80 mg IVPUSH Q6H [facility] Last Admin: 12/01/18 12:29 Dose: 80 mg Metoprolol Tartrate (Lopressor) 50 mg PO BID [facility] Last Admin: 12/01/18 08:05 Dose: 50 mg Miscellaneous Information (Remove Patch) 0 ea TRDERM Q24H [facility] Last Admin: 11/30/18 16:48 Dose: 1 ea Nicotine (Habitrol) 21 mg TRDERM Q24H [facility] Last Admin: 11/30/18 16:46 Dose: 21 mg Oseltamivir Phosphate (Tamiflu) 75 mg PO BID [facility] Stop: 12/01/18 21:01 Last Admin: 12/01/18 08:05 Dose: 75 mg Rivaroxaban (Xarelto) 15 mg PO DAILY [facility] Last Admin: 12/01/18 08:07 Dose: 15 mg Rosuvastatin Calcium (Crestor) 5 mg PO BEDTIME [facility] Last Admin: 11/30/18 21:21 Dose: 5 mg Senna/Docusate Sodium (Senna Plus) 1 tab PO BID [facility] Last Admin: 12/01/18 08:05 Dose: 1 tab Triamcinolone Acetonide (Triamcinolone Acetonide 0.5%) 0 gm TOP BID PRN PRN Reason: Rash Discontinued Medications Al Hydroxide/Mg Hydroxide (Mag-Al Plus) 30 ml PO BID [facility] Doxazosin Mesylate (Cardura) 4 mg PO ONETIME ONE Stop: 11/28/18 15:16 Last Admin: 11/28/18 15:58 Dose: 4 mg Doxycycline Hyclate 100 mg/ (Sodium Chloride) 100 mls @ 100 mls/hr IV ONETIME ONE Stop: 11/27/18 12:42 Last Admin: 11/27/18 11:59 Dose: 100 mls/hr Lactated Ringer's (Ringers, Lactated) 500 mls @ 500 mls/hr IV .BOLUS ONE Stop: 11/27/18 12:47 Last Admin: 11/27/18 11:59 Dose: 500 mls/hr Lactated Ringer's (Ringers, Lactated) 1,000 mls @ 100 mls/hr IV ASDIRECTED [facility] Last Admin: 11/27/18 17:19 Dose: 100 mls/hr Doxycycline Hyclate 100 mg/ (Sodium Chloride) 100 mls @ 100 mls/hr IV Q12HR [facility] Last Admin: 11/28/18 09:50 Dose: 100 mls/hr Sodium Chloride (Normal Saline) 1,000 mls @ 100 mls/hr IV ASDIRECTED [facility] Last Admin: 11/29/18 01:58 Dose: 100 mls/hr Ipratropium Boomer (Atrovent) 0.5 mg NEB ONETIME ONE Stop: 11/27/18 11:51 Last Admin: 11/27/18 12:14 Dose: 0.5 mg Methylprednisolone Sodium Succinate (Solu-Medrol) 125 mg IVPUSH ONETIME ONE Stop: 11/27/18 11:35 Last Admin: 11/27/18 11:41 Dose: 125 mg Metoprolol Tartrate (Lopressor) 50 mg PO ONETIME ONE Stop: 11/28/18 15:16 Last Admin: 11/28/18 15:58 Dose: 50 mg Non-Formulary Medication (Umeclidinium Brm/Vilanterol Tr) 1 puff INH DAILY [facility] Non-Formulary Medication (Bifidobacter. Bifidum/B.Longum [Florajen Bifidoblend] ) 1 cap PO DAILY [facility] Non-Formulary Medication (Calcitonin ([place])) 200 unit MARILIN DAILY [facility] Non-Formulary Medication (Melatonin) 6 mg PO BEDTIME [facility] Oseltamivir Phosphate (Tamiflu) 75 mg PO ONETIME ONE Stop: 11/27/18 11:44 Last Admin: 11/27/18 12:02 Dose: 75 mg - Exam Quality Assessment: Supplemental Oxygen, DVT Prophylaxis General: Alert, Oriented, Cooperative, No Acute Distress HEENT: Pupils Equal, Pupils Reactive, EOMI, Mucous Membr. Moist/[place] Neck: Supple, Trachea Midline, No JVD Lungs: Normal Respiratory Effort, Decreased Breath Sounds Cardiovascular: Regular Rate, Regular Rhythm GI/Abdominal Exam: Normal Bowel Sounds, Soft, Non-Tender, No Distention, No Abnormal Bruit (Male) Exam: Deferred Back Exam: Normal Inspection, Decreased Range of Motion Extremities: Normal Inspection, Non-Tender, No Pedal Edema, Normal Capillary Refill, Limited Range of Motion Peripheral Pulses: 2+: Radial (L), Radial (R), Dorsalis Pedis (L), Dorsalis Pedis (R) Skin: Warm, Dry, Intact Neurological: No New Focal Deficit Psy/Mental Status: Alert - Problem List & Annotations (1) COPD with exacerbation SNOMED Code(s): 592902764 Code(s): J44.1 - CHRONIC OBSTRUCTIVE PULMONARY DISEASE W (ACUTE) EXACERBATION Status: Acute Priority: High Current Visit: Yes (2) Influenza B SNOMED Code(s): 14521472 Code(s): J10.1 - FLU DUE TO OTH IDENT INFLUENZA VIRUS W OTH RESP MANIFEST Status: Acute Priority: High Current Visit: Yes (3) Altered mental status SNOMED Code(s): 160957890 Code(s): R41.82 - ALTERED MENTAL STATUS, UNSPECIFIED Status: Acute Priority: High Current Visit: Yes Qualifiers: Altered mental status type: disorientation Qualified Code(s): R41.0 - Disorientation, unspecified (4) Confusion SNOMED Code(s): 793899115 Code(s): R41.0 - DISORIENTATION, UNSPECIFIED Status: Acute Priority: High Current Visit: Yes (5) Dehydration SNOMED Code(s): 50075686 Code(s): E86.0 - DEHYDRATION Status: Resolved Priority: High Current Visit: Yes (6) HTN, Benign hypertension SNOMED Code(s): 29337595 Code(s): I10 - ESSENTIAL (PRIMARY) HYPERTENSION Status: Chronic Priority : Medium Current Visit: No (7) Hypoxemia SNOMED Code(s): 109792600 Code(s): R09.02 - HYPOXEMIA Status: Acute Priority: High Current Visit : Yes (8) Pneumonia SNOMED Code(s): 093310783 Code(s): J18.9 - PNEUMONIA, UNSPECIFIED ORGANISM Status: Acute Priority: High Current Visit: Yes Qualifiers: Pneumonia type: due to unspecified organism Laterality: right Lung location: lower lobe of lung Qualified Code(s): J18.1 - Lobar pneumonia, unspecified organism (9) Diabetes mellitus SNOMED Code(s): 58092946 Code(s): E11.9 - TYPE 2 DIABETES MELLITUS WITHOUT COMPLICATIONS Status: Chronic Priority: Medium Current Visit: No (10) Weakness SNOMED Code(s): 75075817 Code(s): R53.1 - WEAKNESS Status: Acute Priority: High Current Visit: Yes (11) Fever SNOMED Code(s): 175303550 Code(s): R50.9 - FEVER, UNSPECIFIED Status: Resolved Priority: High Current Visit: No - Problem List Review Problem List Initiated/Reviewed/Updated: Yes - My Orders Last 24 Hours: My Active Orders 12/02/18 05:11 BASIC METABOLIC PANEL,BMP [CHEM] AM CBC WITH AUTO DIFF [HEME] AM CRP [C-REACTIVE PROTEIN] [CHEM] AM MAGNESIUM [CHEM] AM 12/03/18 05:11 BASIC METABOLIC PANEL,BMP [CHEM] AM CBC WITH AUTO DIFF [HEME] AM CRP [C-REACTIVE PROTEIN] [CHEM] AM MAGNESIUM [CHEM] AM 12/04/18 05:11 BASIC METABOLIC PANEL,BMP [CHEM] AM CBC WITH AUTO DIFF [HEME] AM CRP [C-REACTIVE PROTEIN] [CHEM] AM MAGNESIUM [CHEM] AM 12/05/18 05:11 BASIC METABOLIC PANEL,BMP [CHEM] AM CBC WITH AUTO DIFF [HEME] AM CRP [C-REACTIVE PROTEIN] [CHEM] AM MAGNESIUM [CHEM] AM - Plan Plan:: Impression: COPD exacerbation, steroid dependent; expand for gram negative coverage, Pseudomonas PNA--Mycoplasma Influenza B Opiod dependence Chronic Hx of AAA HLD HTN Hx of CVA DM type 2 NHL Depression Plan: IV ATBs IVF Nebs Droplet isolation DVT/GI prophylaxis Home meds Daily labs Consult PT/OT/CM [employer] consult Code status: Full code; PCP: Dr Luke RAMIREZ likely tomorrow; query HH at [facility]. Recommending rehab stay however family is refusing. LOS >96 HRS due to slow response to treatment, need for expanded antibiotic coverage.
[2018-12-01] MEDS: Nicotine 21 MG/24 Hr Patch TRDERM SCH (18:02)
[2018-12-01] MEDS: Acetaminophen 325 MG Tab PO PRN (18:10)
[2018-12-01] MEDS: Rosuvastatin 10 MG Tab PO SCH (20:48)
[2018-12-02] MEDS: methylPREDNISolone Sodium Succinate 40 MG/1 ML SDV IVPUSH SCH ×2 (04:29→11:06)
[2018-12-02] MEDS: Ipratropium 0.02% 0.5 MG/2.5 ML Neb Soln NEB SCH ×2 (05:30→15:36)
[2018-12-02] MEDS: Insulin Lispro 100 Unit/ML 3 ML KwikPen SUBCUT SCH ×2 (09:06→12:12)
[2018-12-02] MEDS: Doxazosin 4 MG Tab PO SCH (09:08)
[2018-12-02] MEDS: Magnesium Oxide 400 MG Tab PO SCH (09:09)
[2018-12-02] MEDS: Megestrol Susp 40 MG/ML 10 ML UD Cup PO SCH (09:09)
[2018-12-02] MEDS: Metoprolol Tartrate 25 MG Tab PO SCH (09:09)
[2018-12-02] MEDS: Acetaminophen/HYDROcodone 325-5 MG Tab PO PRN (09:10)
[2018-12-02] MEDS: Rivaroxaban 10 MG Tab PO SCH (09:11)
[2018-12-02] MEDS: Bisacodyl 10 MG Supp RECTAL PRN ×2 (09:15→11:10)
--- NOTE | 2018-12-02 09:40 | PCM.DCSUM1 ---
Discharge Summary - Hospital Course HPI Initial Comments: 78 year old male residing at home presents with malaise, SOB, productive cough. He has tested positive for Influenza B as well as Mycoplasma. The patient and family can only provide minimal history. He will be admitted to [facility] with telemetry and is a full code. Diagnosis: Stroke: No - Discharge Data Discharge Date: 12/02/18 (Admit date: 11/27/18) Discharge Disposition: Home, W Home Health Agency 06 Condition: Good - Discharge Diagnosis/Problem(s) (1) COPD with exacerbation SNOMED Code(s): 517694021 ICD Code: J44.1 - CHRONIC OBSTRUCTIVE PULMONARY DISEASE W (ACUTE) EXACERBATION Status: Acute Priority: High Current Visit: Yes (2) Influenza B SNOMED Code(s): 33756795 ICD Code: J10.1 - FLU DUE TO OTH IDENT INFLUENZA VIRUS W OTH RESP MANIFEST Status: Acute Priority: High Current Visit: Yes (3) Altered mental status SNOMED Code(s): 730893890 ICD Code: R41.82 - ALTERED MENTAL STATUS, UNSPECIFIED Status: Acute Priority: High Current Visit: Yes Qualifiers: Altered mental status type: disorientation Qualified Code(s): R41.0 - Disorientation, unspecified (4) Confusion SNOMED Code(s): 345643783 ICD Code: R41.0 - DISORIENTATION, UNSPECIFIED Status: Acute Priority: High Current Visit: Yes (5) Dehydration SNOMED Code(s): 93896074 ICD Code: E86.0 - DEHYDRATION Status: Resolved Priority: High Current Visit: Yes (6) HTN, Benign hypertension SNOMED Code(s): 64378911 ICD Code: I10 - ESSENTIAL (PRIMARY) HYPERTENSION Status: Chronic Priority : Medium Current Visit: No (7) Hypoxemia SNOMED Code(s): 553063364 ICD Code: R09.02 - HYPOXEMIA Status: Acute Priority: High Current Visit : Yes (8) Pneumonia SNOMED Code(s): 519641630 ICD Code: J18.9 - PNEUMONIA, UNSPECIFIED ORGANISM Status: Acute Priority : High Current Visit: Yes Qualifiers: Pneumonia type: due to Pseudomonas Laterality: right Lung location: lower lobe of lung Qualified Code(s): J15.1 - Pneumonia due to Pseudomonas (9) Diabetes mellitus SNOMED Code(s): 58341694 ICD Code: E11.9 - TYPE 2 DIABETES MELLITUS WITHOUT COMPLICATIONS Status: Chronic Priority: Medium Current Visit: No (10) Weakness SNOMED Code(s): 89300853 ICD Code: R53.1 - WEAKNESS Status: Acute Priority: High Current Visit: Yes (11) Mycoplasma pneumonia SNOMED Code(s): 10363687 ICD Code: J15.7 - PNEUMONIA DUE TO MYCOPLASMA PNEUMONIAE Status: Acute Priority: High Current Visit: Yes Qualifiers: Laterality: unspecified laterality Lung location: unspecified part of lung Qualified Code(s): J15.7 - Pneumonia due to Mycoplasma pneumoniae - Patient Summary/Data Consults: Consultations 11/28/18 09:00 Consult to Occupational Therapy [OT Evaluation and Treatment] [CONS] Routine Consult to Physical Therapy [PT Evaluation and Treatment] [CONS] Routine 11/30/18 09:00 Consult to Case Management/Lab Clerk [CONS] Routine Labs Pending at D/C: None Recommended Follow-up Testing/Procedures: Follow-up with your primary care provider within 7-10 days of discharge. Hospital Course: Impression: COPD exacerbation, steroid dependent; expand for gram negative coverage, Pseudomonas PNA--Mycoplasma Influenza B Nicotine dependence Chronic Hx of AAA HLD HTN Hx of CVA DM type 2 NHL Depression Plan: IV ATBs IVF Nebs Droplet isolation DVT/GI prophylaxis Home meds Daily labs Consult PT/OT/CM Outreach Team Member consult Code status: Full code; PCP: Dr Luke RAMIREZ likely tomorrow; query HH at [place]. Recommending rehab stay however family is refusing. LOS >96 HRS due to slow response to treatment, need for expanded antibiotic coverage. Overall Roosevelt did ok. He came into our ED and was diagnosed with a COPD exacerbation, PNA, and positive influenza B. He was started on doxycycline and tamiflu. His serum mycoplama test returned positive. He was started on high dose IV steroids, which were weaned down prior to discharge. He worked with PT/ OT and RT. He utilized IS and acapella. He was very week on admission and this did improve while with us slightly. He is on PRN oxygen at home with 2L at night. His oxygen need did increase while here and he was discharged on 2L continuously, which can be adjusted by his PCP once he improves. He did complete treatment for influenza while here. He was given 2 days of doxycyline and then his sputum culture returned pseudomonas Aeruginosa and this was changed to levaquin which was noted to have good coverage in the sensitivities. This would also cover mycoplasma as well. While here it was noted he consumes significant amounts of nicotine lozenges. His and family report he is addicted. He was provided a 21mg nicotine patch while here which managed his cravings. This was discussed with his and family who were concerned about his usage but not too concerned with attempting to wean him off. All were advised this is something to look into with his PCP as he will be able to monitor him better. PT/OT did see Roosevelt and were recommending a SNF rehab stay however family has had some bad experiences in the past with SNF care and refused. It was ultimately decided he would go home with his family caring for him along with home health. He will be discharged today on a 5 day course of 750mg levaquin along with a steroid taper and 7 days of albuteral nebulizers TID. Of note his is already taking 10mg daily prednisone and this should be continued after he completes his taper. His usual home medications were otherwise continued. He was instructed to utilize his IS and acapella until his symptoms completely resolve. He was discharged on home oxygen as above. I personally met with Roosevelt and his today prior to discharge [id number] to discuss his homebound status. It is felt he will be homebound due to significant difficulty with ambulation and need for oxygen. He currently has influenza and mycoplasma pneumonia. This in addition to his chronic COPD and symptoms from his multiple strokes make ambulation and transportation very difficult. He is also quite weak. Home health has been ordered and will include m[facility] services for assistance with medications and overall monitoring of progress, PT/OT for strengthening and assistance in learning ADLs, and [facility] services for assistance with ADLs including bathing, etc. These services can be monitored by Roosevelt's PCP, Dr. Butler, and adjusted in the future as he sees fit. - Patient Instructions Diet: Heart Healthy Diet Activity: As Tolerated Driving: Do Not Drive Showering/Bathing: May Shower Notify Provider of: Fever, Increased Pain, Nausea and/or Vomiting Other/Special Instructions: -Follow-up with PCP within 7-10 days of discharge. -Complete all your antibiotic, even if you feel 100% better. -Home health PT/OT , mcc, [facility] ordered. -We recommended mcc placement for a rehab stay and you and your family decided this was not needed. This can always be an option in the future if needed. -Continue to utilize your incentive spirometry (blue/clear divice your inhale through) and acapella ( green tube you blow through) until respiratory symptoms completely resolve. - Utilize your nebulizer as directed. -Resume home medications. -You need to cut back on utilizing your nicotine gum. You should discuss this with your primary care provider as he can assist you in this. -Should symtpoms return or worsen, contact your primary care provider or return to the ED. - Discharge Plan *PRESCRIPTION DRUG MONITORING PROGRAM REVIEWED*: No *COPY OF PRESCRIPTION DRUG MONITORING REPORT IN PATIENT ELVIA: No Prescriptions/Med Rec: Albuterol [Proventil] 2.5 mg INH TID #21 neb Levofloxacin [Levaquin] 750 mg PO DAILY #5 tablet predniSONE [Prednisone] 20 mg PO ASDIRECTED #30 tablet Home Medications: Home Meds Calcitonin,[place],Synthetic [Calcitonin-[place]] 200 unit MARILIN DAILY 09/06/14 [ History] Fluticasone Propionate [Flonase] 2 spray MARILIN DAILY 09/06/14 [History] Cholecalciferol (Vitamin D3) [Vitamin D3] 2,000 unit PO DAILY 07/22/15 [History] Acetaminophen/HYDROcodone [[place] 325-5 MG] 1 tab PO TID #60 tablet 11/07/17 [Rx] Magnesium Oxide 400 mg PO DAILY #30 tablet 11/07/17 [Rx] Melatonin 6 mg PO BEDTIME #30 tablet 11/07/17 [Rx] Multivitamin with Minerals [Multiple Vitamin] 1 tab PO DAILY #30 tablet [Rx] Nicotine Polacrilex [Nicotine Lozenge] 4 mg BC Q2H PRN #30 lozenge 11/07/17 [Rx] Omeprazole 20 mg PO DAILY #30 cap.cr 11/07/17 [Rx] Potassium Chloride 10 meq PO DAILY #30 capsule.er 11/07/17 [Rx] Rosuvastatin [Crestor] 5 mg PO BEDTIME #15 tablet 11/07/17 [Rx] Sennosides/Docusate Sodium [Senna-Docusate Sodium] 1 tab PO BID #60 tablet 11/07 [Rx] Triamcinolone Acetonide [Triamcinolone Acetonide 0.5%] 15 gm TOP BID PRN #3 tube 11/07/17 [Rx] Acetaminophen [Tylenol] 650 mg PO Q6H PRN 11/27/18 [History] Bifidobacter. Bifidum/B.Longum [Florajen Bifidoblend] 1 cap PO DAILY 11/27/18 [ History] Bisacodyl [Biscolax] 10 mg RC DAILY PRN 11/27/18 [History] Doxazosin [Cardura] 4 mg PO DAILY 11/27/18 [History] Linagliptin [Tradjenta] 5 mg PO DAILY 11/27/18 [History] Magnesium Hydroxide [Milk of Magnesia] 30 ml PO TID PRN 11/27/18 [History] Metoprolol Tartrate 50 mg PO BID 11/27/18 [History] Na Phos,M-B/Na Phos,Di-Ba [Fleet Enema] 1 bottle RECTAL DAILY PRN 11/27/18 [ History] Rivaroxaban [Xarelto] 15 mg PO DAILY 11/27/18 [History] Umeclidinium Brm/Vilanterol Tr [Anoro Ellipta 62.5-25 MCG] 1 puff INH DAILY 03/12 [History] Zinc Gluconate [Zinc] 30 mg PO DAILY 11/27/18 [History] Megestrol [Megace 40 MG/ML Susp] 800 mg PO DAILY 11/28/18 [History] Albuterol [Proventil] 2.5 mg INH TID #21 neb 12/02/18 [Rx] Levofloxacin [Levaquin] 750 mg PO DAILY #5 tablet 12/02/18 [Rx] predniSONE [Prednisone] 10 mg PO DAILY #30 tablet 12/02/18 [Rx] predniSONE [Prednisone] 20 mg PO ASDIRECTED #30 tablet 12/02/18 [Rx] Oxygen Therapy Mode: Nasal Cannula Oxygen Flow Rate (L/min): 2 (Resume prior oxygen regimen) Maintain SpO2% greater than: 90 Patient Handouts: Community-Acquired Pneumonia, Adult, [id number] Referrals: Scottie Butler MD [Primary Care Provider] - 12/09/18 1:00 pm (Please follow-up with Dr. Butler, your primary care provider, on December 09 at 1:00pm. ) - Discharge Summary/Plan Comment DC Time >30 min.: Yes (45 minutes ) - General Info Date of Service: 12/02/18 Admission Dx/Problem (Free Text: Admission Diagnosis/Problem Admission Diagnosis/Problem COPD, Severe chronic obstructive pulmonary disease Subjective Update: In to see Roosevelt. He is lying in bed. He has no complaints and reports he feels pretty good. We discussed plan for discharge. No nursing, patient, or RT concerns. Functional Status: Reports: Pain Controlled, Tolerating Diet, Urinating, Incentive Spirometry, Other (acapella ). Denies: Ambulating (standing with therapies ), New Symptoms - Review of Systems General: Reports: Weakness (improving ), Fatigue (improving ). Denies: Fever, Malaise, Chills HEENT: Reports: Headaches (chronic ). Denies: Sore Throat Pulmonary: Reports: Shortness of Breath (baseline ), Cough (improving ) Cardiovascular: Reports: No Symptoms. Denies: Chest Pain, Palpitations, Edema Gastrointestinal: Reports: No Symptoms. Denies: Abdominal Pain, Constipation, Diarrhea, Nausea, Vomiting Genitourinary: Reports: No Symptoms. Denies: Pain Musculoskeletal: Reports: No Symptoms Skin: Reports: No Symptoms Neurological: Reports: Pre-Existing Deficit (2/2 multiple strokes ), Trouble Speaking (chronic 2/2 stroke ), Difficulty Walking, Gait Disturbance. Denies: Confusion Psychiatric: Reports: No Symptoms - Patient Data Vitals - Most Recent: Last Vital Signs Temp 97.5 F 12/02/18 04:27 Pulse 69 12/02/18 09:09 Resp 16 12/02/18 04:27 BP 114/76 12/02/18 09:09 Pulse Ox 96 12/02/18 05:30 Weight - Most Recent: 142 lb I&O - Last 24 hours: Intake & Output 12/01/18 12/02/18 12/02/18 22:59 06:59 14:59 Intake Total 780 300 Output Total 400 Balance 380 300 Lab Results - Last 24 hrs: Laboratory Results - last 24 hr 12/01/18 12/01/18 12/01/18 Range/Units 10:55 18:05 22:10 WBC (4.23-9.07) K/mm3 RBC (4.63-6.08) M/mm3 Hgb (13.7-17.5) gm/L Hct (40.1-51.0) % MCV (79.0-92.2) fl MCH (25.7-32.2) pg MCHC (32.2-35.5) g/dl RDW Std Deviation (35.1-43.9) fL Plt Count (163-337) K/mm3 MPV (9.4-12.3) fl Neut % (Auto) (34.0-67.9) % Lymph % (Auto) (21.8-53.1) % Ocean % (Auto) (5.3-12.2) % Eos % (Auto) (0.8-7.0) Baso % (Auto) (0.1-1.2) % Neut # (Auto) (1.78-5.38) K/mm3 Lymph # (Auto) (1.32-3.57) K/mm3 Ocean # (Auto) (0.30-0.82) K/mm3 Eos # (Auto) (0.04-0.54) K/mm3 Baso # (Auto) (0.01-0.08) K/mm3 Manual Slide Review Sodium (136-145) mEq/L Potassium (3.5-5.1) mEq/L Chloride (98-107) mEq/L Carbon Dioxide (21-32) mEq/L Anion Gap (5-15) BUN (7-18) mg/dL Creatinine (0.7-1.3) mg/dL Est Cr Clr Drug Dosing mL/min Estimated GFR (MDRD) (>60) mL/min BUN/Creatinine Ratio (14-18) Glucose (83-115) mg/dL POC Glucose 246 H 370 H 283 H (83-110) mg/dL Calcium (8.5-10.1) mg/dL Magnesium (1.8-2.4) mg/dl C-Reactive Protein (<1.0) mg/dL 12/02/18 12/02/18 12/02/18 Range/Units 06:04 06:05 06:05 WBC 6.38 (4.23-9.07) K/mm3 RBC 4.05 L (4.63-6.08) M/mm3 Hgb 10.8 L (13.7-17.5) gm/L Hct 34.4 L (40.1-51.0) % MCV 84.9 (79.0-92.2) fl MCH 26.7 (25.7-32.2) pg MCHC 31.4 L (32.2-35.5) g/dl RDW Std Deviation 47.7 H (35.1-43.9) fL Plt Count 84 L (163-337) K/mm3 MPV 10.7 (9.4-12.3) fl Neut % (Auto) 88.5 H (34.0-67.9) % Lymph % (Auto) 7.2 L (21.8-53.1) % Ocean % (Auto) 2.7 L (5.3-12.2) % Eos % (Auto) 0 L (0.8-7.0) Baso % (Auto) 0.2 (0.1-1.2) % Neut # (Auto) 5.65 H (1.78-5.38) K/mm3 Lymph # (Auto) 0.46 L (1.32-3.57) K/mm3 Ocean # (Auto) 0.17 L (0.30-0.82) K/mm3 Eos # (Auto) 0.00 L (0.04-0.54) K/mm3 Baso # (Auto) 0.01 (0.01-0.08) K/mm3 Manual Slide Review Abnormal smear Sodium 141 (136-145) mEq/L Potassium 4.2 (3.5-5.1) mEq/L Chloride 107 (98-107) mEq/L Carbon Dioxide 27 (21-32) mEq/L Anion Gap 11.2 (5-15) BUN 25 H (7-18) mg/dL Creatinine 0.6 L (0.7-1.3) mg/dL Est Cr Clr Drug Dosing 90.95 mL/min Estimated GFR (MDRD) > 60 (>60) mL/min BUN/Creatinine Ratio 41.7 H (14-18) Glucose 226 H (83-115) mg/dL POC Glucose 242 H (83-110) mg/dL Calcium 7.9 L (8.5-10.1) mg/dL Magnesium 2.3 (1.8-2.4) mg/dl C-Reactive Protein 1.5 H* (<1.0) mg/dL YAMILE Results - Last 24 hrs: Microbiology 11/27/18 10:46 Aerobic Blood Culture - Preliminary Blood NO GROWTH AFTER 4 DAYS Anaerobic Blood Culture - Preliminary NO GROWTH AFTER 4 DAYS 11/27/18 10:36 Aerobic Blood Culture - Preliminary Blood NO GROWTH AFTER 4 DAYS Anaerobic Blood Culture - Preliminary NO GROWTH AFTER 4 DAYS Med Orders - Current: Current Medications Acetaminophen (Tylenol) 650 mg PO Q6H PRN PRN Reason: Pain Last Admin: 12/01/18 18:10 Dose: 650 mg Hydrocodone Bitart/Acetaminophen ([place] 325-5 Mg) 1 tab PO BID PRN PRN Reason: Pain Last Admin: 12/02/18 09:10 Dose: 1 tab Al Hydroxide/Mg Hydroxide (Mag-Al Plus) 30 ml PO DAILY [facility] Last Admin: 12/01/18 08:05 Dose: 30 ml Albuterol/Ipratropium (Duoneb 3.0-0.5 Mg/3 Ml) 3 ml NEB QID PRN PRN Reason: Shortness of Breath Alogliptin Benzoate (Alogliptin) 25 mg PO DAILY [facility] Last Admin: 12/02/18 09:09 Dose: 25 mg Bisacodyl (Dulcolax) 10 mg RECTAL DAILY PRN PRN Reason: Constipation Last Admin: 12/02/18 09:15 Dose: 10 mg Doxazosin Mesylate (Cardura) 4 mg PO DAILY [facility] Last Admin: 12/02/18 09:08 Dose: 4 mg Flunisolide (Nasalide Nasal [place]) 0 ml MARILIN BID [facility] Last Admin: 12/01/18 20:53 Dose: 1 spray Levofloxacin/Dextrose 750 mg/ (Premix) 150 mls @ 100 mls/hr IV Q24H [facility] Last Admin: 12/01/18 12:30 Dose: 100 mls/hr Insulin Human Lispro (Humalog) 0 unit SUBCUT QIDACANDBED [facility]; Protocol Last Admin: 12/02/18 09:06 Dose: 4 units Ipratropium [place] (Atrovent) 0.5 mg NEB Q8HRRT [facility] Last Admin: 12/02/18 05:30 Dose: 0.5 mg Magnesium Oxide (Magnesium Oxide) 400 mg PO DAILY [facility] Last Admin: 12/02/18 09:09 Dose: 400 mg Megestrol Acetate (Megace 40 Mg/Ml Susp) 800 mg PO DAILY [facility] Last Admin: 12/02/18 09:09 Dose: 800 mg Methylprednisolone Sodium Succinate (Solu-Medrol) 80 mg IVPUSH Q8H [facility] Last Admin: 12/02/18 04:29 Dose: 80 mg Metoprolol Tartrate (Lopressor) 50 mg PO BID [facility] Last Admin: 12/02/18 09:09 Dose: 50 mg Miscellaneous Information (Remove Patch) 0 ea TRDERM Q24H [facility] Last Admin: 12/01/18 18:02 Dose: 1 ea Nicotine (Habitrol) 21 mg TRDERM Q24H [facility] Last Admin: 12/01/18 18:02 Dose: 21 mg Rivaroxaban (Xarelto) 15 mg PO DAILY [facility] Last Admin: 12/02/18 09:11 Dose: 15 mg Rosuvastatin Calcium (Crestor) 5 mg PO BEDTIME [facility] Last Admin: 12/01/18 20:48 Dose: 5 mg Senna/Docusate Sodium (Senna Plus) 1 tab PO BID [facility] Last Admin: 12/02/18 09:09 Dose: 1 tab Triamcinolone Acetonide (Triamcinolone Acetonide 0.5%) 0 gm TOP BID PRN PRN Reason: Rash Discontinued Medications Al Hydroxide/Mg Hydroxide (Mag-Al Plus) 30 ml PO BID [facility] Doxazosin Mesylate (Cardura) 4 mg PO ONETIME ONE Stop: 11/28/18 15:16 Last Admin: 11/28/18 15:58 Dose: 4 mg Doxycycline Hyclate 100 mg/ (Sodium Chloride) 100 mls @ 100 mls/hr IV ONETIME ONE Stop: 11/27/18 12:42 Last Admin: 11/27/18 11:59 Dose: 100 mls/hr Lactated Ringer's (Ringers, Lactated) 500 mls @ 500 mls/hr IV .BOLUS ONE Stop: 11/27/18 12:47 Last Admin: 11/27/18 11:59 Dose: 500 mls/hr Lactated Ringer's (Ringers, Lactated) 1,000 mls @ 100 mls/hr IV ASDIRECTED [facility] Last Admin: 11/27/18 17:19 Dose: 100 mls/hr Doxycycline Hyclate 100 mg/ (Sodium Chloride) 100 mls @ 100 mls/hr IV Q12HR [facility] Last Admin: 11/28/18 09:50 Dose: 100 mls/hr Sodium Chloride (Normal Saline) 1,000 mls @ 100 mls/hr IV ASDIRECTED [facility] Last Admin: 11/29/18 01:58 Dose: 100 mls/hr Ipratropium [place] (Atrovent) 0.5 mg NEB ONETIME ONE Stop: 11/27/18 11:51 Last Admin: 11/27/18 12:14 Dose: 0.5 mg Methylprednisolone Sodium Succinate (Solu-Medrol) 125 mg IVPUSH ONETIME ONE Stop: 11/27/18 11:35 Last Admin: 11/27/18 11:41 Dose: 125 mg Methylprednisolone Sodium Succinate (Solu-Medrol) 80 mg IVPUSH Q6H [facility] Last Admin: 12/01/18 12:29 Dose: 80 mg Metoprolol Tartrate (Lopressor) 50 mg PO ONETIME ONE Stop: 11/28/18 15:16 Last Admin: 11/28/18 15:58 Dose: 50 mg Non-Formulary Medication (Umeclidinium Brm/Vilanterol Tr) 1 puff INH DAILY [facility] Non-Formulary Medication (Bifidobacter. Bifidum/B.Longum [Florajen Bifidoblend] ) 1 cap PO DAILY [facility] Non-Formulary Medication (Calcitonin ([place])) 200 unit MARILIN DAILY [facility] Non-Formulary Medication (Melatonin) 6 mg PO BEDTIME [facility] Oseltamivir Phosphate (Tamiflu) 75 mg PO ONETIME ONE Stop: 11/27/18 11:44 Last Admin: 11/27/18 12:02 Dose: 75 mg Oseltamivir Phosphate (Tamiflu) 75 mg PO BID [facility] Stop: 12/01/18 21:01 Last Admin: 12/01/18 20:50 Dose: 75 mg - Exam Quality Assessment: Reports: Supplemental Oxygen, DVT Prophylaxis General: Reports: Alert, Oriented, Cooperative, No Acute Distress HEENT: Reports: Pupils Equal, Pupils Reactive, EOMI, Mucous Membr. Moist/[employer] Neck: Reports: Supple, Trachea Midline, No JVD Lungs: Reports: Normal Respiratory Effort, Decreased Breath Sounds Cardiovascular: Reports: Regular Rate, Regular Rhythm GI/Abdominal Exam: Normal Bowel Sounds, Soft, Non-Tender, No Distention, No Abnormal Bruit (Male) Exam: Deferred Rectal (Males) Exam: Deferred Back Exam: Reports: Normal Inspection, Decreased Range of Motion Extremities: Normal Inspection, Non-Tender, No Pedal Edema, Normal Capillary Refill, Limited Range of Motion Skin: Reports: Warm, Dry, Intact Neurological: Reports: No New Focal Deficit Psy/Mental Status: Reports: Alert, Normal Affect, Normal Mood
[2018-12-02] MEDS: Aluminum Hydroxide/Magnesium Hydroxide/Simethicone Susp 30 ML Cup PO SCH (11:06)
[2018-12-02 11:39] VITALS: BP 107/81
[2018-12-02] MEDS: Levofloxacin/Dextrose 5%-Water 750 MG in Premix Bag 1 BAG IV SCH (12:59)
[2018-12-02] MEDS: Acetaminophen 325 MG Tab PO PRN (13:02)
== END 2018-12-02 15:15 | disposition home health service (06) | DRG 194 ==
LOC: JD.ED 09:32 → JD.MS 12:19
PROVIDERS: ADMIT Internal Medicine Cardiovascular Disease; ATTEND Internal Medicine Cardiovascular Disease
DX: J11.1 Influenza due to unidentified influenza virus with other respiratory manifestations (principal); J10.08 Influenza due to other identified influenza virus with other specified pneumonia; C85.90 Non-Hodgkin lymphoma, unspecified, unspecified site; F11.20 Opioid dependence, uncomplicated; J44.1 Chronic obstructive pulmonary disease with (acute) exacerbation; J15.7 Pneumonia due to Mycoplasma pneumoniae; J44.0 Chronic obstructive pulmonary disease with (acute) lower respiratory infection; I50.9 Heart failure, unspecified; I11.0 Hypertensive heart disease with heart failure; E78.00 Pure hypercholesterolemia, unspecified; R09.02 Hypoxemia; N40.1 Benign prostatic hyperplasia with lower urinary tract symptoms; R35.1 Nocturia; R39.15 Urgency of urination; G89.29 Other chronic pain; M54.9 Dorsalgia, unspecified; M81.0 Age-related osteoporosis without current pathological fracture; Z85.72 Personal history of non-Hodgkin lymphomas; M06.9 Rheumatoid arthritis, unspecified; F32.9 Major depressive disorder, single episode, unspecified; H91.90 Unspecified hearing loss, unspecified ear; H54.7 Unspecified visual loss; H35.30 Unspecified macular degeneration; L89.152 Pressure ulcer of sacral region, stage 2; E86.0 Dehydration; R41.82 Altered mental status, unspecified; Z87.891 Personal history of nicotine dependence; B96.5 Pseudomonas (aeruginosa) (mallei) (pseudomallei) as the cause of diseases classified elsewhere; R60.0 Localized edema; F17.200 Nicotine dependence, unspecified, uncomplicated; R05 Cough; R06.02 Shortness of breath; I47.1 Supraventricular tachycardia; R41.0 Disorientation, unspecified; R53.1 Weakness; E78.5 Hyperlipidemia, unspecified; G47.00 Insomnia, unspecified; E11.42 Type 2 diabetes mellitus with diabetic polyneuropathy; Z95.828 Presence of other vascular implants and grafts; Z99.81 Dependence on supplemental oxygen; Z88.8 Allergy status to other drugs, medicaments and biological substances; Z79.899 Other long term (current) drug therapy; Z79.52 Long term (current) use of systemic steroids; Z86.73 Personal history of transient ischemic attack (TIA), and cerebral infarction without residual deficits; Z99.3 Dependence on wheelchair; Z86.010 Personal history of colon polyps; Z79.01 Long term (current) use of anticoagulants
CPT/HCPCS: 36415; 71045; 80053; 83605; 83690; 83880; 84484; 85007; 85027; 85610; 85730; 86738; 87040 ×2; 87804 ×2; 93005; 94640; 96374; 96375; 99285; A9270; J2930; J3490; J7030; J7120; 71046; 71046-26; 80048; 81001; 82962; 83735; 85025; 86140; 87070; 87086; 87186; 87205; 93010; 94668; 94760; 94761; 97110-GP; 97162-GP; 97165-GO; 97530-GO; 97530-GP; J1815; J1956; J2920; J7040